=== PATIENT | female | born 1960 ===

== ENCOUNTER 2017-05-24 18:53 | Inpatient (IN) | payer MEDICARE ==
[2017-05-24] MEDS ORDERED: LIDOCAINE TOP PRN (21:00)
[2017-05-24] MEDS: Nystatin Powder 15 GM BOT TOP SCH (22:18)
[2017-05-24] MEDS: Amoxicillin/Potassium Clav 500 MG TAB PO SCH (22:19)
[2017-05-24] MEDS: Furosemide 40 MG TAB PO SCH (22:20)
[2017-05-24] MEDS: Pramipexole Di-HCl 0.25 MG TAB PO SCH (22:20)
[2017-05-24] MEDS: Montelukast Sodium 10 mg Tablet PO SCH (22:20)
[2017-05-24] MEDS: ALPRAZolam 0.5 MG TAB PO PRN (22:20)
[2017-05-24] MEDS: Furosemide 20 MG TAB PO SCH (22:20)
[2017-05-24] MEDS: HYDROcodone/Acetaminophen 7.5/325 mg Tablet PO PRN (22:20)
[2017-05-24] MEDS: Gabapentin 300 MG CAP PO SCH (22:20)
[2017-05-24 22:53] LABS: Bilirubin Negative (Negative); Blood, Urine Trace (Negative); Clarity Clear (Clear); Glucose, Urine (Dipstick) Negative (Negative); Leukocyte Negative (Negative); Nitrite Negative (Negative); Protein, Urine (Dipstick) Negative (Neg-Trace); Urobilinogen 0.2 mg/dL (0.2-1.0)
[2017-05-24 23:01] LABS: Bacteria/HPF None Seen HPF (None Seen); RBC/HPF 0-3 HPF (0-3); Squamous Epithelial 0-3 HPF (0-3); WBC/HPF None Seen HPF (0-3)
[2017-05-25 05:17] LABS: #Basophils 0.2 thou/uL (0.0-0.2); #Eosinphils 0.4 thou/uL (0.0-0.7); #Lymphocytes 1.2 thou/uL (1.20-3.40); #Monocytes 0.8 thou/uL (0.11-0.59); #Neutrophils 5.7 thou/uL (1.40-6.50); %Basophils 2.4 % (0.0-1.0); %Lymphocytes 14.7 % (21.0-51.0); %Monocytes 9.1 % (0.0-10.0); %Neutrophils 68.8 % (42.0-75.0); Hemoglobin 8.8 g/dL (12.0-16.0); Mean Corpuscular HGB CONC 30.4 g/dL (32.0-36.0); Mean Corpuscular Hemoglobin 26.2 pg (27.0-31.0); Mean Corpuscular Volume 86.2 fl (81.0-99.0); Platelet Count 224 thou/uL (130-400); RBC Distribution Width 17.7 % (11.5-14.5); Red Blood Cell (RBC) Count 3.34 mill/uL (4.20-5.40); White Blood Cell (WBC) Count 8.3 thou/uL (4.8-10.8)
[2017-05-25 05:33] LABS: Anion Gap 17 mmol/L (10-20); BUN (Urea Nitrogen) 35 mg/dL (9.8-20.1); Calc. Creatinine Clearance 137 mL/min (70-130); Calcium 9.4 mg/dL (7.8-10.44); Carbon Dioxide 33 mmol/L (22-29); Chloride 92 mmol/L (98-107); Estimated GFR-MDRD 42; Glucose 133 mg/dL (70-105); Potassium 3.7 mmol/L (3.5-5.1); Sodium 138 mmol/L (136-145)
[2017-05-25] MEDS: Acetaminophen 500 MG TAB PO PRN (06:10)
[2017-05-25] MEDS ORDERED: Non-Formulary Item 1 EACH (Spironolact/Hydrochlorothiazid [Aldactazide] 1 TAB) PO SCH (09:00)
[2017-05-25] MEDS ORDERED: Hydrochlorothiazide 25 MG TAB PO SCH (09:00)
[2017-05-25] MEDS: Amoxicillin/Potassium Clav 500 MG TAB PO SCH ×2 (09:12→21:10)
[2017-05-25] MEDS: Gabapentin 300 MG CAP PO SCH ×3 (09:13→21:11)
[2017-05-25] MEDS: Furosemide 40 MG TAB PO SCH ×2 (09:13→21:10)
[2017-05-25] MEDS: Aspirin 81 mg Enteric Coated Tablet PO SCH (09:13)
[2017-05-25] MEDS: Potassium Chloride 10 MEQ TAB PO SCH ×2 (09:13→17:53)
[2017-05-25] MEDS: Famotidine 20 MG TAB PO SCH ×2 (09:13→21:10)
[2017-05-25] MEDS: Ferrous Sulfate 325 MG TAB PO SCH ×3 (09:14→17:53)
[2017-05-25] MEDS: Spironolactone 25 MG TAB PO SCH (09:14)
[2017-05-25] MEDS: Nystatin Powder 15 GM BOT TOP SCH ×3 (09:14→21:11)
[2017-05-25] MEDS: Furosemide 20 MG TAB PO SCH ×2 (09:14→21:10)
[2017-05-25] MEDS: Pramipexole Di-HCl 0.25 MG TAB PO SCH ×2 (09:14→21:11)
[2017-05-25] MEDS: HYDROcodone/Acetaminophen 7.5/325 mg Tablet PO PRN ×2 (09:19→18:15)
[2017-05-25] MEDS: Enoxaparin Sodium 40 MG/0.4 ML SYRINGE SC SCH (17:52)
[2017-05-25] MEDS: Montelukast Sodium 10 mg Tablet PO SCH (21:10)
[2017-05-25] MEDS: ALPRAZolam 0.5 MG TAB PO PRN (21:14)
[2017-05-26] MEDS ORDERED: Amoxicillin/Potassium Clav 500 MG TAB ONE (08:29)
[2017-05-26] MEDS: Ferrous Sulfate 325 MG TAB PO SCH ×3 (08:33→17:24)
[2017-05-26] MEDS: Potassium Chloride 10 MEQ TAB PO SCH ×2 (08:33→17:24)
[2017-05-26] MEDS: Amoxicillin/Potassium Clav 500 MG TAB PO SCH ×2 (08:34→21:26)
[2017-05-26] MEDS: Furosemide 20 MG TAB PO SCH ×2 (08:34→21:26)
[2017-05-26] MEDS: Famotidine 20 MG TAB PO SCH ×2 (08:34→21:26)
[2017-05-26] MEDS: Aspirin 81 mg Enteric Coated Tablet PO SCH (08:34)
[2017-05-26] MEDS: Spironolactone 25 MG TAB PO SCH (08:34)
[2017-05-26] MEDS: Furosemide 40 MG TAB PO SCH ×2 (08:34→21:26)
[2017-05-26] MEDS: Gabapentin 300 MG CAP PO SCH ×3 (08:35→21:27)
[2017-05-26] MEDS: Nystatin Powder 15 GM BOT TOP SCH ×3 (08:36→21:27)
[2017-05-26] MEDS: Pramipexole Di-HCl 0.25 MG TAB PO SCH ×2 (08:36→21:27)
[2017-05-26] MEDS: HYDROcodone/Acetaminophen 7.5/325 mg Tablet PO PRN (11:45)
[2017-05-26] MEDS: Enoxaparin Sodium 40 MG/0.4 ML SYRINGE SC SCH (17:24)
[2017-05-26] MEDS: ALPRAZolam 0.5 MG TAB PO PRN (21:27)
[2017-05-26] MEDS: Montelukast Sodium 10 mg Tablet PO SCH (21:27)
[2017-05-26] MEDS: Albuterol Sulfate 2.5 mg/3 ml Neb NEB PRN (22:07)
[2017-05-27] MEDS: HYDROcodone/Acetaminophen 7.5/325 mg Tablet PO PRN (04:37)
[2017-05-27] MEDS: Aspirin 81 mg Enteric Coated Tablet PO SCH (08:29)
[2017-05-27] MEDS: Ferrous Sulfate 325 MG TAB PO SCH ×3 (08:29→16:41)
[2017-05-27] MEDS: Spironolactone 25 MG TAB PO SCH (08:29)
[2017-05-27] MEDS: Potassium Chloride 10 MEQ TAB PO SCH ×2 (08:29→16:41)
[2017-05-27] MEDS: Famotidine 20 MG TAB PO SCH ×2 (08:29→22:01)
[2017-05-27] MEDS: Furosemide 20 MG TAB PO SCH ×2 (08:30→22:00)
[2017-05-27] MEDS: Pramipexole Di-HCl 0.25 MG TAB PO SCH ×2 (08:30→22:00)
[2017-05-27] MEDS: Gabapentin 300 MG CAP PO SCH ×3 (08:30→21:59)
[2017-05-27] MEDS: Furosemide 40 MG TAB PO SCH ×2 (08:30→21:59)
[2017-05-27] MEDS: Acetaminophen 500 MG TAB PO PRN ×2 (08:31→16:41)
[2017-05-27] MEDS: Nystatin Powder 15 GM BOT TOP SCH ×3 (08:34→22:00)
[2017-05-27] MEDS ORDERED: Amoxicillin/Potassium Clav 500 MG TAB ONE (08:41)
[2017-05-27] MEDS: Amoxicillin/Potassium Clav 500 MG TAB PO SCH ×2 (08:44→21:58)
[2017-05-27] MEDS: Albuterol Sulfate 2.5 mg/3 ml Neb NEB PRN (14:20)
[2017-05-27] MEDS: Enoxaparin Sodium 40 MG/0.4 ML SYRINGE SC SCH (17:07)
[2017-05-27] MEDS: Montelukast Sodium 10 mg Tablet PO SCH (21:58)
[2017-05-27] MEDS: ALPRAZolam 0.5 MG TAB PO PRN (21:59)
[2017-05-28 05:21] LABS: Anisocytosis MODERATE=16-30 cells (100X) (0-5/hpf); Band 6 % (5-11); Elliptocytes SLIGHT = 2-5 cells (100X) (0-1/hpf); Eosinophils 6 % (0-10); Hemoglobin 8.7 g/dL (12.0-16.0); Hypochromia SLIGHT = 6-15 cells (100X) (0-5/hpf); Lymphocytes 20 % (21-51); MDiff Complete? YES; Mean Corpuscular HGB CONC 30.5 g/dL (32.0-36.0); Mean Corpuscular Hemoglobin 26.2 pg (27.0-31.0); Mean Corpuscular Volume 86.1 fl (81.0-99.0); Mean Platelet Volume 5.9 fL (7.4-10.4); Monocytes 7 % (0-10); Neutrophil 61 % (42-75); Ovalocytes SLIGHT = 2-5 cells (100X) (0-1/hpf); Platelet Count 203 thou/uL (130-400); RBC Distribution Width 18.6 % (11.5-14.5); Red Blood Cell (RBC) Count 3.32 mill/uL (4.20-5.40)
[2017-05-28 05:32] LABS: Anion Gap 16 mmol/L (10-20); BUN (Urea Nitrogen) 40 mg/dL (9.8-20.1); Calc. Creatinine Clearance 136 mL/min (70-130); Calcium 9.3 mg/dL (7.8-10.44); Carbon Dioxide 30 mmol/L (22-29); Chloride 94 mmol/L (98-107); Estimated GFR-MDRD 42; Glucose 116 mg/dL (70-105); Potassium 4.6 mmol/L (3.5-5.1); Sodium 135 mmol/L (136-145)
[2017-05-28] MEDS: Potassium Chloride 10 MEQ TAB PO SCH ×2 (08:58→17:06)
[2017-05-28] MEDS: Ferrous Sulfate 325 MG TAB PO SCH ×3 (08:59→17:05)
[2017-05-28] MEDS: Spironolactone 25 MG TAB PO SCH (08:59)
[2017-05-28] MEDS: Pramipexole Di-HCl 0.25 MG TAB PO SCH ×2 (09:55→21:39)
[2017-05-28] MEDS: Nystatin Powder 15 GM BOT TOP SCH ×3 (09:55→21:40)
[2017-05-28] MEDS: Gabapentin 300 MG CAP PO SCH ×3 (09:55→21:38)
[2017-05-28] MEDS: Famotidine 20 MG TAB PO SCH ×2 (09:55→21:38)
[2017-05-28] MEDS: Amoxicillin/Potassium Clav 500 MG TAB PO SCH ×2 (09:55→21:38)
[2017-05-28] MEDS: Aspirin 81 mg Enteric Coated Tablet PO SCH (09:58)
[2017-05-28] MEDS: Furosemide 20 MG TAB PO SCH ×2 (09:59→21:38)
[2017-05-28] MEDS: Furosemide 40 MG TAB PO SCH ×2 (09:59→21:38)
[2017-05-28] MEDS: HYDROcodone/Acetaminophen 7.5/325 mg Tablet PO PRN (12:38)
[2017-05-28] MEDS: Albuterol Sulfate 2.5 mg/3 ml Neb NEB PRN (14:50)
[2017-05-28] MEDS: ALPRAZolam 0.5 MG TAB PO PRN (17:05)
[2017-05-28] MEDS: Enoxaparin Sodium 40 MG/0.4 ML SYRINGE SC SCH (17:06)
[2017-05-28] MEDS: Montelukast Sodium 10 mg Tablet PO SCH (21:39)
[2017-05-29] MEDS: Spironolactone 25 MG TAB PO SCH (09:14)
[2017-05-29] MEDS: Amoxicillin/Potassium Clav 500 MG TAB PO SCH ×2 (09:15→21:04)
[2017-05-29] MEDS: Furosemide 40 MG TAB PO SCH ×2 (09:15→21:04)
[2017-05-29] MEDS: Gabapentin 300 MG CAP PO SCH ×3 (09:15→21:04)
[2017-05-29] MEDS: Aspirin 81 mg Enteric Coated Tablet PO SCH (09:15)
[2017-05-29] MEDS: Furosemide 20 MG TAB PO SCH ×2 (09:15→21:04)
[2017-05-29] MEDS: Pramipexole Di-HCl 0.25 MG TAB PO SCH ×2 (09:15→21:04)
[2017-05-29] MEDS: Ferrous Sulfate 325 MG TAB PO SCH ×3 (09:16→17:35)
[2017-05-29] MEDS: Famotidine 20 MG TAB PO SCH ×2 (09:16→21:05)
[2017-05-29] MEDS: Potassium Chloride 10 MEQ TAB PO SCH ×2 (09:16→17:35)
[2017-05-29] MEDS: Nystatin Powder 15 GM BOT TOP SCH ×3 (09:16→21:08)
[2017-05-29] MEDS ORDERED: Lidocaine 5% Patch TD PRN ×2 (11:54→12:02)
[2017-05-29] MEDS: Albuterol Sulfate 2.5 mg/3 ml Neb NEB PRN (16:02)
[2017-05-29] MEDS: Enoxaparin Sodium 40 MG/0.4 ML SYRINGE SC SCH (17:35)
[2017-05-29] MEDS: Montelukast Sodium 10 mg Tablet PO SCH (21:05)
[2017-05-29] MEDS: ALPRAZolam 0.25 MG TAB PO PRN (21:05)
[2017-05-30] MEDS: Amoxicillin/Potassium Clav 500 MG TAB PO SCH ×2 (08:44→20:33)
[2017-05-30] MEDS: Spironolactone 25 MG TAB PO SCH (08:44)
[2017-05-30] MEDS: Famotidine 20 MG TAB PO SCH ×2 (08:45→20:33)
[2017-05-30] MEDS: Aspirin 81 mg Enteric Coated Tablet PO SCH (08:45)
[2017-05-30] MEDS: Pramipexole Di-HCl 0.25 MG TAB PO SCH ×2 (08:46→20:33)
[2017-05-30] MEDS: Furosemide 40 MG TAB PO SCH ×2 (08:46→20:33)
[2017-05-30] MEDS: Potassium Chloride 10 MEQ TAB PO SCH ×2 (08:46→17:36)
[2017-05-30] MEDS: Furosemide 20 MG TAB PO SCH ×2 (08:46→20:33)
[2017-05-30] MEDS: Ferrous Sulfate 325 MG TAB PO SCH ×3 (08:48→17:36)
[2017-05-30] MEDS: Gabapentin 300 MG CAP PO SCH ×3 (08:48→20:33)
[2017-05-30] MEDS: Nystatin Powder 15 GM BOT TOP SCH ×3 (08:49→20:33)
[2017-05-30] MEDS: Milk Of Magnesia 30 ML UDCUP PO PRN (11:42)
[2017-05-30] MEDS: Enoxaparin Sodium 40 MG/0.4 ML SYRINGE SC SCH (17:36)
[2017-05-30] MEDS: Montelukast Sodium 10 mg Tablet PO SCH (20:31)
[2017-05-31] MEDS: HYDROcodone/Acetaminophen 7.5/325 mg Tablet PO PRN ×2 (04:38→21:18)
[2017-05-31 05:55] LABS: Hemoglobin 8.7 g/dL (12.0-16.0); Platelet Count 229 thou/uL (130-400)
[2017-05-31] MEDS: Spironolactone 25 MG TAB PO SCH (08:20)
[2017-05-31] MEDS: Ferrous Sulfate 325 MG TAB PO SCH ×3 (08:20→17:17)
[2017-05-31] MEDS: Nystatin Powder 15 GM BOT TOP SCH ×3 (09:15→20:59)
[2017-05-31] MEDS: Gabapentin 300 MG CAP PO SCH ×3 (09:26→20:58)
[2017-05-31] MEDS: Aspirin 81 mg Enteric Coated Tablet PO SCH (09:26)
[2017-05-31] MEDS: Amoxicillin/Potassium Clav 500 MG TAB PO SCH ×2 (09:26→20:58)
[2017-05-31] MEDS: Potassium Chloride 10 MEQ TAB PO SCH ×2 (09:26→17:17)
[2017-05-31] MEDS: Famotidine 20 MG TAB PO SCH ×2 (09:26→20:59)
[2017-05-31] MEDS: Furosemide 40 MG TAB PO SCH ×2 (09:27→20:58)
[2017-05-31] MEDS: Pramipexole Di-HCl 0.25 MG TAB PO SCH ×2 (09:27→20:58)
[2017-05-31] MEDS: Furosemide 20 MG TAB PO SCH ×2 (09:27→20:58)
[2017-05-31] MEDS: Polyethylene Glycol 3350 17 GM Packet PO SCH (09:27)
[2017-05-31] MEDS: Enoxaparin Sodium 40 MG/0.4 ML SYRINGE SC SCH (17:18)
[2017-05-31] MEDS: Montelukast Sodium 10 mg Tablet PO SCH (20:58)
[2017-06-01] MEDS: Ferrous Sulfate 325 MG TAB PO SCH ×3 (08:50→20:42)
[2017-06-01] MEDS: Pramipexole Di-HCl 0.25 MG TAB PO SCH ×2 (08:50→21:24)
[2017-06-01] MEDS: Potassium Chloride 10 MEQ TAB PO SCH ×2 (08:50→20:42)
[2017-06-01] MEDS: Gabapentin 300 MG CAP PO SCH ×3 (08:51→21:23)
[2017-06-01] MEDS: Furosemide 20 MG TAB PO SCH ×2 (08:51→21:24)
[2017-06-01] MEDS: Amoxicillin/Potassium Clav 500 MG TAB PO SCH ×2 (08:51→21:21)
[2017-06-01] MEDS: Famotidine 20 MG TAB PO SCH ×2 (08:52→21:24)
[2017-06-01] MEDS: Polyethylene Glycol 3350 17 GM Packet PO SCH (08:52)
[2017-06-01] MEDS: Aspirin 81 mg Enteric Coated Tablet PO SCH (08:52)
[2017-06-01] MEDS: Nystatin Powder 15 GM BOT TOP SCH ×3 (08:52→21:25)
[2017-06-01] MEDS: Furosemide 40 MG TAB PO SCH ×2 (08:52→21:23)
[2017-06-01] MEDS: Spironolactone 25 MG TAB PO SCH (08:54)
[2017-06-01] MEDS: Enoxaparin Sodium 40 MG/0.4 ML SYRINGE SC SCH (20:43)
[2017-06-01] MEDS: Montelukast Sodium 10 mg Tablet PO SCH (21:23)
[2017-06-01] MEDS: HYDROcodone/Acetaminophen 7.5/325 mg Tablet PO PRN (21:23)
[2017-06-02 05:51] LABS: #Basophils 0.2 thou/uL (0.0-0.2); #Eosinphils 0.4 thou/uL (0.0-0.7); #Lymphocytes 1.3 thou/uL (1.20-3.40); #Monocytes 0.7 thou/uL (0.11-0.59); #Neutrophils 4.1 thou/uL (1.40-6.50); %Basophils 2.6 % (0.0-1.0); %Eosinophils 5.5 % (0.0-10.0); %Monocytes 10.4 % (0.0-10.0); %Neutrophils 61.5 % (42.0-75.0); Anion Gap 17 mmol/L (10-20); BUN (Urea Nitrogen) 48 mg/dL (9.8-20.1); Calc. Creatinine Clearance 114 mL/min (70-130); Calcium 9.3 mg/dL (7.8-10.44); Carbon Dioxide 27 mmol/L (22-29); Chloride 97 mmol/L (98-107); Estimated GFR-MDRD 33; Glucose 115 mg/dL (70-105); Hemoglobin 8.3 g/dL (12.0-16.0); Mean Corpuscular HGB CONC 31.5 g/dL (32.0-36.0); Mean Corpuscular Volume 85.7 fl (81.0-99.0); Mean Platelet Volume 6.1 fL (7.4-10.4); Platelet Count 228 thou/uL (130-400); RBC Distribution Width 18.3 % (11.5-14.5); Red Blood Cell (RBC) Count 3.09 mill/uL (4.20-5.40); Sodium 136 mmol/L (136-145); White Blood Cell (WBC) Count 6.6 thou/uL (4.8-10.8)
[2017-06-02] MEDS: Ferrous Sulfate 325 MG TAB PO SCH ×3 (08:04→17:36)
[2017-06-02] MEDS: Potassium Chloride 10 MEQ TAB PO SCH ×2 (08:05→17:36)
[2017-06-02] MEDS: Spironolactone 25 MG TAB PO SCH (08:06)
[2017-06-02] MEDS: Polyethylene Glycol 3350 17 GM Packet PO SCH (09:08)
[2017-06-02] MEDS: Gabapentin 300 MG CAP PO SCH ×3 (09:09→21:35)
[2017-06-02] MEDS: Amoxicillin/Potassium Clav 500 MG TAB PO SCH ×2 (09:09→22:04)
[2017-06-02] MEDS: Pramipexole Di-HCl 0.25 MG TAB PO SCH ×3 (09:09→21:40)
[2017-06-02] MEDS: Nystatin Powder 15 GM BOT TOP SCH ×3 (09:09→21:35)
[2017-06-02] MEDS: Famotidine 20 MG TAB PO SCH ×2 (09:09→21:35)
[2017-06-02] MEDS: Furosemide 20 MG TAB PO SCH ×2 (09:10→21:35)
[2017-06-02] MEDS: Aspirin 81 mg Enteric Coated Tablet PO SCH (09:10)
[2017-06-02] MEDS: Furosemide 40 MG TAB PO SCH ×2 (09:10→21:35)
[2017-06-02] MEDS: Milk Of Magnesia 30 ML UDCUP PO PRN (09:39)
[2017-06-02] MEDS: Furosemide 40 MG/4 ML VIAL SLOW IVP SCH (13:45)
[2017-06-02] MEDS: Enoxaparin Sodium 40 MG/0.4 ML SYRINGE SC SCH (17:36)
[2017-06-02] MEDS: Montelukast Sodium 10 mg Tablet PO SCH (21:36)
[2017-06-03] MEDS: Furosemide 40 MG/4 ML VIAL SLOW IVP SCH ×2 (05:35→14:15)
[2017-06-03 07:10] LABS: Anion Gap 17 mmol/L (10-20); BUN (Urea Nitrogen) 46 mg/dL (9.8-20.1); Calc. Creatinine Clearance 123 mL/min (70-130); Calcium 9.3 mg/dL (7.8-10.44); Carbon Dioxide 28 mmol/L (22-29); Chloride 96 mmol/L (98-107); Estimated GFR-MDRD 36; Glucose 112 mg/dL (70-105); Potassium 4.7 mmol/L (3.5-5.1); Sodium 136 mmol/L (136-145)
[2017-06-03] MEDS: Nystatin Powder 15 GM BOT TOP SCH ×3 (08:40→21:14)
[2017-06-03] MEDS: Amoxicillin/Potassium Clav 500 MG TAB PO SCH ×2 (08:41→21:13)
[2017-06-03] MEDS: Polyethylene Glycol 3350 17 GM Packet PO SCH (08:41)
[2017-06-03] MEDS: Famotidine 20 MG TAB PO SCH ×2 (08:42→21:13)
[2017-06-03] MEDS: Gabapentin 300 MG CAP PO SCH ×3 (08:42→21:13)
[2017-06-03] MEDS: Spironolactone 25 MG TAB PO SCH (08:42)
[2017-06-03] MEDS: Furosemide 20 MG TAB PO SCH ×2 (08:42→21:13)
[2017-06-03] MEDS: Potassium Chloride 10 MEQ TAB PO SCH ×2 (08:43→17:35)
[2017-06-03] MEDS: Pramipexole Di-HCl 0.25 MG TAB PO SCH ×2 (08:43→21:13)
[2017-06-03] MEDS: Aspirin 81 mg Enteric Coated Tablet PO SCH (08:43)
[2017-06-03] MEDS: Furosemide 40 MG TAB PO SCH ×2 (08:43→21:13)
[2017-06-03] MEDS: Ferrous Sulfate 325 MG TAB PO SCH ×3 (08:43→17:35)
[2017-06-03] MEDS: Enoxaparin Sodium 40 MG/0.4 ML SYRINGE SC SCH (17:35)
[2017-06-03] MEDS: Montelukast Sodium 10 mg Tablet PO SCH (21:13)
[2017-06-04] MEDS: ALPRAZolam 0.25 MG TAB PO PRN (00:43)
[2017-06-04 05:55] LABS: Anion Gap 15 mmol/L (10-20); BUN (Urea Nitrogen) 44 mg/dL (9.8-20.1); Calc. Creatinine Clearance 124 mL/min (70-130); Calcium 9.2 mg/dL (7.8-10.44); Carbon Dioxide 30 mmol/L (22-29); Chloride 96 mmol/L (98-107); Estimated GFR-MDRD 37; Glucose 115 mg/dL (70-105); Potassium 4.5 mmol/L (3.5-5.1); Sodium 136 mmol/L (136-145)
[2017-06-04] MEDS: Spironolactone 25 MG TAB PO SCH (08:05)
[2017-06-04] MEDS: Potassium Chloride 10 MEQ TAB PO SCH ×2 (08:05→17:18)
[2017-06-04] MEDS: Ferrous Sulfate 325 MG TAB PO SCH ×3 (08:05→17:18)
[2017-06-04] MEDS: Polyethylene Glycol 3350 17 GM Packet PO SCH (09:00)
[2017-06-04] MEDS: Aspirin 81 mg Enteric Coated Tablet PO SCH (09:03)
[2017-06-04] MEDS: Amoxicillin/Potassium Clav 500 MG TAB PO SCH ×2 (09:03→21:30)
[2017-06-04] MEDS: Famotidine 20 MG TAB PO SCH ×2 (09:04→21:32)
[2017-06-04] MEDS: Furosemide 40 MG/4 ML VIAL SLOW IVP SCH (09:05)
[2017-06-04] MEDS: Furosemide 40 MG TAB PO SCH ×2 (09:05→21:32)
[2017-06-04] MEDS: Furosemide 20 MG TAB PO SCH ×2 (09:05→21:32)
[2017-06-04] MEDS: Pramipexole Di-HCl 0.25 MG TAB PO SCH ×2 (09:06→21:31)
[2017-06-04] MEDS: Gabapentin 300 MG CAP PO SCH ×3 (09:07→21:31)
[2017-06-04] MEDS: Nystatin Powder 15 GM BOT TOP SCH ×3 (09:07→21:32)
[2017-06-04] MEDS: Acetaminophen 500 MG TAB PO PRN (11:14)
[2017-06-04] MEDS: Enoxaparin Sodium 40 MG/0.4 ML SYRINGE SC SCH (17:20)
[2017-06-04] MEDS: Montelukast Sodium 10 mg Tablet PO SCH (21:32)
[2017-06-05] MEDS: Potassium Chloride 10 MEQ TAB PO SCH ×2 (08:05→17:23)
[2017-06-05] MEDS: Spironolactone 25 MG TAB PO SCH (08:05)
[2017-06-05] MEDS: Ferrous Sulfate 325 MG TAB PO SCH ×3 (08:10→17:23)
[2017-06-05] MEDS: Polyethylene Glycol 3350 17 GM Packet PO SCH (09:07)
[2017-06-05] MEDS: Nystatin Powder 15 GM BOT TOP SCH ×3 (09:09→20:37)
[2017-06-05] MEDS: Furosemide 40 MG/4 ML VIAL SLOW IVP SCH (09:09)
[2017-06-05] MEDS: Famotidine 20 MG TAB PO SCH ×2 (09:10→20:35)
[2017-06-05] MEDS: Amoxicillin/Potassium Clav 500 MG TAB PO SCH ×2 (09:10→20:35)
[2017-06-05] MEDS: Pramipexole Di-HCl 0.25 MG TAB PO SCH ×2 (09:10→20:36)
[2017-06-05] MEDS: Aspirin 81 mg Enteric Coated Tablet PO SCH (09:11)
[2017-06-05] MEDS: Gabapentin 300 MG CAP PO SCH ×4 (09:11→20:35)
[2017-06-05] MEDS: Enoxaparin Sodium 40 MG/0.4 ML SYRINGE SC SCH (17:23)
[2017-06-05] MEDS: Acetaminophen 500 MG TAB PO PRN (19:49)
[2017-06-05] MEDS: Furosemide 40 MG TAB PO SCH (20:36)
[2017-06-05] MEDS: Montelukast Sodium 10 mg Tablet PO SCH (20:36)
[2017-06-05] MEDS: Furosemide 20 MG TAB PO SCH (20:36)
[2017-06-06] MEDS: Acetaminophen 500 MG TAB PO PRN ×2 (04:02→16:33)
[2017-06-06 07:11] LABS: Hemoglobin 7.3 g/dL (12.0-16.0); Platelet Count 178 thou/uL (130-400)
[2017-06-06] MEDS: Aspirin 81 mg Enteric Coated Tablet PO SCH (08:49)
[2017-06-06] MEDS: Amoxicillin/Potassium Clav 500 MG TAB PO SCH ×2 (08:49→21:18)
[2017-06-06] MEDS: Famotidine 20 MG TAB PO SCH ×2 (08:49→21:18)
[2017-06-06] MEDS: Gabapentin 300 MG CAP PO SCH ×3 (08:49→21:19)
[2017-06-06] MEDS: Polyethylene Glycol 3350 17 GM Packet PO SCH (08:50)
[2017-06-06] MEDS: Furosemide 40 MG/4 ML VIAL SLOW IVP SCH (08:50)
[2017-06-06] MEDS: Spironolactone 25 MG TAB PO SCH (08:50)
[2017-06-06] MEDS: Pramipexole Di-HCl 0.25 MG TAB PO SCH ×2 (08:50→21:20)
[2017-06-06] MEDS: Ferrous Sulfate 325 MG TAB PO SCH ×3 (08:50→16:33)
[2017-06-06] MEDS: Potassium Chloride 10 MEQ TAB PO SCH ×2 (08:50→16:33)
[2017-06-06] MEDS: Nystatin Powder 15 GM BOT TOP SCH ×3 (08:54→21:19)
[2017-06-06] MEDS: Enoxaparin Sodium 40 MG/0.4 ML SYRINGE SC SCH (17:51)
[2017-06-06] MEDS: Furosemide 20 MG TAB PO SCH (21:19)
[2017-06-06] MEDS: Montelukast Sodium 10 mg Tablet PO SCH (21:19)
[2017-06-06] MEDS: Furosemide 40 MG TAB PO SCH (21:19)
[2017-06-07] MEDS: Acetaminophen 500 MG TAB PO PRN ×2 (03:35→21:08)
[2017-06-07] MEDS: Nystatin Powder 15 GM BOT TOP SCH ×3 (08:23→21:07)
[2017-06-07] MEDS: Ferrous Sulfate 325 MG TAB PO SCH ×3 (08:24→16:59)
[2017-06-07] MEDS: Amoxicillin/Potassium Clav 500 MG TAB PO SCH ×2 (08:24→21:05)
[2017-06-07] MEDS: Spironolactone 25 MG TAB PO SCH (08:24)
[2017-06-07] MEDS: Famotidine 20 MG TAB PO SCH ×2 (08:25→21:06)
[2017-06-07] MEDS: Potassium Chloride 10 MEQ TAB PO SCH ×2 (08:25→16:59)
[2017-06-07] MEDS: Aspirin 81 mg Enteric Coated Tablet PO SCH (08:25)
[2017-06-07] MEDS: Furosemide 80 MG TAB PO SCH ×2 (08:25→21:06)
[2017-06-07] MEDS: Gabapentin 300 MG CAP PO SCH ×3 (08:25→21:06)
[2017-06-07] MEDS: Pramipexole Di-HCl 0.25 MG TAB PO SCH ×2 (08:25→21:07)
[2017-06-07] MEDS: Polyethylene Glycol 3350 17 GM Packet PO SCH (08:26)
[2017-06-07] MEDS: Enoxaparin Sodium 40 MG/0.4 ML SYRINGE SC SCH (16:59)
[2017-06-07] MEDS: Montelukast Sodium 10 mg Tablet PO SCH (21:06)
[2017-06-08] MEDS: HYDROcodone/Acetaminophen 7.5/325 mg Tablet PO PRN (01:59)
[2017-06-08 05:28] LABS: Anisocytosis MODERATE=16-30 cells (100X) (0-5/hpf); Eosinophils 5 % (0-10); Hemoglobin 7.7 g/dL (12.0-16.0); Lymphocytes 20 % (21-51); MDiff Complete? YES; Mean Corpuscular HGB CONC 31.7 g/dL (32.0-36.0); Mean Corpuscular Hemoglobin 27.5 pg (27.0-31.0); Mean Corpuscular Volume 86.7 fl (81.0-99.0); Mean Platelet Volume 5.5 fL (7.4-10.4); Microcytosis SLIGHT = 6-15 cells (100X) (0-5/hpf); Monocytes 11 % (0-10); Neutrophil 61 % (42-75); PLT Morphology Comment Appears Adequate; Platelet Count 182 thou/uL (130-400); RBC Distribution Width 18.8 % (11.5-14.5); Reactive Lymphocytes 2 % (0-10); Red Blood Cell (RBC) Count 2.79 mill/uL (4.20-5.40); White Blood Cell (WBC) Count 4.4 thou/uL (4.8-10.8)
[2017-06-08 05:33] LABS: Anion Gap 15 mmol/L (10-20); BUN (Urea Nitrogen) 22 mg/dL (9.8-20.1); Calc. Creatinine Clearance 161 mL/min (70-130); Calcium 8.9 mg/dL (7.8-10.44); Carbon Dioxide 33 mmol/L (22-29); Chloride 96 mmol/L (98-107); Estimated GFR-MDRD 51; Glucose 100 mg/dL (70-105); Sodium 140 mmol/L (136-145)
[2017-06-08] MEDS: Polyethylene Glycol 3350 17 GM Packet PO SCH (08:27)
[2017-06-08] MEDS: Gabapentin 300 MG CAP PO SCH ×3 (08:28→21:52)
[2017-06-08] MEDS: Potassium Chloride 10 MEQ TAB PO SCH ×2 (08:28→17:06)
[2017-06-08] MEDS: Amoxicillin/Potassium Clav 500 MG TAB PO SCH ×2 (08:28→21:52)
[2017-06-08] MEDS: Famotidine 20 MG TAB PO SCH ×2 (08:28→21:52)
[2017-06-08] MEDS: Ferrous Sulfate 325 MG TAB PO SCH ×3 (08:28→17:06)
[2017-06-08] MEDS: Furosemide 80 MG TAB PO SCH ×2 (08:28→21:52)
[2017-06-08] MEDS: Spironolactone 25 MG TAB PO SCH (08:29)
[2017-06-08] MEDS: Aspirin 81 mg Enteric Coated Tablet PO SCH (08:29)
[2017-06-08] MEDS: Nystatin Powder 15 GM BOT TOP SCH ×2 (08:29→15:04)
[2017-06-08] MEDS: Pramipexole Di-HCl 0.25 MG TAB PO SCH ×2 (08:29→21:52)
[2017-06-08] MEDS: Acetaminophen 500 MG TAB PO PRN (17:06)
[2017-06-08] MEDS: Enoxaparin Sodium 40 MG/0.4 ML SYRINGE SC SCH (18:27)
[2017-06-08] MEDS: Montelukast Sodium 10 mg Tablet PO SCH (21:52)
[2017-06-08] MEDS: ALPRAZolam 0.25 MG TAB PO PRN (21:52)
[2017-06-09] MEDS: Nystatin Powder 15 GM BOT TOP SCH ×4 (04:26→16:23)
[2017-06-09] MEDS: Potassium Chloride 10 MEQ TAB PO SCH ×2 (08:00→17:28)
[2017-06-09] MEDS: Ferrous Sulfate 325 MG TAB PO SCH ×3 (08:00→17:28)
[2017-06-09] MEDS: Spironolactone 25 MG TAB PO SCH (08:00)
[2017-06-09] MEDS: Polyethylene Glycol 3350 17 GM Packet PO SCH (09:16)
[2017-06-09] MEDS: Amoxicillin/Potassium Clav 500 MG TAB PO SCH ×2 (09:17→21:09)
[2017-06-09] MEDS: Pramipexole Di-HCl 0.25 MG TAB PO SCH ×2 (09:18→21:11)
[2017-06-09] MEDS: Aspirin 81 mg Enteric Coated Tablet PO SCH (09:18)
[2017-06-09] MEDS: Famotidine 20 MG TAB PO SCH ×2 (09:18→21:11)
[2017-06-09] MEDS: Gabapentin 300 MG CAP PO SCH ×3 (09:18→21:10)
[2017-06-09] MEDS: Furosemide 80 MG TAB PO SCH ×2 (09:18→21:11)
[2017-06-09] MEDS: Acetaminophen 500 MG TAB PO PRN (11:25)
[2017-06-09] MEDS: Enoxaparin Sodium 40 MG/0.4 ML SYRINGE SC SCH (17:29)
[2017-06-09] MEDS: Montelukast Sodium 10 mg Tablet PO SCH (21:11)
[2017-06-09] MEDS: ALPRAZolam 0.25 MG TAB PO PRN (21:11)
[2017-06-10] MEDS: Acetaminophen 500 MG TAB PO PRN (02:29)
[2017-06-10 05:10] LABS: Hemoglobin 7.9 g/dL (12.0-16.0); Platelet Count 201 thou/uL (130-400)
[2017-06-10] MEDS: Potassium Chloride 10 MEQ TAB PO SCH ×2 (08:05→17:11)
[2017-06-10] MEDS: Spironolactone 25 MG TAB PO SCH (08:05)
[2017-06-10] MEDS: Ferrous Sulfate 325 MG TAB PO SCH ×3 (08:05→17:11)
[2017-06-10] MEDS: Gabapentin 300 MG CAP PO SCH ×3 (08:56→21:28)
[2017-06-10] MEDS: Aspirin 81 mg Enteric Coated Tablet PO SCH (08:56)
[2017-06-10] MEDS: Amoxicillin/Potassium Clav 500 MG TAB PO SCH ×2 (08:56→21:28)
[2017-06-10] MEDS: Pramipexole Di-HCl 0.25 MG TAB PO SCH ×2 (08:57→21:28)
[2017-06-10] MEDS: Famotidine 20 MG TAB PO SCH ×2 (08:57→21:28)
[2017-06-10] MEDS: Furosemide 80 MG TAB PO SCH ×2 (08:57→21:28)
[2017-06-10] MEDS: Nystatin Powder 15 GM BOT TOP SCH ×3 (08:58→21:26)
[2017-06-10] MEDS: Polyethylene Glycol 3350 17 GM Packet PO SCH (08:59)
[2017-06-10] MEDS: Enoxaparin Sodium 40 MG/0.4 ML SYRINGE SC SCH (18:05)
[2017-06-10] MEDS: Montelukast Sodium 10 mg Tablet PO SCH (21:28)
[2017-06-10] MEDS: ALPRAZolam 0.25 MG TAB PO PRN (21:28)
[2017-06-11] MEDS: Acetaminophen 500 MG TAB PO PRN (00:34)
[2017-06-11] MEDS: Amoxicillin/Potassium Clav 500 MG TAB PO SCH ×2 (09:10→22:00)
[2017-06-11] MEDS: Aspirin 81 mg Enteric Coated Tablet PO SCH (09:10)
[2017-06-11] MEDS: Potassium Chloride 10 MEQ TAB PO SCH ×2 (09:11→17:18)
[2017-06-11] MEDS: Spironolactone 25 MG TAB PO SCH (09:11)
[2017-06-11] MEDS: Ferrous Sulfate 325 MG TAB PO SCH ×3 (09:12→17:19)
[2017-06-11] MEDS: Furosemide 80 MG TAB PO SCH ×2 (09:12→22:02)
[2017-06-11] MEDS: Gabapentin 300 MG CAP PO SCH ×3 (09:12→22:00)
[2017-06-11] MEDS: Pramipexole Di-HCl 0.25 MG TAB PO SCH ×2 (09:12→22:02)
[2017-06-11] MEDS: Famotidine 20 MG TAB PO SCH ×2 (09:12→22:01)
[2017-06-11] MEDS: Polyethylene Glycol 3350 17 GM Packet PO SCH (09:13)
[2017-06-11] MEDS: Nystatin Powder 15 GM BOT TOP SCH ×3 (09:13→22:03)
[2017-06-11] MEDS: Enoxaparin Sodium 40 MG/0.4 ML SYRINGE SC SCH (17:19)
[2017-06-11] MEDS ORDERED: ALPRAZolam 0.25 MG TAB PO SCH (22:00)
[2017-06-11] MEDS: Montelukast Sodium 10 mg Tablet PO SCH (22:01)
[2017-06-12] MEDS: Acetaminophen 500 MG TAB PO PRN (04:34)
[2017-06-12 05:20] LABS: #Basophils 0.1 thou/uL (0.0-0.2); #Eosinphils 0.4 thou/uL (0.0-0.7); #Lymphocytes 1.1 thou/uL (1.20-3.40); #Monocytes 0.6 thou/uL (0.11-0.59); %Basophils 1.7 % (0.0-1.0); %Eosinophils 5.4 % (0.0-10.0); %Lymphocytes 15.2 % (21.0-51.0); %Monocytes 7.7 % (0.0-10.0); %Neutrophils 70.1 % (42.0-75.0); Anisocytosis MODERATE=16-30 cells (100X) (0-5/hpf); Elliptocytes SLIGHT = 2-5 cells (100X) (0-1/hpf); Hemoglobin 8.8 g/dL (12.0-16.0); MDiff Complete? YES; Mean Corpuscular HGB CONC 29.9 g/dL (32.0-36.0); Mean Corpuscular Hemoglobin 26.9 pg (27.0-31.0); Mean Platelet Volume 5.6 fL (7.4-10.4); Microcytosis MODERATE=15-30 cells (100X) (0-5/hpf); Ovalocytes SLIGHT = 2-5 cells (100X) (0-1/hpf); Platelet Count 250 thou/uL (130-400); RBC Distribution Width 19.1 % (11.5-14.5); Red Blood Cell (RBC) Count 3.26 mill/uL (4.20-5.40); Target Cells SLIGHT = 2-5 cells (100X) (0-1/hpf); White Blood Cell (WBC) Count 7.1 thou/uL (4.8-10.8)
[2017-06-12 05:30] LABS: Anion Gap 16 mmol/L (10-20); BUN (Urea Nitrogen) 22 mg/dL (9.8-20.1); Calc. Creatinine Clearance 142 mL/min (70-130); Calcium 9.4 mg/dL (7.8-10.44); Carbon Dioxide 33 mmol/L (22-29); Chloride 93 mmol/L (98-107); Estimated GFR-MDRD 45; Glucose 102 mg/dL (70-105); Potassium 4.4 mmol/L (3.5-5.1); Sodium 138 mmol/L (136-145)
[2017-06-12] MEDS: Polyethylene Glycol 3350 17 GM Packet PO SCH (08:29)
[2017-06-12] MEDS: Ferrous Sulfate 325 MG TAB PO SCH ×3 (08:29→17:40)
[2017-06-12] MEDS: Famotidine 20 MG TAB PO SCH ×2 (08:29→21:29)
[2017-06-12] MEDS: Aspirin 81 mg Enteric Coated Tablet PO SCH (08:30)
[2017-06-12] MEDS: Potassium Chloride 10 MEQ TAB PO SCH ×2 (08:30→17:40)
[2017-06-12] MEDS: Spironolactone 25 MG TAB PO SCH (08:30)
[2017-06-12] MEDS: Amoxicillin/Potassium Clav 500 MG TAB PO SCH ×2 (08:30→21:27)
[2017-06-12] MEDS: Gabapentin 300 MG CAP PO SCH ×3 (08:30→21:29)
[2017-06-12] MEDS: Pramipexole Di-HCl 0.25 MG TAB PO SCH ×2 (08:31→21:29)
[2017-06-12] MEDS: Furosemide 80 MG TAB PO SCH ×2 (08:31→21:29)
[2017-06-12] MEDS: Nystatin Powder 15 GM BOT TOP SCH ×3 (08:32→21:30)
[2017-06-12] MEDS: HYDROcodone/Acetaminophen 7.5/325 mg Tablet PO PRN (11:19)
[2017-06-12] MEDS: Enoxaparin Sodium 40 MG/0.4 ML SYRINGE SC SCH (17:40)
[2017-06-12] MEDS: ALPRAZolam 0.25 MG TAB PO PRN (21:28)
[2017-06-12] MEDS: Montelukast Sodium 10 mg Tablet PO SCH (21:30)
[2017-06-13] MEDS: Ferrous Sulfate 325 MG TAB PO SCH ×3 (08:00→17:10)
[2017-06-13] MEDS: Potassium Chloride 10 MEQ TAB PO SCH ×2 (08:00→17:05)
[2017-06-13] MEDS: Spironolactone 25 MG TAB PO SCH (08:00)
[2017-06-13] MEDS: Nystatin Powder 15 GM BOT TOP SCH ×3 (09:00→21:28)
[2017-06-13] MEDS: Famotidine 20 MG TAB PO SCH ×2 (09:00→21:26)
[2017-06-13] MEDS: Furosemide 80 MG TAB PO SCH ×2 (09:00→21:26)
[2017-06-13] MEDS: Aspirin 81 mg Enteric Coated Tablet PO SCH (09:05)
[2017-06-13] MEDS: Polyethylene Glycol 3350 17 GM Packet PO SCH (09:05)
[2017-06-13] MEDS: Gabapentin 300 MG CAP PO SCH ×3 (09:05→21:26)
[2017-06-13] MEDS: Pramipexole Di-HCl 0.25 MG TAB PO SCH ×2 (09:05→21:26)
[2017-06-13] MEDS: Amoxicillin/Potassium Clav 500 MG TAB PO SCH ×2 (09:25→21:26)
[2017-06-13] MEDS: Acetaminophen 500 MG TAB PO PRN (12:44)
[2017-06-13] MEDS: Enoxaparin Sodium 40 MG/0.4 ML SYRINGE SC SCH (18:21)
[2017-06-13] MEDS: Montelukast Sodium 10 mg Tablet PO SCH (21:26)
[2017-06-14 06:03] LABS: Anion Gap 15 mmol/L (10-20); BUN (Urea Nitrogen) 22 mg/dL (9.8-20.1); Calc. Creatinine Clearance 137 mL/min (70-130); Calcium 9.3 mg/dL (7.8-10.44); Carbon Dioxide 34 mmol/L (22-29); Chloride 96 mmol/L (98-107); Estimated GFR-MDRD 44; Glucose 105 mg/dL (70-105); Potassium 4.5 mmol/L (3.5-5.1); Sodium 140 mmol/L (136-145)
[2017-06-14 06:08] LABS: #Basophils 0.1 thou/uL (0.0-0.2); #Eosinphils 0.3 thou/uL (0.0-0.7); #Lymphocytes 1.1 thou/uL (1.20-3.40); #Monocytes 0.4 thou/uL (0.11-0.59); #Neutrophils 3.6 thou/uL (1.40-6.50); %Eosinophils 4.9 % (0.0-10.0); %Lymphocytes 20.3 % (21.0-51.0); %Monocytes 7.8 % (0.0-10.0); Anisocytosis SLIGHT = 6-15 cells (100X) (0-5/hpf); Hemoglobin 8.3 g/dL (12.0-16.0); Hypochromia MODERATE=16-30 cells (100X) (0-5/hpf); MDiff Complete? YES; Mean Corpuscular HGB CONC 30.1 g/dL (32.0-36.0); Mean Corpuscular Hemoglobin 27.2 pg (27.0-31.0); Mean Corpuscular Volume 90.4 fl (81.0-99.0); Mean Platelet Volume 6.1 fL (7.4-10.4); PLT Morphology Comment Appears Adequate; Platelet Count 218 thou/uL (130-400); RBC Distribution Width 19.1 % (11.5-14.5); Red Blood Cell (RBC) Count 3.07 mill/uL (4.20-5.40); White Blood Cell (WBC) Count 5.4 thou/uL (4.8-10.8)
[2017-06-14] MEDS: Ferrous Sulfate 325 MG TAB PO SCH ×3 (08:05→16:42)
[2017-06-14] MEDS: Potassium Chloride 10 MEQ TAB PO SCH ×2 (08:05→16:42)
[2017-06-14] MEDS: Spironolactone 25 MG TAB PO SCH (08:10)
[2017-06-14] MEDS: Polyethylene Glycol 3350 17 GM Packet PO SCH (08:32)
[2017-06-14] MEDS: Aspirin 81 mg Enteric Coated Tablet PO SCH (08:33)
[2017-06-14] MEDS: Gabapentin 300 MG CAP PO SCH ×3 (08:33→21:26)
[2017-06-14] MEDS: Amoxicillin/Potassium Clav 500 MG TAB PO SCH ×2 (08:33→21:26)
[2017-06-14] MEDS: Furosemide 80 MG TAB PO SCH ×2 (08:34→21:26)
[2017-06-14] MEDS: Famotidine 20 MG TAB PO SCH ×2 (08:34→21:26)
[2017-06-14] MEDS: Pramipexole Di-HCl 0.25 MG TAB PO SCH ×2 (08:35→21:26)
[2017-06-14] MEDS: Nystatin Powder 15 GM BOT TOP SCH ×3 (08:36→21:27)
[2017-06-14] MEDS: Acetaminophen 500 MG TAB PO PRN (16:42)
[2017-06-14] MEDS: Enoxaparin Sodium 40 MG/0.4 ML SYRINGE SC SCH (18:15)
[2017-06-14] MEDS: Montelukast Sodium 10 mg Tablet PO SCH (21:26)
[2017-06-15] MEDS: Amoxicillin/Potassium Clav 500 MG TAB PO SCH ×2 (08:59→21:25)
[2017-06-15] MEDS: Aspirin 81 mg Enteric Coated Tablet PO SCH (09:00)
[2017-06-15] MEDS: Potassium Chloride 10 MEQ TAB PO SCH ×2 (09:00→17:07)
[2017-06-15] MEDS: Nystatin Powder 15 GM BOT TOP SCH ×3 (09:00→21:29)
[2017-06-15] MEDS: Furosemide 80 MG TAB PO SCH ×2 (09:00→21:25)
[2017-06-15] MEDS: Famotidine 20 MG TAB PO SCH ×2 (09:00→21:26)
[2017-06-15] MEDS: Gabapentin 300 MG CAP PO SCH ×3 (09:01→21:25)
[2017-06-15] MEDS: Spironolactone 25 MG TAB PO SCH (09:01)
[2017-06-15] MEDS: Ferrous Sulfate 325 MG TAB PO SCH ×3 (09:01→17:03)
[2017-06-15] MEDS: Pramipexole Di-HCl 0.25 MG TAB PO SCH ×2 (09:01→21:29)
[2017-06-15] MEDS: Polyethylene Glycol 3350 17 GM Packet PO SCH (09:33)
[2017-06-15] MEDS: HYDROcodone/Acetaminophen 7.5/325 mg Tablet PO PRN (11:52)
[2017-06-15] MEDS: Enoxaparin Sodium 40 MG/0.4 ML SYRINGE SC SCH (17:04)
[2017-06-15] MEDS: Montelukast Sodium 10 mg Tablet PO SCH (21:26)
[2017-06-16] MEDS: HYDROcodone/Acetaminophen 7.5/325 mg Tablet PO PRN (00:23)
[2017-06-16 05:56] LABS: Hemoglobin 8.2 g/dL (12.0-16.0); Platelet Count 203 thou/uL (130-400)
[2017-06-16] MEDS: Famotidine 20 MG TAB PO SCH ×2 (09:05→21:16)
[2017-06-16] MEDS: Amoxicillin/Potassium Clav 500 MG TAB PO SCH ×2 (09:05→21:16)
[2017-06-16] MEDS: Furosemide 80 MG TAB PO SCH ×2 (09:06→21:16)
[2017-06-16] MEDS: Aspirin 81 mg Enteric Coated Tablet PO SCH (09:06)
[2017-06-16] MEDS: Spironolactone 25 MG TAB PO SCH (09:06)
[2017-06-16] MEDS: Pramipexole Di-HCl 0.25 MG TAB PO SCH ×2 (09:06→21:17)
[2017-06-16] MEDS: Gabapentin 300 MG CAP PO SCH ×3 (09:06→21:16)
[2017-06-16] MEDS: Ferrous Sulfate 325 MG TAB PO SCH ×3 (09:06→17:20)
[2017-06-16] MEDS: Nystatin Powder 15 GM BOT TOP SCH ×3 (09:09→21:16)
[2017-06-16] MEDS: Polyethylene Glycol 3350 17 GM Packet PO SCH (09:19)
[2017-06-16] MEDS: Potassium Chloride 10 MEQ TAB PO SCH ×2 (09:19→17:20)
[2017-06-16] MEDS: Albuterol Sulfate 2.5 mg/3 ml Neb NEB PRN (12:18)
[2017-06-16] MEDS: Enoxaparin Sodium 40 MG/0.4 ML SYRINGE SC SCH (17:20)
[2017-06-16] MEDS: Montelukast Sodium 10 mg Tablet PO SCH (21:17)
[2017-06-17] MEDS: HYDROcodone/Acetaminophen 7.5/325 mg Tablet PO PRN ×2 (00:21→17:10)
[2017-06-17] MEDS: Spironolactone 25 MG TAB PO SCH (09:13)
[2017-06-17] MEDS: Pramipexole Di-HCl 0.25 MG TAB PO SCH ×2 (09:13→21:34)
[2017-06-17] MEDS: Aspirin 81 mg Enteric Coated Tablet PO SCH (09:13)
[2017-06-17] MEDS: Amoxicillin/Potassium Clav 500 MG TAB PO SCH ×2 (09:13→21:32)
[2017-06-17] MEDS: Famotidine 20 MG TAB PO SCH ×2 (09:14→21:32)
[2017-06-17] MEDS: Gabapentin 300 MG CAP PO SCH ×3 (09:14→21:34)
[2017-06-17] MEDS: Ferrous Sulfate 325 MG TAB PO SCH ×3 (09:14→17:10)
[2017-06-17] MEDS: Furosemide 80 MG TAB PO SCH ×2 (09:15→21:32)
[2017-06-17] MEDS: Potassium Chloride 10 MEQ TAB PO SCH ×2 (09:15→17:09)
[2017-06-17] MEDS: Polyethylene Glycol 3350 17 GM Packet PO SCH (09:15)
[2017-06-17] MEDS: Nystatin Powder 15 GM BOT TOP SCH ×3 (09:16→21:31)
[2017-06-17] MEDS: Acetaminophen 500 MG TAB PO PRN (12:17)
[2017-06-17] MEDS: Enoxaparin Sodium 40 MG/0.4 ML SYRINGE SC SCH (17:11)
[2017-06-17] MEDS: Montelukast Sodium 10 mg Tablet PO SCH (21:33)
[2017-06-18] MEDS: Acetaminophen 500 MG TAB PO PRN (01:21)
[2017-06-18 07:19] LABS: Hemoglobin 8.8 g/dL (12.0-16.0); Platelet Count 199 thou/uL (130-400)
[2017-06-18] MEDS: Ferrous Sulfate 325 MG TAB PO SCH ×3 (08:52→17:20)
[2017-06-18] MEDS: Polyethylene Glycol 3350 17 GM Packet PO SCH (08:52)
[2017-06-18] MEDS: Potassium Chloride 10 MEQ TAB PO SCH ×2 (08:53→17:27)
[2017-06-18] MEDS: Amoxicillin/Potassium Clav 500 MG TAB PO SCH ×2 (08:53→21:36)
[2017-06-18] MEDS: Spironolactone 25 MG TAB PO SCH (08:53)
[2017-06-18] MEDS: Famotidine 20 MG TAB PO SCH ×2 (08:54→21:36)
[2017-06-18] MEDS: Gabapentin 300 MG CAP PO SCH ×3 (08:54→21:36)
[2017-06-18] MEDS: Aspirin 81 mg Enteric Coated Tablet PO SCH (08:54)
[2017-06-18] MEDS: Furosemide 80 MG TAB PO SCH (08:54)
[2017-06-18] MEDS: Pramipexole Di-HCl 0.25 MG TAB PO SCH ×2 (08:55→21:36)
[2017-06-18] MEDS: Nystatin Powder 15 GM BOT TOP SCH ×3 (08:55→21:36)
[2017-06-18] MEDS: Furosemide 40 MG TAB PO SCH (14:24)
[2017-06-18] MEDS: Enoxaparin Sodium 40 MG/0.4 ML SYRINGE SC SCH (17:35)
[2017-06-18] MEDS: Montelukast Sodium 10 mg Tablet PO SCH (21:36)
[2017-06-19] MEDS: Polyethylene Glycol 3350 17 GM Packet PO SCH (08:24)
[2017-06-19] MEDS: Gabapentin 300 MG CAP PO SCH ×3 (08:25→20:45)
[2017-06-19] MEDS: Pramipexole Di-HCl 0.25 MG TAB PO SCH ×2 (08:25→20:46)
[2017-06-19] MEDS: Furosemide 80 MG TAB PO SCH (08:25)
[2017-06-19] MEDS: Amoxicillin/Potassium Clav 500 MG TAB PO SCH ×2 (08:25→20:45)
[2017-06-19] MEDS: Spironolactone 25 MG TAB PO SCH (08:25)
[2017-06-19] MEDS: Potassium Chloride 10 MEQ TAB PO SCH ×2 (08:25→17:11)
[2017-06-19] MEDS: Ferrous Sulfate 325 MG TAB PO SCH ×3 (08:26→17:12)
[2017-06-19] MEDS: Aspirin 81 mg Enteric Coated Tablet PO SCH (08:26)
[2017-06-19] MEDS: Nystatin Powder 15 GM BOT TOP SCH ×3 (08:26→20:51)
[2017-06-19] MEDS: Famotidine 20 MG TAB PO SCH ×2 (08:26→20:45)
[2017-06-19] MEDS: Acetaminophen 500 MG TAB PO PRN (12:42)
[2017-06-19] MEDS: Furosemide 40 MG TAB PO SCH ×2 (14:28→14:31)
[2017-06-19] MEDS: Enoxaparin Sodium 40 MG/0.4 ML SYRINGE SC SCH (17:12)
[2017-06-19] MEDS: Montelukast Sodium 10 mg Tablet PO SCH (20:46)
[2017-06-19] MEDS: HYDROcodone/Acetaminophen 7.5/325 mg Tablet PO PRN (20:46)
[2017-06-20] MEDS: Acetaminophen 500 MG TAB PO PRN (03:06)
[2017-06-20 06:31] LABS: Hemoglobin 9.2 g/dL (12.0-16.0); Platelet Count 204 thou/uL (130-400)
[2017-06-20] MEDS: Nystatin Powder 15 GM BOT TOP SCH ×3 (09:18→20:39)
[2017-06-20] MEDS: Aspirin 81 mg Enteric Coated Tablet PO SCH (09:19)
[2017-06-20] MEDS: Amoxicillin/Potassium Clav 500 MG TAB PO SCH ×2 (09:19→20:38)
[2017-06-20] MEDS: Ferrous Sulfate 325 MG TAB PO SCH ×3 (09:19→17:37)
[2017-06-20] MEDS: Potassium Chloride 10 MEQ TAB PO SCH ×2 (09:19→17:37)
[2017-06-20] MEDS: Famotidine 20 MG TAB PO SCH ×2 (09:19→20:38)
[2017-06-20] MEDS: Gabapentin 300 MG CAP PO SCH ×3 (09:20→20:38)
[2017-06-20] MEDS: Pramipexole Di-HCl 0.25 MG TAB PO SCH ×2 (09:20→21:51)
[2017-06-20] MEDS: Furosemide 80 MG TAB PO SCH (09:20)
[2017-06-20] MEDS: Spironolactone 25 MG TAB PO SCH (09:21)
[2017-06-20] MEDS: Polyethylene Glycol 3350 17 GM Packet PO SCH (09:22)
[2017-06-20] MEDS: HYDROcodone/Acetaminophen 7.5/325 mg Tablet PO PRN (11:55)
[2017-06-20] MEDS: Albuterol Sulfate 2.5 mg/3 ml Neb NEB PRN (13:02)
[2017-06-20] MEDS: Enoxaparin Sodium 40 MG/0.4 ML SYRINGE SC SCH (17:36)
[2017-06-20] MEDS: Montelukast Sodium 10 mg Tablet PO SCH (20:38)
[2017-06-21] MEDS: Furosemide 80 MG TAB PO SCH (07:24)
[2017-06-21] MEDS: Aspirin 81 mg Enteric Coated Tablet PO SCH (09:00)
[2017-06-21] MEDS: Potassium Chloride 10 MEQ TAB PO SCH ×2 (09:00→17:15)
[2017-06-21] MEDS: Pramipexole Di-HCl 0.25 MG TAB PO SCH ×2 (09:00→21:20)
[2017-06-21] MEDS: Amoxicillin/Potassium Clav 500 MG TAB PO SCH ×2 (09:00→21:20)
[2017-06-21] MEDS: Spironolactone 25 MG TAB PO SCH (09:00)
[2017-06-21] MEDS: Gabapentin 300 MG CAP PO SCH ×3 (09:00→21:19)
[2017-06-21] MEDS: Famotidine 20 MG TAB PO SCH ×2 (09:01→21:19)
[2017-06-21] MEDS: Ferrous Sulfate 325 MG TAB PO SCH ×3 (09:01→17:15)
[2017-06-21] MEDS: Nystatin Powder 15 GM BOT TOP SCH ×3 (09:03→21:23)
[2017-06-21] MEDS: Polyethylene Glycol 3350 17 GM Packet PO SCH (09:04)
[2017-06-21] MEDS: HYDROcodone/Acetaminophen 7.5/325 mg Tablet PO PRN (11:39)
[2017-06-21] MEDS: Furosemide 40 MG TAB PO SCH (15:06)
[2017-06-21] MEDS: Enoxaparin Sodium 40 MG/0.4 ML SYRINGE SC SCH (17:16)
[2017-06-21] MEDS: Montelukast Sodium 10 mg Tablet PO SCH (21:19)
[2017-06-21] MEDS ORDERED: traMADol HCl 50 MG TAB PO PRN (21:51)
[2017-06-22] MEDS: HYDROcodone/Acetaminophen 7.5/325 mg Tablet PO PRN (02:55)
[2017-06-22 05:28] LABS: Hemoglobin 9.5 g/dL (12.0-16.0); Platelet Count 220 thou/uL (130-400)
[2017-06-22] MEDS: Spironolactone 25 MG TAB PO SCH (07:59)
[2017-06-22] MEDS: Furosemide 80 MG TAB PO SCH (07:59)
[2017-06-22] MEDS: Potassium Chloride 10 MEQ TAB PO SCH ×2 (07:59→17:04)
[2017-06-22] MEDS: Ascorbic Acid 500 mg Chewable Tablet PO SCH (07:59)
[2017-06-22] MEDS: Ferrous Sulfate 325 MG TAB PO SCH ×3 (07:59→17:04)
[2017-06-22] MEDS: Polyethylene Glycol 3350 17 GM Packet PO SCH (08:34)
[2017-06-22] MEDS: Aspirin 81 mg Enteric Coated Tablet PO SCH (08:35)
[2017-06-22] MEDS: Famotidine 20 MG TAB PO SCH ×2 (08:35→21:14)
[2017-06-22] MEDS: Gabapentin 300 MG CAP PO SCH ×3 (08:36→21:15)
[2017-06-22] MEDS: Pramipexole Di-HCl 0.25 MG TAB PO SCH ×2 (08:36→21:15)
[2017-06-22] MEDS: Amoxicillin/Potassium Clav 500 MG TAB PO SCH ×2 (08:36→21:15)
[2017-06-22] MEDS: Nystatin Powder 15 GM BOT TOP SCH ×3 (08:37→21:16)
[2017-06-22] MEDS: Furosemide 40 MG TAB PO SCH (14:14)
[2017-06-22] MEDS: Enoxaparin Sodium 40 MG/0.4 ML SYRINGE SC SCH (17:04)
[2017-06-22] MEDS: traMADol HCl 50 MG TAB PO PRN (17:08)
[2017-06-22] MEDS: Montelukast Sodium 10 mg Tablet PO SCH (21:14)
[2017-06-23] MEDS: Ferrous Sulfate 325 MG TAB PO SCH ×3 (08:25→17:22)
[2017-06-23] MEDS: Furosemide 80 MG TAB PO SCH (08:26)
[2017-06-23] MEDS: Pramipexole Di-HCl 0.25 MG TAB PO SCH ×2 (08:26→21:39)
[2017-06-23] MEDS: Potassium Chloride 10 MEQ TAB PO SCH ×2 (08:26→17:21)
[2017-06-23] MEDS: Gabapentin 300 MG CAP PO SCH ×3 (08:26→21:39)
[2017-06-23] MEDS: Spironolactone 25 MG TAB PO SCH (08:26)
[2017-06-23] MEDS: Amoxicillin/Potassium Clav 500 MG TAB PO SCH ×2 (08:26→21:39)
[2017-06-23] MEDS: Aspirin 81 mg Enteric Coated Tablet PO SCH (08:26)
[2017-06-23] MEDS: Ascorbic Acid 500 mg Chewable Tablet PO SCH (08:26)
[2017-06-23] MEDS: Famotidine 20 MG TAB PO SCH ×2 (08:27→21:39)
[2017-06-23] MEDS: Polyethylene Glycol 3350 17 GM Packet PO SCH (08:28)
[2017-06-23] MEDS: Nystatin Powder 15 GM BOT TOP SCH ×3 (08:29→21:38)
--- NOTE | 2017-06-23 12:29 | PRG ---
DATE OF ADMISSION: 05/24/2017 DATE OF PROGRESS NOTE: 06/22/2017 HISTORY OF PRESENT ILLNESS: Ms. Acevedo is a very pleasant 57-year-old morbidly obese white female ad mitted to [facility] with severe lymphedema and cellulitis. They diuresed her o ff approximately 70 pounds. She was started on IV antibiotics and then oral antibiotics and she was transferred here for continued physical therapy, occupational therapy, and diuresis. SUBJECTIVE: The patient has no complaints today. She is actually doing very well. She continues t o walk and get a little bit further every day. Her strength is continued to get better and she is d isappointed that she did not lose a couple of pounds today. She has no complaints. PHYSICAL EXAMINATION: VITAL SIGNS: Reveal blood pressure this morning 109/53, pulse 67 to 71, respirations 20 to 16, O2 s at 96% on room air. Weight this morning was 374 pounds. GENERAL: This is a well-developed, well-nourished, morbidly obese white female in no apparent distr ess at this time. HEENT: Reveals normocephalic, nontraumatic cranium. Pupils are equally round and reactive. Extrao cular movements intact. Nose and throat are slightly dry. NECK: Supple without masses, nodes or bruits. LUNGS: Chest is clear to auscultation. No rales, rhonchi or wheezes are heard. CARDIOVASCULAR: Reveals a regular rate and rhythm without murmurs, gallops or rubs. ABDOMEN: Morbidly obese, soft, nontender. No rebound or guarding is noted. Normal bowel sounds ar e heard in all 4 quadrants. Organomegaly is not able to be appreciated. GENITOURINARY: Reveals Inman catheter still in place. EXTREMITIES: Reveal significant lymphedema, but continues to gradually improve. LABORATORY DATA: Reveal hemoglobin 9.5, hematocrit 31.8, and platelet count 220,000. Creatinine is 1.27, GFR is 43. ASSESSMENT: 1. Lymphedema, presently on Lasix 80 mg in the morning, 40 mg in the evening. 2. Chronic renal insufficiency, stable. 3. Cellulitis, resolved. 4. Hypertension, stable. 5. Restless legs. 6. Sleep apnea. 7. Diastolic dysfunction. 8. Chronic pain syndrome. 9. Depression. 10. Morbid obesity. 11. Generalized weakness. PLAN: 1. Continue Lasix 80 in the morning, 40 in the afternoon. 2. Continue stress ulcer prophylaxis. 3. Continue decubitus precautions. 4. Restrict fluid and oral intake. 5. Continue dialysis, continue daily weights. 6. Continue physical therapy and occupational therapy. 7. Monitor electrolytes.
[2017-06-23] MEDS: Furosemide 40 MG TAB PO SCH (13:47)
[2017-06-23] MEDS: Enoxaparin Sodium 40 MG/0.4 ML SYRINGE SC SCH (17:21)
--- NOTE | 2017-06-23 21:25 | PRG ---
DATE OF SERVICE: 06/23/2017 HISTORY OF PRESENT ILLNESS: Ms. Acevedo is a 57-year-old morbidly obese white female that was seen in itially at [facility] for severe lymphedema with cellulitis. She was started on antibiotics and diuresed. She actually did very well and was transferred down here to continue wit h diuresis, to follow her renal indices, and to continue oral antibiotics until finished. SUBJECTIVE: The patient states she is doing well. She is concerned that her insurance is going to pay for another week of her therapy here. She is doing much better. She is walking significantly b tam. She continued to lose 3 more pounds and she continues to lose quite a bit of weight. PHYSICAL EXAMINATION: VITAL SIGNS: Today, reveal blood pressure 118/58, pulse 67-69, respirations 20, O2 sat 95% to 97% o n room air, temperature max is 97.3. Weight today was 371 pounds. That is 3 more pounds off from . GENERAL: Reveals a well-developed, well-nourished, very pleasant, morbidly obese white female, in n o apparent distress at this time. HEENT: Reveals normocephalic, nontraumatic cranium. Pupils are equally round and reactive. Extrao cular movements intact. Nose and throat are moist today. NECK: Supple, without masses, nodes or bruits. CHEST: Clear to auscultation. No rales, rhonchi, wheezes or cough is heard. CARDIOVASCULAR: Reveals a regular rate and rhythm without murmurs, gallops or rubs. ABDOMEN: Morbidly obese. It is soft, nontender, without organomegaly. No rebound or guarding is n oted. Normal bowel sounds are heard in all 4 quadrants. GENITOURINARY: Reveals Inman catheter continues. EXTREMITIES: Reveal no clubbing or cyanosis. She continues to have significant lymphedema, but it is much improved and the skin is beginning to soften up. LABORATORY DATA: No labs were done today. IMPRESSION: 1. Lymphedema, presently on Lasix 80 in the morning and 40 in the evening. 2. Chronic renal insufficiency, stable. 3. Hypertension. 4. Cellulitis. 5. Restless legs. 6. Sleep apnea. 7. Diastolic dysfunction. 8. Chronic pain syndrome. 9. Depression. 10. Morbid obesity. 11. Generalized weakness. PLAN: 1. Continue Lasix 80 in the morning and 40 in the afternoon. 2. Continue stress ulcer prophylaxis. 3. Continue decubitus precautions. 4. Continue lymphedema wraps. 5. Continue fluid restriction and oral intake. 6. Continue daily weights. 7. Continue physical therapy and occupational therapy. 8. Continue to monitor the electrolytes.
[2017-06-23] MEDS: Montelukast Sodium 10 mg Tablet PO SCH (21:39)
[2017-06-23] MEDS: Albuterol Sulfate 2.5 mg/3 ml Neb NEB PRN (23:30)
[2017-06-24 05:25] LABS: Hemoglobin 8.8 g/dL (12.0-16.0); Platelet Count 191 thou/uL (130-400)
[2017-06-24] MEDS: Furosemide 80 MG TAB PO SCH (07:30)
[2017-06-24] MEDS: Potassium Chloride 10 MEQ TAB PO SCH ×2 (08:00→17:04)
[2017-06-24] MEDS: Ferrous Sulfate 325 MG TAB PO SCH ×3 (08:00→17:04)
[2017-06-24] MEDS: Spironolactone 25 MG TAB PO SCH (08:15)
[2017-06-24] MEDS: Famotidine 20 MG TAB PO SCH ×2 (08:52→21:21)
[2017-06-24] MEDS: Gabapentin 300 MG CAP PO SCH ×3 (08:52→21:21)
[2017-06-24] MEDS: Ascorbic Acid 500 mg Chewable Tablet PO SCH (08:52)
[2017-06-24] MEDS: Pramipexole Di-HCl 0.25 MG TAB PO SCH ×2 (08:54→21:21)
[2017-06-24] MEDS: Polyethylene Glycol 3350 17 GM Packet PO SCH (08:54)
[2017-06-24] MEDS: Aspirin 81 mg Enteric Coated Tablet PO SCH (08:54)
[2017-06-24] MEDS: Nystatin Powder 15 GM BOT TOP SCH ×3 (08:55→21:24)
[2017-06-24] MEDS: Acetaminophen 500 MG TAB PO PRN (12:09)
[2017-06-24] MEDS: Furosemide 40 MG TAB PO SCH (14:58)
[2017-06-24] MEDS: Enoxaparin Sodium 40 MG/0.4 ML SYRINGE SC SCH (17:05)
[2017-06-24] MEDS: Montelukast Sodium 10 mg Tablet PO SCH (21:21)
--- NOTE | 2017-06-25 02:16 | PRG ---
DATE OF SERVICE: 06/24/2017 SUBJECTIVE: Ms. Acevedo is a very pleasant 57-year-old morbidly obese white female seen at [facility]. She was found to have cellulitis and severe lymphedema. She was diuresed sarmad roximately 70 pounds, started on IV antibiotics and switched over to oral antibiotics. She was init ially transferred to [facility] for physical therapy, occupational therapy to continue he r oral antibiotics until they are finished and for diuresis. The patient had a good day today. She has no complaints. She gained a couple of pounds, but states she did not eat anything, it is just fluid shifting weight. She has no complaints today. PHYSICAL EXAMINATION: VITAL SIGNS: Reveal blood pressure this morning was 134/64, pulse 66 to 72, respirations 16 to 20, O2 sat 98% on room air, temperature 97.3. Weight today was 374 pounds. GENERAL: Reveals a well-developed, well-nourished, very pleasant white female, in no apparent distr ess at this time. HEENT: Reveals normocephalic, nontraumatic cranium. Pupils are equally round and reactive. Extrao cular movements intact. Nose and throat are slightly dry. NECK: Supple without masses, nodes, or bruits. CHEST: Clear to auscultation. No rales, rhonchi, wheezes, or cough is heard. HEART: Reveals a regular rate and rhythm without murmurs, gallops, or rubs. ABDOMEN: Morbidly obese, soft, nontender without organomegaly. Normal bowel sounds are noted. No rebound or guarding is noted. GENITOURINARY: Deferred. Inman catheter in place. EXTREMITIES: Reveal no clubbing, cyanosis, or edema. The patient continues to have regular lymphed epi. IMPRESSION: 1. Lymphedema. Presently, the patient is on 80 mg of Lasix the morning, 40 in the evening. 2. Chronic renal insufficiency, slightly improved. 3. Hypertension. 4. Cellulitis. 5. Restless legs. 6. Sleep apnea. 7. Diastolic dysfunction. 8. Chronic pain syndrome. 9. Depression. 10. Morbid obesity. 11. Generalized weakness. PLAN: 1. Continue Lasix 80 in the morning, 40 in the afternoon. 2. Continue stress ulcer prophylaxis. 3. Continue decubitus precautions. 5. Continue Lasix for edema. 6. Continue fluid restrictions, daily weight.
[2017-06-25] MEDS: Furosemide 80 MG TAB PO SCH (07:41)
[2017-06-25] MEDS: traMADol HCl 50 MG TAB PO PRN (09:41)
[2017-06-25] MEDS: Nystatin Powder 15 GM BOT TOP SCH ×3 (09:42→21:24)
[2017-06-25] MEDS: Gabapentin 300 MG CAP PO SCH ×3 (09:43→21:24)
[2017-06-25] MEDS: Spironolactone 25 MG TAB PO SCH (09:43)
[2017-06-25] MEDS: Pramipexole Di-HCl 0.25 MG TAB PO SCH ×2 (09:43→21:24)
[2017-06-25] MEDS: Famotidine 20 MG TAB PO SCH ×2 (09:43→21:24)
[2017-06-25] MEDS: Ferrous Sulfate 325 MG TAB PO SCH ×3 (09:43→17:30)
[2017-06-25] MEDS: Aspirin 81 mg Enteric Coated Tablet PO SCH (09:43)
[2017-06-25] MEDS: Potassium Chloride 10 MEQ TAB PO SCH ×2 (09:44→17:30)
[2017-06-25] MEDS: Ascorbic Acid 500 mg Chewable Tablet PO SCH (09:49)
[2017-06-25] MEDS: Polyethylene Glycol 3350 17 GM Packet PO SCH (10:13)
[2017-06-25] MEDS: Furosemide 40 MG TAB PO SCH (14:48)
[2017-06-25] MEDS: Acetaminophen 500 MG TAB PO PRN (16:47)
[2017-06-25] MEDS: Enoxaparin Sodium 40 MG/0.4 ML SYRINGE SC SCH (17:31)
[2017-06-25] MEDS: Montelukast Sodium 10 mg Tablet PO SCH (21:24)
--- NOTE | 2017-06-26 00:06 | PRG ---
DATE OF SERVICE: 06/25/2017 HISTORY OF PRESENT ILLNESS: Ms. Acevedo is a very pleasant 57-year-old white female. She is morbidly obese and is transferred from the [facility] with cellulitis and significant ly mphedema. She was diuresed approximately 70 pounds and then transferred here. She has no complaint s today. She states that she lost 2 more pounds, she is very proud of that. We did discuss taking a Inman catheter out, we will start bladder training today. We will most likely to get off Inman ca theter tomorrow. PHYSICAL EXAMINATION: VITAL SIGNS: Blood pressure 126/74, pulse 70-72, respirations 18-20, O2 saturation 94%-98% on room air, and temperature 96.7. Weight today is 372 pounds which is down 2 pounds from yesterday. GENERAL: Reveals a well-developed, well-nourished, very pleasant, morbidly obese white female in no apparent distress at this time. HEENT: Reveals normocephalic, nontraumatic cranium. Pupils are equally round and reactive. Extrao cular movements intact. Nose and throat are slightly dry. NECK: Supple, without masses, nodes or bruits. LUNGS: Chest is clear to auscultation. No rales, rhonchi or wheezes are heard. CARDIOVASCULAR: Reveals a regular rate and rhythm without murmurs, gallops or rubs. ABDOMEN: Morbidly obese. No rebound or guarding is noted. Normal bowel sounds are noted in all 4 quadrants. : Reveals Inman catheter in place for which we had clamping for bladder training today. EXTREMITIES: Significant lymphedema, but much improved over the past couple of weeks. IMPRESSION: 1. Chronic leg edema. 2. Chronic renal insufficiency. 3. Hypertension. 4. Cellulitis. 5. Restless legs. 6. Sleep apnea. 7. Diastolic dysfunction. 8. Chronic pain. 9. Depression. 10. Morbid obesity. 11. Generalized weakness. PLAN: 1. Continue Lasix 80 mg in the morning and 40 mg in the afternoon. 2. Continue lymphedema wraps. 3. Continue stress ulcer prophylaxis. 4. Continue physical therapy and occupational therapy. 5. Continue decubitus precautions. 6. Continue Lasix. 7. Continue fluid restrictions. 8. Continue to encourage daily weight loss.
[2017-06-26 05:24] LABS: Hemoglobin 9.6 g/dL (12.0-16.0); Platelet Count 218 thou/uL (130-400)
[2017-06-26] MEDS: Furosemide 80 MG TAB PO SCH (07:51)
[2017-06-26] MEDS: Famotidine 20 MG TAB PO SCH ×2 (09:07→21:15)
[2017-06-26] MEDS: Spironolactone 25 MG TAB PO SCH (09:07)
[2017-06-26] MEDS: Ascorbic Acid 500 mg Chewable Tablet PO SCH (09:07)
[2017-06-26] MEDS: Gabapentin 300 MG CAP PO SCH ×3 (09:08→21:15)
[2017-06-26] MEDS: Ferrous Sulfate 325 MG TAB PO SCH ×3 (09:08→18:08)
[2017-06-26] MEDS: Potassium Chloride 10 MEQ TAB PO SCH ×2 (09:08→18:08)
[2017-06-26] MEDS: Aspirin 81 mg Enteric Coated Tablet PO SCH (09:08)
[2017-06-26] MEDS: Polyethylene Glycol 3350 17 GM Packet PO SCH (09:10)
[2017-06-26] MEDS: Pramipexole Di-HCl 0.25 MG TAB PO SCH ×2 (09:10→21:16)
[2017-06-26] MEDS: Nystatin Powder 15 GM BOT TOP SCH ×3 (09:20→21:16)
[2017-06-26] MEDS: Furosemide 40 MG TAB PO SCH (15:01)
[2017-06-26] MEDS: Enoxaparin Sodium 40 MG/0.4 ML SYRINGE SC SCH (18:09)
[2017-06-26] MEDS: Montelukast Sodium 10 mg Tablet PO SCH (21:15)
--- NOTE | 2017-06-27 00:58 | PRG ---
DATE OF ADMISSION: 05/24/2017 DATE OF SERVICE: 06/26/2017 HISTORY OF PRESENT ILLNESS: Ms. Acevedo is a very pleasant 57-year-old white female, who initially wa s admitted to [facility]. She was admitted with cellulitis and lymphedema. She was diuresed approximately 70 pounds, treated with IV antibiotics and switched to oral antibiotics. She was transferred to [facility] for continued physical therapy, occupational the rapy, and diuresis and to finish out her oral antibiotics. SUBJECTIVE: The patient states she is doing well. She gained a couple of pounds, but she is not co ncerned about that. She said she lose it. She basically has had lymphedema wraps on, she has not w alked yet today. She has no complaints today. She was still wondering about how long she can stay with her physical therapy. PHYSICAL EXAMINATION: VITAL SIGNS: Reveal blood pressure this morning 118/63, pulse 66, respirations 18, O2 sat 95% to 99 % on room air, T-max is 98.1, weight today 376 pounds 14 ounces. GENERAL: This is a well-developed, well-nourished, morbidly obese white female in no apparent distr ess at this time. HEENT: Reveals normocephalic, nontraumatic cranium. Pupils are equally round and reactive. Extrao cular movements intact. Nose and throat are slightly dry. NECK: Supple, without masses, nodes or bruits. CHEST: Clear to auscultation. No rales, rhonchi or wheezes are heard. HEART: Reveals a regular rate and rhythm without murmurs, gallops or rubs. ABDOMEN: Soft, nontender, without organomegaly, normal bowel sounds are noted. No rebound or guard ing is noted. : Deferred. EXTREMITIES: Reveal no clubbing, cyanosis, just morbid obesity. Inman catheter is still being clam ped for bladder training, will most likely take it out tomorrow. The patient did have little bit of blood in her Inman catheter today. IMPRESSION: 1. Chronic lymphedema. 2. Chronic renal insufficiency. 3. Hypertension. 4. Cellulitis, resolved. 5. Restless legs. 6. Sleep apnea. 7. Diastolic dysfunction. 8. Chronic pain. 9. Depression. 10. Morbid obesity. 11. Generalized weakness. PLAN: 1. Continue Lasix 80 mg in the morning and 40 in the evening. 2. Continue lymphedema wraps. 3. Stress ulcer prophylaxis. 4. Decubitus precautions. 5. Fluid restrictions. 6. Encouraged daily weight. 7. Physical therapy and occupational therapy.
[2017-06-27] MEDS: Furosemide 80 MG TAB PO SCH (07:28)
[2017-06-27] MEDS: Potassium Chloride 10 MEQ TAB PO SCH ×2 (08:11→17:03)
[2017-06-27] MEDS: Ascorbic Acid 500 mg Chewable Tablet PO SCH (08:11)
[2017-06-27] MEDS: Ferrous Sulfate 325 MG TAB PO SCH ×3 (08:11→17:03)
[2017-06-27] MEDS: Nystatin Powder 15 GM BOT TOP SCH ×3 (08:11→21:07)
[2017-06-27] MEDS: Aspirin 81 mg Enteric Coated Tablet PO SCH (08:12)
[2017-06-27] MEDS: Pramipexole Di-HCl 0.25 MG TAB PO SCH ×2 (08:12→21:07)
[2017-06-27] MEDS: Famotidine 20 MG TAB PO SCH ×2 (08:12→21:06)
[2017-06-27] MEDS: Spironolactone 25 MG TAB PO SCH (08:12)
[2017-06-27] MEDS: Gabapentin 300 MG CAP PO SCH ×3 (08:12→21:07)
[2017-06-27] MEDS: Polyethylene Glycol 3350 17 GM Packet PO SCH (08:12)
--- NOTE | 2017-06-27 13:21 | PRG ---
DATE OF SERVICE: 06/27/2017 HISTORY OF PRESENT ILLNESS: Mrs. Acevedo is a 57-year-old very pleasant obese white female that was t ransferred from [facility]. She had diffuse lymphedema, was diuresed 70 pounds. She also had a cellulitis which was treated. She was eventually transferred to [facility] for physical therapy, occupational therapy, and to continue diuresis. SUBJECTIVE: The patient had a Inman catheter out this morning. She is now on the toilet waiting to empty her bladder. It has only been about to 2 to 2.5 hours. She has no complaints at this time. LABORATORY DATA: Reveals hemoglobin 9.6, hematocrit 31.5, creatinine 1.22, which is still excellent . PHYSICAL EXAMINATION: VITAL SIGNS: Reveals blood pressure 127/61, pulse 65 to 74, respirations 20, O2 sat 95 to 99% on ro om air, temperature max 98.1. GENERAL: Reveals a well-developed, well-nourished, very pleasant white female in no apparent distre ss at this time. HEENT: Reveals normocephalic, nontraumatic cranium. Pupils equal, round, and reactive. Extraocula r movements intact. Nose and throat are slightly dry. NECK: Supple, without masses, nodes or bruits. CHEST: Clear to auscultation. No rales, rhonchi or wheezes are heard. CARDIOVASCULAR: Reveals a regular rate and rhythm without murmurs, gallops or rubs. ABDOMEN: Obese, soft, nontender, no rebound or guarding is noted. Normal bowel sounds noted in all 4 quadrants. : Deferred. Inman catheter is out. EXTREMITIES: Reveals no clubbing, cyanosis, just lymphedema which is still much better than on admi ssion. IMPRESSION: 1. Chronic lymphedema. 2. Chronic renal insufficiency. 3. Hypertension. 4. Diastolic dysfunction. 5. Chronic pain. 6. Cellulitis, resolved. 7. Restless leg syndrome. 8. Sleep apnea. 9. Depression. 10. Morbid obesity. 11. Generalized weakness. PLAN: 1. Continue Lasix 80 mg in the morning and 40 in the evening. 2. Continue lymphedema wraps. 3. Stress ulcer prophylaxis. 4. Decubitus precautions. 5. Fluid restrictions. 6. Daily weight. 7. PT and OT.
[2017-06-27] MEDS: Furosemide 40 MG TAB PO SCH (14:47)
[2017-06-27] MEDS: Enoxaparin Sodium 40 MG/0.4 ML SYRINGE SC SCH (17:03)
[2017-06-27] MEDS: Montelukast Sodium 10 mg Tablet PO SCH (21:07)
[2017-06-28] MEDS: traMADol HCl 50 MG TAB PO PRN (02:04)
[2017-06-28] MEDS: Acetaminophen 500 MG TAB PO PRN (02:04)
[2017-06-28] MEDS ORDERED: Bisacodyl 5 MG TAB PO PRN (06:33)
[2017-06-28] MEDS ORDERED: Ondansetron ODT 4 MG TAB PO PRN (06:33)
[2017-06-28] MEDS: Furosemide 80 MG TAB PO SCH (07:30)
[2017-06-28] MEDS: Potassium Chloride 10 MEQ TAB PO SCH ×2 (08:00→17:26)
[2017-06-28] MEDS: Ferrous Sulfate 325 MG TAB PO SCH ×3 (08:00→17:26)
[2017-06-28] MEDS: Spironolactone 25 MG TAB PO SCH (08:00)
[2017-06-28] MEDS: Polyethylene Glycol 3350 17 GM Packet PO SCH (08:39)
[2017-06-28] MEDS: Ascorbic Acid 500 mg Chewable Tablet PO SCH (08:39)
[2017-06-28] MEDS: Pramipexole Di-HCl 0.25 MG TAB PO SCH ×2 (08:39→21:10)
[2017-06-28] MEDS: Famotidine 20 MG TAB PO SCH ×2 (08:40→21:10)
[2017-06-28] MEDS: Nystatin Powder 15 GM BOT TOP SCH ×3 (08:40→21:11)
[2017-06-28] MEDS: Aspirin 81 mg Enteric Coated Tablet PO SCH (08:40)
[2017-06-28] MEDS: Gabapentin 300 MG CAP PO SCH ×3 (08:41→21:10)
[2017-06-28] MEDS: Furosemide 40 MG TAB PO SCH (14:27)
[2017-06-28] MEDS: Enoxaparin Sodium 40 MG/0.4 ML SYRINGE SC SCH (17:26)
[2017-06-28] MEDS: Montelukast Sodium 10 mg Tablet PO SCH (21:10)
--- NOTE | 2017-06-29 00:18 | PRG ---
DATE OF ADMISSION: 05/24/2017 DATE OF SERVICE: 06/28/2017 HISTORY OF PRESENT ILLNESS: Ms. Acevedo is a very pleasant 57-year-old white female transferred from [facility] on 05/24/2017. The patient had been admitted there with sig nificant cellulitis of her lower extremities, which were lymphedematous. She was diuresed approxima tely 70 pounds was transferred to [facility] for physical therapy, occupational therapist per diem apy, and to continue her diuresis and oral antibiotics. SUBJECTIVE: The patient had a Inman catheter out and is actually doing very well. She has no compl aints about that, she is emptying her bladder well. The patient is confused about whether she is going home tomorrow or next week. She states that her insurance company is still pending, insure to rather go home sometimes next week. I have been infor med by the nurses that they think that her insurance runs out tomorrow and she is not going to be re newed. LABORATORY DATA: Reveals creatinine this morning was 1.41. GFR was 38. PHYSICAL EXAMINATION: VITAL SIGNS: Blood pressure this morning 123/65, pulse 71, respirations 20, O2 saturation 97% to 99 % on room air. Weight today is 381 pounds, which is up 9 pounds from 06/25/2017. GENERAL: This is a well-developed, well-nourished, morbidly obese white female, in no apparent dist ress at this time. HEENT: Reveals normocephalic, nontraumatic cranium. Pupils are equally round and reactive. Extrao cular movements intact. Nose and throat are slightly dry, but clear. NECK: Supple, without mass, nodes, or bruits. CHEST: Clear to auscultation. No rales, rhonchi, or wheezes are heard. CARDIOVASCULAR: Reveals a regular rate and rhythm without murmurs, gallops, or rubs. ABDOMEN: Morbidly obese. Nontender. No rebound or guarding is noted. Normal bowel sounds in all 4 quadrants. GENITOURINARY EXAM: Deferred. Inman catheter is out. She is urinating well. EXTREMITIES: Reveal no clubbing or cyanosis. Patient has significant lymphedema. She does have he r lymphedema wraps on. IMPRESSION: 1. Chronic lymphedema. 2. Chronic renal insufficiency. 3. Hypertension. 4. Diastolic dysfunction. 5. Chronic pain. 6. Cellulitis, resolved. 7. Restless legs syndrome. 8. Sleep apnea. 9. Depression. 10. Morbid obesity. 11. Generalized weakness. PLAN: 1. Continue Lasix 80 mg in the morning and 40 mg in the evening. 2. Continue lymphedema wraps. 3. Stress ulcer prophylaxis. 4. Decubitus precautions. 5. Physical therapy and occupational therapy. 6. Deep venous thrombosis prophylaxis. 7. Daily weights. 8. Possible discharge, tomorrow or Sunday, pending her insurance.
[2017-06-29 05:29] LABS: Hemoglobin 8.8 g/dL (12.0-16.0); Platelet Count 216 thou/uL (130-400)
[2017-06-29] MEDS: Furosemide 80 MG TAB PO SCH (07:30)
[2017-06-29] MEDS: Ascorbic Acid 500 mg Chewable Tablet PO SCH (08:00)
[2017-06-29] MEDS: Spironolactone 25 MG TAB PO SCH (08:00)
[2017-06-29] MEDS: Potassium Chloride 10 MEQ TAB PO SCH ×2 (08:00→17:30)
[2017-06-29] MEDS: Aspirin 81 mg Enteric Coated Tablet PO SCH (09:00)
[2017-06-29] MEDS: Ferrous Sulfate 325 MG TAB PO SCH ×3 (09:00→17:29)
[2017-06-29] MEDS: Famotidine 20 MG TAB PO SCH ×2 (09:01→21:15)
[2017-06-29] MEDS: Gabapentin 300 MG CAP PO SCH ×3 (09:02→21:15)
[2017-06-29] MEDS: Polyethylene Glycol 3350 17 GM Packet PO SCH (09:03)
[2017-06-29] MEDS: Pramipexole Di-HCl 0.25 MG TAB PO SCH ×2 (09:03→21:17)
[2017-06-29] MEDS: Nystatin Powder 15 GM BOT TOP SCH ×3 (09:04→21:18)
[2017-06-29] MEDS: Furosemide 40 MG TAB PO SCH (14:13)
[2017-06-29] MEDS: Enoxaparin Sodium 40 MG/0.4 ML SYRINGE SC SCH (17:29)
[2017-06-29] MEDS: Montelukast Sodium 10 mg Tablet PO SCH (21:17)
[2017-06-30] MEDS: traMADol HCl 50 MG TAB PO PRN ×2 (00:56→13:05)
[2017-06-30] MEDS: Spironolactone 25 MG TAB PO SCH (07:45)
[2017-06-30] MEDS: Potassium Chloride 10 MEQ TAB PO SCH ×2 (07:45→17:58)
[2017-06-30] MEDS: Furosemide 80 MG TAB PO SCH (07:45)
[2017-06-30] MEDS: Ferrous Sulfate 325 MG TAB PO SCH ×3 (07:45→17:58)
[2017-06-30] MEDS: Ascorbic Acid 500 mg Chewable Tablet PO SCH (07:45)
[2017-06-30] MEDS: Polyethylene Glycol 3350 17 GM Packet PO SCH (09:37)
[2017-06-30] MEDS: Nystatin Powder 15 GM BOT TOP SCH ×3 (09:42→21:58)
[2017-06-30] MEDS: Pramipexole Di-HCl 0.25 MG TAB PO SCH ×2 (09:43→21:56)
[2017-06-30] MEDS: Gabapentin 300 MG CAP PO SCH ×3 (09:43→21:55)
[2017-06-30] MEDS: Famotidine 20 MG TAB PO SCH ×2 (09:43→21:55)
[2017-06-30] MEDS: Aspirin 81 mg Enteric Coated Tablet PO SCH (09:44)
--- NOTE | 2017-06-30 10:01 | PRG ---
DATE OF SERVICE: 06/30/2017 SUBJECTIVE: Ms. Acevedo is doing well. Denies any complaints, resting comfortably. She apparently i s being discharged home on Sunday. OBJECTIVE: VITAL SIGNS: She is afebrile, heart rate is 70, respirations are 19, oxygen saturation is 100%, blo od pressure is 114/58. CARDIOVASCULAR: S1, S2 plus. RESPIRATORY: Normal vesicular breath sounds. ABDOMEN: Soft, obese, nontender, bowel sounds heard in all quadrants. EXTREMITIES: Chronic lymphedema with no evidence for any infection. IMPRESSION: 1. Chronic lymphedema. 2. Hypertension, well controlled. 3. Chronic diastolic congestive heart failure. 4. Obstructive sleep apnea. 5. Morbid obesity. 6. Resolved cellulitis. PLAN: 1. Continue current medications. 2. Nutritional support. 3. DVT and stress ulcer prophylaxis. 4. Decubitus precautions. 5. Routine laboratory values. 6. Continue therapy. 7. I discussed with the patient in detail and all questions answered. 8. Monitor renal function.
[2017-06-30] MEDS: Furosemide 40 MG TAB PO SCH (15:04)
[2017-06-30] MEDS: Acetaminophen 500 MG TAB PO PRN (16:40)
[2017-06-30] MEDS: Enoxaparin Sodium 40 MG/0.4 ML SYRINGE SC SCH (17:59)
[2017-06-30] MEDS: Montelukast Sodium 10 mg Tablet PO SCH (21:56)
[2017-07-01] MEDS: traMADol HCl 50 MG TAB PO PRN ×2 (03:16→12:55)
[2017-07-01] MEDS: Acetaminophen 500 MG TAB PO PRN ×2 (03:17→12:56)
[2017-07-01 06:23] LABS: Hemoglobin 8.7 g/dL (12.0-16.0); Platelet Count 218 thou/uL (130-400)
[2017-07-01] MEDS: Ferrous Sulfate 325 MG TAB PO SCH ×3 (07:42→18:56)
[2017-07-01] MEDS: Ascorbic Acid 500 mg Chewable Tablet PO SCH (07:42)
[2017-07-01] MEDS: Furosemide 80 MG TAB PO SCH (07:42)
[2017-07-01] MEDS: Potassium Chloride 10 MEQ TAB PO SCH ×2 (07:42→18:56)
[2017-07-01] MEDS: Spironolactone 25 MG TAB PO SCH (07:42)
[2017-07-01] MEDS: Famotidine 20 MG TAB PO SCH ×2 (08:21→21:49)
[2017-07-01] MEDS: Aspirin 81 mg Enteric Coated Tablet PO SCH (08:21)
[2017-07-01] MEDS: Gabapentin 300 MG CAP PO SCH ×3 (08:21→21:49)
[2017-07-01] MEDS: Nystatin Powder 15 GM BOT TOP SCH ×3 (08:22→21:49)
[2017-07-01] MEDS: Pramipexole Di-HCl 0.25 MG TAB PO SCH ×2 (08:22→21:49)
[2017-07-01] MEDS: Polyethylene Glycol 3350 17 GM Packet PO SCH (08:22)
[2017-07-01] MEDS: Furosemide 40 MG TAB PO SCH (15:36)
[2017-07-01] MEDS: Enoxaparin Sodium 40 MG/0.4 ML SYRINGE SC SCH (18:55)
[2017-07-01] MEDS: Montelukast Sodium 10 mg Tablet PO SCH (21:49)
--- NOTE | 2017-07-01 22:30 | PRG ---
DATE OF SERVICE: 07/01/2017 SUBJECTIVE: Ms. Acevedo is doing well. Denies any complaints, resting comfortably. OBJECTIVE: VITAL SIGNS: She is afebrile, heart rate 66, respirations 20, oxygen saturation is 97%, blood press ure 113/59. CARDIOVASCULAR SYSTEM: S1 and S2 plus. RESPIRATORY SYSTEM: Normal vesicular breath sounds. ABDOMEN: Soft, obese, nontender, bowel sounds heard in all quadrants. EXTREMITIES: Chronic lymphedema. IMPRESSION: 1. Chronic lymphedema. 2. Resolved cellulitis. 3. Hypertension, well controlled. 4. Chronic diastolic congestive heart failure. 5. Obstructive sleep apnea. 6. Morbid obesity. 7. History of noncompliance with diet per nursing staff. PLAN: 1. Continue current medications. 2. Reinforced the need for dietary restrictions. 3. Routine laboratory values. 4. Physical therapy. 5. DVT and stress ulcer prophylaxis. 6. Decubitus precautions. 7. Dr. Jeane Alegre back tonight.
[2017-07-02] MEDS: traMADol HCl 50 MG TAB PO PRN ×2 (01:33→20:29)
[2017-07-02] MEDS: Acetaminophen 500 MG TAB PO PRN ×2 (01:33→11:20)
[2017-07-02] MEDS: Furosemide 80 MG TAB PO SCH (07:30)
[2017-07-02] MEDS: Spironolactone 25 MG TAB PO SCH (08:05)
[2017-07-02] MEDS: Ferrous Sulfate 325 MG TAB PO SCH ×3 (08:05→17:21)
[2017-07-02] MEDS: Potassium Chloride 10 MEQ TAB PO SCH ×2 (08:05→17:21)
[2017-07-02] MEDS: Polyethylene Glycol 3350 17 GM Packet PO SCH (08:50)
[2017-07-02] MEDS: Pramipexole Di-HCl 0.25 MG TAB PO SCH ×2 (08:51→20:30)
[2017-07-02] MEDS: Gabapentin 300 MG CAP PO SCH ×3 (08:51→20:30)
[2017-07-02] MEDS: Famotidine 20 MG TAB PO SCH ×2 (08:51→20:28)
[2017-07-02] MEDS: Aspirin 81 mg Enteric Coated Tablet PO SCH (08:52)
[2017-07-02] MEDS: Ascorbic Acid 500 mg Chewable Tablet PO SCH (08:52)
[2017-07-02] MEDS: Nystatin Powder 15 GM BOT TOP SCH ×3 (08:54→20:31)
[2017-07-02] MEDS: Furosemide 40 MG TAB PO SCH (14:05)
[2017-07-02] MEDS: Enoxaparin Sodium 40 MG/0.4 ML SYRINGE SC SCH (17:22)
[2017-07-02] MEDS: Montelukast Sodium 10 mg Tablet PO SCH (20:28)
--- NOTE | 2017-07-02 22:50 | PRG ---
DATE OF SERVICE: 07/02/2017 HISTORY OF PRESENT ILLNESS: Curtis is a very pleasant 57-year-old white female, who was transferred to [facility] on 05/24/2017. She had been admitted with cellulitis of lower extremities and significant lymphedema. She was diuresed approximately 70 pounds and transferred to [facility] for continued diuresis finishing her oral antibiotics, PT, and OT. SUBJECTIVE: The patient states she is doing well. Her Inman catheter is out and he is not having a ny problems. She is supposed be going home on Sunday if she is ready for that. PHYSICAL EXAMINATION: VITAL SIGNS: Reveal blood pressure this morning was 129/57, pulse 65, respirations 18-20, O2 sat 94 -97%. T-max is 96.8. Weight today is 384 pounds, which is stable from yesterday. GENERAL: This is a well-developed, well-nourished, very pleasant, morbidly obese white female in no apparent distress at this time. HEENT: Reveals normocephalic, nontraumatic cranium. Pupils are equally round and reactive. Extrao cular movements intact. Nose and throat are moist. NECK: Supple, without masses, nodes, or bruits. CHEST: Clear to auscultation, no rales, rhonchi, wheezes, or cough is heard. HEART: Reveals a regular rate and rhythm without murmurs, gallops, or rubs. ABDOMEN: Morbidly obese, soft, nontender. No rebound or guarding is noted. Normal bowel sounds ar e noted. : Deferred. Inman catheter is out. EXTREMITIES: Reveal no clubbing, cyanosis with continued lymphedema. IMPRESSION: 1. Chronic lymphedema, improved. 2. Chronic renal insufficiency, stable. 3. Hypertension. 4. Diastolic dysfunction. 5. Chronic pain. 6. Cellulitis, resolved. 7. Restless leg syndrome. 8. Sleep apnea. 9. Depression. 10. Morbid obesity. 11. Generalized weakness. PLAN: 1. Continue Lasix 80 in the morning, 40 in the evening. 2. Continue lymphedema wraps. 3. Stress ulcer prophylaxis. 4. Decubitus precautions. 5. Physical therapy and occupational therapy. 6. Deep venous thrombosis prophylaxis. 7. Daily weight. 8. Discharge on Sunday.
[2017-07-03 05:52] LABS: Hemoglobin 8.5 g/dL (12.0-16.0); Platelet Count 223 thou/uL (130-400)
[2017-07-03] MEDS: Furosemide 80 MG TAB PO SCH (07:30)
[2017-07-03] MEDS: Potassium Chloride 10 MEQ TAB PO SCH ×2 (08:00→17:10)
[2017-07-03] MEDS: Ferrous Sulfate 325 MG TAB PO SCH ×3 (08:00→17:10)
[2017-07-03] MEDS: Spironolactone 25 MG TAB PO SCH (08:00)
[2017-07-03] MEDS: Aspirin 81 mg Enteric Coated Tablet PO SCH (08:58)
[2017-07-03] MEDS: Famotidine 20 MG TAB PO SCH ×2 (08:58→21:16)
[2017-07-03] MEDS: Pramipexole Di-HCl 0.25 MG TAB PO SCH ×2 (08:58→21:16)
[2017-07-03] MEDS: Gabapentin 300 MG CAP PO SCH ×3 (08:58→21:16)
[2017-07-03] MEDS: Ascorbic Acid 500 mg Chewable Tablet PO SCH (08:58)
[2017-07-03] MEDS: Nystatin Powder 15 GM BOT TOP SCH ×3 (09:00→21:17)
[2017-07-03] MEDS: Polyethylene Glycol 3350 17 GM Packet PO SCH (09:01)
[2017-07-03] MEDS: Furosemide 40 MG TAB PO SCH (14:15)
[2017-07-03] MEDS: Enoxaparin Sodium 40 MG/0.4 ML SYRINGE SC SCH (18:17)
[2017-07-03] MEDS: Montelukast Sodium 10 mg Tablet PO SCH (21:16)
[2017-07-04] MEDS: traMADol HCl 50 MG TAB PO PRN (01:09)
[2017-07-04] MEDS: Acetaminophen 500 MG TAB PO PRN (01:10)
--- NOTE | 2017-07-04 04:45 | PRG ---
DATE OF SERVICE: 07/03/2017 HISTORY: Ms. Acevedo is a very pleasant 57-year-old morbidly obese white female transferred from [facility] to [facility] on 05/24/2017. She was admitted initially [place] [facility] with cellulitis bilateral extremities and significant lymph edema. She was diuresed approximately 70 pounds worth and transferred to swing bed down at [place]. We will continue diuresing her and finish her oral antibiotics along with increasing her strength with physical therapy and occupational therapy. SUBJECTIVE: The patient states she is doing well. She still has been doing well without having pro blems with her Inman catheter. She is scheduled to be discharged on Sunday. Her mom will come a nd pick her up. She has been approximately getting in and out of the car and states she has actuall y found a good way to do it according to the physical therapist and occupational therapist. She has no complaints today. OBJECTIVE: VITAL SIGNS: Today reveal blood pressure 123/65, pulse 67-72, respirations 18-20, O2 sat 96-97% on room air, temperature max 97.8. Weight today is 386 pounds and 3 ounces, which is 2 pounds up from yesterday. GENERAL: This is a well-developed, well-nourished, very pleasant, morbidly obese white female in no apparent distress at this time. HEENT: Reveals normocephalic, nontraumatic cranium. Pupils are equally round and reactive. Extrao cular movements intact. Nose and throat are slightly dry. NECK: Supple without masses, nodes, or bruits. LUNGS: Chest is clear to auscultation. No rales, rhonchi, or wheezes are heard. CARDIOVASCULAR: Reveals a regular rate and rhythm without murmurs, gallops, or rubs. ABDOMEN: Morbidly obese, soft, nontender without organomegaly. Normal bowel sounds are noted. No rebound or guarding is noted. GENITOURINARY: Deferred. Catheter is out. EXTREMITIES: Reveal no clubbing, cyanosis. The patient continues to have lymphedema. It is hard t o determine if she has increase fluid or not. IMPRESSION: 1. Chronic lymphedema. 2. Chronic renal insufficiency, stable. 3. Hypertension. 4. Diastolic dysfunction. 5. Chronic pain. 6. Cellulitis, resolved. 7. Restless leg syndrome. 8. Sleep apnea. 9. Depression. 10. Morbid obesity. 11. Generalized weakness. PLAN: 1. Continue Lasix 80 mg in the morning and 40 mg in the evening. 2. Continue lymphedema wraps. 3. Stress ulcer prophylaxis. 4. Continue decubitus precautions. 5. Physical therapy and occupational therapy. 6. Continue DVT thrombosis prophylaxis. 7. Daily weight. 8. Discharge tomorrow.
[2017-07-04 06:59] VITALS: BMI 64.9
--- NOTE | 2017-07-04 07:51 | DIS ---
Ms. Acevedo is a very pleasant 57-year-old morbidly obese white female that was initially seen at [facility] with cellulitis of bilateral lower extremities. She also has significant lymphedema. They diuresed approximately 70 pounds and then eventually transferred her to swing bed down in [facility] in [place], [place]. We continued on her oral antibiotics to com pletion and continued to diurese her. The patient has actually done very well and she is down to 38 0 pounds this morning. SUBJECTIVE: The patient states she is doing well. She has no complaints. She is ready to go home. She expressed that she will be going home with [facility] and she will get 2-3 weeks o f physical therapy, occupational therapy there and then hopefully be able to move to outpatient phys ica therapy. I did write a prescription for a bariatric rolling walker. Her only new medication i s Gabapentin 300 mg 3 times daily. She has been instructed to see Dr. Win sometime this week or early next week for continued followup and update Dr. Win about her medications. VITAL SIGNS: Vital signs reveal blood pressure this morning 121/59, pulse 67-77, respirations 18-20 , O2 sat 95-97% on room air, T-max 97.6. PHYSICAL EXAMINATION: GENERAL: This is a well-developed, well-nourished, morbidly obese white female in no apparent distr ess at this time. She is alert and oriented x3. HEENT: Reveals normocephalic, nontraumatic cranium. Pupils are equally round and reactive. Extrao cular movements intact. Nose and throat are moist. NECK: Supple, without mass, nodes or bruits. CHEST: Clear to auscultation. Breath sounds are distant. No rales, rhonchi or wheezes are heard. HEART: Regular rate and rhythm without murmurs, gallops or rubs. ABDOMEN: Morbidly obese, soft, nontender, no rebound or guarding is noted. GENITOURINARY: Deferred. Inman catheter is out for several days. EXTREMITIES: No clubbing, cyanosis or edema. The patient does have chronic lymphedema that is much improved, for which we have continued to diurese her down to 380 pounds. IMPRESSION: 1. Chronic lymphedema, much improved. 2. Chronic renal insufficiency, much improved with her creatinine this morning 1.2, which is the be st she has been. 3. Hypertension, stable. 4. Diastolic dysfunction. 5. Chronic pain. 6. Cellulitis, resolved. 7. Restless leg syndrome. 8. Sleep apnea. 9. Depression. 10. Morbid obesity. 11. Generalized weakness. DISCHARGE MEDICATIONS: 1. Continue Lasix 80 mg in the morning and 40 mg in the evening. 2. Continue spironolactone 25 mg daily. 3. Continue new medication for her, Gabapentin 300 mg t.i.d. 4. Continue lymphedema wraps. 5. Continue stress ulcer prophylaxis. 6. Continue decubitus precautions. 7. Continue home health physical therapy and occupational therapy. 8. Daily weights to help her distinguish if she is gaining or losing weight. 9. The patient will be discharged today. 10. Follow up with Dr. Win within the next week. 11. Continue [facility] and occupational therapy until the patient is ready to go to outpatient therapy. 12. Prescription's for gabapentin have been written and prescription for a rolling bariatric walker have been written. I spent greater than 30 minutes on this discharge summary.
[2017-07-04] MEDS: Gabapentin 300 MG CAP PO SCH (07:54)
[2017-07-04] MEDS: Aspirin 81 mg Enteric Coated Tablet PO SCH (07:55)
[2017-07-04] MEDS: Furosemide 80 MG TAB PO SCH (07:55)
[2017-07-04] MEDS: Famotidine 20 MG TAB PO SCH (07:55)
[2017-07-04] MEDS: Ferrous Sulfate 325 MG TAB PO SCH ×2 (07:55→11:57)
[2017-07-04] MEDS: Potassium Chloride 10 MEQ TAB PO SCH (07:55)
[2017-07-04] MEDS: Ascorbic Acid 500 mg Chewable Tablet PO SCH (07:56)
[2017-07-04] MEDS: Pramipexole Di-HCl 0.25 MG TAB PO SCH (07:56)
[2017-07-04] MEDS: Spironolactone 25 MG TAB PO SCH (07:56)
[2017-07-04] MEDS: Nystatin Powder 15 GM BOT TOP SCH (07:57)
[2017-07-04] MEDS: Polyethylene Glycol 3350 17 GM Packet PO SCH (07:57)
[2017-07-04 08:07] VITALS: BP 131/62; TEMP 95.8
== END 2017-07-04 15:00 | disposition home health service (06) | DRG 603 ==
LOC: NAV ACUTE 18:53
PROVIDERS: ADMIT Family Medicine; ATTEND Family Medicine
DX: L03.116 Cellulitis of left lower limb (principal); I13.0 Hypertensive heart and chronic kidney disease with heart failure and stage 1 through stage 4 chronic kidney disease, or unspecified chronic kidney disease; I50.32 Chronic diastolic (congestive) heart failure; Z68.44 Body mass index [BMI] 60.0-69.9, adult; L03.115 Cellulitis of right lower limb; I89.0 Lymphedema, not elsewhere classified; E66.01 Morbid (severe) obesity due to excess calories; N18.9 Chronic kidney disease, unspecified; G25.81 Restless legs syndrome; F32.9 Major depressive disorder, single episode, unspecified; G47.33 Obstructive sleep apnea (adult) (pediatric); Z91.11 Patient's noncompliance with dietary regimen; D64.9 Anemia, unspecified; G89.4 Chronic pain syndrome
CPT/HCPCS: 36415; 80048; 81001; 82565; 85014; 85018; 85025; 85049; 87086; 94640; A4216; J1650; J1940; J7611

== ENCOUNTER 2017-12-25 16:18 | Inpatient (IN) | payer MEDICARE ==
[2017-12-25] MEDS ORDERED: Polyethylene Glycol 3350 17 GM Packet PO PRN (17:32)
[2017-12-25] MEDS ORDERED: Nystatin Powder 15 GM BOT TOP PRN (17:32)
[2017-12-25] MEDS ORDERED: Ondansetron ODT 4 MG TAB PO PRN (17:34)
[2017-12-25] MEDS ORDERED: Guaifenesin DM 100-10/5 ML UDCUP PO PRN (17:34)
[2017-12-25] MEDS ORDERED: Loperamide HCl 2 MG CAP PO PRN (17:34)
[2017-12-25] MEDS: Furosemide 40 MG TAB PO SCH (20:33)
[2017-12-25] MEDS: Amoxicillin/Potassium Clav 875 MG TAB PO SCH (20:33)
[2017-12-25] MEDS: Gabapentin 300 MG CAP PO SCH (20:34)
[2017-12-25] MEDS: Montelukast Sodium 10 mg Tablet PO SCH (20:34)
[2017-12-25] MEDS: Morphine ER 15 MG TAB PO SCH (20:34)
[2017-12-25] MEDS: Potassium Chloride 10 MEQ TAB PO SCH (20:35)
[2017-12-25] MEDS: Pramipexole Di-HCl 0.25 MG TAB PO SCH (20:36)
[2017-12-25 21:25] LABS: Bilirubin Negative (Negative); Blood, Urine Trace (Negative); Clarity Clear (Clear); Glucose, Urine (Dipstick) Negative (Negative); Leukocyte Trace (Negative); Nitrite Negative (Negative); Protein, Urine (Dipstick) Negative (Neg-Trace); Urobilinogen 0.2 mg/dL (0.2-1.0); pH, Urine 6.5 (5.0-9.0)
[2017-12-25 21:34] LABS: RBC/HPF 0-3 HPF (0-3); Squamous Epithelial 0-3 HPF (0-3); WBC/HPF 0-3 HPF (0-3)
--- NOTE | 2017-12-26 00:22 | HP ---
DATE OF ADMISSION: 12/25/2017 DATE OF HISTORY AND PHYSICAL: 12/25/2017 HISTORY OF PRESENT ILLNESS: Ms. Acevedo is a very pleasant 57-year-old white female that was admitted to [facility] with bilateral severe lymphedema and cellulitis of her bilateral lo wer extremities. She was started on IV Lasix and clindamycin and Rocephin. She lost probably 20 felicita nds of fluid weight and her cellulitis pretty much clear. She was unable to walk since she is now we nt from 425 pounds down to 414 pounds within a couple of days. She, therefore, was transferred to [facility] for continued diuresis, lymphedema wraps, and medical treatment. Patient is also here for physical therapy and occupational therapy. PAST MEDICAL HISTORY: 1. Significant for bilateral leg cellulitis with group B Strep bacteremia in 2013. 2. Chronic lymphedema. 3. History of DVT. 4. Sleep apnea. 5. Chronic anemia. 6. Essential hypertension. 7. History of asthma. 8. History of cardiomyopathy followed by Dr. Olivo with left ventricular ejection fraction of 65%. 9. Hypertension. 10. Pain management. PAST SURGICAL HISTORY: 1. Reveals patient has had laparoscopic cholecystectomy in 2003. 2. Total abdominal hysterectomy and bilateral salpingo-oophorectomy in 2000. 3. Tonsillectomy. 4. Appendectomy. 5. Parathyroidectomy. 6. Colonoscopy and EGD by Dr. Win. 7. Benign left breast biopsy. 8. Pain surgery in the right lower extremity, 2009. 9. Parathyroidectomy. 10. Two cardiac catheterizations by Dr. Olivo. ALLERGIES: Patient has no known drug allergies. CURRENT MEDICATIONS: Reveal the patient is presently on the followin. Tylenol 650 q.4 p.r.n. 2. [place] 7.5 one tab q.12 hours p.r.n. pain. 3. Xanax 0.25 b.i.d. p.r.n. anxiety and restless legs. 4. Amitriptyline 50 mg at bedtime. 5. Aspirin 81 mg daily. 6. Vitamin B12 of 1000 mcg subcutaneous every Sunday. 7. Lasix 60 mg b.i.d. 8. Gabapentin 300 mg t.i.d. 9. Robitussin-DM 15 mL p.r.n. 10. Metoprolol succinate 50 mg daily. 11. Singulair 10 mg at bedtime. 12. Morphine 30 mg p.o. q.8 hours. 13. Nystatin powder t.i.d. p.r.n. 14. Zofran 4 mg q.6 p.r.n. 15. MiraLax 17 grams daily. 16. Potassium chloride 10 mEq b.i.d. 17. Mirapex 0.25 b.i.d. 18. Zoloft 200 mg b.i.d. 19. Spironolactone 25 mg q.a.m. FAMILY HISTORY: Reveals patient's mother is alive and well. Patient's father had some type of histo ry of cancer. SOCIAL HISTORY: Reveals patient is homebound pretty much. She does have a hospital bed and home hea lth and Physical Therapy come by to see her. She does not smoke, does not drink, and does not use an y illegal drugs. REVIEW OF SYSTEMS: Reveal the patient denies any fever, chills, or upper nasal congestion. The leonie ent denies any chest pain, palpitations, or dyspnea on exertion. The patient denies respiratory cough, cold, congestion, or wheezing. Patient denies any nausea, vomiting, diarrhea, or constipation. She denies any bloody or black tarry stools. Patient denies any urgency, frequency, dysuria, or pyuria. Patient admits to significant swelling in her left lower extremity with bilateral foot cellulitis, wh ich is much improved. PHYSICAL EXAMINATION: GENERAL: This is a well-developed, well-nourished, very pleasant, morbidly obese, 414-pound white fe male in no apparent distress at this time. HEENT: Reveals normocephalic, nontraumatic cranium. Pupils are equally round and reactive. Extraoc ular movements intact. Nose and throat are slightly dry, but clear. NECK: Supple without mass, nodes, or bruits. CHEST: Clear to auscultation. No rales, rhonchi, or wheezes are heard. HEART: Reveals a regular rate and rhythm without murmurs, gallops, or rubs. Heart sounds are very d istant. ABDOMEN: Soft, nontender without organomegaly, normal bowel sounds are noted. No rebound or guardin g is noted. : Deferred. Inman catheter is in place. EXTREMITIES: Reveals severe morbidly obese, huge lymphedema in bilateral lower extremities. Remarka mandi no cyanosis or clubbing is noted. NEUROLOGIC: Cranial nerves II-XII were intact. Patient has significant weakness in her lower extrem ities and is not able to stand at this time due to her 414 pounds. The patient is oriented and alert x3. ASSESSMENT: 1. Severe bilateral lower extremity lymphedema with cellulitis, much improved. 2. Fluid overload. 3. Essential hypertension. 4. Cardiomyopathy with left ventricular ejection fraction of 65%, followed by Dr. Olivo. 5. History of asthma. 6. Normocytic anemia. 7. Chronic sleep apnea. 8. History of DVT, presently not on anticoagulation. 9. Chronic hypokalemia. 10. History of group B Strep bacteremia secondary to bilateral leg cellulitis in 12/2013. 11. Generalized weakness. PLAN: 1. Patient was transferred from [facility] for continued physical therapy and oc cupational therapy. 2. We will continue Lasix 60 mg p.o. b.i.d. 3. We will get daily weights. 4. Follow the patient's labs tomorrow morning and follow her BUN, creatinine, sodium, potassium. 5. Follow the patient for her anemia. 6. Patient is off her Rocephin and has been started on Augmentin 850 b.i.d. for 5 more days. 7. Consult physical therapy and occupational therapy. 8. Consult case management.
[2017-12-26] MEDS: HYDROcodone/Acetaminophen 7.5/325 mg Tablet PO PRN ×2 (01:12→14:18)
[2017-12-26 05:31] LABS: #Basophils 0.1 thou/uL (0.0-0.2); #Eosinphils 0.2 thou/uL (0.0-0.7); #Lymphocytes 1.1 thou/uL (1.20-3.40); #Monocytes 0.4 thou/uL (0.11-0.59); #Neutrophils 3.8 thou/uL (1.40-6.50); %Basophils 0.9 % (0.0-1.0); %Eosinophils 4.2 % (0.0-10.0); %Lymphocytes 19.3 % (21.0-51.0); %Monocytes 7.4 % (0.0-10.0); %Neutrophils 68.2 % (42.0-75.0); Anisocytosis SLIGHT = 6-15 cells (100X) (0-5/hpf); Helmet Cells SLIGHT = 2-5 cells (100X) (0-1/hpf); Hemoglobin 7.8 g/dL (12.0-16.0); Hypochromia SLIGHT = 6-15 cells (100X) (0-5/hpf); MDiff Complete? YES; Mean Corpuscular HGB CONC 30.4 g/dL (32.0-36.0); Mean Corpuscular Hemoglobin 24.6 pg (27.0-31.0); Mean Platelet Volume 7.2 fL (7.4-10.4); Microcytosis SLIGHT = 6-15 cells (100X) (0-5/hpf); PLT Morphology Comment Appears Adequate; Platelet Count 170 thou/uL (130-400); Poikilocytosis SLIGHT = 6-15 cells (100X) (0-5/hpf); RBC Distribution Width 14.8 % (11.5-14.5); Red Blood Cell (RBC) Count 3.17 mill/uL (4.20-5.40); Target Cells MODERATE= 6-15 cells (100X) (0-1/hpf); White Blood Cell (WBC) Count 5.6 thou/uL (4.8-10.8)
[2017-12-26 05:36] LABS: ALT (SGPT) 11 U/L (8-55); AST (SGOT) 18 U/L (5-34); Albumin 3.5 g/dL (3.5-5.0); Alkaline Phosphatase 109 U/L (40-150); Anion Gap 13 mmol/L (10-20); BUN (Urea Nitrogen) 28 mg/dL (9.8-20.1); Bilirubin, Total 0.2 mg/dL (0.2-1.2); Calc. Creatinine Clearance 169 mL/min (70-130); Calcium 8.6 mg/dL (7.8-10.44); Carbon Dioxide 33 mmol/L (22-29); Chloride 97 mmol/L (98-107); Estimated GFR-MDRD 47; Glucose 104 mg/dL (70-105); Potassium 4.1 mmol/L (3.5-5.1); Protein, Total 6.5 g/dL (6.0-8.3); Sodium 139 mmol/L (136-145)
[2017-12-26] MEDS: Amoxicillin/Potassium Clav 875 MG TAB PO SCH ×2 (08:36→20:27)
[2017-12-26] MEDS: Gabapentin 300 MG CAP PO SCH ×3 (08:37→20:28)
[2017-12-26] MEDS: Morphine ER 15 MG TAB PO SCH ×3 (08:37→20:29)
[2017-12-26] MEDS: Spironolactone 25 MG TAB PO SCH (08:37)
[2017-12-26] MEDS: Ferrous Sulfate 325 MG TAB PO SCH (08:39)
[2017-12-26] MEDS: Pramipexole Di-HCl 0.25 MG TAB PO SCH ×2 (08:39→20:29)
[2017-12-26] MEDS: Potassium Chloride 10 MEQ TAB PO SCH ×2 (08:39→20:29)
[2017-12-26] MEDS: Furosemide 40 MG TAB PO SCH ×2 (08:39→20:27)
[2017-12-26] MEDS: Lisinopril 5 MG TAB PO SCH (08:40)
[2017-12-26] MEDS: Hydrochlorothiazide 25 MG TAB PO SCH (08:40)
[2017-12-26] MEDS: Aspirin 81 mg Enteric Coated Tablet PO SCH (08:41)
[2017-12-26] MEDS ORDERED: FLU VACC QS2017-18 36 mo. & older 0.5 ML SYRINGE IM ONE (09:00)
[2017-12-26] MEDS: Montelukast Sodium 10 mg Tablet PO SCH (20:28)
--- NOTE | 2017-12-26 20:58 | PRG ---
DATE OF SERVICE: 12/26/2017 HISTORY OF PRESENT ILLNESS: Ms. Acevedo is a 57-year-old morbidly obese white female admitted to [facility] ED with severe lymphedema in bilateral foot cellulitis. She was started on cl indamycin, Rocephin and IV Lasix. Lost multiple pounds and her cellulitis is much improved. She was transferred to [facility] for physical therapy, occupational therapy to increase her strength and her stamina. She presently is unable to walk. She was also transferred here for lymph edema wraps and lymphedema pumps. SUBJECTIVE: GENERAL: The patient states she is doing well. She had some occupational therapy today and they are measuring her legs to see our next steps for her lymphedema. VITAL SIGNS: Blood pressure this morning 127/59, pulse 69-79, respirations 20, O2 sat 94-97% on room air. LABORATORY DATA: This morning revealed white count 5600 with hemoglobin 7.8, hematocrit 25.7 and a p latelet count of 170. Sodium 139, potassium 4.1, chloride 97, carbon dioxide 33 with a BUN 28, creatinine 1.19. AST is 18, ALT is 11. Urinalysis is unremarkable. PHYSICAL EXAMINATION: GENERAL: This is a well-developed, well-nourished, morbidly obese 414-pound white female in no appar ent distress at this time. HEENT: Reveals normocephalic, nontraumatic cranium. Pupils are equally round and reactive. Extraoc ular movements are intact. Nose and throat are slightly dry, but clear. NECK: Supple, without masses, nodes or bruits. CHEST: Clear to auscultation. No rales, rhonchi or wheezes are heard. CARDIOVASCULAR: Reveals a regular rate and rhythm without murmurs, gallops or rubs. ABDOMEN: Soft, nontender, without organomegaly, normal bowel sounds are noted. No rebound or guardi ng is noted. : Deferred. EXTREMITIES: Reveal no clubbing, cyanosis or edema. NEUROLOGIC: Cranial nerves II-XII are intact. IMPRESSION: 1. Severe bilateral lower extremity lymphedema with cellulitis, much improved. 2. Volume overload. 3. Essential hypertension. 4. Cardiomyopathy with left ventricular ejection fraction of 65%, followed by Dr. Olivo. 5. History of asthma. 6. Normocytic anemia. 7. Chronic sleep apnea. 8. History of deep vein thrombosis, presently not on anticoagulation. 9. Chronic hypokalemia. 10. History of group B strep bacteremia secondary to bilateral leg cellulitis in 2013. 11. Generalized weakness. PLAN: 1. Continue Lasix 60 mg b.i.d. 2. Continued daily weights. 3. Continue physical therapy and occupational therapy. 4. BUN, creatinine, electrolytes in 2 or 3 more days. 5. Monitor the patient's anemia. 6. Augmentin 850 mg twice a day for 4 more days. 7. Consult physical therapy and occupational therapy. 8. Case management.
[2017-12-26] MEDS: Acetaminophen 325 MG TAB PO PRN (23:49)
[2017-12-27] MEDS: HYDROcodone/Acetaminophen 7.5/325 mg Tablet PO PRN ×2 (02:53→22:38)
[2017-12-27] MEDS: Potassium Chloride 10 MEQ TAB PO SCH ×2 (09:04→20:08)
[2017-12-27] MEDS: Aspirin 81 mg Enteric Coated Tablet PO SCH (09:04)
[2017-12-27] MEDS: Amoxicillin/Potassium Clav 875 MG TAB PO SCH ×2 (09:04→20:08)
[2017-12-27] MEDS: Morphine ER 15 MG TAB PO SCH ×3 (09:05→20:09)
[2017-12-27] MEDS: Lisinopril 5 MG TAB PO SCH (09:05)
[2017-12-27] MEDS: Ferrous Sulfate 325 MG TAB PO SCH (09:05)
[2017-12-27] MEDS: Furosemide 40 MG TAB PO SCH ×2 (09:06→20:07)
[2017-12-27] MEDS: Pramipexole Di-HCl 0.25 MG TAB PO SCH ×2 (09:06→20:09)
[2017-12-27] MEDS: Hydrochlorothiazide 25 MG TAB PO SCH (09:06)
[2017-12-27] MEDS: Spironolactone 25 MG TAB PO SCH (09:07)
[2017-12-27] MEDS: Gabapentin 300 MG CAP PO SCH ×3 (09:07→20:09)
[2017-12-27] MEDS ORDERED: Saccharomyces boulardii 250 MG CAP PO SCH (10:30)
[2017-12-27] MEDS: Acetaminophen 325 MG TAB PO PRN (13:38)
--- NOTE | 2017-12-27 17:32 | PRG ---
DATE OF SERVICE: 12/27/2017 DATE OF ADMISSION: 12/25/2017 HISTORY OF PRESENT ILLNESS: Ms. Acevedo is a very pleasant 57-year-old white female that was seen at [facility] with severe lymphedema and bilateral foot cellulitis. She was started on clindamycin, Rocephin and IV Lasix. She lost multiple pounds. Her cellulitis improved. She was transferred to [facility] for continued physical therapy and occupational therapy to increase her strength and stamina and oral antibiotics for cellulitis. She is unable to walk at this time and has not walked for about a month. Prior to that, she was walking, transferring and doing w ell. SUBJECTIVE: The patient states she is doing well. She already stood this morning about 40 seconds w hich is the first time she stood in about a month. She transferred and sat down in the wheelchair. She has no complaints today. PHYSICAL EXAMINATION: VITAL SIGNS: Reveal blood pressure this morning 111/54, pulse 64, respirations 16, O2 sat 97% on evon m air, T-max 96.1. GENERAL: This is a well-developed, well-nourished, morbidly obese 414 pound white female that was ventura pposed to have away this morning, I cannot find at this time. HEENT: Reveals normocephalic, nontraumatic cranium. Pupils equal, round, and reactive. Extraocular movements are intact. Nose and throat are slightly dry. NECK: Supple, without masses, nodes or bruits. CHEST: Clear to auscultation. No rales, rhonchi or wheezes are heard. HEART: Reveals regular rate and rhythm without murmurs, gallops or rubs. ABDOMEN: Obese, soft, nontender. No rebound or guarding is noted. GENITOURINARY: Deferred. EXTREMITIES: Reveal no clubbing or cyanosis, just significant lymphedema. NEUROLOGIC: Patient has no significant deficits. IMPRESSION: 1. Severe bilateral lower extremity lymphedema with cellulitis, much improved. 2. Volume overload. 3. Essential hypertension. 4. Cardiomyopathy with left ventricular ejection fraction of 65%, followed by Dr. Olivo. 5. History of asthma. 6. Normocytic anemia. 7. Chronic sleep apnea. 8. History of deep venous thrombosis, presently not on anticoagulation. 9. Chronic hypokalemia. 10. History of group B strep bacteremia secondary to bilateral leg cellulitis. 11. Generalized weakness. PLAN: 1. Continue Lasix 60 mg b.i.d. 2. Continue daily weights. 3. Continue physical therapy and occupational therapy. 4. BUN, creatinine and electrolytes in a couple more days. 5. Monitor the patient's anemia. 6. Augmentin 850 b.i.d. for 4 more days. 7. Consult physical therapy and occupational therapy. 8. Case management.
[2017-12-27] MEDS: Montelukast Sodium 10 mg Tablet PO SCH (20:08)
[2017-12-28] MEDS: Acetaminophen 325 MG TAB PO PRN (04:24)
[2017-12-28] MEDS: Cyanocobalamin 1000 MCG/ML VIAL SC SCH (09:27)
[2017-12-28] MEDS: Aspirin 81 mg Enteric Coated Tablet PO SCH (09:29)
[2017-12-28] MEDS: Gabapentin 300 MG CAP PO SCH ×3 (09:30→20:21)
[2017-12-28] MEDS: Hydrochlorothiazide 25 MG TAB PO SCH (09:30)
[2017-12-28] MEDS: Lisinopril 5 MG TAB PO SCH (09:30)
[2017-12-28] MEDS: Ferrous Sulfate 325 MG TAB PO SCH (09:30)
[2017-12-28] MEDS: Furosemide 40 MG TAB PO SCH ×2 (09:30→20:21)
[2017-12-28] MEDS: Potassium Chloride 10 MEQ TAB PO SCH ×2 (09:31→20:21)
[2017-12-28] MEDS: Morphine ER 15 MG TAB PO SCH ×3 (09:31→20:19)
[2017-12-28] MEDS: Spironolactone 25 MG TAB PO SCH (09:31)
[2017-12-28] MEDS: Saccharomyces boulardii 250 MG CAP PO SCH (09:32)
[2017-12-28] MEDS: Pramipexole Di-HCl 0.25 MG TAB PO SCH ×2 (09:32→20:21)
[2017-12-28] MEDS: Amoxicillin/Potassium Clav 875 MG TAB PO SCH ×2 (09:32→20:20)
[2017-12-28] MEDS: HYDROcodone/Acetaminophen 7.5/325 mg Tablet PO PRN (13:51)
[2017-12-28] MEDS: Montelukast Sodium 10 mg Tablet PO SCH (20:21)
--- NOTE | 2017-12-28 20:42 | PRG ---
DATE OF SERVICE: 12/28/2017 DATE OF ADMISSION: 12/25/2017 HISTORY OF PRESENT ILLNESS: Ms. Acevedo is a 57-year-old morbidly obese white female that presented to [facility] with severe lymphedema and bilateral foot cellulitis. She was starte d on IV Rocephin, clindamycin, and IV Lasix. She lost quite a few pounds and was transferred to [facility] for continued physical therapy, occupational therapy, diuresis and oral antibi otics. The patient is excited because she was able to stand up and walk a few steps to the bathroom. PHYSICAL EXAMINATION: VITAL SIGNS: This morning reveal blood pressure 103/51, pulse 63-67, respirations 18-20, O2 saturati on 95-99% on room air, T-max 98 degrees. GENERAL: This is a well-developed, well-nourished, morbidly obese white female in no apparent distre ss at this time. HEENT: Reveals normocephalic, nontraumatic cranium. Pupils are equally round, reactive. Extraocula r movements intact. Nose and throat are slightly dry. NECK: Supple, without masses, nodes or bruits. CHEST: Clear to auscultation. No rales, rhonchi or wheezes are heard. HEART: Reveals a regular rate and rhythm without murmurs, gallops or rubs. ABDOMEN: Obese, soft, nontender, without organomegaly, normal bowel sounds are noted. No rebound or guarding is noted. GENITOURINARY: Deferred. EXTREMITIES: Reveal no clubbing, cyanosis. Patient has severe significant lymphedema. Her cellulit is on both of her legs are pretty much resolved. NEUROLOGIC: She has no significant deficits. IMPRESSION: 1. Severe bilateral lower extremity lymphedema with cellulitis, much improved. 2. Volume overload. 3. Essential hypertension. 4. Cardiomyopathy, left ventricular ejection fraction 65%, followed by Dr. Olivo. 5. History of asthma. 6. Normocytic anemia. 7. Chronic obstructive sleep apnea. 8. History of deep venous thrombosis, presently not on anticoagulation. 9. Chronic hypokalemia. 10. History of group B strep bacteremia secondary to bilateral leg cellulitis 2 years ago. 11. Generalized weakness. PLAN: 1. Fluid restriction of 1500 mL. We need to make sure that she follows that. 2. Lasix 60 mg b.i.d. 3. Continue daily weights. 4. Continue PT and OT. 5. BUN, creatinine, electrolytes to be drawn tomorrow. 6. Monitor patient's anemia. 7. Augmentin 850. 8. Physical therapy and occupational therapy. 9. Case management.
[2017-12-29 05:39] LABS: Anion Gap 15 mmol/L (10-20); BUN (Urea Nitrogen) 29 mg/dL (9.8-20.1); Calc. Creatinine Clearance 150 mL/min (70-130); Calcium 9.3 mg/dL (7.8-10.44); Carbon Dioxide 35 mmol/L (22-29); Chloride 95 mmol/L (98-107); Estimated GFR-MDRD 44; Glucose 108 mg/dL (70-105); Potassium 4.3 mmol/L (3.5-5.1); Sodium 141 mmol/L (136-145)
[2017-12-29 06:03] LABS: #Basophils 0.1 thou/uL (0.0-0.2); #Eosinphils 0.3 thou/uL (0.0-0.7); #Monocytes 0.4 thou/uL (0.11-0.59); %Basophils 0.9 % (0.0-1.0); %Eosinophils 4.7 % (0.0-10.0); %Lymphocytes 17.6 % (21.0-51.0); %Monocytes 7.5 % (0.0-10.0); %Neutrophils 69.3 % (42.0-75.0); Anisocytosis SLIGHT = 6-15 cells (100X) (0-5/hpf); Hemoglobin 8.4 g/dL (12.0-16.0); Hypochromia SLIGHT = 6-15 cells (100X) (0-5/hpf); MDiff Complete? YES; Mean Corpuscular HGB CONC 29.8 g/dL (32.0-36.0); Mean Corpuscular Hemoglobin 24.4 pg (27.0-31.0); Mean Corpuscular Volume 81.9 fl (81.0-99.0); Mean Platelet Volume 7.6 fL (7.4-10.4); PLT Morphology Comment Appears Adequate; Platelet Count 187 thou/uL (130-400); RBC Distribution Width 15.1 % (11.5-14.5); Red Blood Cell (RBC) Count 3.46 mill/uL (4.20-5.40); White Blood Cell (WBC) Count 5.8 thou/uL (4.8-10.8)
[2017-12-29] MEDS: Amoxicillin/Potassium Clav 875 MG TAB PO SCH ×2 (08:11→21:28)
[2017-12-29] MEDS: Ferrous Sulfate 325 MG TAB PO SCH (08:11)
[2017-12-29] MEDS: Saccharomyces boulardii 250 MG CAP PO SCH (08:12)
[2017-12-29] MEDS: Gabapentin 300 MG CAP PO SCH ×3 (08:12→21:32)
[2017-12-29] MEDS: Pramipexole Di-HCl 0.25 MG TAB PO SCH ×2 (08:12→21:33)
[2017-12-29] MEDS: Aspirin 81 mg Enteric Coated Tablet PO SCH (08:12)
[2017-12-29] MEDS: Lisinopril 5 MG TAB PO SCH (08:13)
[2017-12-29] MEDS: Furosemide 40 MG TAB PO SCH ×2 (08:14→21:29)
[2017-12-29] MEDS: Morphine ER 15 MG TAB PO SCH ×3 (08:15→21:29)
[2017-12-29] MEDS: Hydrochlorothiazide 25 MG TAB PO SCH (08:15)
[2017-12-29] MEDS: Spironolactone 25 MG TAB PO SCH (08:15)
[2017-12-29] MEDS: Potassium Chloride 10 MEQ TAB PO SCH ×2 (08:15→21:32)
[2017-12-29] MEDS: HYDROcodone/Acetaminophen 7.5/325 mg Tablet PO PRN ×2 (09:27→21:32)
--- NOTE | 2017-12-29 15:32 | PRG ---
DATE OF SERVICE: 12/29/2017 SUBJECTIVE: Ms. Acevedo is doing well except for some bladder spasms. She denies any other concerns. OBJECTIVE: VITAL SIGNS: She is afebrile, heart rate is 64, respirations 17, oxygen saturation 93% on room air, and blood pressure 95/51. CARDIOVASCULAR SYSTEM: S1, S2 plus. RESPIRATORY SYSTEM: Normal vesicular breath sounds. ABDOMEN: Soft, obese, nontender, bowel sounds heard in all quadrants. EXTREMITIES: Chronic lymphedema. CENTRAL NERVOUS SYSTEM: Improving weakness. IMPRESSION: 1. Resolving cellulitis in bilateral lower extremities. 2. Chronic lymphedema. 3. Hypertension, well controlled. 4. Asthma. 5. Obstructive sleep apnea. 6. Bladder spasms. PLAN: 1. Recheck urine for any infection, the one done on admission was normal. 2. Encourage p.o. fluid intake. 3. Continue current medications. 4. DVT and stress ulcer prophylaxis. 5. Decubitus precautions. 6. Routine laboratory values.
[2017-12-29] MEDS: ALPRAZolam 0.25 MG TAB PO PRN (21:28)
[2017-12-29] MEDS: Montelukast Sodium 10 mg Tablet PO SCH (21:32)
[2017-12-30] MEDS: Gabapentin 300 MG CAP PO SCH ×3 (08:16→20:41)
[2017-12-30] MEDS: Amoxicillin/Potassium Clav 875 MG TAB PO SCH ×2 (08:16→20:40)
[2017-12-30] MEDS: Potassium Chloride 10 MEQ TAB PO SCH ×2 (08:17→20:41)
[2017-12-30] MEDS: Saccharomyces boulardii 250 MG CAP PO SCH (08:17)
[2017-12-30] MEDS: Pramipexole Di-HCl 0.25 MG TAB PO SCH ×2 (08:17→20:41)
[2017-12-30] MEDS: Aspirin 81 mg Enteric Coated Tablet PO SCH (08:18)
[2017-12-30] MEDS: Lisinopril 5 MG TAB PO SCH (08:18)
[2017-12-30] MEDS: Ferrous Sulfate 325 MG TAB PO SCH (08:18)
[2017-12-30] MEDS: Hydrochlorothiazide 25 MG TAB PO SCH (08:19)
[2017-12-30] MEDS: Spironolactone 25 MG TAB PO SCH (08:19)
[2017-12-30] MEDS: Furosemide 40 MG TAB PO SCH (08:19)
[2017-12-30] MEDS: Morphine ER 15 MG TAB PO SCH ×3 (08:21→20:41)
[2017-12-30] MEDS: HYDROcodone/Acetaminophen 7.5/325 mg Tablet PO PRN ×2 (10:54→23:28)
--- NOTE | 2017-12-30 12:48 | PRG ---
DATE OF SERVICE: 12/30/2017 SUBJECTIVE: Ms. Acevedo is doing well. Denies any complaints. Still having occasional bladder spasms . No fever or chills. Repeat urine culture is pending. OBJECTIVE: VITAL SIGNS: She is afebrile, heart rate 67, respirations 18, oxygen saturation 94% on room air, blo od pressure 101/56. CARDIOVASCULAR: S1, S2 plus. RESPIRATORY: Normal vesicular breath sounds. ABDOMEN: Soft, obese, nontender, bowel sounds heard in all quadrants. EXTREMITIES: Chronic lymphedema. Resolving cellulitis. CENTRAL NERVOUS SYSTEM: Generalized weakness. IMPRESSION: 1. Hypertension, well controlled. 2. Asthma, stable. 3. Obstructive sleep apnea. 4. Bladder spasms. 5. Chronic lymphedema. 6. Resolving cellulitis. 7. Improving deconditioning. PLAN: 1. Await urine culture. 2. Continue current medications. 3. DVT and stress ulcer prophylaxis. 4. Decubitus precautions. 5. Nocturnal CPAP. 6. Routine laboratory values. 7. Dr. Charlene Alegre back tonight.
[2017-12-30] MEDS: Acetaminophen 325 MG TAB PO PRN (18:11)
[2017-12-30] MEDS: Montelukast Sodium 10 mg Tablet PO SCH (20:41)
[2017-12-30] MEDS: Furosemide 20 MG TAB PO SCH (20:43)
[2017-12-30] MEDS: ALPRAZolam 0.25 MG TAB PO PRN (23:28)
[2017-12-31] MEDS: Potassium Chloride 10 MEQ TAB PO SCH ×2 (09:27→20:55)
[2017-12-31] MEDS: Saccharomyces boulardii 250 MG CAP PO SCH (09:27)
[2017-12-31] MEDS: Gabapentin 300 MG CAP PO SCH ×3 (09:27→20:55)
[2017-12-31] MEDS: Spironolactone 25 MG TAB PO SCH (09:28)
[2017-12-31] MEDS: Hydrochlorothiazide 25 MG TAB PO SCH (09:28)
[2017-12-31] MEDS: Aspirin 81 mg Enteric Coated Tablet PO SCH (09:28)
[2017-12-31] MEDS: Furosemide 20 MG TAB PO SCH ×2 (09:28→20:56)
[2017-12-31] MEDS: Pramipexole Di-HCl 0.25 MG TAB PO SCH ×2 (09:28→20:55)
[2017-12-31] MEDS: Morphine ER 15 MG TAB PO SCH ×3 (09:29→20:56)
[2017-12-31] MEDS: Lisinopril 5 MG TAB PO SCH (09:30)
[2017-12-31] MEDS: Ferrous Sulfate 325 MG TAB PO SCH (09:30)
--- NOTE | 2017-12-31 20:41 | PRG ---
DATE OF SERVICE: 12/31/2017 DATE OF ADMISSION: 12/25/2017 HISTORY OF PRESENT ILLNESS: Ms. Acevedo is a 57-year-old morbidly obese white female that presented to [facility] with severe lymphedema in bilateral foot cellulitis. She was started on IV Rocephin and clindamycin, IV Lasix. Eventually, she lost several pounds was transferred to [facility] basically on oral antibiotics. She has been doing very well. We need weigh t her every day that is accurate. SUBJECTIVE: The patient has no complaints today. PHYSICAL EXAMINATION: VITAL SIGNS: Revealed blood pressure this morning was 121/71, pulse 60, respirations 20, O2 sat 95% on room air, T-max 97.2. GENERAL: This is a well-developed, well-nourished, morbidly obese white female in no apparent distre ss at this time. HEENT: Reveals normocephalic, nontraumatic cranium. Pupils are equally round and reactive. Extraoc ular movements are intact. Nose and throat are slightly dry. NECK: Supple, without masses, nodes or bruits. LUNGS: Chest is clear to auscultation. No rales, rhonchi, or wheezes are heard. CARDIOVASCULAR: Reveals a regular rate and rhythm without murmurs, gallops, or rubs. ABDOMEN: Morbidly obese, soft, nontender, without organomegaly. GENITOURINARY: Deferred. EXTREMITIES: Reveal no clubbing, cyanosis, or edema. NEUROLOGIC: Patient does have huge chronic lymphedema. Also, has cellulitis, which is resolving. ASSESSMENT: 1. Hypertension. 2. Asthma, stable. 3. Obstructive sleep apnea. 4. Chronic lymphedema, slowly improving. 5. Bladder spasm. 6. Resolving cellulitis. 7. Improving generalized weakness. PLAN: 1. Awaiting culture. 2. Continue present meds. 3. Continue to follow the patient's BUN and creatinine closely. 4. Deep venous thrombosis and stress ulcer prophylaxis. 5. Decubitus precautions. 6. Continue nocturnal CPAP. 7. Routine labs. 8. Physical therapy and occupational therapy.
[2017-12-31] MEDS: Montelukast Sodium 10 mg Tablet PO SCH (20:55)
[2017-12-31] MEDS: HYDROcodone/Acetaminophen 7.5/325 mg Tablet PO PRN (23:58)
[2018-01-01] MEDS: Acetaminophen 325 MG TAB PO PRN (04:16)
[2018-01-01] MEDS: Morphine ER 15 MG TAB PO SCH ×3 (07:57→21:27)
[2018-01-01] MEDS: Saccharomyces boulardii 250 MG CAP PO SCH (07:57)
[2018-01-01] MEDS: Furosemide 20 MG TAB PO SCH ×2 (07:59→21:29)
[2018-01-01] MEDS: Pramipexole Di-HCl 0.25 MG TAB PO SCH ×2 (07:59→21:27)
[2018-01-01] MEDS: Gabapentin 300 MG CAP PO SCH ×3 (07:59→21:27)
[2018-01-01] MEDS: Ferrous Sulfate 325 MG TAB PO SCH (07:59)
[2018-01-01] MEDS: Spironolactone 25 MG TAB PO SCH (07:59)
[2018-01-01] MEDS: Potassium Chloride 10 MEQ TAB PO SCH ×2 (08:00→21:30)
[2018-01-01] MEDS: Aspirin 81 mg Enteric Coated Tablet PO SCH (08:00)
[2018-01-01] MEDS: Hydrochlorothiazide 25 MG TAB PO SCH (08:02)
[2018-01-01] MEDS: Lisinopril 5 MG TAB PO SCH (08:02)
[2018-01-01] MEDS ORDERED: Cyanocobalamin 1000 MCG/ML VIAL SC SCH (09:00)
[2018-01-01] MEDS: HYDROcodone/Acetaminophen 7.5/325 mg Tablet PO PRN (13:19)
[2018-01-01] MEDS: ALPRAZolam 0.25 MG TAB PO PRN (21:30)
[2018-01-01] MEDS: Montelukast Sodium 10 mg Tablet PO SCH (21:30)
[2018-01-02] MEDS: Potassium Chloride 10 MEQ TAB PO SCH ×2 (08:29→20:31)
[2018-01-02] MEDS: Aspirin 81 mg Enteric Coated Tablet PO SCH (08:29)
[2018-01-02] MEDS: Ferrous Sulfate 325 MG TAB PO SCH (08:29)
[2018-01-02] MEDS: Gabapentin 300 MG CAP PO SCH ×3 (08:30→20:29)
[2018-01-02] MEDS: Furosemide 20 MG TAB PO SCH ×2 (08:30→20:31)
[2018-01-02] MEDS: Pramipexole Di-HCl 0.25 MG TAB PO SCH ×2 (08:30→20:32)
[2018-01-02] MEDS: Saccharomyces boulardii 250 MG CAP PO SCH (08:30)
[2018-01-02] MEDS: Spironolactone 25 MG TAB PO SCH (08:30)
[2018-01-02] MEDS: Hydrochlorothiazide 25 MG TAB PO SCH (08:30)
[2018-01-02] MEDS: Morphine ER 15 MG TAB PO SCH ×3 (08:31→20:29)
[2018-01-02] MEDS: Lisinopril 5 MG TAB PO SCH (08:32)
[2018-01-02] MEDS: HYDROcodone/Acetaminophen 7.5/325 mg Tablet PO PRN (13:06)
--- NOTE | 2018-01-02 20:04 | PRG ---
DATE OF SERVICE: 01/02/2018 HISTORY OF PRESENT ILLNESS: Ms. Acevedo is a very pleasant 57-year-old morbidly obese white female, wh o presented to [facility] with cellulitis of both feet and morbid severe lymphede ma. She was started on IV Rocephin and IV clindamycin. Eventually, she was weaned off her IV Lasix to oral Lasix and she was transferred to [facility] on oral antibiotics and oral Lasi x. OBJECTIVE: GENERAL: The patient states she continues to do well and walk a little bit further every day. She d id get on the scale, but she is not sure what she weigh today. VITAL SIGNS: Reveal blood pressure this morning is 103/54, pulse 67, respirations 18, O2 sat 96% on room air, T-max 98.2. PHYSICAL EXAMINATION: GENERAL: This is a well-developed, well-nourished, very pleasant white female, in no apparent distre ss at this time. HEENT: Reveals normocephalic, nontraumatic cranium. Pupils are equally round and reactive. Extraoc ular movements are intact. Nose and throat are slightly dry. NECK: Supple, without masses, nodes, or bruits. CHEST: Clear to auscultation. No rales, rhonchi, wheezes, or cough is heard. HEART: Reveals a regular rate and rhythm without murmurs, gallops, or rubs. ABDOMEN: Morbidly obese, soft. No rebound or guarding is noted. : Deferred with a Inman catheter in place. EXTREMITIES: Reveal a severe chronic lymphedema, which is gradually improving with oral Lasix. Cell ulitis is resolving. ASSESSMENT: 1. Chronic severe lymphedema. 2. Cellulitis of bilateral feet, resolving. 3. Hypertension. 4. Asthma, stable. 5. Obstructive sleep apnea. 6. Bladder spasm. 7. Generalized weakness. PLAN: 1. Continue present meds. 2. Laboratories tomorrow. 3. Followup patient's BUN and creatinine closely. 4. DVT and stress ulcer prophylaxis. 5. Decubitus precautions. 6. Continue CPAP at night. 7. Continue physical therapy and occupational therapy.
[2018-01-02] MEDS: Montelukast Sodium 10 mg Tablet PO SCH (20:32)
--- NOTE | 2018-01-02 21:31 | PRG ---
DATE OF SERVICE: 01/01/2018 HISTORY OF PRESENT ILLNESS: Ms. Acevedo is a very pleasant 57-year-old morbidly obese white female. S he had severe lymphedema with bilateral cellulitis and presented to the emergency room at [facility] where she was admitted. She was started on IV antibiotics and IV Lasix, but even tually she was stabilized and transferred to [facility] on oral antibiotics and oral Lasix. She has done very well here and continues to gradually lose some weight. She was still havin g difficulty weighing her on an appropriate scale. SUBJECTIVE: The patient states she is doing well. She is glad because she has walked a little bit f urther. OBJECTIVE: VITAL SIGNS: Reveal blood pressure today was 100/54, pulse 64, respirations 18-20, O2 sat 91-94% on room air. T-max was 97.9. GENERAL: This is a well-developed and well-nourished morbidly obese white female, in no apparent dis tress at this time. HEENT: Reveals normocephalic and nontraumatic cranium. Pupils are equally round and reactive. Extr aocular movements are intact. Nose and throat are slightly dry. NECK: Supple without masses, nodes, or bruits. CHEST: Clear to auscultation. No rales, rhonchi, wheezes, or cough are heard. CARDIOVASCULAR: Reveals a regular rate and rhythm without murmurs, gallops, or rubs. ABDOMEN: Morbidly obese, soft. No rebound or guarding is noted. : Deferred. Inman catheter is in place. EXTREMITIES: Reveal significant lymphedema, but no clubbing or cyanosis is noted. NEUROLOGIC: The patient is getting somewhat stronger and has no significant neuropathy. IMPRESSION: 1. Severe morbid lymphedema. 2. Hypertension. 3. Asthma, stable. 4. Obstructive sleep apnea. 5. Chronic lymphedema. 6. Bladder spasm. 7. Resolving cellulitis. 8. Improving generalized weakness. PLAN: 1. Continue present meds. 2. Continue Lasix 60 mg daily. 3. Continue daily weights. 4. Continue to follow patient's BUN and creatinine closely. 5. DVT and stress ulcer prophylaxis. 6. Decubitus precautions. 7. Continue nocturnal CPAP. 8. Physical therapy and occupational therapy.
[2018-01-02] MEDS: Nystatin Powder 15 GM BOT TOP SCH (23:24)
[2018-01-03] MEDS: HYDROcodone/Acetaminophen 7.5/325 mg Tablet PO PRN ×2 (02:46→18:27)
[2018-01-03] MEDS: Furosemide 20 MG TAB PO SCH ×2 (08:59→20:48)
[2018-01-03] MEDS: Saccharomyces boulardii 250 MG CAP PO SCH (08:59)
[2018-01-03] MEDS: Spironolactone 25 MG TAB PO SCH (08:59)
[2018-01-03] MEDS: Gabapentin 300 MG CAP PO SCH ×3 (08:59→20:49)
[2018-01-03] MEDS: Pramipexole Di-HCl 0.25 MG TAB PO SCH ×2 (09:00→20:50)
[2018-01-03] MEDS: Hydrochlorothiazide 25 MG TAB PO SCH (09:00)
[2018-01-03] MEDS: Ferrous Sulfate 325 MG TAB PO SCH (09:00)
[2018-01-03] MEDS: Potassium Chloride 10 MEQ TAB PO SCH ×2 (09:00→20:50)
[2018-01-03] MEDS: Morphine ER 15 MG TAB PO SCH ×3 (09:01→20:49)
[2018-01-03] MEDS: Lisinopril 5 MG TAB PO SCH (09:01)
[2018-01-03] MEDS: Aspirin 81 mg Enteric Coated Tablet PO SCH (09:01)
[2018-01-03] MEDS: Nystatin Powder 15 GM BOT TOP SCH ×2 (09:11→20:50)
[2018-01-03] MEDS: Acetaminophen 325 MG TAB PO PRN (11:58)
--- NOTE | 2018-01-03 18:51 | PRG ---
DATE OF SERVICE: 01/03/2018 SUBJECTIVE: Ms. Acevedo is a very pleasant 57-year-old morbidly obese white female. She initially pre sented with cellulitis to [facility] ER and was admitted. She was started on IV Rocephin, IV clindamycin and eventually IV Lasix. She was switched over to oral Lasix and oral antib iotics, now transferred to [facility] for physical therapy and occupational therapy a nd continued diuresis. OBJECTIVE: VITAL SIGNS: Revealed blood pressure this morning was 107/52, pulse 69, respirations 16, O2 sat 95% on room air and T-max 97.9. GENERAL: This is a well-developed, well-nourished, very pleasant, morbidly obese white female in no apparent distress at this time. HEENT: Reveals normocephalic and nontraumatic cranium. Pupils are equally round and reactive. Extr aocular movements intact. Nose and throat are slightly dry. NECK: Supple, without mass, nodes or bruits. CHEST: Clear to auscultation. No rales, rhonchi or wheezes are heard. HEART: Reveals a regular rate and rhythm without murmurs, gallops or rubs. ABDOMEN: Morbidly obese, soft and nontender, without organomegaly. GENITOURINARY: Deferred. EXTREMITIES: Revealed no clubbing or cyanosis. She has severe chronic lymphedema and has her lymphe paty pumps with her, but we have not used them yet. LABORATORY DATA: Labs are still pending. ASSESSMENT: 1. Severe chronic lymphedema. 2. Cellulitis of bilateral feet, resolving. 3. Hypertension. 4. Asthma. 5. Obstructive sleep apnea. 6. Bladder spasm. 7. Generalized weakness. PLAN: 1. Continue slow diuresis, she lost from [id number] in the last couple of days. 2. Continue laboratory, which was run today. 3. Deep venous thrombosis and stress ulcer prophylaxis. 4. Decubitus precautions. 5. Continue CPAP at night. 6. Continue physical therapy and occupational therapy.
[2018-01-03] MEDS: Montelukast Sodium 10 mg Tablet PO SCH (20:49)
[2018-01-04] MEDS: HYDROcodone/Acetaminophen 7.5/325 mg Tablet PO PRN (06:38)
[2018-01-04] MEDS: Cyanocobalamin 1000 MCG/ML VIAL SC SCH (08:34)
[2018-01-04] MEDS: Potassium Chloride 10 MEQ TAB PO SCH ×2 (08:34→21:00)
[2018-01-04] MEDS: Morphine ER 15 MG TAB PO SCH ×3 (08:34→21:02)
[2018-01-04] MEDS: Spironolactone 25 MG TAB PO SCH (08:35)
[2018-01-04] MEDS: Furosemide 20 MG TAB PO SCH ×2 (08:35→21:00)
[2018-01-04] MEDS: Gabapentin 300 MG CAP PO SCH ×3 (08:35→21:00)
[2018-01-04] MEDS: Hydrochlorothiazide 25 MG TAB PO SCH (08:35)
[2018-01-04] MEDS: Saccharomyces boulardii 250 MG CAP PO SCH (08:35)
[2018-01-04] MEDS: Ferrous Sulfate 325 MG TAB PO SCH (08:36)
[2018-01-04] MEDS: Nystatin Powder 15 GM BOT TOP SCH ×2 (08:36→21:01)
[2018-01-04] MEDS: Pramipexole Di-HCl 0.25 MG TAB PO SCH ×2 (08:36→21:00)
[2018-01-04] MEDS: Lisinopril 5 MG TAB PO SCH (08:36)
[2018-01-04] MEDS: Aspirin 81 mg Enteric Coated Tablet PO SCH (08:42)
[2018-01-04] MEDS: Acetaminophen 325 MG TAB PO PRN (11:57)
--- NOTE | 2018-01-04 18:54 | PRG ---
DATE OF ADMISSION: 12/25/2017 DATE OF SERVICE: 01/04/2018 HISTORY OF PRESENT ILLNESS: Ms. Acevedo is a pleasant 57-year-old morbidly obese white female that yessenia wiggins presented with cellulitis of her feet at the emergency room in [facility]. She was admitted and started on IV Rocephin and IV clindamycin. She was also given IV Lasix to pul l off some extra fluid. She was diuresed fairly well and switched over to oral Lasix and oral antibi otics. She was then transferred to [facility] for physical therapy, occupational the rapy, and to continue her diuresis. SUBJECTIVE: The patient is actually doing very well. When she arrived, she was not able to stand, n ow she is walking 142 steps this morning with multiple stops of course, but she is much improved. Th e patient is also down to a weight of 402.8 and she was around 120 when she arrived. She has no complaints today. OBJECTIVE: VITAL SIGNS: Blood pressure this morning was low at 95/50, pulse 67-70, respirations 18-20, O2 sat 9 3% to 97%, T-max is 96.4. GENERAL: This is a well-developed, well-nourished, very pleasant, morbidly obese white female, in no apparent distress at this time. HEENT: Reveals normocephalic, nontraumatic cranium. Pupils are equally round and reactive. Extraoc ular movements are intact. Nose and throat are slightly dry. NECK: Supple, without mass, nodes or bruits. LUNGS: Clear to auscultation. No rales, rhonchi or wheezes are heard. CARDIOVASCULAR: Heart reveals a regular rate and rhythm without murmurs, gallops or rubs. ABDOMEN: Morbidly obese, soft, nontender. No rebound or guarding is noted. : Reveals Inman in place. EXTREMITIES: Reveal no clubbing, cyanosis or edema. The patient has severe chronic lymphedema and h as her lymphedema pumps, but does not use them yet. Her mother is coming tomorrow, bring the last pi eces to that pump set. ASSESSMENT: 1. Severe chronic lymphedema. 2. Cellulitis of bilateral feet, resolved. 3. Hypertension. 4. Asthma. 5. Obstructive sleep apnea. 6. Bladder spasm. 7. Generalized weakness. PLAN: 1. We will continue slow diuresis, she is down to 402.8 pounds. 2. Continue labs p.r.n. 3. DVT prophylaxis. 4. Stress ulcer prophylaxis. 5. Decubitus precautions. 6. Continue CPAP at night. 7. Physical therapy and occupational therapy.
[2018-01-04] MEDS: Montelukast Sodium 10 mg Tablet PO SCH (21:00)
[2018-01-05] MEDS: Potassium Chloride 10 MEQ TAB PO SCH ×2 (09:59→20:36)
[2018-01-05] MEDS: Aspirin 81 mg Enteric Coated Tablet PO SCH (09:59)
[2018-01-05] MEDS: Pramipexole Di-HCl 0.25 MG TAB PO SCH ×2 (09:59→20:37)
[2018-01-05] MEDS: Saccharomyces boulardii 250 MG CAP PO SCH (10:00)
[2018-01-05] MEDS: Furosemide 20 MG TAB PO SCH ×2 (10:00→20:36)
[2018-01-05] MEDS: Hydrochlorothiazide 25 MG TAB PO SCH (10:00)
[2018-01-05] MEDS: Ferrous Sulfate 325 MG TAB PO SCH (10:00)
[2018-01-05] MEDS: Gabapentin 300 MG CAP PO SCH ×3 (10:00→20:36)
[2018-01-05] MEDS: Spironolactone 25 MG TAB PO SCH (10:01)
[2018-01-05] MEDS: Morphine ER 15 MG TAB PO SCH ×3 (10:01→20:37)
[2018-01-05] MEDS: Lisinopril 5 MG TAB PO SCH (10:02)
[2018-01-05] MEDS: Nystatin Powder 15 GM BOT TOP SCH ×2 (10:02→20:43)
[2018-01-05] MEDS: HYDROcodone/Acetaminophen 7.5/325 mg Tablet PO PRN (11:39)
[2018-01-05] MEDS: ALPRAZolam 0.25 MG TAB PO PRN (20:36)
[2018-01-05] MEDS: Montelukast Sodium 10 mg Tablet PO SCH (20:44)
--- NOTE | 2018-01-05 20:45 | PRG ---
DATE OF SERVICE: 01/05/2017 SUBJECTIVE: The patient feels well, lying in the bed, no complaints, tolerating oral antibiotics and Lasix with resolving cellulitis of her legs and persistent lymphedema and increasing strength. OBJECTIVE: VITAL SIGNS: Shows blood pressure is 107/51, O2 sats 96% on 2 liters, pulse 69, afebrile. LUNGS: S how decreased breath sounds in bases. SKIN AND EXTREMITIES: Show lymphedema, morbid obesity, but no erythema or warmth. ABDOMEN: Soft an d nontender. ASSESSMENT: 1. Chronic lymphedema with significant deconditioning, improving with therapy. Resolved cellulitis. 2. Stable hypertension. 3. Stable obstructive sleep apnea. PLAN: Continue slow diuresis. Continue PT, OT. Continue CPAP at night. Continue stress ulcer and DVT prophylaxis.
--- NOTE | 2018-01-06 08:29 | PRG ---
DATE OF SERVICE: 01/06/2018 SUBJECTIVE: The patient continues to complain of pain in her left leg, worsening over the night. Sh e had no fever or chills. The patient states she has had multiple episodes of recurrent cellulitis o f her lymphedema. OBJECTIVE: Legs show massive lymphedema with tenderness to palpation of both medial upper thighs, bu t with no erythema or warmth. Vital signs show her to have a temperature 98, pulse 69, respirations 20, O2 sats 94% on 2 liters, and blood pressure 107/51. ASSESSMENT: 1. Possible recurrent cellulitis in a patient with chronic lymphedema. 2. Morbid obesity, stable. 3. Hypertension, stable. PLAN: 1. Start penicillin 500 mg every 6 hours indefinitely for prophylaxis of recurrent cellulitis in a p atient with recurrent cellulitis and lymphedema. 2. Continue DVT and stress ulcer prophylaxis. 3. Continue CPAP at night for obstructive sleep apnea. 4. Restart PT and OT tomorrow.
[2018-01-06] MEDS: Furosemide 20 MG TAB PO SCH ×2 (09:11→20:43)
[2018-01-06] MEDS: Gabapentin 300 MG CAP PO SCH ×3 (09:11→20:43)
[2018-01-06] MEDS: Ferrous Sulfate 325 MG TAB PO SCH (09:11)
[2018-01-06] MEDS: Saccharomyces boulardii 250 MG CAP PO SCH (09:11)
[2018-01-06] MEDS: Lisinopril 5 MG TAB PO SCH (09:12)
[2018-01-06] MEDS: Aspirin 81 mg Enteric Coated Tablet PO SCH (09:12)
[2018-01-06] MEDS: Penicillin V Potassium 250 MG TAB PO SCH ×4 (09:12→20:43)
[2018-01-06] MEDS: Hydrochlorothiazide 25 MG TAB PO SCH (09:12)
[2018-01-06] MEDS: Spironolactone 25 MG TAB PO SCH (09:12)
[2018-01-06] MEDS: Morphine ER 15 MG TAB PO SCH ×3 (09:13→20:43)
[2018-01-06] MEDS: Pramipexole Di-HCl 0.25 MG TAB PO SCH ×2 (09:14→20:43)
[2018-01-06] MEDS: Potassium Chloride 10 MEQ TAB PO SCH ×2 (09:14→20:44)
[2018-01-06] MEDS: Nystatin Powder 15 GM BOT TOP SCH ×2 (09:15→20:45)
[2018-01-06] MEDS: HYDROcodone/Acetaminophen 7.5/325 mg Tablet PO PRN (11:08)
[2018-01-06] MEDS: Montelukast Sodium 10 mg Tablet PO SCH (20:43)
[2018-01-06] MEDS: Acetaminophen 325 MG TAB PO PRN (22:57)
[2018-01-07] MEDS: Gabapentin 300 MG CAP PO SCH ×3 (08:58→20:08)
[2018-01-07] MEDS: Spironolactone 25 MG TAB PO SCH (08:58)
[2018-01-07] MEDS: Saccharomyces boulardii 250 MG CAP PO SCH (08:58)
[2018-01-07] MEDS: Potassium Chloride 10 MEQ TAB PO SCH ×2 (08:58→20:10)
[2018-01-07] MEDS: Penicillin V Potassium 250 MG TAB PO SCH ×4 (08:58→20:09)
[2018-01-07] MEDS: Hydrochlorothiazide 25 MG TAB PO SCH (08:59)
[2018-01-07] MEDS: Furosemide 20 MG TAB PO SCH ×2 (08:59→20:08)
[2018-01-07] MEDS: Ferrous Sulfate 325 MG TAB PO SCH (08:59)
[2018-01-07] MEDS: Pramipexole Di-HCl 0.25 MG TAB PO SCH ×2 (08:59→20:10)
[2018-01-07] MEDS: Lisinopril 5 MG TAB PO SCH (09:00)
[2018-01-07] MEDS: Aspirin 81 mg Enteric Coated Tablet PO SCH (09:00)
[2018-01-07] MEDS: Morphine ER 15 MG TAB PO SCH ×3 (09:01→20:08)
--- NOTE | 2018-01-07 10:08 | PRG ---
DATE OF SERVICE: 01/07/2018 HISTORY OF PRESENT ILLNESS: Ms. Acevedo is a very pleasant 57-year-old white female with massive lymph edema. She had a cellulitis and was admitted to [facility] and was given IV Lasi x and antibiotics. She was transferred to [facility] for PT, OT and to continue diur esis. The patient was seen by Dr. Ruano yesterday she complained of inner thigh achiness and Dr. Ruano thought she may have a cellulitis, so he started her on Pen-Vee K6 500 mg q.i.d. The patient states she is doing well. Her weight this morning was 408 pounds. OBJECTIVE: VITAL SIGNS: Blood pressure this morning was 106/52, pulse 61 to 68, respirations 18, O2 sat 99% on room air. T-max 97.4. PHYSICAL EXAMINATION: GENERAL: This is a well-developed, well-nourished, very pleasant white female in no apparent distres s. HEENT: Reveals normocephalic, nontraumatic cranium. Pupils are equally round and reactive. Extraoc ular movements intact. Nose and throat are slightly dry. NECK: Supple, without masses, nodes or bruits. CHEST: Clear to auscultation. No rales, rhonchi or wheezes are heard. CARDIOVASCULAR: Reveals a regular rate and rhythm without murmurs, gallops or rubs. ABDOMEN: Morbidly obese, soft, nontender, no rebound or guarding is noted. : Reveals Inman catheter in place. EXTREMITIES: Reveal no clubbing, cyanosis or edema. The patient's severe chronic lymphedema, has gi concha her some extra swelling in the inner thighs which are not warm, but 1 or 2 areas are scratched wh ich are slightly red. She has been started on Pen-Vee K for that. IMPRESSION: 1. Severe chronic lymphedema. 2. Cellulitis bilateral feet, resolved. 3. Possible early cellulitis of the medial thighs. 4. Hypertension. 5. Asthma. 6. Obstructive sleep apnea. 7. Bladder spasm. 8. Generalized weakness. 9. Muscle spasms. PLAN: 1. We will start the patient on some baclofen 10 mg up to t.i.d. p.r.n. 2. Continues CPAP at night for obstructive sleep apnea. 3. Restart physical therapy and occupational therapy. 4. Continue Pen-Vee K 500 mg q.6 hours. 5. Continue DVT and stress ulcer prophylaxis. 6. Decubitus precautions.
[2018-01-07] MEDS: Baclofen 10 MG TAB PO PRN ×2 (11:37→20:10)
[2018-01-07] MEDS: Nystatin Powder 15 GM BOT TOP SCH ×2 (11:37→20:09)
[2018-01-07] MEDS: HYDROcodone/Acetaminophen 7.5/325 mg Tablet PO PRN (13:20)
[2018-01-07] MEDS: Montelukast Sodium 10 mg Tablet PO SCH (20:08)
[2018-01-08] MEDS: HYDROcodone/Acetaminophen 7.5/325 mg Tablet PO PRN ×2 (06:36→18:40)
[2018-01-08] MEDS: Ferrous Sulfate 325 MG TAB PO SCH (08:37)
[2018-01-08] MEDS: Furosemide 20 MG TAB PO SCH ×2 (08:37→21:06)
[2018-01-08] MEDS: Saccharomyces boulardii 250 MG CAP PO SCH (08:37)
[2018-01-08] MEDS: Spironolactone 25 MG TAB PO SCH (08:37)
[2018-01-08] MEDS: Penicillin V Potassium 250 MG TAB PO SCH ×4 (08:38→21:07)
[2018-01-08] MEDS: Aspirin 81 mg Enteric Coated Tablet PO SCH (08:38)
[2018-01-08] MEDS: Morphine ER 15 MG TAB PO SCH ×3 (08:38→21:06)
[2018-01-08] MEDS: Gabapentin 300 MG CAP PO SCH ×4 (08:38→21:06)
[2018-01-08] MEDS: Pramipexole Di-HCl 0.25 MG TAB PO SCH ×2 (08:38→21:08)
[2018-01-08] MEDS: Potassium Chloride 10 MEQ TAB PO SCH ×2 (08:38→21:08)
[2018-01-08] MEDS: Hydrochlorothiazide 25 MG TAB PO SCH (08:38)
[2018-01-08] MEDS: Lisinopril 5 MG TAB PO SCH (08:39)
[2018-01-08] MEDS: Acetaminophen 325 MG TAB PO PRN (11:52)
[2018-01-08] MEDS: Nystatin Powder 15 GM BOT TOP SCH ×2 (15:18→21:07)
--- NOTE | 2018-01-08 20:45 | PRG ---
DATE OF SERVICE: 01/08/2018 DATE OF ADMISSION: 12/25/2017 Ms. Acevedo is a very pleasant 57-year-old white female with significant mass of lymphedema and celluli tis. She was admitted to [facility], stabilized and diuresed with IV Lasix. She finished her antibiotics, was transferred to [facility] for PT, OT and continue diur esis. Patient states she is having quite a bit of problem with muscle spasms. We will start her on baclofen, but that did not help at all. The patient states her gabapentin may not be helping, so we have stopped her baclofen and started her on gabapentin 300 mg 4 times a day instead of 3 times daily . We will see how that works. The patient was also started on Pen-Vee K [address] Bryce ventura for recurrent cellulitis. Otherwise, the patient states she is doing well. PHYSICAL EXAMINATION: VITAL SIGNS: Blood pressure is 102/50 this morning, pulse 63-73, respirations 17-18, O2 sat 99% on r oom air. GENERAL: This is a well-developed, well-nourished, very pleasant white female. HEENT: Reveals normocephalic, nontraumatic cranium. Pupils are equally round and reactive. Extraoc ular movements intact. Nose and throat are somewhat dry today. NECK: Supple, without masses, nodes or bruits. CHEST: Clear to auscultation. No rales, rhonchi or wheezes are heard. HEART: Reveals a regular rate and rhythm without murmurs, gallops or rubs. ABDOMEN: Morbidly obese, still nontender without organomegaly. GENITOURINARY: Reveals Inman catheter still in place. EXTREMITIES: Reveal no clubbing, cyanosis. The patient does have significant lymphedema. She has l ittle less swelling in her inner thighs and not warm today. IMPRESSION: 1. Severe chronic lymphedema. 2. Bilateral inner thigh possible early cellulitis. 3. Bilateral foot cellulitis, resolved. 4. Hypertension. 5. Asthma. 6. Obstructive sleep apnea. 7. Bladder spasm. 8. Generalized weakness. 9. Muscle spasms. PLAN: 1. Start patient on gabapentin 300 mg 4 times daily. 2. Baclofen 10 mg t.i.d. since they did not work at all. 3. Continue CPAP at night for obstructive sleep apnea. 4. Continue physical therapy and occupational therapy. 5. We will continue Pen-Vee K 500. 6. Deep venous thrombosis prophylaxis. 7. Stress ulcer prophylaxis. 8. Decubitus precautions. 9. Physical therapy and occupational therapy.
[2018-01-08] MEDS: Montelukast Sodium 10 mg Tablet PO SCH (21:06)
[2018-01-09] MEDS: Acetaminophen 325 MG TAB PO PRN ×2 (00:44→14:08)
[2018-01-09 05:50] LABS: #Basophils 0.1 thou/uL (0.0-0.2); #Eosinphils 0.4 thou/uL (0.0-0.7); #Lymphocytes 1.1 thou/uL (1.20-3.40); #Monocytes 0.5 thou/uL (0.11-0.59); #Neutrophils 4.2 thou/uL (1.40-6.50); %Basophils 1.1 % (0.0-1.0); %Eosinophils 6.8 % (0.0-10.0); %Lymphocytes 18.1 % (21.0-51.0); %Neutrophils 66.1 % (42.0-75.0); Anisocytosis MODERATE=16-30 cells (100X) (0-5/hpf); Hemoglobin 8.8 g/dL (12.0-16.0); Hypochromia SLIGHT = 6-15 cells (100X) (0-5/hpf); MDiff Complete? YES; Mean Corpuscular HGB CONC 30.3 g/dL (32.0-36.0); Mean Corpuscular Hemoglobin 24.6 pg (27.0-31.0); Mean Corpuscular Volume 81.2 fl (81.0-99.0); Mean Platelet Volume 7.8 fL (7.4-10.4); Microcytosis SLIGHT = 6-15 cells (100X) (0-5/hpf); Ovalocytes SLIGHT = 2-5 cells (100X) (0-1/hpf); Platelet Count 212 thou/uL (130-400); Poikilocytosis SLIGHT = 6-15 cells (100X) (0-5/hpf); RBC Distribution Width 14.8 % (11.5-14.5); Red Blood Cell (RBC) Count 3.58 mill/uL (4.20-5.40); Stomatocytes SLIGHT = 2-5 cells (100X) (0-1/hpf); White Blood Cell (WBC) Count 6.3 thou/uL (4.8-10.8)
[2018-01-09 05:56] LABS: Anion Gap 17 mmol/L (10-20); BUN (Urea Nitrogen) 36 mg/dL (9.8-20.1); Calc. Creatinine Clearance 120 mL/min (70-130); Calcium 9.3 mg/dL (7.8-10.44); Carbon Dioxide 31 mmol/L (22-29); Chloride 95 mmol/L (98-107); Estimated GFR-MDRD 34; Glucose 96 mg/dL (70-105); Potassium 3.9 mmol/L (3.5-5.1); Sodium 139 mmol/L (136-145)
[2018-01-09] MEDS: Saccharomyces boulardii 250 MG CAP PO SCH (08:33)
[2018-01-09] MEDS: Ferrous Sulfate 325 MG TAB PO SCH (08:33)
[2018-01-09] MEDS: Potassium Chloride 10 MEQ TAB PO SCH ×2 (08:33→19:46)
[2018-01-09] MEDS: Aspirin 81 mg Enteric Coated Tablet PO SCH (08:33)
[2018-01-09] MEDS: HYDROcodone/Acetaminophen 7.5/325 mg Tablet PO PRN ×2 (08:34→21:43)
[2018-01-09] MEDS: Gabapentin 300 MG CAP PO SCH ×4 (08:34→19:45)
[2018-01-09] MEDS: Morphine ER 15 MG TAB PO SCH ×3 (08:34→19:45)
[2018-01-09] MEDS: Furosemide 20 MG TAB PO SCH ×2 (08:34→18:12)
[2018-01-09] MEDS: Penicillin V Potassium 250 MG TAB PO SCH ×4 (08:35→19:45)
[2018-01-09] MEDS: Pramipexole Di-HCl 0.25 MG TAB PO SCH ×2 (08:37→19:46)
[2018-01-09] MEDS: Lisinopril 5 MG TAB PO SCH ×2 (08:37→09:44)
[2018-01-09] MEDS: Hydrochlorothiazide 25 MG TAB PO SCH (09:44)
[2018-01-09] MEDS: Spironolactone 25 MG TAB PO SCH (09:44)
[2018-01-09] MEDS: Nystatin Powder 15 GM BOT TOP SCH ×2 (12:51→19:46)
--- NOTE | 2018-01-09 19:16 | PRG ---
DATE OF SERVICE: 01/09/2018 SUBJECTIVE: Ms. Acevedo is a very pleasant 57-year-old white female that presented to the [facility] Emergency Room with swollen painful feet. It was noted that she had significant b leed, severe chronic lymphedema and she had cellulitis of bilateral feet. She was started on IV anti biotics and IV Lasix. She was eventually stabilized and transferred to [facility] fo r continued diuresis. The patient has actually been doing very well, but had early cellulitis of her inner thighs and was s tarted on Pen-Vee K by Dr. Ruano. She is doing well and working hard on losing weight. OBJECTIVE: VITAL SIGNS: Blood pressure this morning was 108/49, pulse 66-75, respirations 16-18, O2 sat 91% on room air, T-max 98.6. GENERAL: This is a well-developed, well-nourished, morbidly obese white female, in no apparent distr ess at this time. HEENT: Reveals normocephalic, nontraumatic cranium. Pupils are equally round and reactive. Extraoc ular movements intact. Nose and throat are slightly dry. NECK: Supple without masses, nodes or bruits. CHEST: Clear to auscultation. No rales, rhonchi or wheezes are heard. CARDIOVASCULAR: Reveals a regular rate and rhythm without murmurs, gallops or rubs. ABDOMEN: Morbidly obese, soft, no rebound or guarding is noted. GENITOURINARY: Reveals Inman catheter is still in place. EXTREMITIES: Reveal morbidly obese significant severe lymphedema. Inner thighs are less warm, less irritable, and less swelling. IMPRESSION: 1. Severe chronic lymphedema. 2. Inner thighs early cellulitis. 3. Bilateral foot cellulitis, resolved. 4. Hypertension. 5. Asthma. 6. Obstructive sleep 7. Bladder spasms. 8. Generalized weakness. 9. Muscle spasms. PLAN: 1. The patient states she was having some inner body muscle cramps. We increased her gabapentin to 300 mg 4 times a day, which seemed to be slightly better. 2. Baclofen did not work, so we discontinued that. 3. Continue Pen-Vee K q.i.d. 4. Continue wearing CPAP at night for obstructive sleep apnea. 5. Deep venous thrombosis prophylaxis. 6. Stress ulcer prophylaxis. 7. Decubitus precautions. 8. Physical therapy and occupational therapy. 9. Continue to monitor the patient's blood pressure. 10. Monitor the patient's respiratory status.
[2018-01-09] MEDS: Montelukast Sodium 10 mg Tablet PO SCH (19:46)
[2018-01-10] MEDS: Acetaminophen 325 MG TAB PO PRN (04:00)
[2018-01-10] MEDS: Nystatin Powder 15 GM BOT TOP SCH ×2 (06:50→21:29)
[2018-01-10] MEDS: Lisinopril 5 MG TAB PO SCH (08:15)
[2018-01-10] MEDS: Ferrous Sulfate 325 MG TAB PO SCH (08:16)
[2018-01-10] MEDS: Hydrochlorothiazide 25 MG TAB PO SCH (08:16)
[2018-01-10] MEDS: Furosemide 20 MG TAB PO SCH ×2 (08:16→21:24)
[2018-01-10] MEDS: Aspirin 81 mg Enteric Coated Tablet PO SCH (08:16)
[2018-01-10] MEDS: Spironolactone 25 MG TAB PO SCH (08:16)
[2018-01-10] MEDS: Gabapentin 300 MG CAP PO SCH ×4 (08:16→21:25)
[2018-01-10] MEDS: Penicillin V Potassium 250 MG TAB PO SCH ×4 (08:16→21:24)
[2018-01-10] MEDS: Potassium Chloride 10 MEQ TAB PO SCH ×2 (08:16→21:24)
[2018-01-10] MEDS: Morphine ER 15 MG TAB PO SCH ×3 (08:17→21:25)
[2018-01-10] MEDS: Pramipexole Di-HCl 0.25 MG TAB PO SCH ×2 (08:18→21:25)
[2018-01-10] MEDS: Saccharomyces boulardii 250 MG CAP PO SCH (08:18)
[2018-01-10] MEDS: HYDROcodone/Acetaminophen 7.5/325 mg Tablet PO PRN (13:35)
--- NOTE | 2018-01-10 14:04 | PRG ---
DATE OF SERVICE: 01/10/2018 DATE OF ADMISSION: 12/25/2017 HISTORY OF PRESENT ILLNESS: The patient is a 57-year-old white female who presented to the [facility] emergency room with swollen painful infected feet. She has noted that she had severe chronic lymphedema. She actually gained quite a bit of weight. She was admitted to the hospital and started on IV antibiotics and IV Lasix. She was diuresed and eventually stabilized and transferred to [facility] for continued diuresis with oral antibiotics and continue IV antibiotics. SUBJECTIVE: The patient states she is doing much better. She has lost a pound from yesterday. She is walking a little bit better and she has no complaints today. PHYSICAL EXAMINATION: VITAL SIGNS: Today reveal blood pressure is 109/59, pulse 67-71, respirations 18, O2 sat 92%-93% on room air. GENERAL: This is a well-developed, well-nourished, morbidly obese white female in no apparent distre ss at this time. HEENT: Reveals normocephalic and nontraumatic cranium. Pupils are equally round and reactive. Extr aocular movements are intact. Nose and throat are moist today. NECK: Supple, without masses, nodes or bruits. CHEST: Clear to auscultation. No rales, no rhonchi, no wheezes. No cough is heard. HEART: Reveals a regular rate and rhythm without murmurs, gallops or rubs. ABDOMEN: Morbidly obese, soft, nontender, no rebound or guarding is noted. GENITOURINARY: Reveals Inman catheter still in place. EXTREMITIES: Reveal severe lymphedema in the thighs, seemingly less warm, less swelling, and less ir ritated. IMPRESSION: 1. Severe chronic lymphedema. 2. Early inner thigh cellulitis, resolving. 3. Bilateral foot cellulitis, resolved. 4. Hypertension. 5. Asthma. 6. Obstructive sleep apnea. 7. Bladder spasms and muscle spasm. 8. Generalized weakness. 9. Muscle spasms. PLAN: 1. Continue gabapentin 4 times a day which has significantly decreased her muscle spasms. 2. Continue Pen-VK 500 mg q.i.d. 3. Continue CPAP at night. 4. DVT prophylaxis. 5. Stress ulcer prophylaxis. 6. Decubitus precautions. 7. Continue physical therapy and occupational therapy. 8. Continue to monitor the patient's blood pressure. 9. Monitor patient's respiratory status.
[2018-01-10] MEDS: Montelukast Sodium 10 mg Tablet PO SCH (21:25)
[2018-01-10] MEDS: ALPRAZolam 0.25 MG TAB PO PRN (21:26)
[2018-01-11] MEDS: HYDROcodone/Acetaminophen 7.5/325 mg Tablet PO PRN ×2 (05:34→23:38)
[2018-01-11] MEDS: Cyanocobalamin 1000 MCG/ML VIAL SC SCH (09:04)
[2018-01-11] MEDS: Morphine ER 15 MG TAB PO SCH ×3 (09:06→20:43)
[2018-01-11] MEDS: Aspirin 81 mg Enteric Coated Tablet PO SCH (09:07)
[2018-01-11] MEDS: Ferrous Sulfate 325 MG TAB PO SCH (09:07)
[2018-01-11] MEDS: Hydrochlorothiazide 25 MG TAB PO SCH (09:07)
[2018-01-11] MEDS: Gabapentin 300 MG CAP PO SCH ×4 (09:08→20:43)
[2018-01-11] MEDS: Pramipexole Di-HCl 0.25 MG TAB PO SCH ×2 (09:08→20:45)
[2018-01-11] MEDS: Lisinopril 5 MG TAB PO SCH (09:08)
[2018-01-11] MEDS: Furosemide 20 MG TAB PO SCH (09:09)
[2018-01-11] MEDS: Spironolactone 25 MG TAB PO SCH (09:09)
[2018-01-11] MEDS: Penicillin V Potassium 250 MG TAB PO SCH ×4 (09:09→20:43)
[2018-01-11] MEDS: Saccharomyces boulardii 250 MG CAP PO SCH (09:10)
[2018-01-11] MEDS: Potassium Chloride 10 MEQ TAB PO SCH ×2 (09:10→20:44)
[2018-01-11] MEDS: Nystatin Powder 15 GM BOT TOP SCH ×2 (09:11→20:45)
--- NOTE | 2018-01-11 09:55 | PRG ---
DATE OF SERVICE: 01/11/2018 SUBJECTIVE: Ms. Acevedo is doing the same. She does complain of some leg cramps, apparently it is bet ter since her gabapentin was increased. She also states that her Lasix was decreased to 40 b.i.d. ye sterday, most likely due to her creatinine going up. She is working with therapy. No family at beds [facility]. No concerns or questions. OBJECTIVE: VITAL SIGNS: She is afebrile, heart rate is 69, respirations 20, oxygen saturation 93%, blood pressu re 112/58. CARDIOVASCULAR: S1, S2 plus. RESPIRATORY: Normal vesicular breath sounds. ABDOMEN: Soft, nontender, bowel sounds heard in all quadrants, obese. EXTREMITIES: Chronic lymphedema, cellulitis has resolved. IMPRESSION: 1. Resolved cellulitis, lower extremity. 2. Chronic lymphedema. 3. Worsening renal insufficiency. 4. Hypertension. 5. Obstructive sleep apnea. 6. Improving deconditioning. PLAN: 1. Continue current medications. 2. Physical therapy. 3. Nutritional support. 4. Monitor renal function. 5. DVT and stress ulcer prophylaxis. 6. Decubitus precautions. 7. Routine laboratory values. 8. Discussed with patient in detail and all questions answered.
[2018-01-11] MEDS: Acetaminophen 325 MG TAB PO PRN (12:11)
[2018-01-11] MEDS: Montelukast Sodium 10 mg Tablet PO SCH (20:43)
[2018-01-11] MEDS: ALPRAZolam 0.25 MG TAB PO PRN (20:43)
[2018-01-11] MEDS: Furosemide 40 MG TAB PO SCH (20:44)
[2018-01-12 06:13] LABS: Anion Gap 15 mmol/L (10-20); BUN (Urea Nitrogen) 32 mg/dL (9.8-20.1); Calc. Creatinine Clearance 137 mL/min (70-130); Calcium 9.4 mg/dL (7.8-10.44); Carbon Dioxide 31 mmol/L (22-29); Chloride 99 mmol/L (98-107); Estimated GFR-MDRD 40; Glucose 96 mg/dL (70-105); Potassium 4.1 mmol/L (3.5-5.1); Sodium 141 mmol/L (136-145)
[2018-01-12] MEDS: Lisinopril 5 MG TAB PO SCH (08:19)
[2018-01-12] MEDS: Morphine ER 15 MG TAB PO SCH ×3 (08:20→20:36)
[2018-01-12] MEDS: Ferrous Sulfate 325 MG TAB PO SCH (08:20)
[2018-01-12] MEDS: Penicillin V Potassium 250 MG TAB PO SCH ×4 (08:20→20:37)
[2018-01-12] MEDS: Spironolactone 25 MG TAB PO SCH (08:21)
[2018-01-12] MEDS: Potassium Chloride 10 MEQ TAB PO SCH ×2 (08:21→20:36)
[2018-01-12] MEDS: Hydrochlorothiazide 25 MG TAB PO SCH (08:21)
[2018-01-12] MEDS: Furosemide 40 MG TAB PO SCH ×2 (08:22→20:36)
[2018-01-12] MEDS: Saccharomyces boulardii 250 MG CAP PO SCH (08:22)
[2018-01-12] MEDS: Aspirin 81 mg Enteric Coated Tablet PO SCH (08:22)
[2018-01-12] MEDS: Pramipexole Di-HCl 0.25 MG TAB PO SCH ×2 (08:22→20:36)
[2018-01-12] MEDS: Gabapentin 300 MG CAP PO SCH ×4 (08:23→20:36)
[2018-01-12] MEDS: Nystatin Powder 15 GM BOT TOP SCH ×2 (08:23→20:37)
[2018-01-12] MEDS: Acetaminophen 325 MG TAB PO PRN ×2 (10:48→21:56)
[2018-01-12] MEDS: HYDROcodone/Acetaminophen 7.5/325 mg Tablet PO PRN (12:01)
--- NOTE | 2018-01-12 17:26 | PRG ---
DATE OF SERVICE: 01/12/2018 SUBJECTIVE: Ms. Acevedo is doing well. Denies any complaints except she thinks, her legs are swelling . Since her Lasix was decreased to 40 b.i.d., advised her that her kidneys are improving, so it is a fine line, advised her to give it another day or so and see how she does. We may have to alternate the 60 with the 40 and she understands. She is also on HCTZ. OBJECTIVE: VITAL SIGNS: She is afebrile, heart rate is 63, respirations 16, oxygen saturation is 98% on room ai r, blood pressure 94/60. CARDIOVASCULAR: S1, S2 plus. RESPIRATORY: Normal vesicular breath sounds. ABDOMEN: Soft, nontender, bowel sounds heard in all quadrants. EXTREMITIES: Without cyanosis or clubbing. Chronic lymphedema. CENTRAL NERVOUS SYSTEM: Generalized weakness. LABORATORY VALUES: Sodium 141, potassium 4.1, BUN and creatinine is 32 and 1.35, it was 36 and 1.55 on 01/09/2018. IMPRESSION: 1. Improving renal insufficiency. 2. Chronic lymphedema. 3. Improving deconditioning. 4. Peripheral neuropathy. 5. Hypertension. 6. Obstructive sleep apnea. PLAN: 1. Continue current medications. 2. Nutritional support. 3. DVT and stress ulcer prophylaxis. 4. Decubitus precautions. 5. Physical therapy. 6. Routine laboratory values. 7. Discussed with the patient in detail and all questions answered.
[2018-01-12] MEDS: Montelukast Sodium 10 mg Tablet PO SCH (20:35)
[2018-01-12] MEDS: ALPRAZolam 0.25 MG TAB PO PRN (20:37)
[2018-01-13] MEDS: HYDROcodone/Acetaminophen 7.5/325 mg Tablet PO PRN (05:51)
[2018-01-13] MEDS: Ferrous Sulfate 325 MG TAB PO SCH (10:14)
[2018-01-13] MEDS: Saccharomyces boulardii 250 MG CAP PO SCH (10:14)
[2018-01-13] MEDS: Penicillin V Potassium 250 MG TAB PO SCH ×4 (10:14→20:12)
[2018-01-13] MEDS: Morphine ER 15 MG TAB PO SCH ×3 (10:15→20:11)
[2018-01-13] MEDS: Aspirin 81 mg Enteric Coated Tablet PO SCH (10:16)
[2018-01-13] MEDS: Spironolactone 25 MG TAB PO SCH (10:17)
[2018-01-13] MEDS: Hydrochlorothiazide 25 MG TAB PO SCH (10:17)
[2018-01-13] MEDS: Potassium Chloride 10 MEQ TAB PO SCH ×2 (10:18→20:10)
[2018-01-13] MEDS: Lisinopril 5 MG TAB PO SCH (10:18)
[2018-01-13] MEDS: Gabapentin 300 MG CAP PO SCH ×3 (10:19→20:09)
[2018-01-13] MEDS: Furosemide 40 MG TAB PO SCH ×2 (10:20→20:12)
[2018-01-13] MEDS: Pramipexole Di-HCl 0.25 MG TAB PO SCH ×2 (10:20→20:12)
[2018-01-13] MEDS: Nystatin Powder 15 GM BOT TOP SCH ×2 (10:20→20:09)
--- NOTE | 2018-01-13 11:13 | PRG ---
DATE OF SERVICE: 01/13/2018 SUBJECTIVE: Ms. Acevedo is doing well except for persistent episodes of cramping/shooting pain in her legs. I advised her that she is on 300 mg of gabapentin 4 times a day and we can try increasing that to see if it helps. She denies any other concerns or questions. OBJECTIVE: VITAL SIGNS: She is afebrile, heart rate 62, respirations 18, oxygen saturation 97%, and blood press ure 103/51. CARDIOVASCULAR SYSTEM: S1, S2 plus. RESPIRATORY SYSTEM: Normal vesicular breath sounds. ABDOMEN: Soft, obese, nontender, bowel sounds heard in all quadrants. EXTREMITIES: Chronic lymphedema, stable. IMPRESSION: 1. Improving renal insufficiency. 2. Chronic lymphedema. 3. Peripheral neuropathy. 4. Hypertension. 5. Obstructive sleep apnea. 6. Possible restless leg syndrome. 7. Obesity. 8. Resolved cellulitis. PLAN: 1. Increase gabapentin to 600 mg t.i.d. 2. Continue other medications. 3. DVT and stress ulcer prophylaxis. 4. Decubitus precautions. 5. Physical therapy. 6. Routine laboratory values. 7. Dr. Charlene Alegre back tonight.
[2018-01-13] MEDS: Montelukast Sodium 10 mg Tablet PO SCH (20:09)
[2018-01-13] MEDS: ALPRAZolam 0.25 MG TAB PO PRN (20:12)
[2018-01-14] MEDS: HYDROcodone/Acetaminophen 7.5/325 mg Tablet PO PRN (05:55)
[2018-01-14] MEDS: Lisinopril 5 MG TAB PO SCH (09:04)
[2018-01-14] MEDS: Saccharomyces boulardii 250 MG CAP PO SCH (09:05)
[2018-01-14] MEDS: Furosemide 40 MG TAB PO SCH ×2 (09:05→20:30)
[2018-01-14] MEDS: Ferrous Sulfate 325 MG TAB PO SCH (09:05)
[2018-01-14] MEDS: Penicillin V Potassium 250 MG TAB PO SCH ×4 (09:05→20:29)
[2018-01-14] MEDS: Gabapentin 300 MG CAP PO SCH ×3 (09:05→20:29)
[2018-01-14] MEDS: Aspirin 81 mg Enteric Coated Tablet PO SCH (09:05)
[2018-01-14] MEDS: Pramipexole Di-HCl 0.25 MG TAB PO SCH ×2 (09:06→20:29)
[2018-01-14] MEDS: Potassium Chloride 10 MEQ TAB PO SCH ×2 (09:06→20:30)
[2018-01-14] MEDS: Hydrochlorothiazide 25 MG TAB PO SCH (09:06)
[2018-01-14] MEDS: Spironolactone 25 MG TAB PO SCH (09:06)
[2018-01-14] MEDS: Morphine ER 15 MG TAB PO SCH ×3 (09:06→20:29)
[2018-01-14] MEDS: Nystatin Powder 15 GM BOT TOP SCH ×2 (09:09→20:31)
[2018-01-14] MEDS: Acetaminophen 325 MG TAB PO PRN ×2 (12:33→22:22)
--- NOTE | 2018-01-14 19:50 | PRG ---
DATE OF SERVICE: 01/14/2018 DATE OF ADMISSION: 12/25/2017 HISTORY OF PRESENT ILLNESS: Patient is a 57-year-old white female admitted to [facility] with lymphedema and painful infected feet. She was diuresed and placed on IV antibiotics. She eventually stabilized and transferred to [facility] for continued to diuresis, or al antibiotic. SUBJECTIVE: The patient states she is doing much better. She walked fairly well this morning. I di d have a long discussion with physical therapy about she is pretty much reached her maximum medical b enefit at this time and therapy benefits. It was felt that she would do well, will be discharged end of the week. She states that she has used [facility] in the past and she would like to use those again. She did walk this morning and continues to do very well. Her primary care physician is Dr. Tianna Win. OBJECTIVE: VITAL SIGNS: Reveal blood pressure this morning 92/51, pulse 64 to 72, respirations 18 to 20, O2 sat 94% on 2 liters nasal cannula and then sometimes off on room air. T-max is 98.0. GENERAL: This is a well-developed, well-nourished, very pleasant white female in no apparent distres s at this time. HEENT: Reveals normocephalic, nontraumatic cranium. Pupils are equally round and reactive. Extraoc ular movements intact. Nose and throat are slightly dry. NECK: Supple, without masses, nodes, or bruits. CHEST: Clear to auscultation. No rales, rhonchi, or wheezes are heard. CARDIOVASCULAR: Reveals a regular rate and rhythm without murmurs, gallops, or rubs. ABDOMEN: Soft, morbidly obese. No rebound or guarding is noted. : Inman catheter in place. EXTREMITIES: Severe lymphedema, thighs, and calves. No significant cellulitis is noted. LABORATORY DATA: Labs on the 24 reveal sodium 141, potassium 4.1, chloride 99, carbon dioxide 31 w ith a BUN of 32, creatinine 1.35. GFR estimated at 40. IMPRESSION: 1. Severe chronic lymphedema. 2. Early inner thigh cellulitis, resolving. 3. Bilateral foot cellulitis, resolved. 4. Hypertension. 5. Asthma. 6. Obstructive sleep apnea. 7. Bladder spasms and muscle spasm. 8. Generalized weakness. 9. Muscle spasms. PLAN: 1. Gabapentin is now 600 mg t.i.d. 2. Continue Pen-Vee K 500 mg q.i.d. 3. Continue CPAP at night. 4. Deep venous thrombosis prophylaxis. 5. Stress ulcer prophylaxis. 6. Decubitus precautions. 7. Continue physical therapy and occupational therapy. 8. Continue to monitor the patient's blood pressure. 9. Monitor the patient's respiratory status. 10. Patient is going to be discharged most likely Sunday. 11. We will contact [facility] to be her home health. 12. We will try to make an appointment with Dr. Tianna Win for Sunday.
[2018-01-14] MEDS: Montelukast Sodium 10 mg Tablet PO SCH (20:29)
[2018-01-14] MEDS: ALPRAZolam 0.25 MG TAB PO PRN (20:30)
[2018-01-15] MEDS: HYDROcodone/Acetaminophen 7.5/325 mg Tablet PO PRN (04:02)
[2018-01-15] MEDS: Potassium Chloride 10 MEQ TAB PO SCH ×2 (09:14→21:19)
[2018-01-15] MEDS: Spironolactone 25 MG TAB PO SCH (09:14)
[2018-01-15] MEDS: Nystatin Powder 15 GM BOT TOP SCH ×2 (09:14→21:20)
[2018-01-15] MEDS: Lisinopril 5 MG TAB PO SCH (09:14)
[2018-01-15] MEDS: Saccharomyces boulardii 250 MG CAP PO SCH (09:14)
[2018-01-15] MEDS: Gabapentin 300 MG CAP PO SCH ×3 (09:15→21:19)
[2018-01-15] MEDS: Furosemide 40 MG TAB PO SCH ×2 (09:15→21:18)
[2018-01-15] MEDS: Morphine ER 15 MG TAB PO SCH ×3 (09:15→21:18)
[2018-01-15] MEDS: Penicillin V Potassium 250 MG TAB PO SCH ×4 (09:15→21:17)
[2018-01-15] MEDS: Aspirin 81 mg Enteric Coated Tablet PO SCH (09:15)
[2018-01-15] MEDS: Pramipexole Di-HCl 0.25 MG TAB PO SCH ×2 (09:15→21:19)
[2018-01-15] MEDS: Ferrous Sulfate 325 MG TAB PO SCH (09:15)
[2018-01-15] MEDS: Hydrochlorothiazide 25 MG TAB PO SCH (09:16)
--- NOTE | 2018-01-15 19:01 | PRG ---
DATE OF SERVICE: 01/15/2018 HISTORY OF PRESENT ILLNESS: Ms. Acevedo is a 57-year-old morbidly obese white female admitted initiall y to [facility] with lymphedema and cellulitis of both feet. She was diuresed, p laced on IV antibiotics, eventually stabilized and transferred to [facility] for cont inued diuresis and antibiotic care. SUBJECTIVE: The patient is doing well, but she really does not want to go home on Sunday. She state s she wants to stay another week or two or three. She is actually hit the majority of her goals and is not trying as hard. She is not watching her oral restrictions. She wants to up her Lasix at this time, but I feel that her kidney function is where we wanted right now. She has no other complaints . PRIMARY CARE DOCTOR: Dr. Tianna Win. PHYSICAL EXAMINATION: VITAL SIGNS: Today reveal blood pressure this morning was 93/46, pulse 67-70, respirations 18-20, O2 sat 92%-96% on 2 liters nasal cannula. T-max was 97.7. GENERAL: This is a well-developed, well-nourished, morbidly obese white female, in no apparent distr ess at this time. HEENT: Reveals normocephalic, nontraumatic cranium. Pupils equally round and reactive. Extraocular movements intact. Nose and throat are slightly dry. NECK: Supple, without mass, nodes or bruits. CHEST: Clear to auscultation. No rales, rhonchi or wheezes are heard. CARDIOVASCULAR: Reveals a regular rate and rhythm without murmurs, gallops or rubs. ABDOMEN: Morbidly obese, soft, without organomegaly noted. No rebound or guarding is noted. GENITOURINARY: Reveals Inman catheter in place. EXTREMITIES: Reveal no clubbing, cyanosis, just significant morbid lymphedema. Cellulitis seems to be cleared. IMPRESSION: 1. Severe chronic lymphedema. 2. Inner thigh cellulitis, resolved. 3. Bilateral foot cellulitis, resolved. 4. Hypertension. 5. Asthma. 6. Obstructive sleep apnea. 7. Bladder spasm. 8. Generalized weakness, much improved. 9. Muscle spasms. PLAN: 1. Continue gabapentin. 2. Continue Pen-Vee K 500 q.i.d. 3. Continue CPAP at night. 4. Deep venous thrombosis prophylaxis. 5. Decubitus precautions. 6. Stress ulcer prophylaxis. 7. Continue physical therapy and occupational therapy. 8. Continue monitor the patient's blood pressure. 9. We will monitor the patient's respiratory status. 10. Discharge most likely on Sunday. 11. Home with home health for physical therapy by [facility]. 12. Make appointment with Dr. Win for next week if she can be seen on Sunday.
[2018-01-15] MEDS: Montelukast Sodium 10 mg Tablet PO SCH (21:17)
[2018-01-15] MEDS: ALPRAZolam 0.25 MG TAB PO PRN (21:20)
[2018-01-16] MEDS: HYDROcodone/Acetaminophen 7.5/325 mg Tablet PO PRN ×2 (05:37→19:18)
[2018-01-16 06:08] LABS: Anion Gap 15 mmol/L (10-20); BUN (Urea Nitrogen) 31 mg/dL (9.8-20.1); Calc. Creatinine Clearance 128 mL/min (70-130); Calcium 9.6 mg/dL (7.8-10.44); Carbon Dioxide 30 mmol/L (22-29); Chloride 99 mmol/L (98-107); Estimated GFR-MDRD 38; Glucose 113 mg/dL (70-105); Potassium 4.4 mmol/L (3.5-5.1); Sodium 140 mmol/L (136-145)
[2018-01-16 06:19] LABS: #Basophils 0.1 thou/uL (0.0-0.2); #Eosinphils 0.3 thou/uL (0.0-0.7); #Lymphocytes 0.8 thou/uL (1.20-3.40); #Monocytes 0.6 thou/uL (0.11-0.59); #Neutrophils 4.7 thou/uL (1.40-6.50); %Basophils 1.8 % (0.0-1.0); %Eosinophils 5.3 % (0.0-10.0); %Lymphocytes 11.7 % (21.0-51.0); %Monocytes 9.6 % (0.0-10.0); %Neutrophils 71.7 % (42.0-75.0); Anisocytosis SLIGHT = 6-15 cells (100X) (0-5/hpf); Hemoglobin 8.8 g/dL (12.0-16.0); Hypochromia SLIGHT = 6-15 cells (100X) (0-5/hpf); MDiff Complete? YES; Mean Corpuscular HGB CONC 30.6 g/dL (32.0-36.0); Mean Corpuscular Hemoglobin 24.4 pg (27.0-31.0); Mean Corpuscular Volume 79.8 fl (81.0-99.0); Mean Platelet Volume 7.6 fL (7.4-10.4); Microcytosis MODERATE=15-30 cells (100X) (0-5/hpf); Ovalocytes SLIGHT = 2-5 cells (100X) (0-1/hpf); PLT Morphology Comment Appears Adequate; Platelet Count 178 thou/uL (130-400); RBC Distribution Width 14.2 % (11.5-14.5); Red Blood Cell (RBC) Count 3.62 mill/uL (4.20-5.40); Stomatocytes SLIGHT = 2-5 cells (100X) (0-1/hpf); White Blood Cell (WBC) Count 6.5 thou/uL (4.8-10.8)
[2018-01-16] MEDS: Hydrochlorothiazide 25 MG TAB PO SCH (09:14)
[2018-01-16] MEDS: Spironolactone 25 MG TAB PO SCH (09:14)
[2018-01-16] MEDS: Aspirin 81 mg Enteric Coated Tablet PO SCH (09:14)
[2018-01-16] MEDS: Potassium Chloride 10 MEQ TAB PO SCH ×2 (09:14→20:41)
[2018-01-16] MEDS: Gabapentin 300 MG CAP PO SCH ×3 (09:15→20:42)
[2018-01-16] MEDS: Furosemide 40 MG TAB PO SCH ×2 (09:15→20:41)
[2018-01-16] MEDS: Penicillin V Potassium 250 MG TAB PO SCH ×4 (09:15→20:41)
[2018-01-16] MEDS: Saccharomyces boulardii 250 MG CAP PO SCH (09:15)
[2018-01-16] MEDS: Ferrous Sulfate 325 MG TAB PO SCH (09:16)
[2018-01-16] MEDS: Lisinopril 5 MG TAB PO SCH (09:16)
[2018-01-16] MEDS: Morphine ER 15 MG TAB PO SCH ×3 (09:16→20:41)
[2018-01-16] MEDS: Pramipexole Di-HCl 0.25 MG TAB PO SCH ×2 (09:16→20:41)
[2018-01-16] MEDS: Nystatin Powder 15 GM BOT TOP SCH ×3 (09:23→20:43)
--- NOTE | 2018-01-16 13:46 | PRG ---
DATE OF SERVICE: 01/16/2018 DATE OF ADMISSION: 12/25/2017 HISTORY OF PRESENT ILLNESS: Ms. Acevedo is a 57-year-old white female that presented herself to the em ergency room at [facility] with cellulitis of both of her feet secondary to sever e lymphedema. She was eventually stabilized with IV antibiotics and IV diuretics. She was transferr ed to [facility] for continued diuresis and antibiotic care. The patient has not been very reliable as far as getting her fluid status down. She continues to dri nk lots of liquids every day. The patient was to be discharged on Sunday, but she would not be able to see Dr. Win until . Unfortunately, home health cannot pick her till Sunday until she sees Dr. Tianna Win , so she will be discharged on Sunday morning. PHYSICAL EXAMINATION: VITAL SIGNS: Today reveal blood pressure 101/62, pulse 67-72, respirations 18-20, O2 sat 95%-98% on 2 liters nasal cannula, T-max is 97.5. GENERAL: This is a well-developed, well-nourished, very pleasant, morbidly obese white female in no apparent distress at this time. HEENT: Reveals normocephalic, nontraumatic cranium. Pupils are equal, round, and reactive. Extraoc ular movements are intact. Nose and throat are slightly dry. NECK: Supple, without mass, nodes or bruits. CHEST: Clear to auscultation. No rales, rhonchi or wheezes are heard. HEART: Reveals a regular rate and rhythm without murmurs, gallops or rubs. ABDOMEN: Obese with no rebound or guarding. GENITOURINARY: Deferred. Inman catheter still in place. EXTREMITIES: Reveal no clubbing, cyanosis or edema, just significantly morbid lymphedema. Celluliti s is clear. IMPRESSION: 1. Severe chronic lymphedema with resultant inner thigh cellulitis and foot cellulitis, both resolve d. 2. Hypertension. 3. Asthma. 4. Muscle spasms. 5. Obstructive sleep apnea. 6. Bladder spasms. 7. Generalized weakness. PLAN: 1. Continue Pen-VK 500 q.i.d. 2. CPAP at night. 3. Gabapentin. 4. Deep venous thrombosis prophylaxis. 5. Decubitus precautions. 6. Stress ulcer prophylaxis. 7. Continue to monitor the patient's blood pressure. 8. Continue to monitor the patient's respiratory status. 9. Discharge on next Sunday. 10. Continue physical therapy and occupational therapy. 11. See Dr. Win next Sunday morning. 12. Discharge with physical therapy with [facility].
[2018-01-16] MEDS: ALPRAZolam 0.25 MG TAB PO PRN (20:41)
[2018-01-16] MEDS: Montelukast Sodium 10 mg Tablet PO SCH (20:42)
[2018-01-17] MEDS: Acetaminophen 325 MG TAB PO PRN (05:18)
[2018-01-17] MEDS: Hydrochlorothiazide 25 MG TAB PO SCH (09:26)
[2018-01-17] MEDS: Penicillin V Potassium 250 MG TAB PO SCH ×4 (09:26→20:31)
[2018-01-17] MEDS: Spironolactone 25 MG TAB PO SCH (09:26)
[2018-01-17] MEDS: Morphine ER 15 MG TAB PO SCH ×3 (09:27→20:30)
[2018-01-17] MEDS: Potassium Chloride 10 MEQ TAB PO SCH ×2 (09:27→20:31)
[2018-01-17] MEDS: Gabapentin 300 MG CAP PO SCH ×3 (09:27→20:30)
[2018-01-17] MEDS: Pramipexole Di-HCl 0.25 MG TAB PO SCH ×2 (09:27→20:31)
[2018-01-17] MEDS: Aspirin 81 mg Enteric Coated Tablet PO SCH (09:27)
[2018-01-17] MEDS: Saccharomyces boulardii 250 MG CAP PO SCH (09:28)
[2018-01-17] MEDS: Furosemide 40 MG TAB PO SCH ×2 (09:28→20:29)
[2018-01-17] MEDS: Lisinopril 5 MG TAB PO SCH (09:28)
[2018-01-17] MEDS: Ferrous Sulfate 325 MG TAB PO SCH (09:28)
[2018-01-17] MEDS: Nystatin Powder 15 GM BOT TOP SCH ×2 (09:29→20:31)
--- NOTE | 2018-01-17 13:39 | PRG ---
DATE OF SERVICE: 01/17/2018 SUBJECTIVE: Ms. Acevedo is a very pleasant 57-year-old white female who presented herself to [facility] with cellulitis of both of her feet secondary to severe lymphedema. She eventu ally was stabilized with IV antibiotics and IV diuresis. She was transferred to [facility]. We will continue diuresis, fluid restrictions and antibiotic care. The patient has done ariel y well while she has been here, but she has not been especially effective with decreasing her oral in take or her fluid restriction. She goes up to 26-2800 mL a day and her limit is supposed to be 1500. The patient also been complaining of some low blood pressure, indeed it will go from 80/45-111/72. W carrol will cut her metoprolol from 25 mg b.i.d. to 12.5 mg b.i.d. The patient still has a Inman catheter in place, which needs to come out before she goes home. We wi ll discontinue that today. OBJECTIVE: VITAL SIGNS: Revealed blood pressure this morning was 87/45, repeat was 118/52. Pulse 64-78, respir ations 16, O2 sat 95% to 96% on 2 liters. T-max is 96.7. GENERAL: This is a well-developed, well-nourished, morbidly obese white female who weighs 214 today. HEENT: Reveals normocephalic and nontraumatic cranium. Pupils are equally round and reactive. Extr aocular movements are intact. Nose and throat are slightly dry. NECK: Supple, without mass, nodes or bruits. CHEST: Clear to auscultation. No rales, rhonchi or wheezes are heard. HEART: Reveals a regular rate and rhythm without murmurs, gallops or rubs. ABDOMEN: Morbidly obese, soft and nontender. No rebound or guarding is noted. GENITOURINARY: Deferred with Inman catheter still in place. EXTREMITIES: Reveal no clubbing, cyanosis or edema, just morbid lymphedema. Cellulitis is not clear . LABORATORY DATA: No labs were done today. IMPRESSION: 1. Severe chronic lymphedema with resultant inner thigh cellulitis and foot cellulitis. Both have r esolved. 2. Hypertension. 3. Asthma. 4. Muscle spasms. 5. Obstructive sleep apnea. 6. Bladder spasms. 7. Generalized weakness. PLAN: 1. Continue pen VK 500 q.i.d. 2. CPAP at night. 3. Gabapentin. 4. Deep venous thrombosis prophylaxis. 5. Decubitus precautions. 6. Stress ulcer prophylaxis. 7. Continue to monitor the patient's blood pressure closely. 8. Continue to monitor the patient's respiratory status. 9. Discharge next Sunday. 10. Discontinue the Inman catheter today. 11. Continue physical therapy and occupational therapy. 12. See Dr. Win next Sunday after she is discharged. 13. Discharge with physical therapy through [facility].
[2018-01-17] MEDS: Montelukast Sodium 10 mg Tablet PO SCH (20:30)
[2018-01-17] MEDS: HYDROcodone/Acetaminophen 7.5/325 mg Tablet PO PRN (22:21)
[2018-01-18] MEDS: Cyanocobalamin 1000 MCG/ML VIAL SC SCH (08:40)
[2018-01-18] MEDS: Gabapentin 300 MG CAP PO SCH ×3 (08:42→21:37)
[2018-01-18] MEDS: Potassium Chloride 10 MEQ TAB PO SCH ×2 (08:42→21:39)
[2018-01-18] MEDS: Penicillin V Potassium 250 MG TAB PO SCH ×4 (08:42→21:38)
[2018-01-18] MEDS: Lisinopril 5 MG TAB PO SCH (08:42)
[2018-01-18] MEDS: Furosemide 40 MG TAB PO SCH ×2 (08:43→15:37)
[2018-01-18] MEDS: Aspirin 81 mg Enteric Coated Tablet PO SCH (08:43)
[2018-01-18] MEDS: Ferrous Sulfate 325 MG TAB PO SCH (08:43)
[2018-01-18] MEDS: Spironolactone 25 MG TAB PO SCH (08:44)
[2018-01-18] MEDS: Saccharomyces boulardii 250 MG CAP PO SCH (08:44)
[2018-01-18] MEDS: Hydrochlorothiazide 25 MG TAB PO SCH (08:44)
[2018-01-18] MEDS: Morphine ER 15 MG TAB PO SCH ×3 (08:44→21:36)
[2018-01-18] MEDS: Pramipexole Di-HCl 0.25 MG TAB PO SCH ×2 (08:44→21:39)
[2018-01-18] MEDS: Nystatin Powder 15 GM BOT TOP SCH ×2 (08:45→21:41)
--- NOTE | 2018-01-18 14:56 | PRG ---
DATE OF SERVICE: 01/18/2018 HISTORY OF PRESENT ILLNESS: Ms. Acevedo is a very pleasant 57-year-old white female who presented hers elf to [facility] with cellulitis of both of her feet. She was diuresed because of her tremendous massive lymphedema. She was started on IV antibiotics. Eventually, she was stabil ized and transferred to [facility]. The patient has actually done much better over the last 3 days after I talked about fluid in and flui d out. She has been negative for the last 3 days and has lost several pounds. She is down to 403 po unds. VITAL SIGNS: The patient's blood pressure this morning was 116/55, pulse 96-97, respirations 18 with O2 sat of 97% on room air. T-max is 96.3. PHYSICAL EXAMINATION: GENERAL: Reveals a well-developed, well-nourished, very pleasant white female in no apparent distres s at this time. HEENT: Reveals normocephalic, nontraumatic cranium. Pupils equal, round, and reactive. Extraocular movements intact. Nose and throat are slightly dry. NECK: Supple, without mass, nodes, bruits. CHEST: Clear to auscultation. No rales, rhonchi or wheezes are heard. CARDIOVASCULAR: Reveals a regular rate and rhythm without murmurs, gallops or rubs. ABDOMEN: Morbidly obese, soft and nontender. No rebound or guarding is noted. : Reveals Inman catheter in place, which we will take out today. EXTREMITIES: Reveal no clubbing, cyanosis, just significant massive morbid lymphedema. Cellulitis i s gone. IMPRESSION: 1. Severe chronic lymphedema with a resultant inner thigh cellulitis and foot cellulitis, both reso lved. 2. Hypertension. 3. Asthma. 4. Muscle spasm. 5. Obstructive sleep apnea. 6. Bladder spasms. 7. Generalized weakness. PLAN: 1. The patient will be discharged on Pen-Vee K 500 mg 4 times daily. 2. Continue CPAP at bedtime. 3. Gabapentin to be continued. 4. Deep venous thrombosis prophylaxis. 5. Decubitus precautions. 6. Stress ulcer precautions. 7. Continue to monitor the patient's blood pressure closely. 8. Monitor the patient's respiratory status. 9. Inman catheter to be discontinued. 10. Discharge next Sunday. 11. Continue physical therapy and occupational therapy. 12. See her PCP Dr. Tianna Win next Sunday after she is discharged. 13. Discharged with physical therapy through [facility].
[2018-01-18] MEDS: Montelukast Sodium 10 mg Tablet PO SCH (21:39)
[2018-01-19] MEDS: Acetaminophen 325 MG TAB PO PRN ×2 (00:49→13:06)
[2018-01-19] MEDS: HYDROcodone/Acetaminophen 7.5/325 mg Tablet PO PRN (05:33)
--- NOTE | 2018-01-19 07:36 | PRG ---
DATE OF SERVICE: 01/19/2018 DATE OF ADMISSION: 12/25/2017 HISTORY OF PRESENT ILLNESS: Ms. Acevedo is a very pleasant 57-year-old white female, who presented to [facility] with cellulitis of both her legs and tremendous massive lymphedema. S he was started on IV Lasix and IV antibiotics initially. She was stabilized and transferred to [facility] for continued diuresis, fluid restriction, finished her antibiotics, and physic al therapy and occupational therapy. The patient has no complaints this morning. She states she is doing well. She will try to stick wit h her fluid restriction a little bit better. She was over 200 mL yesterday. She is down to 404 poun ds, which is of 1-pound gain. OBJECTIVE: Vital signs this morning reveal blood pressure is 104/54, pulse 70-73, respirations 18, O 2 sat 93% on room air, weight yesterday was 404 pounds, initial weight started about 420. PHYSICAL EXAMINATION: GENERAL: This is a well-developed, well-nourished, morbidly obese white female with massive lymphede ma in her lower extremities. HEENT: Reveals normocephalic, nontraumatic cranium. Pupils equal, round, and reactive to light. Ex traocular movements intact. Nose and throat are slightly dry. NECK: Supple, without masses, nodes, or bruits. LUNGS: Chest is clear to auscultation. No rales, rhonchi, wheezes, or cough is noted. HEART: Reveals a regular rate and rhythm without murmurs, gallops, or rubs. ABDOMEN: Morbidly obese, soft, nontender, no rebound, or guarding. : Reveals Inman should have been removed yesterday. EXTREMITIES: Reveal no clubbing, cyanosis, or edema; only massive morbid lymphedema. Cellulitis is resolved. IMPRESSION: 1. Severe chronic lymphedema that resulted in inner thigh cellulitis and foot cellulitis, both of wh ich have been resolved. 2. Hypertension. 3. Asthma. 4. Muscle spasm. 5. Obstructive sleep apnea. 6. Bladder spasm. 7. Generalized weakness. PLAN: 1. Discharged from [facility]. 2. Continue CPAP at home. 3. Gabapentin can be continued. 4. DVT prophylaxis. 5. Decubitus precautions. 6. Stress ulcer precautions. 7. Continue to monitor the patient's blood pressure closely. 8. Monitor patient's respiratory status. 9. Inman catheter discontinued. 10. Discharge next Sunday. 11. Continue physical therapy and occupational therapy. 12. See Dr. Tianna Win next Sunday, which is her PCP. 13. [facility] for physical therapy.
[2018-01-19] MEDS: Nystatin Powder 15 GM BOT TOP SCH ×2 (09:00→22:08)
[2018-01-19] MEDS: Saccharomyces boulardii 250 MG CAP PO SCH (09:44)
[2018-01-19] MEDS: Spironolactone 25 MG TAB PO SCH (09:45)
[2018-01-19] MEDS: Potassium Chloride 10 MEQ TAB PO SCH ×2 (09:45→22:06)
[2018-01-19] MEDS: Furosemide 40 MG TAB PO SCH ×2 (09:45→13:06)
[2018-01-19] MEDS: Ferrous Sulfate 325 MG TAB PO SCH (09:45)
[2018-01-19] MEDS: Pramipexole Di-HCl 0.25 MG TAB PO SCH ×2 (09:45→22:07)
[2018-01-19] MEDS: Hydrochlorothiazide 25 MG TAB PO SCH (09:45)
[2018-01-19] MEDS: Aspirin 81 mg Enteric Coated Tablet PO SCH (09:45)
[2018-01-19] MEDS: Morphine ER 15 MG TAB PO SCH ×3 (09:46→22:07)
[2018-01-19] MEDS: Gabapentin 300 MG CAP PO SCH ×3 (09:46→22:05)
[2018-01-19] MEDS: Lisinopril 5 MG TAB PO SCH (09:47)
[2018-01-19] MEDS: Penicillin V Potassium 250 MG TAB PO SCH ×4 (09:47→22:06)
[2018-01-19] MEDS: Montelukast Sodium 10 mg Tablet PO SCH (22:06)
[2018-01-20] MEDS: HYDROcodone/Acetaminophen 7.5/325 mg Tablet PO PRN (01:39)
--- NOTE | 2018-01-20 07:41 | PRG ---
DATE OF SERVICE: 01/20/2018 HISTORY OF PRESENT ILLNESS: Ms. Acevedo is a very pleasant 57-year-old white female that presented her self to [facility] with tremendous massive lymphedema and cellulitis of both feet . She was started on IV Lasix and IV antibiotics. She was stabilized and transferred to [facility] where we have continued her diuresis. Unfortunately, she is not doing very well with her fluid restriction. She did better yesterday, and she did lose another 2 pounds. She has finish ed antibiotics and she is here for physical therapy and occupational therapy. The patient states her left foot is a little red this morning, and certainly it is, but not tender. Does not look infected. Her weight today is down to 402, which is a 2-pound weight loss. PHYSICAL EXAMINATION: VITAL SIGNS: This morning reveal blood pressure 103/56, pulse 70-74, respirations 16-20, O2 sat 97% on room air, T-max 97.9. GENERAL: This is a well-developed, well-nourished, very pleasant, morbidly obese white female in no apparent distress at this time. HEENT: Reveals normocephalic, nontraumatic cranium. Pupils equal, round, reactive. Extraocular mov ements intact. Nose and throat are dry. NECK: Supple, without mass, nodes, bruits. LUNGS: Chest clear to auscultation. No rales, rhonchi, wheezes, or cough is heard. HEART: Reveals a regular rate and rhythm without murmurs, gallops, or rubs. ABDOMEN: Morbidly obese. It is soft and nontender. No rebound or guarding is noted. EXTREMITIES: Reveal no clubbing, cyanosis, or edema. Her left foot is slightly red-tinged, especial ly the great toe. No pain, no warmth is noted. IMPRESSION: 1. Severe chronic lymphedema resulted with inner thigh cellulitis and foot cellulitis, both of which have been resolved. 2. Hypertension. 3. Asthma. 4. Muscle spasm. 5. Obstructive sleep apnea. 6. Bladder spasm. 7. Generalized weakness. PLAN: 1. Discharged with Pen-Vee K 500 q.i.d. 2. Continue CPAP at home. 3. Gabapentin to be continued. 4. Deep venous thrombosis prophylaxis. 5. Decubitus precautions. 6. Stress ulcer precautions. 7. Continue to monitor the patient's blood pressure closely. 8. Monitor patient's respiratory status. 9. Inman catheter discontinued. 10. Discharge on Sunday. 11. Continue PT and OT. 12. See Dr. Tianna Win next Sunday, which is her PCP. 13. [facility] for physical therapy.
[2018-01-20] MEDS: Penicillin V Potassium 250 MG TAB PO SCH ×4 (09:12→21:38)
[2018-01-20] MEDS: Lisinopril 5 MG TAB PO SCH (09:12)
[2018-01-20] MEDS: Gabapentin 300 MG CAP PO SCH ×3 (09:13→21:38)
[2018-01-20] MEDS: Ferrous Sulfate 325 MG TAB PO SCH (09:14)
[2018-01-20] MEDS: Pramipexole Di-HCl 0.25 MG TAB PO SCH ×2 (09:14→21:39)
[2018-01-20] MEDS: Saccharomyces boulardii 250 MG CAP PO SCH (09:14)
[2018-01-20] MEDS: Aspirin 81 mg Enteric Coated Tablet PO SCH (09:15)
[2018-01-20] MEDS: Potassium Chloride 10 MEQ TAB PO SCH ×2 (09:15→21:39)
[2018-01-20] MEDS: Spironolactone 25 MG TAB PO SCH (09:15)
[2018-01-20] MEDS: Furosemide 40 MG TAB PO SCH ×2 (09:15→13:05)
[2018-01-20] MEDS: Hydrochlorothiazide 25 MG TAB PO SCH (09:15)
[2018-01-20] MEDS: Morphine ER 15 MG TAB PO SCH ×3 (09:16→21:39)
[2018-01-20] MEDS: Nystatin Powder 15 GM BOT TOP SCH ×2 (09:17→21:45)
[2018-01-20] MEDS: Acetaminophen 325 MG TAB PO PRN (13:04)
[2018-01-20] MEDS: Montelukast Sodium 10 mg Tablet PO SCH (21:39)
[2018-01-21] MEDS: HYDROcodone/Acetaminophen 7.5/325 mg Tablet PO PRN ×2 (03:41→16:21)
[2018-01-21] MEDS: Ferrous Sulfate 325 MG TAB PO SCH (08:12)
[2018-01-21] MEDS: Gabapentin 300 MG CAP PO SCH ×3 (08:12→20:31)
[2018-01-21] MEDS: Saccharomyces boulardii 250 MG CAP PO SCH (08:12)
[2018-01-21] MEDS: Aspirin 81 mg Enteric Coated Tablet PO SCH (08:12)
[2018-01-21] MEDS: Potassium Chloride 10 MEQ TAB PO SCH ×2 (08:13→20:33)
[2018-01-21] MEDS: Pramipexole Di-HCl 0.25 MG TAB PO SCH ×2 (08:13→20:33)
[2018-01-21] MEDS: Furosemide 40 MG TAB PO SCH ×2 (08:13→14:10)
[2018-01-21] MEDS: Spironolactone 25 MG TAB PO SCH (08:13)
[2018-01-21] MEDS: Hydrochlorothiazide 25 MG TAB PO SCH (08:13)
[2018-01-21] MEDS: Lisinopril 5 MG TAB PO SCH (08:14)
[2018-01-21] MEDS: Morphine ER 15 MG TAB PO SCH ×3 (08:15→20:31)
[2018-01-21] MEDS: Nystatin Powder 15 GM BOT TOP SCH ×2 (08:20→20:33)
[2018-01-21] MEDS: Penicillin V Potassium 250 MG TAB PO SCH ×4 (10:01→20:33)
--- NOTE | 2018-01-21 13:26 | PRG ---
DATE OF SERVICE: 01/21/2018 HISTORY OF PRESENT ILLNESS: Ms. Acevedo is a very pleasant 57-year-old white female that presented to the emergency room at [facility] with massive lymphedema and cellulitis of both f eet. She was started on IV Lasix and IV antibiotics and transferred to [facility] fo zofia continued diuresis and to finish her antibiotics. The patient states she has been doing fairly well, is down to 401 pounds from 419 on arrival, but kenrick branham has not been doing very well with her fluid restrictions. She is scheduled to go home on Sunday . She did lose another 4 pounds yesterday and we encouraged her to lose another 2-3 pounds, so she w ill be less than 400 on her discharge date. She has finished antibiotics and she is doing well. VITAL SIGNS: Blood pressure this morning 106/55, pulse 74-78, respirations 18, O2 sat 99% on room ai r, T-max 97.8. PHYSICAL EXAMINATION: GENERAL: This is a well-developed, well-nourished, morbidly obese white female in no apparent distre ss at this time. HEENT: Reveals normocephalic, nontraumatic cranium. Pupils are equally round and reactive. Extraoc ular movements intact. Nose and throat are slightly dry. NECK: Supple, without mass, nodes or bruits. CHEST: Clear to auscultation. No rales or rhonchi, no wheezes. CARDIOVASCULAR: Reveals a regular rate and rhythm without murmurs, gallops or rubs. ABDOMEN: Soft, nontender. It is morbidly obese. No rebound or guarding is noted. : Deferred. EXTREMITIES: Reveal no clubbing, cyanosis or edema. Left foot is slightly red tinged at the great t oe, but is still better than it was yesterday. IMPRESSION: 1. Severe chronic lymphedema of with resultant inner thigh cellulitis and foot cellulitis, both of w hich have been resolved. 2. Hypertension. 3. Asthma. 4. Muscle spasm. 5. Obstructive sleep apnea. 6. Bladder spasm. 7. Generalized weakness. PLAN: 1. Discharge is scheduled for Sunday. 2. Discharge with Pen-Vee K q.i.d. 3. Continue CPAP at home. 4. Gabapentin to be continued. 5. Deep venous thrombosis prophylaxis. 6. Decubitus precautions. 7. Stress ulcer precautions. 8. Continue to monitor the patient's blood pressure. 9. Monitor the patient's respiratory status. 10. Inman catheter has been discontinued. 11. Discharge on Sunday. 12. Continue outpatient physical therapy and occupational therapy. 13. See Dr. Tianna Win on Sunday in the morning. 14. Continue home health with [facility] for physical therapy.
[2018-01-21] MEDS: Montelukast Sodium 10 mg Tablet PO SCH (20:31)
[2018-01-21] MEDS: ALPRAZolam 0.25 MG TAB PO PRN (22:19)
[2018-01-21] MEDS: Acetaminophen 325 MG TAB PO PRN (22:19)
[2018-01-22] MEDS: Gabapentin 300 MG CAP PO SCH ×3 (05:36→20:29)
[2018-01-22 05:39] VITALS: BMI 68.6
[2018-01-22] MEDS: Saccharomyces boulardii 250 MG CAP PO SCH (08:13)
[2018-01-22] MEDS: Aspirin 81 mg Enteric Coated Tablet PO SCH (08:13)
[2018-01-22] MEDS: Pramipexole Di-HCl 0.25 MG TAB PO SCH ×2 (08:13→20:30)
[2018-01-22] MEDS: Spironolactone 25 MG TAB PO SCH (08:13)
[2018-01-22] MEDS: Hydrochlorothiazide 25 MG TAB PO SCH (08:13)
[2018-01-22] MEDS: Ferrous Sulfate 325 MG TAB PO SCH (08:13)
[2018-01-22] MEDS: Potassium Chloride 10 MEQ TAB PO SCH ×2 (08:14→20:30)
[2018-01-22] MEDS: Furosemide 40 MG TAB PO SCH ×2 (08:14→14:36)
[2018-01-22] MEDS: Penicillin V Potassium 250 MG TAB PO SCH ×4 (08:14→20:30)
[2018-01-22] MEDS: Morphine ER 15 MG TAB PO SCH ×3 (08:15→20:29)
[2018-01-22] MEDS: Lisinopril 5 MG TAB PO SCH (08:15)
[2018-01-22] MEDS: Nystatin Powder 15 GM BOT TOP SCH (08:15)
[2018-01-22] MEDS: HYDROcodone/Acetaminophen 7.5/325 mg Tablet PO PRN (12:16)
--- NOTE | 2018-01-22 19:59 | PRG ---
DATE OF SERVICE: 01/22/2018 HISTORY OF PRESENT ILLNESS: Ms. Acevedo is a very pleasant 57-year-old white female that initially was seen in the emergency room at [facility] with massive lymphedema and cellulitis of both feet. She was started on IV antibiotics and IV Lasix. She eventually was stabilized and tra nsferred to [facility] for continued diuresis and to finish her antibiotics. The patient has been doing very well. She gained 1 pound from yesterday to 402 pounds. Her goal is less than 400 pounds by the time she leaves, but unfortunately, she had a lot of stress yesterday wit h her father visiting her. Nonetheless, she is motivated to try to lose 2 pounds by tomorrow. OBJECTIVE: VITAL SIGNS: Reveal blood pressure is 102/55, pulse 70-73, respirations 16-20, O2 sat 96% on room ai r. T-max is 98.4. GENERAL: This is a well-developed, well-nourished, morbidly obese white female in no apparent distre ss at this time. HEENT: Reveals normocephalic, nontraumatic cranium. Pupils equal, round, and reactive. Extraocular movements intact. Nose and throat this morning are moist. NECK: Supple, without mass, nodes, bruits. CHEST: Clear to auscultation. No rales, rhonchi or wheezes are heard. No cough is noted. HEART: Reveals a regular rate and rhythm without murmurs, gallops or rubs. ABDOMEN: Soft, nontender, without organomegaly, normal bowel sounds are noted. No rebound or guardi ng is noted. GENITOURINARY: Deferred. EXTREMITIES: Reveal no clubbing, cyanosis or edema. Left foot is much improved. LABORATORY DATA: No labs were done. IMPRESSION: 1. Severe chronic lymphedema with resultant inner thigh cellulitis and bilateral foot cellulitis, maia th of which have been resolved. 2. Hypertension. 3. Asthma. 4. Multiple muscle spasms. It tends to come and go, but is much improved with her gabapentin. 5. Obstructive sleep apnea. 6. Bladder spasm. 7. Generalized weakness. PLAN: 1. The patient will be ready for discharge tomorrow. 2. The patient will be discharged on Pen-Vee K. 3. The patient will continue CPAP at home. 4. The patient will continue her lymphedema wraps and pumps. 5. Gabapentin will be continued at 600 mg t.i.d. 6. Decubitus precautions. 7. Stress ulcer precautions. 8. Continue to monitor the patient's blood pressure. 9. Monitor the patient's respiratory status. 10. Inman catheter has been discontinued. 11. Discharge tomorrow. 12. Continue outpatient physical therapy and occupational therapy with [facility]. 13. Dr. Tianna Win will see the patient tomorrow at 01:30. 14. The patient will leave here before lunch. 15. The patient will have home health with [facility] for physical therapy.
[2018-01-22] MEDS: Montelukast Sodium 10 mg Tablet PO SCH (20:29)
[2018-01-23] MEDS: Nystatin Powder 15 GM BOT TOP SCH ×2 (00:57→08:25)
[2018-01-23] MEDS: HYDROcodone/Acetaminophen 7.5/325 mg Tablet PO PRN (03:48)
[2018-01-23] MEDS: Gabapentin 300 MG CAP PO SCH (05:31)
[2018-01-23 07:41] VITALS: BP 103/51; TEMP 97
[2018-01-23] MEDS: Ferrous Sulfate 325 MG TAB PO SCH (08:21)
[2018-01-23] MEDS: Aspirin 81 mg Enteric Coated Tablet PO SCH (08:21)
[2018-01-23] MEDS: Furosemide 40 MG TAB PO SCH (08:21)
[2018-01-23] MEDS: Hydrochlorothiazide 25 MG TAB PO SCH (08:22)
[2018-01-23] MEDS: Lisinopril 5 MG TAB PO SCH (08:22)
[2018-01-23] MEDS: Morphine ER 15 MG TAB PO SCH (08:23)
[2018-01-23] MEDS: Penicillin V Potassium 250 MG TAB PO SCH (08:25)
[2018-01-23] MEDS: Pramipexole Di-HCl 0.25 MG TAB PO SCH (08:25)
[2018-01-23] MEDS: Potassium Chloride 10 MEQ TAB PO SCH (08:25)
[2018-01-23] MEDS: Saccharomyces boulardii 250 MG CAP PO SCH (08:26)
[2018-01-23] MEDS: Spironolactone 25 MG TAB PO SCH (08:26)
[2018-01-23] MEDS: ALPRAZolam 0.25 MG TAB PO PRN (11:00)
--- NOTE | 2018-01-24 04:50 | DIS ---
DATE OF ADMISSION: 12/25/2017 DATE OF DISCHARGE: 01/23/2018 HOSPITAL COURSE: Patient is a 57-year-old white female that was initially seen at [facility] with massive lymphedema and cellulitis of both feet. She is still on diureses and start ed on IV antibiotics and stabilized. Eventually, she was transferred to [facility] f or continued diuresis and to finish her antibiotics. She was also transferred here to get physical t herapy and occupational therapy to start walking again since she had not walked in about a month and to increase her strength and her stamina. The patient has actually been doing very well. She is walking 50-80 feet at a time before she wears out, but she is certainly much improved. She has reached maximum medical benefit and is ready for di scharge. Her goal was to be less than 400 pounds when she left, but she was 402 pounds today. Last on her admission, her weight was 419 pounds. PHYSICAL EXAMINATION: VITAL SIGNS: This morning reveal blood pressure 103/51, pulse 70, respirations 16, O2 sat 97% on evon m air, T-max 97.0. GENERAL: This is a well-developed, well-nourished, morbidly obese white female who was 402 pounds. HEENT: Reveals normocephalic, nontraumatic cranium. Pupils equal, round, and reactive. Extraocular movements are intact. Nose and throat are slightly dry. NECK: Supple, without mass, nodes or bruits. CHEST: Clear to auscultation. No rales, no rhonchi, no wheezes are heard. HEART: Reveal a regular rate and rhythm without murmurs, no gallops or rubs. ABDOMEN: Morbidly obese, soft, nontender. No rebound or guarding is noted. Organomegaly is not ab le to be appreciated because of her massive size. GENITOURINARY: Deferred. Her Inman catheter has been out for several days. She is not having any p roblems voiding. EXTREMITIES: Reveal no clubbing or cyanosis. Her cellulitis has gone from her inner thighs and from her feet. She continues to have massive lymphedema and we will continue to be on a restricted fluid diet of 15-1800 mL and Lasix 40 mg[address] She will see Dr[address] Win today. IMPRESSION: 1. Severe chronic lymphedema with resultant inner thigh cellulitis and bilateral foot cellulitis, wh ich is resolved. 2. Hypertension. 3. Asthma. 4. Multiple muscle spasms. 5. Obstructive sleep apnea on CPAP. 6. Bladder spasm. 7. Generalized weakness. PLAN: 1. The patient is discharged to the care of her mother. 2. The patient is to see Dr. Win today at 01:30. 3. The patient was given a prescription for Pen-Vee K 500 mg q.i.d. from now on per Dr. Ruano and Dr. Alberts's recommendation. 4. The patient will continue on Lisinopril 2.5 mg daily. 5. The patient will continue on gabapentin 600 mg t.i.d. 6. The patient will continue with stress ulcer precautions. 7. Decubitus precautions. 8. Continue to monitor blood pressure at home. 9. We will monitor respiratory status at home. 10. Continue outpatient physical therapy and occupational therapy with [facility]. 11. The patient will see Dr. Win today at 01:30. 12. Patient will be followed up with home health, most likely [facility], [facility] DISCHARGE MEDICATIONS: Includes the following, 1. Tylenol 500 p.r.n. 2. Alprazolam, Xanax for which she takes 1-2 a month, 2.5 mg. 3. Amitriptyline 50 mg at bedtime. 4. Aspirin 81 mg daily. 5. Vitamin B12 1000 mcg every morning. 6. Ferrous sulfate 325 mg once a day with meals. 7. Furosemide 40 mg twice daily. 8. Gabapentin 600 mg 3 times daily. 9. HCTZ 25 mg daily. 10. Lisinopril 2.5 mg daily. 11. Metoprolol succinate 12.5 mg daily. 12. Montelukast 10 mg at bedtime. 13. Pen-Vee K 500 mg 4 times daily. 14. MiraLax 17 grams daily. 15. Potassium chloride 10 mEq b.i.d. 16. Pramipexole or Mirapex 0.25 mg twice daily. 17. Sertraline 200 mg daily. 18. Spironolactone 25 mg each morning.
== END 2018-01-23 12:45 | disposition home health service (06) | DRG 607 ==
LOC: NAV ACUTE 16:18
PROVIDERS: ADMIT Family Medicine; ATTEND Family Medicine
DX: I89.0 Lymphedema, not elsewhere classified (principal); I42.9 Cardiomyopathy, unspecified; E66.01 Morbid (severe) obesity due to excess calories; L03.115 Cellulitis of right lower limb; E87.70 Fluid overload, unspecified; L03.116 Cellulitis of left lower limb; Z68.44 Body mass index [BMI] 60.0-69.9, adult; I10 Essential (primary) hypertension; J45.909 Unspecified asthma, uncomplicated; R53.1 Weakness; G47.33 Obstructive sleep apnea (adult) (pediatric); D64.9 Anemia, unspecified; M62.838 Other muscle spasm; N32.89 Other specified disorders of bladder; N28.9 Disorder of kidney and ureter, unspecified; Z86.718 Personal history of other venous thrombosis and embolism; Z79.82 Long term (current) use of aspirin; Z79.899 Other long term (current) drug therapy
CPT/HCPCS: 36415; 80048; 80053; 81001; 85025; 87086; 90471; 90682; G0008; G8996-GN-CH; G8997-GN-CH; J3420; Q2036

== ENCOUNTER 2018-03-30 15:24 | Inpatient (IN) | payer MEDICARE ==
[2018-03-30] MEDS ORDERED: Acetaminophen 500 MG TAB PO PRN (21:30)
[2018-03-30] MEDS ORDERED: ALPRAZolam 0.25 MG TAB PO PRN (21:30)
[2018-03-30] MEDS ORDERED: Albuterol Sulfate 2.5 mg/3 ml Neb NEB PRN (21:30)
[2018-03-30] MEDS ORDERED: Penicillin V Potassium 250 MG TAB PO SCH (22:00)
[2018-03-30] MEDS ORDERED: Pramipexole Di-HCl 0.25 MG TAB PO SCH (22:00)
[2018-03-30] MEDS ORDERED: Gabapentin 300 MG CAP PO SCH (22:00)
[2018-03-30] MEDS: Furosemide 40 MG/4 ML VIAL IVP SCH (22:13)
[2018-03-30] MEDS: Morphine ER 15 MG TAB PO PRN (22:15)
--- NOTE | 2018-03-30 23:53 | HP ---
DATE OF ADMISSION: 03/30/2018 HISTORY OF PRESENT ILLNESS: Ms. Acevedo is a very pleasant 58-year-old white female that presented to [facility] last Gifty with severe lymphedema and generalized weakness. She was started on IV Lasix 40 mg and promptly put out 3 liters in the emergency room. The patient was star daniella on IV Lasix 40 mg t.i.d. and has probably lost approximately about 20 pounds of fluid. She is do ing very well but she was transferred down to [facility]. Continue diuresis, lymphed epi wraps and medical treatment. PAST MEDICAL HISTORY: Significant for, 1. Bilateral leg cellulitis with group B strep back in 2013. 2. Chronic lymphedema. 3. History of DVT. 4. Chronic anemia. 5. Essential hypertension. 6. History of asthma. 7. History of cardiomyopathy followed by Dr. Olivo with a left ventricular ejection fraction 85%. 8. Sleep apnea. 9. Pain management. PAST SURGICAL HISTORY: 1. Laparoscopic cholecystectomy in 2003. 2. Total abdominal hysterectomy and bilateral salpingo-oophorectomy in 2000. 3. Tonsillectomy. 4. Appendectomy. 5. Parathyroidectomy. 6. Colonoscopy and EGD by Dr. Win. 7. Benign left breast biopsy. 8. Right lower extremity surgery in 2009. 9. Two cardiac catheterizations by Dr. Olivo. ALLERGIES: The patient has no known drug allergies. MEDICATIONS: Reveal the patient is presently on the following medications: 1. Tylenol 500 mg q.6 hours p.r.n. 2. Albuterol nebulizer treatments q.4 hours p.r.n. 3. Xanax 0.25 b.i.d. 4. Amitriptyline 50 mg at bedtime. 5. Aspirin 81 mg a day. 6. Vitamin B12 of 1000 mg subQ q.7 days. 7. Ferrous sulfate 325 mg 3 times a day. 8. Folic acid 1 mg daily. 9. Furosemide 40 mg IV q.8 hours. 10. Gabapentin 600 mg 3 times daily. 11. Lisinopril 2.5 mg daily. 12. Metoprolol succinate 25 mg b.i.d. 13. Morphine 30 mg 3 times daily. 14. Pen-Vee K 250 mg 4 times a day. 15. Potassium chloride 40 mEq twice a day. 16. Sertraline 200 mg daily. 17. Pramipexole 0.25 mg twice a day. 18. Spironolactone hydrochlorothiazide which is Aldactazide 25/25 one a day. 19. Spironolactone 25 mg 1 a day. ALLERGIES: Patient has no known drug allergies. FAMILY HISTORY: Reveals the patient's mother is alive and well and helps the patient quite a bit. Nancy murillo's father has some type of history of cancer. SOCIAL HISTORY: Reveals the patient is homebound. She does have home health physical therapy and a hospital bed. Does not smoke, does not drink, does not use any illicit drugs. REVIEW OF SYSTEMS: Essentially unremarkable with a 10-system review except for that as noted in hist ory of present illness. PHYSICAL EXAMINATION: GENERAL: Reveals well-developed, well-nourished, morbidly obese 389-pound white female in no apparen t distress at this time. HEENT: Reveals normocephalic, nontraumatic cranium. Pupils are equal, round, reactive. Extraocular movements are intact. Nose and throat are dry, but clear. NECK: Supple, without mass, nodes or bruits. CHEST: Clear to auscultation. No rales, no rhonchi, no wheezes or cough are heard. HEART: Reveals a regular rate and rhythm without murmurs, gallops or rubs. Heart sounds are distant . ABDOMEN: Obese, soft, nontender. Normal bowel sounds noted in all 4 quadrants. No rebound or guard ing is noted. : Deferred. EXTREMITIES: Reveal severely morbidly obese with huge lymphedema in bilateral lower extremities. No cyanosis or clubbing is noted. NEUROLOGIC: Cranial nerves II through XII grossly intact. The patient is oriented x3. ASSESSMENT: 1. Severe bilateral lower extremity lymphedema, without cellulitis at this time. 2. Volume overload. 3. Essential hypertension. 4. Cardiomyopathy with left ventricular ejection fraction 65%, followed by Dr. Olivo. 5. History of asthma. 6. Normocytic anemia. 7. Chronic sleep apnea. 8. History of deep venous thrombosis, presently not on anticoagulation. 9. Chronic hypokalemia. 10. History of group B strep bacteremia secondary to bilateral leg cellulitis in 2013. 11. Generalized weakness. PLAN: 1. The patient will be transferred from [facility] for continued diuresis, physi lu therapy and occupational therapy. 2. The patient has a medline in her right arm for which she gets Lasix 40 mg IV t.i.d. 3. Daily weights. 4. Follow the patient's labs tomorrow. 5. Follow patient for anemia. 6. Consult physical therapy and occupational therapy. 7. Consult case management.
[2018-03-31] MEDS: Furosemide 40 MG/4 ML VIAL IVP SCH ×3 (05:50→21:33)
[2018-03-31] MEDS: Potassium Chloride 20 MEQ TAB PO SCH ×2 (08:54→17:22)
[2018-03-31] MEDS: Ferrous Sulfate 325 MG TAB PO SCH ×3 (08:54→17:22)
[2018-03-31] MEDS: Folic Acid 1 MG TAB PO SCH (08:55)
[2018-03-31] MEDS: Aspirin 81 mg Enteric Coated Tablet PO SCH (08:55)
[2018-03-31] MEDS: Spironolactone 25 MG TAB PO SCH (08:55)
[2018-03-31] MEDS: Hydrochlorothiazide 25 MG TAB PO SCH (08:56)
[2018-03-31] MEDS: Lisinopril 5 MG TAB PO SCH (08:56)
[2018-03-31] MEDS: Gabapentin 300 MG CAP PO SCH ×3 (08:56→21:33)
[2018-03-31] MEDS: Penicillin V Potassium 250 MG TAB PO SCH ×4 (08:57→21:34)
[2018-03-31] MEDS: Pramipexole Di-HCl 0.25 MG TAB PO SCH ×2 (08:57→21:34)
[2018-03-31] MEDS: Morphine ER 15 MG TAB PO PRN ×2 (08:58→21:35)
[2018-03-31] MEDS ORDERED: Non-Formulary Item 1 EACH (Spironolact/Hydrochlorothiazid [Aldactazide] 1 TAB) PO SCH (09:00)
[2018-03-31] MEDS: HYDROcodone/Acetaminophen 7.5/325 mg Tablet PO PRN (12:17)
--- NOTE | 2018-03-31 20:46 | PRG ---
DATE OF SERVICE: 03/31/2018 HISTORY OF PRESENT ILLNESS: Ms. Acevedo is a very pleasant 58-year-old white female that was admitted to [facility] last Gifty with severe lymphedema and generalized weakness. She was started on IV Lasix 40 mg t.i.d. and put out 3 liters. In the emergency room continue to put out quite a bit of liquid. She lost approximately 20 pounds of fluid. She has done very well and was t ransferred to [facility] for continued diuresis, but also for her lymphedema wraps, m edical treatment and for physical therapy and occupational therapy. SUBJECTIVE: The patient states she had a good day today. Her mom is supposed to bring her lymphedem a wraps tomorrow morning, so we can get them started. Blood work on portion was not done this morning, so we will continue that. We will also do daily kiet ght with independent scale. PHYSICAL EXAMINATION: VITAL SIGNS: This morning reveal blood pressure 117/52, pulse 64, respirations 16, O2 sat 94% on evon m air, and T-max 98.1. GENERAL: This is a well-developed, well-nourished, morbidly obese, 389 pound, white female in no sarmad arent distress at this time. HEENT: Reveals normocephalic, nontraumatic cranium. Pupils equal, round, and reactive. Extraocular movements intact. Nose and throat are moist and clear. NECK: Supple, without mass, nodes or bruits. LUNGS: Chest is clear to auscultation. No rales or rhonchi, no wheezes are noted. No cough is hear d. CARDIOVASCULAR: Reveals a regular rate and rhythm without murmurs, gallops or rubs. Heart sounds ar e very distant. ABDOMEN: Morbidly obese, soft, nontender. Normal bowel sounds are noted in all 4 quadrants. No quin ound or guarding is noted. : Deferred. EXTREMITIES: Reveal no clubbing, cyanosis, but significant lymphedema is noted. NEUROLOGIC: Patient has no focal deficits. IMPRESSION: 1. Severe bilateral lower extremity lymphedema, without cellulitis at this time. 2. Volume overload. 3. Essential hypertension. 4. Cardiomyopathy with left ventricular ejection fraction of 65%, followed by Dr. Olivo. 5. History of asthma. 6. Normocytic anemia. 7. Chronic sleep apnea. 8. History of deep vein thrombosis, presently not on anticoagulation because of multiple falls. 9. Chronic hypokalemia. 10. History of group B strep bacteremia secondary to bilateral leg cellulitis back in 2013. 12. Generalized weakness. 13. Prophylactic antibiotics. PLAN: 1. The patient has been transferred from [facility] to [facility] for continued diuresis, physical therapy and occupational therapy and lymphedema wraps. 2. The patient has a central line in her right arm which is a PICC line for Lasix 40 mg IV t.i.d. 3. We will do daily weights. 4. Labs were not done this morning. We will do that tomorrow. 5. Follow patient for anemia. 6. Continue physical therapy and occupational therapy.
[2018-03-31] MEDS: Sodium Chloride 0.9% 20 ML ONE (21:31)
[2018-04-01] MEDS: HYDROcodone/Acetaminophen 7.5/325 mg Tablet PO PRN ×3 (01:16→16:57)
[2018-04-01 05:33] LABS: #Basophils 0.1 thou/uL (0.0-0.2); #Eosinphils 0.3 thou/uL (0.0-0.7); #Lymphocytes 1.4 thou/uL (1.20-3.40); #Monocytes 0.5 thou/uL (0.11-0.59); #Neutrophils 4.2 thou/uL (1.40-6.50); %Basophils 0.9 % (0.0-1.0); %Eosinophils 5.2 % (0.0-10.0); %Lymphocytes 21.6 % (21.0-51.0); %Monocytes 8.2 % (0.0-10.0); %Neutrophils 64.1 % (42.0-75.0); Anisocytosis MODERATE=16-30 cells (100X) (0-5/hpf); Hemoglobin 8.8 g/dL (12.0-16.0); MDiff Complete? YES; Mean Corpuscular HGB CONC 29.4 g/dL (32.0-36.0); Mean Corpuscular Hemoglobin 24.2 pg (27.0-31.0); Mean Corpuscular Volume 82.3 fl (81.0-99.0); Mean Platelet Volume 6.3 fL (7.4-10.4); Microcytosis MODERATE=15-30 cells (100X) (0-5/hpf); PLT Morphology Comment Appears Adequate; Platelet Count 196 thou/uL (130-400); RBC Distribution Width 15.4 % (11.5-14.5); Red Blood Cell (RBC) Count 3.64 mill/uL (4.20-5.40); White Blood Cell (WBC) Count 6.5 thou/uL (4.8-10.8)
[2018-04-01 05:38] LABS: ALT (SGPT) 12 U/L (8-55); AST (SGOT) 15 U/L (5-34); Albumin 3.8 g/dL (3.5-5.0); Alkaline Phosphatase 111 U/L (40-150); Anion Gap 15 mmol/L (10-20); BUN (Urea Nitrogen) 34 mg/dL (9.8-20.1); Bilirubin, Total 0.2 mg/dL (0.2-1.2); Calc. Creatinine Clearance 118 mL/min (70-130); Calcium 9.2 mg/dL (7.8-10.44); Carbon Dioxide 34 mmol/L (22-29); Chloride 96 mmol/L (98-107); Estimated GFR-MDRD 37; Globulin 3.1 g/dL (2.4-3.5); Glucose 111 mg/dL (70-105); Potassium 4.7 mmol/L (3.5-5.1); Protein, Total 6.9 g/dL (6.0-8.3); Sodium 140 mmol/L (136-145)
[2018-04-01] MEDS: Furosemide 40 MG/4 ML VIAL IVP SCH ×3 (06:06→20:50)
[2018-04-01] MEDS: Potassium Chloride 20 MEQ TAB PO SCH ×2 (08:19→16:25)
[2018-04-01] MEDS: Gabapentin 300 MG CAP PO SCH ×3 (08:19→20:49)
[2018-04-01] MEDS: Penicillin V Potassium 250 MG TAB PO SCH ×4 (08:19→20:49)
[2018-04-01] MEDS: Aspirin 81 mg Enteric Coated Tablet PO SCH (08:20)
[2018-04-01] MEDS: Spironolactone 25 MG TAB PO SCH (08:20)
[2018-04-01] MEDS: Ferrous Sulfate 325 MG TAB PO SCH ×3 (08:20→16:25)
[2018-04-01] MEDS: Folic Acid 1 MG TAB PO SCH (08:21)
[2018-04-01] MEDS: Lisinopril 5 MG TAB PO SCH (08:21)
[2018-04-01] MEDS: Hydrochlorothiazide 25 MG TAB PO SCH (08:22)
[2018-04-01] MEDS: Pramipexole Di-HCl 0.25 MG TAB PO SCH ×2 (08:22→20:50)
[2018-04-01] MEDS: Morphine ER 15 MG TAB PO PRN ×2 (08:30→20:54)
--- NOTE | 2018-04-01 10:05 | PRG ---
DATE OF SERVICE: 04/01/2018 DATE OF ADMISSION: 03/30/2018 HISTORY OF PRESENT ILLNESS: The patient is a 58-year-old white morbidly obese female admitted to [facility] with severe lymphedema and generalized weakness. She was started on IV L asix 3 times a day and a PICC line. She was transferred here to continue with her IV Lasix. We will need to follow her BUN and creatinine closely. She is also here for physical therapy and occupation al therapy and for her lymphedema wraps. PHYSICAL EXAMINATION: VITAL SIGNS: This morning reveal blood pressure 103/47, pulse 66-77, respirations 16-20, O2 sat 93%- 94% on room air, temperature max 97.4. GENERAL: This is a well-developed, morbidly obese white female who is down 10 pounds from yesterday per bed scale. Yesterday, she was 389; today she is 279. HEENT: Reveals normocephalic, nontraumatic cranium. Pupils equal, round, reactive. Extraocular mov ements intact. Nose and throat are clear, slightly dry. NECK: Supple, without mass, nodes or bruits. CHEST: Clear to auscultation, distant breath sounds are noted. No rales, no rhonchi, no wheezes are heard. No cough is noted. HEART: Reveals a distant, but regular rate and rhythm. No murmurs, gallops or rubs are appreciated. ABDOMEN: Morbidly obese. Normal bowel sounds in all 4 quadrants. No rebound or guarding is noted. : Deferred. Inman catheter in place. EXTREMITIES: Reveal no clubbing, cyanosis, but continued lymphedema, possibly slightly less. NEUROLOGIC: Patient has no focal deficits. IMPRESSION: 1. Severe bilateral lower extremity lymphedema, without cellulitis at this time. 2. Volume overload. 3. Essential hypertension. 4. Cardiomyopathy, left ventricular ejection fraction 65%, followed by Dr. Olivo. 5. History of asthma. 6. Normocytic anemia. 7. Chronic sleep apnea. 8. History of DVT, presently not on anticoagulation because of multiple falls. 9. Hyperkalemia. 10. History of group B strep bacteremia secondary to bilateral cellulitis back in 2013. Dr. Aristeo choi ants her on Pen-Vee K probably for the rest of life. 11. Generalized weakness. 12. Prophylactic antibiotics. PLAN: 1. The patient will be transferred from [facility] to [facility] for contin ued diuresis, physical therapy, occupational therapy, and lymphedema wraps. 2. Continue use the PICC line in her right arm with Lasix 40 mg IV 3 times daily. 3. Continue daily weights. 4. Continue physical therapy and occupational therapy. 5. Continue stress ulcer prophylaxis. 6. Continue to follow the patient's anemia.
[2018-04-01] MEDS: Sodium Chloride 0.9% 20 ML ONE (20:50)
[2018-04-02] MEDS ORDERED: Sodium Chloride 0.9% 10 ML ONE ×2 (05:57→19:49)
[2018-04-02] MEDS: Morphine ER 15 MG TAB PO PRN ×3 (06:01→21:04)
[2018-04-02] MEDS: Furosemide 40 MG/4 ML VIAL IVP SCH ×3 (06:03→21:04)
[2018-04-02] MEDS: Gabapentin 300 MG CAP PO SCH (08:27)
[2018-04-02] MEDS: Ferrous Sulfate 325 MG TAB PO SCH ×3 (08:27→17:32)
[2018-04-02] MEDS: Potassium Chloride 20 MEQ TAB PO SCH ×2 (08:27→17:31)
[2018-04-02] MEDS: Spironolactone 25 MG TAB PO SCH (08:27)
[2018-04-02] MEDS: Folic Acid 1 MG TAB PO SCH (08:28)
[2018-04-02] MEDS: Lisinopril 5 MG TAB PO SCH (08:28)
[2018-04-02] MEDS: Hydrochlorothiazide 25 MG TAB PO SCH (08:29)
[2018-04-02] MEDS: Penicillin V Potassium 250 MG TAB PO SCH ×4 (08:30→21:04)
[2018-04-02] MEDS: Aspirin 81 mg Enteric Coated Tablet PO SCH (08:30)
[2018-04-02] MEDS: Pramipexole Di-HCl 0.25 MG TAB PO SCH ×2 (08:30→21:04)
[2018-04-02] MEDS ORDERED: Gabapentin 300 MG CAP PO SCH (09:59)
[2018-04-02] MEDS: HYDROcodone/Acetaminophen 7.5/325 mg Tablet PO PRN (10:34)
--- NOTE | 2018-04-02 13:15 | PRG ---
DATE OF SERVICE: 04/02/2018 DATE OF ADMISSION: 03/30/2018 SUBJECTIVE: Ms. Acevedo is a pleasant 58-year-old morbidly obese white female admitted to [facility] with severe lymphedema and generalized weakness. She was started on IV Lasix 3 ti mes a day with a PICC line. Transferred here to continue with IV Lasix. We will continue to follow her BUN and creatinine and she is here for physical therapy, occupational therapy, and lymphedema wra ps. OBJECTIVE: VITAL SIGNS: This morning reveal blood pressure 95/55, pulse 62-65, respirations 16-20, O2 sat 96%-9 8%, T-max 97.1. Weight this morning is 372.2 pounds which is down 15 pounds from her admission weigh t of 388.2. GENERAL: Reveals a well-developed, well-nourished, very pleasant white female in no apparent distres s at this time. HEENT: Reveals normocephalic, nontraumatic cranium. Pupils equal, round, and reactive. Extraocular movements intact. Nose and throat are slightly dry, but clear. NECK: Supple without mass, nodes or bruits. CHEST: Clear to auscultation. No rales, rhonchi or wheezes are heard. HEART: Reveals a regular rate and rhythm without murmurs, gallops or rubs. ABDOMEN: Soft, nontender, morbidly obese. No rebound or guarding is noted. : Reveals Inman catheter in place. EXTREMITIES: Reveal no clubbing, cyanosis. Severe lymphedema still noted. The patient still has no t had her lymphedema wraps on. We put an order for nursing care for him on every morning. NEUROLOGIC: Patient has no focal deficits. IMPRESSION: 1. Severe bilateral lower extremity lymphedema without cellulitis. 2. Volume overload. 3. Hypertension. 4. Cardiomyopathy, left ventricular ejection fraction 65%, followed by Dr. Olivo. 5. History of asthma. 6. Normocytic anemia. 7. Chronic sleep apnea. 8. History of deep venous thrombosis, presently not on anticoagulation because of multiple falls. 9. Hyperkalemia. 10. History of group B strep bacteremia secondary to bilateral cellulitis back in 2013. Dr. Aristeo choi ants her on Pen-Vee K q.i.d. rest of her life. 11. Generalized weakness. 12. Prophylactic antibiotics. PLAN: 1. The nursing staff will put on her lymphedema wraps every morning. 2. Continue PICC line in right arm and Lasix 40 mg IV t.i.d. 3. Continue to watch the patient's BUN and creatinine and renal indices. 4. Daily weights. 5. Stress ulcer prophylaxis. 6. Follow the patient's anemia. 7. Continue physical therapy and occupational therapy.
[2018-04-02] MEDS: Gabapentin 400 MG CAP PO SCH ×2 (14:12→21:04)
[2018-04-03] MEDS ORDERED: Sodium Chloride 0.9% 10 ML ONE ×3 (04:15→20:20)
[2018-04-03] MEDS: Morphine ER 15 MG TAB PO PRN ×2 (04:18→13:03)
[2018-04-03] MEDS: Furosemide 40 MG/4 ML VIAL IVP SCH ×3 (04:43→20:58)
[2018-04-03] MEDS: Ferrous Sulfate 325 MG TAB PO SCH ×3 (08:29→17:13)
[2018-04-03] MEDS: Spironolactone 25 MG TAB PO SCH (08:30)
[2018-04-03] MEDS: Aspirin 81 mg Enteric Coated Tablet PO SCH (08:30)
[2018-04-03] MEDS: Potassium Chloride 20 MEQ TAB PO SCH ×2 (08:30→17:13)
[2018-04-03] MEDS: Lisinopril 5 MG TAB PO SCH (08:31)
[2018-04-03] MEDS: Gabapentin 400 MG CAP PO SCH ×3 (08:31→20:57)
[2018-04-03] MEDS: Folic Acid 1 MG TAB PO SCH (08:31)
[2018-04-03] MEDS: Hydrochlorothiazide 25 MG TAB PO SCH (08:31)
[2018-04-03] MEDS: Pramipexole Di-HCl 0.25 MG TAB PO SCH ×2 (08:36→20:58)
[2018-04-03] MEDS: Penicillin V Potassium 250 MG TAB PO SCH ×4 (08:36→20:58)
[2018-04-03] MEDS ORDERED: Baclofen 10 MG TAB PO SCH (21:00)
[2018-04-04] MEDS: Morphine ER 15 MG TAB PO PRN (02:52)
[2018-04-04] MEDS ORDERED: Sodium Chloride 0.9% 10 ML ONE ×2 (05:45→12:58)
[2018-04-04] MEDS: Furosemide 40 MG/4 ML VIAL IVP SCH ×3 (05:51→21:16)
[2018-04-04] MEDS ORDERED: Pramipexole Di-HCl 0.25 MG TAB PO SCH (07:43)
[2018-04-04] MEDS: Potassium Chloride 20 MEQ TAB PO SCH ×2 (08:16→17:54)
[2018-04-04] MEDS: Ferrous Sulfate 325 MG TAB PO SCH ×3 (08:16→17:54)
[2018-04-04] MEDS: Spironolactone 25 MG TAB PO SCH (08:17)
[2018-04-04] MEDS: Gabapentin 400 MG CAP PO SCH ×3 (08:18→21:32)
[2018-04-04] MEDS: Folic Acid 1 MG TAB PO SCH (08:18)
[2018-04-04] MEDS: Lisinopril 5 MG TAB PO SCH (08:18)
[2018-04-04] MEDS: Aspirin 81 mg Enteric Coated Tablet PO SCH (08:18)
[2018-04-04] MEDS: Hydrochlorothiazide 25 MG TAB PO SCH (08:18)
[2018-04-04] MEDS: Penicillin V Potassium 250 MG TAB PO SCH ×4 (08:19→21:31)
[2018-04-04] MEDS: Sulfameth/Trimethoprim DS 800-160mg TAB PO SCH ×2 (08:20→21:27)
[2018-04-04] MEDS ORDERED: Sodium Chloride 0.9% 20 ML ONE (20:18)
[2018-04-04] MEDS: Pramipexole Di-HCl 0.25 MG TAB PO SCH (21:32)
[2018-04-04] MEDS: Baclofen 10 MG TAB PO SCH (21:32)
[2018-04-05] MEDS: Furosemide 40 MG/4 ML VIAL IVP SCH ×3 (04:50→21:17)
[2018-04-05] MEDS: Morphine ER 15 MG TAB PO PRN (06:05)
[2018-04-05] MEDS: Potassium Chloride 20 MEQ TAB PO SCH ×2 (08:04→17:43)
[2018-04-05] MEDS: Gabapentin 400 MG CAP PO SCH ×4 (08:05→21:20)
[2018-04-05] MEDS: Lisinopril 5 MG TAB PO SCH ×2 (08:06→08:09)
[2018-04-05] MEDS: Aspirin 81 mg Enteric Coated Tablet PO SCH (08:07)
[2018-04-05] MEDS: Folic Acid 1 MG TAB PO SCH (08:07)
[2018-04-05] MEDS: Pramipexole Di-HCl 0.25 MG TAB PO SCH ×2 (08:07→21:17)
[2018-04-05] MEDS: Sulfameth/Trimethoprim DS 800-160mg TAB PO SCH ×2 (08:07→21:17)
[2018-04-05] MEDS: Hydrochlorothiazide 25 MG TAB PO SCH (08:08)
[2018-04-05] MEDS: Ferrous Sulfate 325 MG TAB PO SCH ×3 (08:08→17:43)
[2018-04-05] MEDS: Spironolactone 25 MG TAB PO SCH (08:08)
[2018-04-05] MEDS: Penicillin V Potassium 250 MG TAB PO SCH ×4 (08:09→21:17)
[2018-04-05] MEDS: HYDROcodone/Acetaminophen 7.5/325 mg Tablet PO PRN (10:54)
[2018-04-05] MEDS ORDERED: Sodium Chloride 0.9% 20 ML ONE (15:27)
[2018-04-05] MEDS: Baclofen 10 MG TAB PO SCH (21:16)
[2018-04-06] MEDS: HYDROcodone/Acetaminophen 7.5/325 mg Tablet PO PRN ×3 (00:11→20:26)
[2018-04-06] MEDS: Furosemide 40 MG/4 ML VIAL IVP SCH (06:03)
[2018-04-06] MEDS ORDERED: Cipro 250 MG TAB PO SCH (08:00)
[2018-04-06] MEDS: Sulfameth/Trimethoprim DS 800-160mg TAB PO SCH (08:09)
[2018-04-06] MEDS: Lisinopril 5 MG TAB PO SCH (08:09)
[2018-04-06] MEDS: Penicillin V Potassium 250 MG TAB PO SCH ×4 (08:09→20:25)
[2018-04-06] MEDS: Folic Acid 1 MG TAB PO SCH (08:09)
[2018-04-06] MEDS: Ferrous Sulfate 325 MG TAB PO SCH ×3 (08:09→17:00)
[2018-04-06] MEDS: Aspirin 81 mg Enteric Coated Tablet PO SCH (08:09)
[2018-04-06] MEDS: Hydrochlorothiazide 25 MG TAB PO SCH (08:10)
[2018-04-06] MEDS: Spironolactone 25 MG TAB PO SCH (08:10)
[2018-04-06] MEDS: Potassium Chloride 20 MEQ TAB PO SCH ×2 (08:10→17:01)
[2018-04-06] MEDS: Pramipexole Di-HCl 0.25 MG TAB PO SCH ×2 (08:10→20:25)
[2018-04-06] MEDS: Gabapentin 400 MG CAP PO SCH ×3 (08:10→20:25)
[2018-04-06] MEDS ORDERED: Cyanocobalamin 1000 MCG/ML VIAL SC SCH (09:00)
[2018-04-06 09:42] LABS: #Basophils 0.1 thou/uL (0.0-0.2); #Eosinphils 0.4 thou/uL (0.0-0.7); #Lymphocytes 0.6 thou/uL (1.20-3.40); #Monocytes 0.7 thou/uL (0.11-0.59); %Basophils 2.3 % (0.0-1.0); %Eosinophils 6.1 % (0.0-10.0); %Lymphocytes 10.9 % (21.0-51.0); %Monocytes 11.5 % (0.0-10.0); %Neutrophils 69.2 % (42.0-75.0); Mean Corpuscular HGB CONC 29.1 g/dL (32.0-36.0); Mean Corpuscular Hemoglobin 23.8 pg (27.0-31.0); Mean Platelet Volume 6.9 fL (7.4-10.4); Platelet Count 200 thou/uL (130-400); RBC Distribution Width 15.1 % (11.5-14.5); Red Blood Cell (RBC) Count 4.21 mill/uL (4.20-5.40); White Blood Cell (WBC) Count 5.7 thou/uL (4.8-10.8)
[2018-04-06 09:48] LABS: ALT (SGPT) 18 U/L (8-55); AST (SGOT) 21 U/L (5-34); Albumin 4.5 g/dL (3.5-5.0); Alkaline Phosphatase 124 U/L (40-150); Anion Gap 18 mmol/L (10-20); BUN (Urea Nitrogen) 50 mg/dL (9.8-20.1); Bilirubin, Total 0.3 mg/dL (0.2-1.2); Calc. Creatinine Clearance 62 mL/min (70-130); Calcium 10.1 mg/dL (7.8-10.44); Carbon Dioxide 29 mmol/L (22-29); Chloride 95 mmol/L (98-107); Estimated GFR-MDRD 19; Globulin 4.1 g/dL (2.4-3.5); Glucose 111 mg/dL (70-105); Potassium 5.4 mmol/L (3.5-5.1); Protein, Total 8.6 g/dL (6.0-8.3); Sodium 137 mmol/L (136-145)
--- NOTE | 2018-04-06 10:20 | PRG ---
DATE OF SERVICE: 04/03/[address] Jeane Alegre. SUBJECTIVE: The patient is a morbidly obese white female with a long history of severe lymphedema an d weakness, who was admitted to [facility] for current treatment of her lymphedema on oral ant ibiotics as well as treatment with IV Lasix and monitoring of renal function. She has done well with decreasing edema and no fever or chills, but has had intermittent complaints of dysuria and leg cram ps. OBJECTIVE: VITAL SIGNS: Showed her to have blood pressure of 95/48, temperature 98, pulse 67, respirations 17, O2 sats 95%. LUNGS: Clear. CARDIAC: Shows regular rhythm. SKIN AND EXTREMITIES: Show chronic lymphedema, no erythema. ASSESSMENT AND PLAN: 1. Lymphedema, on chronic penicillin therapy, doing well. 2. Diastolic heart failure, stable on IV Lasix 3. Severe morbid obesity with inability to transfer. 4. Recurrent muscle cramps, on gabapentin and we will request baclofen at patient's request for her muscle spasm.
--- NOTE | 2018-04-06 10:45 | PRG ---
DATE OF SERVICE: 04/04/2018 SUBJECTIVE: The patient is lethargic today and states that the baclofen did zonk her, but did sedate her, but did not change her recurrent muscle cramps and pain. She is having no shortness of breath, chest pain or fever and chills. Continue to complaint only of the intermittent severe cramps and sh gina stabbing pains. She states she has been seen by Dr. Jules and her PCP and has had no diagnosis made, found a reason for her pain and wishes another consultation. OBJECTIVE: VITAL SIGNS: Shows her temperature is 98.5, blood pressure 95/48, respirations 23, O2 sats 93% on ro om air. LUNGS: Clear. CARDIAC: Examination shows regular rhythm. ABDOMEN: Obese. SKIN AND EXTREMITIES: Show lymphedema with no erythema or warmth. LABORATORY DATA: Urine culture is returning E. coli which is resistant to the penicillin she is on a nd has been started on Bactrim DS until full sensitivities return. ASSESSMENT: 1. Sedation secondary to baclofen and will discontinue possibly due to gabapentin and we will decrea se to 600 mg 3 times daily. 2. Escherichia coli urinary tract infection, on Bactrim with resistance to Bactrim 3. Lymphedema with no evidence of recurrent infection. 4. Diastolic heart failure, improving on IV Lasix. PLAN: 1. Attempt to obtain neurologic consult. 2. Discontinue baclofen. 3. Restart gabapentin 800 three times a day per patient's request. 4. Start on Cipro 250 twice daily for urinary tract infection.
--- NOTE | 2018-04-06 11:09 | PRG ---
DATE OF SERVICE: 04/05/2018 SUBJECTIVE: The patient complaining of persistent recurrent cramps, no relief, pain in her legs. No shortness of breath, chest pain, weakness or dizziness, but has had no response to gabapentin and in fact has had pramipexole increased to 0.375 twice daily with no response. OBJECTIVE: VITAL SIGNS: Shows her blood pressure is 109/51, temperature 98, pulse 72, respirations 18, O2 sats 95% on room air. LUNGS: Clear. CARDIAC: Shows regular rhythm. ABDOMEN: Soft and nontender, but obese. SKIN AND EXTREMITIES: Showed lymphedema with no erythema or warmth. ASSESSMENT: 1. Lymphedema. No evidence for recurrent infection, diastolic heart failure, on diuretic with base met profile in the morning. 2. Recurrent pains in the legs, sharp, cramping pain of unknown etiology with no response to baclofe n and only being given at night secondary to sedation with possible increased agitation with increase d pramipexole to back 0.25 twice daily, but on gabapentin 800 three times daily at patient's insisten ce. 3. Urinary tract infection, on Cipro. PLAN: 1. CBC, comp metabolic today. 2. Continue Cipro 250 twice daily. Arrange for consult with another urologist next week if possible .
[2018-04-06] MEDS: Morphine ER 15 MG TAB PO PRN (12:41)
[2018-04-06 12:47] LABS: Anisocytosis SLIGHT = 6-15 cells (100X) (0-5/hpf); Hypochromia SLIGHT = 6-15 cells (100X) (0-5/hpf); MDiff Complete? YES; PLT Morphology Comment Appears Adequate
--- NOTE | 2018-04-06 20:15 | PRG ---
DATE OF SERVICE: 04/06/2018 SUBJECTIVE: The patient is a 58-year-old white female with a history of morbid obesity, lymphedema, diastolic heart failure, who has been having recurrent cramps, felt possibly due to multiple tremors but has been on IV Lasix for diastolic heart failure and her furosemide was discontinued this morning and she has had no further cramps. She is not having any shortness of breath or chest pain. OBJECTIVE: VITAL SIGNS: Show blood pressure of 126/57, temperature 98, pulse 68, respirations 18, O2 sats 97% o n room air. LUNGS: Clear, decreased breath sounds in bases. CARDIAC: Showed regular rhythm. No gallops or murmurs. ABDOMEN: Obese and nontender. SKIN AND EXTREMITIES: Show lymphedema with no erythema or warmth. LABORATORY: Shows white count 5700, hematocrit 34, hemoglobin 10. Creatinine of 2.63 from 1.45. BU N up to 50 from 34. Potassium up to 5.4 from 4.7. ASSESSMENT: 1. Acute on chronic renal failure secondary to IV Lasix. 2. Stable diastolic heart failure. 3. Chronic lymphedema, stable on penicillin. 4. Urinary tract infection secondary to Escherichia coli. She will be resistant to penicillin. We will start Cipro 250 twice daily. PLAN: Repeat base met profile in the a.m. Continue off Lasix. Start Cipro. Discontinue sulfa. Co ntinue penicillin for lymphedema.
[2018-04-06] MEDS: Cipro 250 MG TAB PO SCH (20:24)
[2018-04-06] MEDS: Baclofen 10 MG TAB PO SCH (20:25)
[2018-04-07 05:56] LABS: Anion Gap 15 mmol/L (10-20); BUN (Urea Nitrogen) 48 mg/dL (9.8-20.1); Calc. Creatinine Clearance 59 mL/min (70-130); Calcium 9.6 mg/dL (7.8-10.44); Carbon Dioxide 29 mmol/L (22-29); Chloride 99 mmol/L (98-107); Estimated GFR-MDRD 18; Glucose 120 mg/dL (70-105); Potassium 6.2 mmol/L (3.5-5.1); Sodium 137 mmol/L (136-145)
[2018-04-07] MEDS: Cipro 250 MG TAB PO SCH ×2 (06:04→20:27)
[2018-04-07] MEDS: Morphine ER 15 MG TAB PO PRN ×3 (06:04→20:27)
[2018-04-07] MEDS: Gabapentin 400 MG CAP PO SCH ×3 (10:01→20:26)
[2018-04-07] MEDS: Ferrous Sulfate 325 MG TAB PO SCH ×3 (10:01→17:30)
[2018-04-07] MEDS: HYDROcodone/Acetaminophen 7.5/325 mg Tablet PO PRN (10:01)
[2018-04-07] MEDS: Penicillin V Potassium 250 MG TAB PO SCH ×4 (10:02→20:27)
[2018-04-07] MEDS: Lisinopril 5 MG TAB PO SCH ×2 (10:02→10:07)
[2018-04-07] MEDS: Hydrochlorothiazide 25 MG TAB PO SCH ×2 (10:03→10:07)
[2018-04-07] MEDS: Aspirin 81 mg Enteric Coated Tablet PO SCH (10:03)
[2018-04-07] MEDS: Spironolactone 25 MG TAB PO SCH (10:03)
[2018-04-07] MEDS: Pramipexole Di-HCl 0.25 MG TAB PO SCH ×2 (10:03→20:27)
[2018-04-07] MEDS: Folic Acid 1 MG TAB PO SCH (10:03)
[2018-04-07] MEDS: Potassium Chloride 20 MEQ TAB PO SCH (10:04)
--- NOTE | 2018-04-07 11:04 | PRG ---
DATE OF SERVICE: 04/07/2018 SUBJECTIVE: The patient is an obese white female with a history of lymphedema and diastolic heart fa ilure, who was admitted to [facility] for physical therapy, occupational therapy, and desmond bain her renal function with IV furosemide. She has had recurrent complaints of muscle cramps and leg pain, which improved yesterday, but have recurred again today. She has been found to have acute on c hronic renal failure on her IV Lasix and this has been discontinued, but she has been continued on he r spironolactone and potassium. Today, she complains of recurrent knee pain and leg cramps. OBJECTIVE: VITAL SIGNS: Shows blood pressure stable at 101/49, O2 sats 99% on room air, respirations 20, pulse 64, temperature 98.2. SKIN AND EXTREMITIES: Show morbid obesity, but with no significant lymphedema. There is tenderness on palpation of the left knee, but no erythema, warmth, or crepitance. LUNGS: Clear. CARDIAC: Shows regular rhythm. LABORATORY DATA: Shows her potassium up to 6.2, sodium 137, chloride 99, bicarbonate 29, BUN 48, cre atinine 2.68. ASSESSMENT AND PLAN: 1. Stable diastolic heart failure, off furosemide. 2. Resolved lymphedema on oral penicillin. 3. Urinary tract infection, resolved on Cipro. 4. Recurrent muscle spasm, leg cramps and pains of unknown etiology. We will refer back to her neur ologist. 5. Acute on chronic renal failure, slightly improved today with no change today off of furosemide, b ut with increased potassium on supplementation and spironolactone. I am going to discontinue spirono lactone and potassium. Continue hydrochlorothiazide. Continue off furosemide, repeat base met [place] mendez in the morning. Refer to Neurology whenever available.
--- NOTE | 2018-04-07 11:20 | RAD ---
LEFT KNEE 4 VIEWS: Date: 04/07/18 HISTORY: Knee pain. DJD. FINDINGS: There are severe arthritic changes of the knee with severe tricompartment degenerative change with se kar medial compartment narrowing. No acute process. IMPRESSION: Severe arthritic changes of the knee. POS: ELVI
--- NOTE | 2018-04-07 11:32 | RAD ---
RIGHT KNEE 4 VIEWS: Date: 04/07/18 HISTORY: Knee pain. FINDINGS: There are severe arthritic changes of the knee with marked tricompartment degenerative change. No truong nt effusion or fracture. IMPRESSION: Severe osteoarthritic change of the knee. POS: ELVI
[2018-04-07] MEDS: Baclofen 10 MG TAB PO SCH (20:27)
[2018-04-08] MEDS: Morphine ER 15 MG TAB PO PRN (05:57)
[2018-04-08 06:02] VITALS: BMI 61.3
[2018-04-08 06:08] LABS: Anion Gap 15 mmol/L (10-20); BUN (Urea Nitrogen) 52 mg/dL (9.8-20.1); Calc. Creatinine Clearance 49 mL/min (70-130); Calcium 9.2 mg/dL (7.8-10.44); Carbon Dioxide 28 mmol/L (22-29); Chloride 100 mmol/L (98-107); Estimated GFR-MDRD 15; Glucose 117 mg/dL (70-105); Sodium 137 mmol/L (136-145)
[2018-04-08] MEDS: Cipro 250 MG TAB PO SCH (06:20)
[2018-04-08] MEDS: Folic Acid 1 MG TAB PO SCH (09:11)
[2018-04-08] MEDS: Gabapentin 400 MG CAP PO SCH (09:11)
[2018-04-08] MEDS: Ferrous Sulfate 325 MG TAB PO SCH ×3 (09:11→17:18)
[2018-04-08] MEDS: Aspirin 81 mg Enteric Coated Tablet PO SCH (09:11)
[2018-04-08] MEDS: Hydrochlorothiazide 25 MG TAB PO SCH (09:12)
[2018-04-08] MEDS: Lisinopril 5 MG TAB PO SCH (09:12)
[2018-04-08] MEDS: Pramipexole Di-HCl 0.25 MG TAB PO SCH ×2 (09:13→21:14)
[2018-04-08] MEDS: Penicillin V Potassium 250 MG TAB PO SCH ×4 (09:13→21:14)
[2018-04-08] MEDS ORDERED: Gabapentin 300 MG CAP PO SCH (15:00)
[2018-04-08] MEDS: Baclofen 10 MG TAB PO SCH (21:14)
[2018-04-08] MEDS: Ondansetron ODT 4 MG TAB PO PRN (22:52)
[2018-04-09 07:11] LABS: Anion Gap 18 mmol/L (10-20); BUN (Urea Nitrogen) 68 mg/dL (9.8-20.1); Calc. Creatinine Clearance 36 mL/min (70-130); Calcium 8.9 mg/dL (7.8-10.44); Carbon Dioxide 25 mmol/L (22-29); Chloride 98 mmol/L (98-107); Estimated GFR-MDRD 10; Glucose 109 mg/dL (70-105); Sodium 134 mmol/L (136-145)
[2018-04-09 07:12] LABS: Potassium 6.8 mmol/L (3.5-5.1)
[2018-04-09] MEDS ORDERED: Sodium Chloride 0.9% 10 ML ONE (07:44)
[2018-04-09] MEDS: Sodium Chloride 0.9% 1,000 ML IV SCH ×3 (08:32→17:19)
[2018-04-09] MEDS ORDERED: Cipro 250 MG TAB PO SCH (09:00)
[2018-04-09] MEDS ORDERED: Gabapentin 100 MG CAP PO SCH (09:00)
[2018-04-09] MEDS: Ferrous Sulfate 325 MG TAB PO SCH ×3 (09:27→17:19)
[2018-04-09] MEDS: Folic Acid 1 MG TAB PO SCH (09:27)
[2018-04-09] MEDS: Lisinopril 5 MG TAB PO SCH (09:27)
[2018-04-09] MEDS: Aspirin 81 mg Enteric Coated Tablet PO SCH (09:27)
[2018-04-09] MEDS: Pramipexole Di-HCl 0.25 MG TAB PO SCH (09:28)
[2018-04-09] MEDS: Penicillin V Potassium 250 MG TAB PO SCH ×3 (09:28→17:19)
--- NOTE | 2018-04-09 09:42 | PRG ---
DATE OF SERVICE: 04/08/2018 DATE OF ADMISSION: 03/30/2018 HISTORY OF PRESENT ILLNESS: Ms. Acevedo is a pleasant 58-year-old morbidly obese white female admitted to [facility] with severe lymphedema and generalized weakness. She was started on IV Lasix 3 times a week with a PICC line, transferred to [facility] with continued IV Lasix . Her creatinine usually is 1.3 to 1.4. Over the last 5 days, the patient's creatinine has been increasing. Dr. Ruano decreased her Lasix and stopped her Lasix and decreased her spironolactone and then stopped that. Her creatinine has co ntinued to increase. I am seeing the patient again since I have not seen in the last 5 days since I was out of town. OBJECTIVE: VITAL SIGNS: Reveal blood pressure 95/55, pulse 118, respirations 29, O2 saturation 92% on room air, T-max 97.8. GENERAL: This is a well-developed, well-nourished, morbidly obese white female in no apparent distre ss. She states she feels tired, but otherwise she has no complaints. I did explain to her that her creatinine has gone up and that we have stopped the majority of her medications and now instead of be ing fluid restricted, she has fluid unrestricted. I would like her to drink lots of liquids today. She states she understands. HEENT: Reveals normocephalic and nontraumatic cranium. Pupils equally round and reactive. Extraocu lar movement are intact. Nose and throat are slightly dry, but clear. NECK: Supple, without mass, nodes or bruits. CHEST: Clear to auscultation. No rales, no rhonchi, no wheezes are heard. HEART: Reveals a regular rate and rhythm. Pulse now is 82. The patient states when she came in thi s morning she was agitated when they did her vital signs. HEART: Reveals a regular rate and rhythm without murmurs, gallops or rubs. ABDOMEN: Morbidly obese, soft, nontender, no organomegaly. GENITOURINARY: Deferred. EXTREMITIES: Reveal no significant edema, but her lymphedema continues. She continues to have occas ional sharp electrical like pains and we did contact Dr. Jules's office and we will try and get an appointment for him to see her in the near future. LABORATORY DATA: Reveal sodium 137, potassium 6.0, which is a decrease from yesterday. Chloride 100 , BUN 52, creatinine 3.19. GFR is 15. Calcium is 117, which is improved. IMPRESSION AND PLAN: 1. Acute renal insufficiency. 2. Hyperkalemia. 3. Stable diastolic heart failure, off furosemide and spironolactone. 4. Recurrent muscle spasms or electrical spasms unknown etiology. Referred to Dr. Jules. 5. I have stopped her hydrochlorothiazide. 6. Decreased her gabapentin from 800 mg 3 times a day to 100 mg 3 times a day so she will not have a ny withdrawals. 7. Stop her lisinopril. 8. Make sure her Cipro has been stopped. 9. Make sure her Lasix and spironolactone was stopped. 10. We will recheck labs in the morning. 11. We will encourage the patient to drink lots of fluids. 12. I did go over this plan with the patient. She says she will certainly be happy to drink more fl uids.
[2018-04-09] MEDS: HYDROcodone/Acetaminophen 7.5/325 mg Tablet PO PRN (10:51)
--- NOTE | 2018-04-09 12:48 | DIS ---
DATE OF ADMISSION: 03/30/2018 Date of discharge and transfer to [facility]: 04/09/2018 Ms. Acevedo is a very pleasant 58-year-old white female admitted to [facility] with severe lymphedema and weakness. She was started with a PICC line and started on IV Lasix 40 mg 3 times a day. Since last , her creatinine has slowly been deteriorating. Multiple me dicines were stopped by Dr. Ruano last week and through the weekend. Yesterday morning, her creat inine was 3. This morning, her creatinine is increased to the 4s. I discussed the case with Dr. Virgilio sotomayor and Dr. Goodwin and the plan is to transfer the patient to [facility] for higher level of care. SUBJECTIVE: The patient states that she feels somewhat confused and little lethargic this morning. She states she was upset with the nurses several times because they will not tell her what was going on. She states she has called her mom and she is upset because her mom did answer the phone. Isreal caballero, I sat down with the patient, explained that her kidney function is worsening, rather than impr oving with adjustments that we have made. We will transfer her to the care of reduction plant supervisor and I hav e spoken with Dr. Hernandez about her transfer and Dr. Sharon Goodman about accepting her for the hospice a [facility]. She is in agreement with the plan and states she just felt poorly yesterday did not feel like drinkin g anything at all. She states also since we decrease her gabapentin that she is getting more electri lu shocks is not under control, she would like to see Dr. Jules, her neurologist while she is at [facility] there. LABORATORY: This morning reveals sodium 134, potassium up to 6.8, chloride 98, BUN 68, creatinine 4. 4 with glucose of 109, calcium 8.9. PHYSICAL EXAMINATION: VITAL SIGNS: This morning reveal blood pressure 109/52, pulse 56-64, respirations 19-22, O2 sat 96%, T-max 97.5. GENERAL: This is a well-developed, well-nourished, obese white female who states she does not feel w ell and she has had more tics and electrical shock since we decreased her gabapentin. HEENT: Reveals normocephalic, nontraumatic cranium. Pupils equal, round, and reactive. Extraocular movements intact. Nose and throat are clear, but dry. NECK: Supple, without mass, nodes or bruits. CHEST: Clear to auscultation. No rales or rhonchi, no wheezes. No cough is heard. HEART: Reveals a regular rate and rhythm without murmurs, gallops or rubs. Heart sounds are distant because of her obesity. ABDOMEN: Morbidly obese, soft, still nontender. Normal bowel sounds are noted in all 4 quadrants. No rebound or guarding is noted. GENITOURINARY: Deferred. Inman catheter still in place. EXTREMITIES: No clubbing or cyanosis. NEUROLOGIC: The patient has no focal deficits. She is just oriented to person, place, and time, but less alert than usual. IMPRESSION: 1. Acute on chronic renal insufficiency, not responding to stopping her Lasix, spironolactone, gabap entin, ciprofloxacin, hydrochlorothiazide, etc. 2. Diastolic heart failure off furosemide. 3. Hyperkalemia. The patient has received Kayexalate 60 grams already this morning, presently on no rmal saline to start rehydration since the patient is not drinking. 4. Urinary tract infection, resolved. The patient finished Cipro several days ago. 5. Continue muscle spasm electrical impulses, unknown etiology, but much improved with gabapentin, b ut now since the gabapentin is decreased, these have acutely exacerbated. 6. Chronic sleep apnea. 7. History of deep venous thrombosis, presently not on anticoagulation because of multiple falls. 8. History of group B strep bacteremia secondary to bilateral leg cellulitis followed by Dr. Olivo for which she has her on Pen-Vee K 250 mg q.i.d. lifetime. 9. Generalized weakness. PLAN: 1. I have discussed the case with Dr. Hernandez and he certainly agrees that the patient should be at [facility] for higher level of care and he will see her in consultation. 2. I have talked with Dr. Sharon Goodman the accepting physician at [facility] fo r hospice. 3. The patient has a PICC line in and she is getting normal saline at this time. 4. Patient has gotten Kayexalate 60 grams orally about an hour and a half ago. 5. Patient will be transferred by ambulance to [facility]. 6. The patient will be seen by Dr. Goodman on admission. 7. The patient will be seen by Dr. Syed Hernandez. 8. The patient hopefully will get a consultation with Dr. Jules, her neurologist for these unusual muscle spasm/electrical impulse the last approximately one second.
[2018-04-09] MEDS: Ondansetron ODT 4 MG TAB PO PRN (13:03)
[2018-04-09 14:26] VITALS: BP 112/68; TEMP 98.4
== END 2018-04-09 17:45 | disposition short-term general hospital (02) | DRG 607 ==
LOC: NAV ACUTE 15:24
PROVIDERS: ADMIT Family Medicine; ATTEND Family Medicine
DX: I89.0 Lymphedema, not elsewhere classified (principal); I42.9 Cardiomyopathy, unspecified; N17.9 Acute kidney failure, unspecified; N39.0 Urinary tract infection, site not specified; I50.32 Chronic diastolic (congestive) heart failure; I13.0 Hypertensive heart and chronic kidney disease with heart failure and stage 1 through stage 4 chronic kidney disease, or unspecified chronic kidney disease; Z68.44 Body mass index [BMI] 60.0-69.9, adult; Z86.718 Personal history of other venous thrombosis and embolism; D64.9 Anemia, unspecified; E87.6 Hypokalemia; G47.30 Sleep apnea, unspecified; Z90.49 Acquired absence of other specified parts of digestive tract; Z90.710 Acquired absence of both cervix and uterus; E66.01 Morbid (severe) obesity due to excess calories; E87.70 Fluid overload, unspecified; J45.909 Unspecified asthma, uncomplicated; E87.5 Hyperkalemia; M62.838 Other muscle spasm; B96.20 Unspecified Escherichia coli [E. coli] as the cause of diseases classified elsewhere; N18.9 Chronic kidney disease, unspecified
CPT/HCPCS: 36415; 80048; 80053; 85025; 87077; 87086; 87186; A4216; J1940; J3420; J7050; J7611; Q0162

== ENCOUNTER 2018-04-12 17:57 | Inpatient (IN) | payer MEDICARE ==
[2018-04-12] MEDS ORDERED: Albuterol Sulfate 2.5 mg/3 ml Neb NEB PRN (21:11)
[2018-04-12] MEDS: Gabapentin 300 MG CAP PO SCH (21:24)
[2018-04-12] MEDS: Montelukast Sodium 10 mg Tablet PO SCH (21:24)
[2018-04-12] MEDS: Pramipexole Di-HCl 0.25 MG TAB PO SCH (21:24)
[2018-04-12] MEDS: Penicillin V Potassium 250 MG TAB PO SCH (21:25)
--- NOTE | 2018-04-13 00:05 | HP ---
DATE OF ADMISSION: 04/12/2018 HISTORY OF PRESENT ILLNESS: Patient is a 58-year-old white female, well known to myself with a recen t admission to [facility] for treatment of lymphedema and diastolic heart failure, who had developed acute renal failure secondary to diuresis and intravascular depletion has resolved with gentle hydrat ion and now she is returned back to [facility] for continued physical therapy on oral Lasix and potas sium. She is having no shortness of breath or chest pain. She did have some problem with confusion at [facility], but not at present. She has also had problems with recurrent spas ms in her leg, which apparently improved with gabapentin, but then worsened with renal failure and no w are persistent but stable. PAST MEDICAL HISTORY: Positive for hypertension, diastolic cardiomyopathy, chronic pain syndrome, ch ronic abnormal lip movements, morbid obesity, history of DVT in 2005. PAST SURGICAL HISTORY: Positive for colonoscopy with EGD; laparoscopic cholecystectomy in 2003; hyst erectomy; bilateral salpingo-oophorectomy in 2000; left breast biopsy, benign; tonsillectomy; 2 cardi ac catheterizations only revealing diastolic cardiomyopathy. SOCIAL HISTORY: She is a nonsmoker, nondrinker. MEDICATIONS: Present at this time include MS Contin 30 mg 3 times daily for chronic pain, montelukas t 10 mg nightly, hydrocodone 1 tab twice daily as needed, Aldactazide 1 tab twice daily, sertraline 2 00 daily, pramipexole 0.25 twice daily, pen VK 250 twice daily, metoprolol 25 twice daily, lisinopril 2.5 daily, hydrochlorothiazide 25 daily, furosemide 40 daily, potassium chloride 10 mEq daily, alpra zolam 0.25 as needed p.r.n., amitriptyline 50 mg nightly, aspirin 81 daily. REVIEW OF SYSTEMS: HEENT: Denies any headaches, dizziness, change in vision or hearing, hoarseness or dysphagia. Pulmonary: Denies any cough, sputum production, pneumonia, asthma, or tuberculosis. Cardiovascular: Denies any chest pain, but has orthopnea, paroxysmal nocturnal dyspnea, palpitations . Genitourinary: Denies dysuria, hematuria, or nocturia. Gastrointestinal: Denies nausea, vomitin g, diarrhea, constipation, or abdominal pain. Musculoskeletal: Has chronic pain in the legs and lym phedema, which has improved last hospitalization, but was associated with acute renal failure and now is on lower dose of diuretic 40 mg daily. PHYSICAL EXAMINATION: GENERAL: Patient is a morbidly obese white female lying in bed, in no acute distress. VITAL SIGNS: Temperature 98.3, pulse 80, respirations 23, O2 sats 97% on room air, blood pressure 13 0/61. HEENT: Pupils are equal, round, and react to light and accommodation. Sclerae are anicteric. Conju nctivae pale. Oral mucous membranes are well hydrated. NECK: Supple. No nodes or masses. JVP is not elevated. LUNGS: Clear. CARDIAC: Regular rhythm. No gallops or murmurs. ABDOMEN: Obese and nontender with no masses or organomegaly. SKIN AND EXTREMITIES: Show marked lymphedema, but with no induration, erythema, or tenderness. NEUROLOGIC: Cranial nerves II through XII are intact. Deep tendon reflex 2+ and equal. There are a bsent Babinski. LABORATORY DATA: Recent laboratories at [facility] showed her to have a creatini ne of 1.4, potassium 4.5, glucose 117. ASSESSMENT AND PLAN: 1. Resolving acute on chronic renal failure with hyperkalemia secondary to IV diuretics. 2. Chronic bilateral lymphedema. Improved, but persistent. 3. History of bilateral leg cellulitis and group B strep bacteremia, on oral penicillin. 4. History of DVT in the distant past. 5. Chronic sleep apnea. 6. Chronic hypertension. 7. Diastolic cardiomyopathy with ejection fraction 55%. 8. Severe deconditioning. 9. Chronic kidney disease, stage 3. PLAN: 1. Continue diuresis with furosemide 40 daily, and potassium 10 daily with routine labs. 2. Continue PT, OT with prehospitalization, pain medication with hydrocodone, morphine, alprazolam. 3. Continue long-term oral penicillin for group B cellulitis of lymphedema. 4. Continue to monitor for recurrent muscle spasms and pain, on gabapentin.
[2018-04-13] MEDS: Hydrochlorothiazide 25 MG TAB PO SCH (08:49)
[2018-04-13] MEDS: Ferrous Sulfate 325 MG TAB PO SCH ×3 (08:49→17:49)
[2018-04-13] MEDS: Potassium Chloride 10 MEQ TAB PO SCH (08:49)
[2018-04-13] MEDS: Aspirin 81 mg Enteric Coated Tablet PO SCH (08:49)
[2018-04-13] MEDS: Gabapentin 300 MG CAP PO SCH ×3 (08:51→20:59)
[2018-04-13] MEDS: Pramipexole Di-HCl 0.25 MG TAB PO SCH ×2 (08:51→20:59)
[2018-04-13] MEDS: Furosemide 40 MG TAB PO SCH ×2 (08:51→15:07)
[2018-04-13] MEDS: Lisinopril 5 MG TAB PO SCH (08:52)
[2018-04-13] MEDS: Penicillin V Potassium 250 MG TAB PO SCH ×4 (08:53→21:00)
[2018-04-13] MEDS: Folic Acid 1 MG TAB PO SCH (08:53)
[2018-04-13] MEDS: Spironolactone 25 MG TAB PO SCH ×2 (08:53→17:49)
[2018-04-13] MEDS: Montelukast Sodium 10 mg Tablet PO SCH (21:00)
--- NOTE | 2018-04-13 22:06 | PRG ---
DATE OF SERVICE: 04/13/2018 SUBJECTIVE: The patient lying in bed, resting well with no further leg cramps, no leg pain, no nause a and vomiting, no shortness of breath. Has not been drinking as much water as like. IV has been re moved. OBJECTIVE: VITAL SIGNS: Blood pressure 134/68, temperature is 98, pulse 85, respirations 28, O2 sats 97% on evon m air. LUNGS: Show clear lung curry. Decreased breath sounds in the bases. CARDIAC: Showed regular rhythm. ABDOMEN: Soft and nontender. SKIN AND EXTREMITIES: Show morbid obesity with no induration or evidence of lymphedema. ASSESSMENT: 1. Resolving lymphedema and cellulitis, on oral penicillin. 2. Resolved acute chronic renal failure and we will check basic metabolic profile in the a.m. 3. Diastolic heart failure, appears to be stable on Lasix 40 daily. 4. Muscle cramps appear to have resolved on gabapentin 600 mg 3 times daily.
[2018-04-14 07:18] LABS: #Basophils 0.1 thou/uL (0.0-0.2); #Eosinphils 0.2 thou/uL (0.0-0.7); #Lymphocytes 0.8 thou/uL (1.20-3.40); #Monocytes 0.5 thou/uL (0.11-0.59); #Neutrophils 5.1 thou/uL (1.40-6.50); %Basophils 1.4 % (0.0-1.0); %Eosinophils 3.2 % (0.0-10.0); %Lymphocytes 11.4 % (21.0-51.0); %Monocytes 7.3 % (0.0-10.0); %Neutrophils 76.7 % (42.0-75.0); Anisocytosis SLIGHT = 6-15 cells (100X) (0-5/hpf); Hemoglobin 9.5 g/dL (12.0-16.0); MDiff Complete? YES; Mean Corpuscular HGB CONC 30.3 g/dL (32.0-36.0); Mean Corpuscular Hemoglobin 24.4 pg (27.0-31.0); Mean Corpuscular Volume 80.5 fl (81.0-99.0); Mean Platelet Volume 6.3 fL (7.4-10.4); PLT Morphology Comment Appears Adequate; Platelet Count 196 thou/uL (130-400); RBC Distribution Width 14.9 % (11.5-14.5); Red Blood Cell (RBC) Count 3.91 mill/uL (4.20-5.40); White Blood Cell (WBC) Count 6.7 thou/uL (4.8-10.8)
[2018-04-14 07:25] LABS: ALT (SGPT) 13 U/L (8-55); AST (SGOT) 16 U/L (5-34); Alkaline Phosphatase 89 U/L (40-150); Anion Gap 14 mmol/L (10-20); BUN (Urea Nitrogen) 23 mg/dL (9.8-20.1); Bilirubin, Total 0.3 mg/dL (0.2-1.2); Calc. Creatinine Clearance 122 mL/min (70-130); Calcium 9.4 mg/dL (7.8-10.44); Carbon Dioxide 29 mmol/L (22-29); Chloride 99 mmol/L (98-107); Estimated GFR-MDRD 43; Globulin 3.1 g/dL (2.4-3.5); Glucose 117 mg/dL (70-105); Potassium 3.6 mmol/L (3.5-5.1); Protein, Total 7.1 g/dL (6.0-8.3); Sodium 138 mmol/L (136-145)
[2018-04-14] MEDS: Spironolactone 25 MG TAB PO SCH ×2 (09:11→17:15)
[2018-04-14] MEDS: Ferrous Sulfate 325 MG TAB PO SCH ×3 (09:11→17:15)
[2018-04-14] MEDS: Potassium Chloride 10 MEQ TAB PO SCH (09:12)
[2018-04-14] MEDS: Gabapentin 300 MG CAP PO SCH ×3 (09:13→21:05)
[2018-04-14] MEDS: Folic Acid 1 MG TAB PO SCH (09:14)
[2018-04-14] MEDS: Pramipexole Di-HCl 0.25 MG TAB PO SCH ×2 (09:14→21:06)
[2018-04-14] MEDS: Hydrochlorothiazide 25 MG TAB PO SCH (09:14)
[2018-04-14] MEDS: Furosemide 40 MG TAB PO SCH ×2 (09:14→14:14)
[2018-04-14] MEDS: Lisinopril 5 MG TAB PO SCH (09:14)
[2018-04-14] MEDS: Penicillin V Potassium 250 MG TAB PO SCH ×4 (09:15→21:05)
[2018-04-14] MEDS: Aspirin 81 mg Enteric Coated Tablet PO SCH (09:25)
[2018-04-14] MEDS: Morphine ER 15 MG TAB PO PRN (12:17)
--- NOTE | 2018-04-14 19:08 | PRG ---
DATE OF SERVICE: 04/14/2018 SUBJECTIVE: The patient feels well, lying in bed with no leg cramps, is ready for therapy tomorrow a nd requesting to having her legs wrapped every morning before getting out of bed prior to therapy. A lso requesting increase in her fluid restriction from [id number]. Denying any shortness of breath or leg pain. OBJECTIVE: VITAL SIGNS: Temperature is 96, pulse is 67, blood pressure 134/68, respirations 16, O2 sats 99% on room air. LUNGS: Clear. CARDIAC: Shows regular rhythm. No gallops or murmurs. SKIN AND EXTREMITIES: Obesity, lymphedema, but no induration. LABORATORY DATA: Laboratories yesterday showed a white count of 6700, hematocrit 31, hemoglobin 9.5, BUN 23, creatinine 1.28, which is back to her baseline. Liver function studies within normal limits . ASSESSMENT: 1. Resolving lymphedema and cellulitis on oral penicillin and Lasix. 2. Resolved acute on chronic renal failure with baseline renal function at this time. 3. Diastolic heart failure, stable on Lasix 40 daily. 4. Muscle cramps, resolved with gabapentin 600 three times daily. PLAN: 1. Wraps to both legs every morning prior to therapy. 2. Continue PT and OT. 3. Continue furosemide 40 mg daily. 4. Increase fluid restriction to 1800 mL daily. 5. Continue Pen-Vee K indefinitely for prevention of recurrent cellulitis with lymphedema.
[2018-04-14] MEDS: Montelukast Sodium 10 mg Tablet PO SCH (21:05)
[2018-04-14] MEDS ORDERED: Zinc Oxide 16% Ointment 60 gm Tube TOP SCH (23:30)
[2018-04-15] MEDS: Morphine ER 15 MG TAB PO PRN ×2 (06:05→23:16)
[2018-04-15] MEDS: Aspirin 81 mg Enteric Coated Tablet PO SCH (08:54)
[2018-04-15] MEDS: Ferrous Sulfate 325 MG TAB PO SCH ×3 (08:54→18:23)
[2018-04-15] MEDS: Folic Acid 1 MG TAB PO SCH (08:54)
[2018-04-15] MEDS: Hydrochlorothiazide 25 MG TAB PO SCH (08:54)
[2018-04-15] MEDS: Lisinopril 5 MG TAB PO SCH (08:54)
[2018-04-15] MEDS: Potassium Chloride 10 MEQ TAB PO SCH (08:54)
[2018-04-15] MEDS: Spironolactone 25 MG TAB PO SCH ×2 (08:54→18:22)
[2018-04-15] MEDS: Penicillin V Potassium 250 MG TAB PO SCH ×4 (08:54→20:56)
[2018-04-15] MEDS: Furosemide 40 MG TAB PO SCH ×2 (08:55→14:32)
[2018-04-15] MEDS: Gabapentin 300 MG CAP PO SCH ×3 (08:55→20:56)
[2018-04-15] MEDS: Pramipexole Di-HCl 0.25 MG TAB PO SCH ×2 (08:55→20:56)
[2018-04-15] MEDS: Zinc Oxide 16% Ointment 60 gm Tube TOP SCH ×4 (09:00→20:57)
--- NOTE | 2018-04-15 18:26 | PRG ---
DATE OF SERVICE: 04/15/2018 SUBJECTIVE: The patient is lying in bed watching TV, somewhat tearful and upset about the movie. St ates she feels she is getting stronger and did work with therapy today. Was upset with the nurse who placed her wraps and only wants therapy to place her wraps from now on. OBJECTIVE: VITAL SIGNS: Shows her blood pressure is 134/68, temperature 97.9, pulse 72, respirations 16. LUNGS: Clear. CARDIAC: Shows regular rhythm. ABDOMEN: Obese, but nontender. SKIN AND EXTREMITIES: Show obesity with lymphedema with no evidence of infection. LABORATORY DATA: Laboratories yesterday showed creatinine 1.28. Sodium 138. White count 6700. PT states that she was standby assistance to transfer and walked 30 feet twice. ASSESSMENT: 1. Improving lymphedema with resolving cellulitis on oral penicillin and Lasix. 2. Stable diastolic heart failure, on Lasix 40 daily. 3. Resolved acute on chronic renal failure with stable renal function. Lasix 40 daily. 4. Resolved muscle cramps on gabapentin 600 three times daily. 5. Severe deconditioning, improving. PLAN: 1. Continue wraps to both legs every morning by physical therapy. 2. Continue PT, OT. 3. Continue furosemide 40 daily. 4. Continue fluid restriction 800 daily. 5. Continue Pen-Vee K indefinitely for recurrent cellulitis. 6. Begin to consider discontinuation of Inman.
[2018-04-15] MEDS: Montelukast Sodium 10 mg Tablet PO SCH (20:56)
[2018-04-16] MEDS: HYDROcodone/Acetaminophen 7.5/325 mg Tablet PO PRN ×2 (01:29→14:07)
[2018-04-16] MEDS: Penicillin V Potassium 250 MG TAB PO SCH ×4 (09:43→20:00)
[2018-04-16] MEDS: Potassium Chloride 10 MEQ TAB PO SCH (09:43)
[2018-04-16] MEDS: Ferrous Sulfate 325 MG TAB PO SCH ×3 (09:43→16:20)
[2018-04-16] MEDS: Gabapentin 300 MG CAP PO SCH ×3 (09:43→20:00)
[2018-04-16] MEDS: Aspirin 81 mg Enteric Coated Tablet PO SCH (09:43)
[2018-04-16] MEDS: Furosemide 40 MG TAB PO SCH ×2 (09:44→14:07)
[2018-04-16] MEDS: Morphine ER 15 MG TAB PO PRN ×2 (09:44→23:00)
[2018-04-16] MEDS: Folic Acid 1 MG TAB PO SCH (09:44)
[2018-04-16] MEDS: Lisinopril 5 MG TAB PO SCH (10:07)
[2018-04-16] MEDS: Hydrochlorothiazide 25 MG TAB PO SCH (10:07)
[2018-04-16] MEDS: Spironolactone 25 MG TAB PO SCH ×2 (10:07→16:20)
[2018-04-16] MEDS: Pramipexole Di-HCl 0.25 MG TAB PO SCH ×2 (10:08→20:00)
[2018-04-16] MEDS: Zinc Oxide 16% Ointment 60 gm Tube TOP SCH ×4 (10:14→20:02)
[2018-04-16] MEDS: Montelukast Sodium 10 mg Tablet PO SCH (20:00)
[2018-04-17] MEDS: HYDROcodone/Acetaminophen 7.5/325 mg Tablet PO PRN ×2 (04:09→16:41)
[2018-04-17] MEDS: Spironolactone 25 MG TAB PO SCH ×2 (08:55→17:21)
[2018-04-17] MEDS: Potassium Chloride 10 MEQ TAB PO SCH (08:55)
[2018-04-17] MEDS: Ferrous Sulfate 325 MG TAB PO SCH ×3 (08:55→17:10)
[2018-04-17] MEDS: Morphine ER 15 MG TAB PO PRN ×2 (09:11→21:32)
[2018-04-17] MEDS: Aspirin 81 mg Enteric Coated Tablet PO SCH (09:20)
[2018-04-17] MEDS: Folic Acid 1 MG TAB PO SCH (09:20)
[2018-04-17] MEDS: Furosemide 40 MG TAB PO SCH ×2 (09:21→13:00)
[2018-04-17] MEDS: Gabapentin 300 MG CAP PO SCH ×3 (09:21→20:34)
[2018-04-17] MEDS: Lisinopril 5 MG TAB PO SCH (09:22)
[2018-04-17] MEDS: Hydrochlorothiazide 25 MG TAB PO SCH (09:22)
[2018-04-17] MEDS: Penicillin V Potassium 250 MG TAB PO SCH ×4 (09:29→20:34)
[2018-04-17] MEDS: Pramipexole Di-HCl 0.25 MG TAB PO SCH ×2 (09:30→20:34)
--- NOTE | 2018-04-17 10:33 | PRG ---
DATE OF SERVICE: 04/16/2018 DATE OF ADMISSION: 04/12/2018 HISTORY OF PRESENT ILLNESS: Ms. Acevedo is a very pleasant 58-year-old morbidly obese white female eugenio elisha returns from [facility] after having some acute on chronic renal insuf ficiency. She states she is doing much better, feels better, but had some problems with leg wraps. She states therapy people do not always do them and on the weekend they are not available to do them and the nurses have not actually been trained. She has no other complaints today. OBJECTIVE: VITAL SIGNS: This morning reveal blood pressure 101/56, pulse 64-73, respirations 16-20, O2 sat 100% on room air, and T-max 97.7. GENERAL: This is a well-developed, well-nourished, very pleasant, morbidly obese white female in no apparent distress at this time. HEENT: Reveals normocephalic, nontraumatic cranium. Pupils are equally round and reactive. Extraoc ular movements intact. Nose and throat are slightly dry. NECK: Supple, without mass, nodes or bruits. LUNGS: Chest is clear. No rales, rhonchi, wheezes or cough is noted. HEART: Reveals a regular rate and rhythm. ABDOMEN: Morbidly obese, nontender, no rebound, no guarding. Normal bowel sounds noted in all quadr ants. GENITOURINARY: Deferred. EXTREMITIES: Reveal morbid obesity, lymphedema with no evidence of infection at this time. LABORATORY DATA: Last laboratories were done on 04/14/2018, so we will order labs again tomorrow. ASSESSMENT: 1. Lymphedema with resolving cellulitis, on oral penicillin and Lasix. 2. Stable diastolic congestive heart failure, on Lasix 40. 3. Acute on chronic renal insufficiency with stable renal function with last creatinine 1.4. Still presently on Lasix orally 40 mg daily. 4. Muscle cramps, much improved on gabapentin 600 mg 3 times daily. 5. Generalized weakness. 6. Recent hyperkalemia. PLAN: 1. Continue to monitor the patient's renal status. We will repeat labs tomorrow. 2. Continue to monitor the patient for signs and symptoms of congestive heart failure. 3. Continue diuresis with oral Lasix 40 mg daily. 4. Continue gabapentin 600 mg t.i.d. for muscle spasms. 5. Stress ulcer prophylaxis. 6. Decubitus precautions. 7. Deep venous thrombosis prophylaxis. 8. Physical therapy and occupational therapy.
--- NOTE | 2018-04-17 10:55 | PRG ---
DATE OF SERVICE: 04/17/2018 DATE OF ADMISSION: 04/12/2018 HISTORY OF PRESENT ILLNESS: This is a 58-year-old very pleasant white female admitted to [facility] with severe lymphedema and generalized weakness. She was started on IV Lasix 3 t imes a week with a PICC line and transferred to [facility]. Her creatinine significa ntly increased most likely because of her gabapentin that has been increased and her stoppage of drin bonifacio any liquids. She was transferred back to [facility] where she was rehydrate d and then fruit packer saw her. She was transferred back to [facility], now on Lasi x 40 mg once a day. SUBJECTIVE: The patient states she is doing well except she is more depressed and we did discuss at length adding Wellbutrin to her present sertraline 200 mg. She also wanted the knee results of her x -ray which revealed severe arthritis. She did walk 30 feet and 37 feet yesterday. She also lost 1 p ound from 156-155. She is asking for more aggressive therapy. We did do CBC and comp met ordered fo r tomorrow. PHYSICAL EXAMINATION: VITAL SIGNS: Reveal blood pressure 94/52, pulse 68-71, respirations 19-20, O2 sat 95% on room air, T -max 97.8. GENERAL: This is a well-developed, well-nourished, very pleasant white female in no apparent distres s at this time. HEENT: Reveals normocephalic and nontraumatic cranium. Pupils are equally round and reactive. Extr aocular movements intact. Nose and throat are slightly dry. NECK: Supple without mass, nodes or bruits. CHEST: Clear to auscultation. No rales, rhonchi or wheezes are heard. HEART: Reveals a regular rate and rhythm without murmurs, gallops or rubs. ABDOMEN: Soft and nontender without organomegaly. Normal bowel sounds are noted. No rebound or gua rding is noted. : Deferred. EXTREMITIES: Reveal no clubbing, cyanosis or edema. The patient does have significant lymphedema an d no cellulitis. IMPRESSION: 1. Cellulitis, resolved on oral penicillin and Lasix. 2. Diastolic congestive heart failure, on Lasix 40 mg a day. 3. Acute on chronic renal insufficiency, stable. Labs pending tomorrow. 4. Resolved muscle cramps on gabapentin 600 mg a day. 5. Generalized weakness. 6. Severe deconditioning. PLAN: 1. Continue lymphedema wraps every morning. 2. Continue PT and OT. 3. Continue to monitor Lasix 40 mg p.o. daily. 4. Continue fluid restrictions. 5. Continue Pen-Vee K indefinitely. 6. Consider discharging Inman soon.
[2018-04-17] MEDS ORDERED: Bupropion 150 MG XL TAB PO SCH (12:30)
[2018-04-17] MEDS: Zinc Oxide 16% Ointment 60 gm Tube TOP SCH ×4 (13:05→20:36)
[2018-04-17] MEDS: Montelukast Sodium 10 mg Tablet PO SCH (20:34)
[2018-04-18 05:45] LABS: ALT (SGPT) 14 U/L (8-55); AST (SGOT) 19 U/L (5-34); Albumin 3.7 g/dL (3.5-5.0); Alkaline Phosphatase 104 U/L (40-150); Anion Gap 14 mmol/L (10-20); BUN (Urea Nitrogen) 45 mg/dL (9.8-20.1); Bilirubin, Total 0.3 mg/dL (0.2-1.2); Calc. Creatinine Clearance 68 mL/min (70-130); Calcium 8.6 mg/dL (7.8-10.44); Carbon Dioxide 26 mmol/L (22-29); Chloride 101 mmol/L (98-107); Estimated GFR-MDRD 22; Globulin 3.1 g/dL (2.4-3.5); Glucose 106 mg/dL (70-105); Potassium 4.4 mmol/L (3.5-5.1); Protein, Total 6.8 g/dL (6.0-8.3); Sodium 137 mmol/L (136-145)
[2018-04-18 05:52] LABS: #Basophils 0.1 thou/uL (0.0-0.2); #Eosinphils 0.5 thou/uL (0.0-0.7); #Lymphocytes 1.4 thou/uL (1.20-3.40); #Monocytes 0.7 thou/uL (0.11-0.59); #Neutrophils 5.5 thou/uL (1.40-6.50); %Basophils 0.9 % (0.0-1.0); %Eosinophils 5.9 % (0.0-10.0); %Lymphocytes 17.2 % (21.0-51.0); %Monocytes 8.2 % (0.0-10.0); %Neutrophils 67.8 % (42.0-75.0); Anisocytosis SLIGHT = 6-15 cells (100X) (0-5/hpf); Hemoglobin 9.2 g/dL (12.0-16.0); Hypochromia MODERATE=16-30 cells (100X) (0-5/hpf); MDiff Complete? YES; Mean Corpuscular HGB CONC 29.9 g/dL (32.0-36.0); Mean Corpuscular Hemoglobin 24.6 pg (27.0-31.0); Mean Corpuscular Volume 82.4 fl (81.0-99.0); Mean Platelet Volume 6.8 fL (7.4-10.4); Microcytosis SLIGHT = 6-15 cells (100X) (0-5/hpf); Ovalocytes SLIGHT = 2-5 cells (100X) (0-1/hpf); PLT Morphology Comment Appears Adequate; Platelet Count 192 thou/uL (130-400); RBC Distribution Width 15.4 % (11.5-14.5); Red Blood Cell (RBC) Count 3.72 mill/uL (4.20-5.40); White Blood Cell (WBC) Count 8.1 thou/uL (4.8-10.8)
[2018-04-18] MEDS: Potassium Chloride 10 MEQ TAB PO SCH (08:10)
[2018-04-18] MEDS: Ferrous Sulfate 325 MG TAB PO SCH ×2 (08:10→12:52)
[2018-04-18] MEDS: Spironolactone 25 MG TAB PO SCH ×2 (08:10→16:38)
[2018-04-18] MEDS: Penicillin V Potassium 250 MG TAB PO SCH ×4 (09:21→20:26)
[2018-04-18] MEDS: Pramipexole Di-HCl 0.25 MG TAB PO SCH ×2 (09:23→20:26)
[2018-04-18] MEDS: Aspirin 81 mg Enteric Coated Tablet PO SCH (09:24)
[2018-04-18] MEDS: Folic Acid 1 MG TAB PO SCH (09:25)
[2018-04-18] MEDS: Gabapentin 300 MG CAP PO SCH ×3 (09:26→20:26)
[2018-04-18] MEDS: Bupropion 150 MG XL TAB PO SCH (09:27)
[2018-04-18] MEDS: Hydrochlorothiazide 25 MG TAB PO SCH (09:28)
[2018-04-18] MEDS: Zinc Oxide 16% Ointment 60 gm Tube TOP SCH ×2 (09:30→13:19)
[2018-04-18] MEDS ORDERED: Sodium Chloride 0.9% 1,000 ML IV SCH (10:00)
[2018-04-18] MEDS: HYDROcodone/Acetaminophen 7.5/325 mg Tablet PO PRN (11:33)
[2018-04-18] MEDS: Acetaminophen 500 MG TAB PO PRN ×2 (16:38→21:39)
--- NOTE | 2018-04-18 18:35 | PRG ---
DATE OF SERVICE: 04/18/2018 DATE OF ADMISSION: 04/12/2018 HISTORY OF PRESENT ILLNESS: Ms. Acevedo is a very pleasant 58-year-old white female that has presented to [facility] multiple times with severe lymphedema, generalized weakness along with cellulitis. She recently was transferred to [facility] for Lasix IV 3 times a w ramona with a PICC line transferred. She had increasing creatinine and acute on chronic renal insuffici ency and then she stopped drinking liquids. She became confused. She was transferred back to [facility] where she was able to be seen by the citrus picker. Transferred there [facility] and then transferred back to [facility]. She has been on Lasix 40 mg once a day and has ac tually been doing very well. SUBJECTIVE: The patient states she is doing well, but she ate some pizza last night and had not urin ated as well today. LABORATORY: This morning reveals white count 8000, hemoglobin 9.2, hematocrit 30.7, platelet count 1 92,000. Chemistry reveals sodium 137, potassium 4.4, chloride 101, carbon dioxide 26, BUN 45 with a creatinine 2.32. Glucose is 106. Her creatinine is up from 1.28 four days ago to 2.32. We will sto p her Lasix, it significantly decrease her gabapentin and given some IV fluids. We will repeat labs tomorrow morning. PHYSICAL EXAMINATION: VITAL SIGNS: Blood pressure this morning, 96/60 at noon, 98/50 this evening. Pulse 72-80, res pirations 18-20, O2 sat 94% on room air, T-max 98.6. GENERAL: This is a well-developed, well-nourished, very pleasant, morbidly obese white female, in no apparent distress at this time. HEENT: Reveals normocephalic, nontraumatic cranium. Pupils equal, round, and reactive. Extraocular movements intact. Nose and throat are slightly dry. NECK: Supple, without mass, nodes or bruits. CHEST: Clear to auscultation. No rales, rhonchi or wheezes are heard. CARDIOVASCULAR: Reveals a regular rate and rhythm without murmurs, gallops or rubs. ABDOMEN: Soft, nontender, without organomegaly, normal bowel sounds are noted. No rebound or guardi ng is noted. GENITOURINARY: Deferred. EXTREMITIES: Reveal no clubbing, cyanosis or edema. NEUROLOGIC: The patient does have some lymphedema, but no cellulitis. IMPRESSION: 1. Acute on chronic renal insufficiency, creatinine 2.3. 2. Diastolic congestive heart failure, on Lasix. 3. Cellulitis, resolved on oral penicillin and Lasix. 4. Acute on chronic renal insufficiency. 5. Muscle cramps that have been resolved. 6. Generalized weakness. 7. Severe deconditioning. PLAN: 1. Stop the patient's Lasix. 2. Hold the patient's lisinopril and metoprolol this morning. 3. Start IV saline lock and give the patient a liter of normal saline. 4. Remove the fluid restrictions. 5. Continue Pen-Vee K. 6. Continue Inman catheterization at this time. 7. Lymphedema wraps continue. 8. Repeat labs tomorrow morning.
[2018-04-18] MEDS: Montelukast Sodium 10 mg Tablet PO SCH (20:26)
[2018-04-19] MEDS: HYDROcodone/Acetaminophen 7.5/325 mg Tablet PO PRN ×2 (02:24→10:32)
[2018-04-19 05:50] LABS: Anion Gap 16 mmol/L (10-20); BUN (Urea Nitrogen) 43 mg/dL (9.8-20.1); Calc. Creatinine Clearance 85 mL/min (70-130); Calcium 8.5 mg/dL (7.8-10.44); Carbon Dioxide 21 mmol/L (22-29); Chloride 104 mmol/L (98-107); Estimated GFR-MDRD 27; Glucose 113 mg/dL (70-105); Potassium 3.9 mmol/L (3.5-5.1); Sodium 137 mmol/L (136-145)
[2018-04-19] MEDS: Morphine ER 15 MG TAB PO PRN ×3 (06:20→23:36)
[2018-04-19] MEDS: Zinc Oxide 16% Ointment 60 gm Tube TOP SCH ×6 (07:20→21:12)
[2018-04-19] MEDS: Ferrous Sulfate 325 MG TAB PO SCH ×4 (07:20→15:31)
[2018-04-19] MEDS: Penicillin V Potassium 250 MG TAB PO SCH ×4 (08:50→21:11)
[2018-04-19] MEDS: Aspirin 81 mg Enteric Coated Tablet PO SCH (08:50)
[2018-04-19] MEDS: Pramipexole Di-HCl 0.25 MG TAB PO SCH ×2 (08:50→21:12)
[2018-04-19] MEDS: Gabapentin 300 MG CAP PO SCH ×3 (08:50→21:11)
[2018-04-19] MEDS: Spironolactone 25 MG TAB PO SCH ×2 (08:51→17:14)
[2018-04-19] MEDS: Bupropion 150 MG XL TAB PO SCH (08:51)
[2018-04-19] MEDS: Folic Acid 1 MG TAB PO SCH (08:51)
[2018-04-19] MEDS: Potassium Chloride 10 MEQ TAB PO SCH (08:51)
[2018-04-19] MEDS: Hydrochlorothiazide 25 MG TAB PO SCH (08:51)
--- NOTE | 2018-04-19 17:07 | PRG ---
DATE OF SERVICE: 04/19/2018 DATE OF ADMISSION: 04/12/2018 HISTORY OF PRESENT ILLNESS: Ms. Acevedo is a pleasant 58-year-old white female that presented to the e mergency room at [facility] with generalized weakness and significant lymphedema. She was evaluated, diuresed and transferred to [facility]. Unfortunately, she nohemi me over diuresed and had to go back to [facility] for rehydration and renal consult . She was stabilized and transferred back to [facility] for physical therapy and occupational therapy. SUBJECTIVE: The patient states she is doing well and walked better. She walked 30 feet, followed by 43 feet, followed by 50 feet this morning. Creatinine this morning was 1.9. She has no complaints today. PHYSICAL EXAMINATION: VITAL SIGNS: This morning reveal blood pressure was 103/56, pulse 73-78, respirations 18, O2 sat 97% on room air, and T-max 97.8. GENERAL: This is a well-developed, well-nourished, very pleasant, morbidly obese white female with s ignificant lymphedema. HEENT: Reveals normocephalic, nontraumatic cranium. Pupils are equally round and reactive. Extraoc ular movements intact. Nose and throat are slightly dry. NECK: Supple, without mass, nodes or bruits. CHEST: Clear to auscultation. No rales, rhonchi or wheezes are heard. HEART: Reveals a regular rate and rhythm without murmurs, gallops or rubs. ABDOMEN: Soft and nontender without organomegaly, normal bowel sounds are noted. No rebound or guar ding is noted. GENITOURINARY: Deferred. EXTREMITIES: Reveal no clubbing, cyanosis or edema. Patient does have significant lymphedema, but n o cellulitis. IMPRESSION: 1. Acute on chronic renal insufficiency with creatinine 1.9. 2. Diastolic congestive heart failure, presently off Lasix. 3. Cellulitis, resolved on oral penicillin and Lasix. 4. Acute on chronic renal insufficiency. 5. Muscle cramps has been resolved. 6. Generalized weakness. 7. Severe deconditioning. PLAN: 1. Patient will be may off Lasix. 2. Repeat labs tomorrow morning. 3. Continue IV saline lock. 4. Fluid restrictions are off at this time. 5. Continue Pen-Vee K. 6. Continue Inman catheter. 7. Lymphedema wraps to be continued. 8. Repeat labs tomorrow.
[2018-04-19] MEDS ORDERED: Milk Of Magnesia 30 ML UDCUP PO SCH (19:00)
[2018-04-19] MEDS: Montelukast Sodium 10 mg Tablet PO SCH (21:12)
[2018-04-19] MEDS: Acetaminophen 500 MG TAB PO PRN (21:12)
[2018-04-20] MEDS: HYDROcodone/Acetaminophen 7.5/325 mg Tablet PO PRN ×2 (05:19→21:01)
[2018-04-20] MEDS ORDERED: Magnesium Citrate 300 ML BOT PO PRN (06:40)
[2018-04-20] MEDS ORDERED: Bisacodyl 5 MG TAB PO PRN (06:40)
[2018-04-20 07:11] LABS: Anion Gap 12 mmol/L (10-20); BUN (Urea Nitrogen) 30 mg/dL (9.8-20.1); Calc. Creatinine Clearance 118 mL/min (70-130); Calcium 8.6 mg/dL (7.8-10.44); Carbon Dioxide 25 mmol/L (22-29); Chloride 105 mmol/L (98-107); Estimated GFR-MDRD 39; Glucose 113 mg/dL (70-105); Potassium 4.2 mmol/L (3.5-5.1); Sodium 138 mmol/L (136-145)
[2018-04-20] MEDS: Potassium Chloride 10 MEQ TAB PO SCH (08:53)
[2018-04-20] MEDS: Penicillin V Potassium 250 MG TAB PO SCH ×4 (08:54→21:02)
[2018-04-20] MEDS: Pramipexole Di-HCl 0.25 MG TAB PO SCH ×2 (08:55→21:02)
[2018-04-20] MEDS: Spironolactone 25 MG TAB PO SCH ×2 (08:55→17:50)
[2018-04-20] MEDS: Gabapentin 300 MG CAP PO SCH ×3 (08:55→21:02)
[2018-04-20] MEDS: Aspirin 81 mg Enteric Coated Tablet PO SCH (08:55)
[2018-04-20] MEDS: Folic Acid 1 MG TAB PO SCH (08:55)
[2018-04-20] MEDS: Ferrous Sulfate 325 MG TAB PO SCH ×3 (08:56→17:51)
[2018-04-20] MEDS: Bupropion 150 MG XL TAB PO SCH (08:56)
[2018-04-20] MEDS: Milk Of Magnesia 30 ML UDCUP PO SCH (08:57)
[2018-04-20] MEDS: Hydrochlorothiazide 25 MG TAB PO SCH (08:57)
[2018-04-20] MEDS: Zinc Oxide 16% Ointment 60 gm Tube TOP SCH ×4 (08:57→21:04)
[2018-04-20] MEDS: Acetaminophen 500 MG TAB PO PRN (08:58)
[2018-04-20] MEDS: Morphine ER 15 MG TAB PO PRN ×2 (08:59→17:57)
--- NOTE | 2018-04-20 09:13 | PRG ---
DATE OF ADMISSION: 04/12/2018 DATE OF SERVICE: 04/20/2018 SUBJECTIVE: Ms. Acevedo is a very pleasant 58-year-old morbidly obese white female that is plaqued wit h significant chronic lymphedema. Unfortunately, she was in acute on chronic renal insufficiency and went to [facility]. She was hydrated and stabilized and transferred to [facility] for continued diuresis and physical therapy and occupational therapy. The patient states she is doing well except she states she is constipated. She states she has not cuenca d a bowel movement in the last 2 weeks. Yesterday, she walked 30 feet and then 43 feet and then 50 f eet. Her creatinine yesterday was 1.9. Her creatinine this morning is pending. She has no complain ts except for constipation. OBJECTIVE: VITAL SIGNS: Today reveal blood pressure 115/82, pulse 78-86, respirations 18-20, O2 sat 97% to 98% on room air. T-max 98.8. GENERAL: This is a well-developed, well-nourished, morbidly obese white female, in no apparent distr ess at this time. HEENT: Reveals normocephalic, nontraumatic cranium. Pupils are equally round and reactive. Extraoc ular movements are intact. Nose and throat are slightly dry. NECK: Supple, without mass, nodes or bruits. LUNGS: Chest is clear to auscultation. No rales, rhonchi or wheezes are heard. CARDIOVASCULAR: Heart reveals a regular rate and rhythm without murmurs, gallops or rubs. ABDOMEN: Soft, nontender, without organomegaly, normal bowel sounds are noted. No rebound or guardi ng is noted. : Deferred. EXTREMITIES: Reveal no clubbing, cyanosis or edema. The patient does have significant lymphedema, b ut again there is no cellulitis noted today. The patient was offered this morning to have her legs wrapped by [facility], but she states she wanted t o sleep more. We will try to get and wrapped a little later on today. LABORATORY DATA: Labs are pending. ASSESSMENT: 1. Acute on chronic renal insufficiency with a creatinine of 1.9 yesterday. Today's creatinine is p ending. 2. Diastolic congestive heart failure, presently off Lasix. 3. Three pounds weight gain since yesterday. 4. Cellulitis is resolved, but the patient is on chronic penicillin and off her Lasix at this time. 5. Acute on chronic renal insufficiency, improving. 6. Muscle cramps, which is resolved with gabapentin. 7. Generalized weakness. 8. Severe deconditioning. PLAN: 1. We will continue off Lasix at this time. 2. Awaiting lab reports this morning 3. The patient has a saline lock still. 4. Fluid restrictions are off. 5. Continue Pen-Vee K. 6. Continue Inman catheter. 7. Lymphedema wraps each daily. 8. Repeat labs tomorrow and daily.
[2018-04-20] MEDS: ALPRAZolam 0.25 MG TAB PO PRN ×2 (13:20→17:58)
[2018-04-20] MEDS: Montelukast Sodium 10 mg Tablet PO SCH (21:02)
[2018-04-21 05:31] LABS: Anion Gap 13 mmol/L (10-20); BUN (Urea Nitrogen) 23 mg/dL (9.8-20.1); Calc. Creatinine Clearance 138 mL/min (70-130); Calcium 8.8 mg/dL (7.8-10.44); Carbon Dioxide 27 mmol/L (22-29); Chloride 101 mmol/L (98-107); Estimated GFR-MDRD 47; Glucose 96 mg/dL (70-105); Potassium 4.1 mmol/L (3.5-5.1); Sodium 137 mmol/L (136-145)
[2018-04-21] MEDS: Morphine ER 15 MG TAB PO PRN ×2 (06:05→16:48)
--- NOTE | 2018-04-21 07:57 | PRG ---
DATE OF SERVICE: 04/21/2018 DATE OF ADMISSION: 04/12/2018 HISTORY OF PRESENT ILLNESS: Ms. Acevedo is a very pleasant 58-year-old white female with chronic lymph edema and cellulitis. She was admitted to the [facility], diuresed, and eventual ly transferred to [facility] for continued diuresis and physical therapy and occupati onal therapy. The patient states she had a great day yesterday. She drank lots of fluids to get her creatinine yanira k to its normal. She has no complaints, is looking forward to having a great day today. Vital signs today reveal blood pressure is not on the chart yet. PHYSICAL EXAMINATION: VITAL SIGNS: Blood pressure last night was 115/82, pulse 86, respirations 20, O2 sat 96%-98% on room air, T-max was 98.8. GENERAL: This is a well-developed, well-nourished, very pleasant, morbidly obese white female in no apparent distress at this time. HEENT: Reveals normocephalic, nontraumatic cranium. Pupils equally round and reactive. Extraocular movements intact. Nose and throat are slightly dry, but clear. NECK: Supple, without mass, nodes, or bruits. LUNGS: Chest is clear to auscultation. No rales, rhonchi, or wheezes are heard. CARDIOVASCULAR: Reveals a regular rate and rhythm without murmurs, gallops, or rubs. ABDOMEN: Morbidly obese, soft, nontender. Normal bowel sounds are noted. No rebound or guarding is noted. EXAM: Deferred. EXTREMITIES: Reveal significant lymphedema, but no cellulitis. Patient's weight is unknown today. LABORATORY DATA: Labs this morning reveal creatinine 1.18 with a BUN 23. ASSESSMENT: 1. Acute on chronic renal insufficiency with a creatinine of 1.9 yesterday. Creatinine today is 1.1 8. 2. Diastolic congestive heart failure. We will restart her Lasix 40 mg orally once a day. 3. Weight gain is unknown today. 4. Cellulitis is resolved, but the patient continues on chronic penicillin and Lasix. 5. Acute on chronic renal insufficiency, much improved. 6. Muscle cramps, resolved with gabapentin. 7. Generalized weakness. 8. Severe deconditioning. PLAN: 1. Restart the Lasix. 2. The patient has been refusing her iron, so we will do a ferritin level, TIBC, iron level, folic a chivo level, B12 level. 3. Continue saline lock at this time. 4. Continue Pen-Vee K. 5. Continue Inman catheter. 6. Lymphedema wraps daily. 7. Repeat labs tomorrow and daily.
[2018-04-21] MEDS: Milk Of Magnesia 30 ML UDCUP PO SCH (08:12)
[2018-04-21] MEDS: Potassium Chloride 10 MEQ TAB PO SCH (08:12)
[2018-04-21] MEDS: Penicillin V Potassium 250 MG TAB PO SCH ×4 (08:12→21:18)
[2018-04-21] MEDS: Hydrochlorothiazide 25 MG TAB PO SCH (08:13)
[2018-04-21] MEDS: Folic Acid 1 MG TAB PO SCH (08:13)
[2018-04-21] MEDS: Bupropion 150 MG XL TAB PO SCH (08:13)
[2018-04-21] MEDS: Pramipexole Di-HCl 0.25 MG TAB PO SCH ×2 (08:13→21:18)
[2018-04-21] MEDS: Gabapentin 300 MG CAP PO SCH ×3 (08:13→21:18)
[2018-04-21] MEDS: Aspirin 81 mg Enteric Coated Tablet PO SCH (08:13)
[2018-04-21] MEDS: Furosemide 40 MG TAB PO SCH (08:14)
[2018-04-21] MEDS: Spironolactone 25 MG TAB PO SCH ×2 (08:14→16:47)
[2018-04-21] MEDS: Ferrous Sulfate 325 MG TAB PO SCH ×3 (08:14→16:51)
[2018-04-21] MEDS: Zinc Oxide 16% Ointment 60 gm Tube TOP SCH ×4 (08:15→21:20)
[2018-04-21] MEDS: HYDROcodone/Acetaminophen 7.5/325 mg Tablet PO PRN ×2 (10:04→22:48)
[2018-04-21] MEDS: ALPRAZolam 0.25 MG TAB PO PRN ×2 (10:46→21:18)
[2018-04-21] MEDS: Montelukast Sodium 10 mg Tablet PO SCH (21:17)
[2018-04-22 05:29] LABS: Anion Gap 10 mmol/L (10-20); BUN (Urea Nitrogen) 19 mg/dL (9.8-20.1); Calc. Creatinine Clearance 149 mL/min (70-130); Calcium 8.6 mg/dL (7.8-10.44); Carbon Dioxide 30 mmol/L (22-29); Chloride 102 mmol/L (98-107); Estimated GFR-MDRD 52; Glucose 102 mg/dL (70-105); Potassium 4.4 mmol/L (3.5-5.1); Sodium 138 mmol/L (136-145)
[2018-04-22] MEDS: HYDROcodone/Acetaminophen 7.5/325 mg Tablet PO PRN ×2 (07:10→18:16)
[2018-04-22] MEDS: Furosemide 40 MG TAB PO SCH (07:10)
[2018-04-22] MEDS: Potassium Chloride 10 MEQ TAB PO SCH (08:38)
[2018-04-22] MEDS: Ferrous Sulfate 325 MG TAB PO SCH ×3 (08:38→16:38)
[2018-04-22] MEDS: Spironolactone 25 MG TAB PO SCH ×2 (08:38→16:38)
[2018-04-22] MEDS: Bupropion 150 MG XL TAB PO SCH (08:39)
[2018-04-22] MEDS: Hydrochlorothiazide 25 MG TAB PO SCH (08:39)
[2018-04-22] MEDS: Aspirin 81 mg Enteric Coated Tablet PO SCH (08:39)
[2018-04-22] MEDS: Gabapentin 300 MG CAP PO SCH ×3 (08:39→21:26)
[2018-04-22] MEDS: Milk Of Magnesia 30 ML UDCUP PO SCH (08:39)
[2018-04-22] MEDS: Folic Acid 1 MG TAB PO SCH (08:39)
[2018-04-22] MEDS: Penicillin V Potassium 250 MG TAB PO SCH ×4 (08:40→21:26)
[2018-04-22] MEDS: Zinc Oxide 16% Ointment 60 gm Tube TOP SCH ×4 (08:40→21:28)
[2018-04-22] MEDS: Pramipexole Di-HCl 0.25 MG TAB PO SCH ×2 (08:40→21:27)
[2018-04-22 11:58] LABS: Iron 29 ug/dL (50-170); Iron Binding Capacity, Total 271 mcg/dL (265-497)
[2018-04-22 13:28] LABS: Folate (Folic Acid) 13.6 ng/mL (7.0-31.4)
[2018-04-22] MEDS: Morphine ER 15 MG TAB PO PRN ×2 (13:38→21:27)
--- NOTE | 2018-04-22 18:07 | PRG ---
DATE OF SERVICE: 04/22/2018 HISTORY OF PRESENT ILLNESS: Ms. Acevedo is a very pleasant 58-year-old white female with chronic sever e lymphedema of the lower extremities. She has also had recurrent cellulitis. She was admitted to [facility], diuresed and eventually transferred to [facility] for continued diuresis and physical therapy and occupational therapy. The patient states she is doing well and she has no complaints today. She would like to stay here as long as she can for her physical therapy. OBJECTIVE: VITAL SIGNS: Today reveal blood pressure this morning was 119/58, pulse 76-91, respirations 18-20, O 2 sat 94% to 96%. T-max is 97.6. GENERAL: This is a well-developed, well-nourished, very pleasant, obese white female in no apparent distress at this time. HEENT: Reveals normocephalic, nontraumatic cranium. Pupils are equally round, reactive. Extraocula r movements intact. Nose and throat are slightly dry. NECK: Supple, without masses, nodes or bruits. LUNGS: Chest is clear to auscultation. No rales, no rhonchi, no wheezes are heard. CARDIOVASCULAR: Reveals a regular rate and rhythm without murmurs, gallops or rubs. ABDOMEN: Soft, nontender, without organomegaly. Normal bowel sounds are noted. No rebound or guard ing is noted. GENITOURINARY: Deferred. EXTREMITIES: Reveal no clubbing. She does have significant lymphedema, but regular edema is signifi cantly better. LABORATORY DATA: This morning revealed white count 8000, hemoglobin 9.2, hematocrit 30.7 and platele t count 192,000. Her chemistry today revealed a sodium 138, potassium 4.4, BUN 19, creatinine 1.09 w ith a GFR of 52. Her iron was slightly low at 29. Her TIBC is 271. Her ferritin is 28.7. Her melissa min B12 is 553 along with a folate of 13.6. Those are all normal. IMPRESSION: 1. Acute on chronic renal insufficiency with a creatinine of 1.09 this morning. 2. Diastolic congestive heart failure. She is back on Lasix 40 mg daily. 3. Weight gain, unknown today. 4. Cellulitis, resolved. The patient continues to remain on chronic penicillin and Lasix. 5. Acute on chronic renal insufficiency, much improved. 6. Muscle cramps, much improved with gabapentin. 7. Generalized weakness. 8. Severe deconditioning. PLAN: 1. The patient has been restarted on her Lasix. We will continue that. 2. The patient's iron levels have been actually adequate. 3. Continue saline lock at this time. 4. Continue Pen-Vee K. 5. Continue Inman catheter. 6. Lymphedema wraps daily. 7. Repeat labs tomorrow again. 8. Encouraged the patient to take her iron.
[2018-04-22] MEDS: Montelukast Sodium 10 mg Tablet PO SCH (21:27)
[2018-04-22] MEDS: ALPRAZolam 0.25 MG TAB PO PRN (21:27)
[2018-04-23] MEDS: HYDROcodone/Acetaminophen 7.5/325 mg Tablet PO PRN ×3 (02:16→20:06)
[2018-04-23 06:29] LABS: Anion Gap 14 mmol/L (10-20); BUN (Urea Nitrogen) 16 mg/dL (9.8-20.1); Calc. Creatinine Clearance 131 mL/min (70-130); Carbon Dioxide 27 mmol/L (22-29); Chloride 100 mmol/L (98-107); Estimated GFR-MDRD 45; Glucose 112 mg/dL (70-105); Potassium 3.9 mmol/L (3.5-5.1); Sodium 137 mmol/L (136-145)
[2018-04-23] MEDS: Furosemide 40 MG TAB PO SCH (08:07)
[2018-04-23] MEDS: Ferrous Sulfate 325 MG TAB PO SCH ×3 (08:08→17:12)
[2018-04-23] MEDS: Aspirin 81 mg Enteric Coated Tablet PO SCH (08:08)
[2018-04-23] MEDS: Bupropion 150 MG XL TAB PO SCH (08:08)
[2018-04-23] MEDS: Potassium Chloride 10 MEQ TAB PO SCH (08:08)
[2018-04-23] MEDS: Folic Acid 1 MG TAB PO SCH (08:08)
[2018-04-23] MEDS: Gabapentin 300 MG CAP PO SCH ×3 (08:08→20:06)
[2018-04-23] MEDS: Spironolactone 25 MG TAB PO SCH ×2 (08:08→17:12)
[2018-04-23] MEDS: Zinc Oxide 16% Ointment 60 gm Tube TOP SCH ×4 (08:09→20:07)
[2018-04-23] MEDS: Milk Of Magnesia 30 ML UDCUP PO SCH (08:09)
[2018-04-23] MEDS: Pramipexole Di-HCl 0.25 MG TAB PO SCH ×2 (08:09→20:06)
[2018-04-23] MEDS: Penicillin V Potassium 250 MG TAB PO SCH ×4 (08:09→20:06)
[2018-04-23] MEDS: Hydrochlorothiazide 25 MG TAB PO SCH (08:09)
--- NOTE | 2018-04-23 09:49 | PRG ---
DATE OF SERVICE: 04/23/2018 DATE OF ADMISSION: 04/12/2018 HISTORY OF PRESENT ILLNESS: Ms. Acevedo is a very pleasant morbidly obese 58-year-old white female eugenio elisha was initially admitted to [facility] with lymphedema and cellulitis. She was d iuresed and then transferred to [facility] for physical therapy and occupational therapy assist apy. The patient states she is doing well and walked quite a bit yesterday, but she does not know how long . She has no complaints today. PHYSICAL EXAMINATION: VITAL SIGNS: Today reveal blood pressure 127/56, pulse 75-86, respirations 18-20, O2 sat 100% on evon m air, T-max 97.4. GENERAL: This is a well-developed, well-nourished, morbidly obese white female in no apparent distre ss at this time. HEENT: Reveals normocephalic and nontraumatic cranium. Pupils are equal, round, and reactive. Extr aocular movements intact. Nose and throat are slightly dry. NECK: Supple, without mass, nodes or bruits. CHEST: Clear to auscultation. No rales, rhonchi, wheezes or cough is heard. HEART: Reveals a regular rate and rhythm without murmurs, gallops, rubs. ABDOMEN: Soft, nontender, morbidly obese. No rebound or guarding is noted. GENITOURINARY: Deferred. Inman catheter still in place. EXTREMITIES: Reveal no clubbing, cyanosis or edema. The patient does have significant lymphedema. No cellulitis is noted today. LABORATORY DATA: This morning, sodium 137, potassium 3.9. BUN 16, creatinine 1.23, which is slightl y elevated from 1.19 yesterday. Her weight is 366 pounds. She had 2100 mL input yesterday. IMPRESSION: 1. Acute on chronic renal insufficiency with a creatinine of 1.23 this morning. 2. Diastolic congestive heart failure, back on Lasix 40 mg. 3. Weight gain, unknown, but she weighs 366 pounds today. 4. Cellulitis, resolved. 5. Muscle cramps with a low dose of gabapentin. We will increase it to 600 mg t.i.d. 6. Generalized weakness. 7. Severe deconditioning. PLAN: 1. Continue Lasix 40 mg daily. 2. Increase gabapentin to 600 mg t.i.d. 3. Encourage the patient to take her iron every day. 4. Continue saline lock. 5. Continue Pen-Vee K. 6. Continue Inman catheter. 7. Lymphedema wraps daily. 8. Repeat labs tomorrow. 9. Encourage the patient to take her iron.
[2018-04-23] MEDS: Morphine ER 15 MG TAB PO PRN (15:27)
[2018-04-23] MEDS: Montelukast Sodium 10 mg Tablet PO SCH (20:06)
[2018-04-23] MEDS: ALPRAZolam 0.25 MG TAB PO PRN (20:06)
[2018-04-24] MEDS: Morphine ER 15 MG TAB PO PRN ×2 (02:13→16:07)
[2018-04-24 05:53] LABS: Anion Gap 13 mmol/L (10-20); BUN (Urea Nitrogen) 17 mg/dL (9.8-20.1); Calc. Creatinine Clearance 133 mL/min (70-130); Calcium 9.4 mg/dL (7.8-10.44); Carbon Dioxide 30 mmol/L (22-29); Chloride 100 mmol/L (98-107); Estimated GFR-MDRD 46; Glucose 108 mg/dL (70-105); Potassium 4.5 mmol/L (3.5-5.1); Sodium 138 mmol/L (136-145)
[2018-04-24] MEDS: Hydrochlorothiazide 25 MG TAB PO SCH (08:16)
[2018-04-24] MEDS: Pramipexole Di-HCl 0.25 MG TAB PO SCH ×2 (08:16→20:09)
[2018-04-24] MEDS: Penicillin V Potassium 250 MG TAB PO SCH ×4 (08:16→20:08)
[2018-04-24] MEDS: Folic Acid 1 MG TAB PO SCH (08:16)
[2018-04-24] MEDS: Aspirin 81 mg Enteric Coated Tablet PO SCH (08:16)
[2018-04-24] MEDS: Furosemide 40 MG TAB PO SCH (08:17)
[2018-04-24] MEDS: Gabapentin 300 MG CAP PO SCH ×3 (08:17→20:08)
[2018-04-24] MEDS: Ferrous Sulfate 325 MG TAB PO SCH ×4 (08:17→16:08)
[2018-04-24] MEDS: Spironolactone 25 MG TAB PO SCH ×2 (08:17→16:08)
[2018-04-24] MEDS: Potassium Chloride 10 MEQ TAB PO SCH (08:17)
[2018-04-24] MEDS: Bupropion 150 MG XL TAB PO SCH (08:17)
[2018-04-24] MEDS: Milk Of Magnesia 30 ML UDCUP PO SCH (08:17)
[2018-04-24] MEDS: Zinc Oxide 16% Ointment 60 gm Tube TOP SCH ×4 (08:26→20:09)
[2018-04-24] MEDS: HYDROcodone/Acetaminophen 7.5/325 mg Tablet PO PRN ×2 (10:17→20:09)
--- NOTE | 2018-04-24 19:32 | PRG ---
DATE OF SERVICE: 04/24/2018 DATE OF ADMISSION: 04/12/2018 HISTORY OF PRESENT ILLNESS: Ms. Acevedo is a very pleasant 59-year-old white female that was admitted to [facility] with lymphedema and cellulitis. She was diuresed and transferred t [facility] for physical therapy and occupational therapy. The patient states she did well in therapy today. She walked 165 feet with 3 or 4 rest. She has no complaints today. LABORATORY DATA: Today reveals creatinine is 1.21 with GFR of 46, which is one point higher. PHYSICAL EXAMINATION: VITAL SIGNS: Reveal blood pressure this morning was a little high at 177/56, pulse 92-89, respiratio ns 20-22, O2 sat 94%-95% on room air, T-max 98.5. Is and Os reveal patient's intake is at 1600. She had 4100 yesterday intake, output of 3900 with a net 210. GENERAL: This is a well-developed, well-nourished, morbidly obese white female in no apparent distre ss at this time. HEENT: Reveals normocephalic, nontraumatic cranium. Pupils equal, round, reactive. Extraocular mov ements intact. Nose and throat are slightly dry. NECK: Supple, without mass, nodes or bruits. CHEST: Clear to auscultation. No rales, rhonchi, wheezes or cough is heard. HEART: Reveals a regular rate and rhythm without murmurs, gallops or rubs. ABDOMEN: Soft and nontender, without organomegaly that can be felt because of her morbid obesity. N o rebound or guarding is noted. Inman catheter still in place. : Deferred. EXTREMITIES: Reveal no clubbing, cyanosis or edema. The patient did have significant lymphedema. N o cellulitis noted today. IMPRESSION: 1. Acute on chronic renal insufficiency with creatinine 1.23 this morning. 2. Diastolic congestive heart failure, back on Lasix 40 mg. 3. Weight gain unknown, but she weighs 365.8 pounds today. 4. Cellulitis, resolved. 5. Muscle cramps on low dose gabapentin. We will increase it to 600 mg t.i.d. 6. Generalized weakness. 7. Severe deconditioning. PLAN: 1. Continue Lasix 40 mg a day. 2. Increased Gabapentin 600 mg t.i.d. 3. Encourage the patient to take her iron every day. 4. Continue saline lock. 5. Continue Pen-Vee K. 6. Continue Inman catheter. 7. Lymphedema wraps. 8. Repeat labs tomorrow. 9. Encourage the patient to take iron.
[2018-04-24] MEDS: Montelukast Sodium 10 mg Tablet PO SCH (20:08)
[2018-04-24] MEDS: ALPRAZolam 0.25 MG TAB PO PRN (21:28)
[2018-04-25 05:38] LABS: Anion Gap 15 mmol/L (10-20); BUN (Urea Nitrogen) 19 mg/dL (9.8-20.1); Calc. Creatinine Clearance 128 mL/min (70-130); Calcium 9.4 mg/dL (7.8-10.44); Carbon Dioxide 28 mmol/L (22-29); Chloride 97 mmol/L (98-107); Estimated GFR-MDRD 44; Glucose 107 mg/dL (70-105); Potassium 4.1 mmol/L (3.5-5.1); Sodium 136 mmol/L (136-145)
[2018-04-25] MEDS: Folic Acid 1 MG TAB PO SCH (08:46)
[2018-04-25] MEDS: Bupropion 150 MG XL TAB PO SCH (08:46)
[2018-04-25] MEDS: Spironolactone 25 MG TAB PO SCH ×2 (08:46→17:33)
[2018-04-25] MEDS: Hydrochlorothiazide 25 MG TAB PO SCH (08:46)
[2018-04-25] MEDS: Pramipexole Di-HCl 0.25 MG TAB PO SCH ×2 (08:46→20:06)
[2018-04-25] MEDS: Furosemide 40 MG TAB PO SCH (08:46)
[2018-04-25] MEDS: Penicillin V Potassium 250 MG TAB PO SCH ×4 (08:46→20:06)
[2018-04-25] MEDS: Potassium Chloride 10 MEQ TAB PO SCH (08:46)
[2018-04-25] MEDS: Milk Of Magnesia 30 ML UDCUP PO SCH (08:47)
[2018-04-25] MEDS: Gabapentin 300 MG CAP PO SCH ×3 (08:47→20:06)
[2018-04-25] MEDS: Aspirin 81 mg Enteric Coated Tablet PO SCH (08:48)
[2018-04-25] MEDS: Zinc Oxide 16% Ointment 60 gm Tube TOP SCH ×4 (08:48→20:06)
[2018-04-25] MEDS: Ferrous Sulfate 325 MG TAB PO SCH ×3 (08:48→17:33)
[2018-04-25] MEDS: HYDROcodone/Acetaminophen 7.5/325 mg Tablet PO PRN (09:17)
--- NOTE | 2018-04-25 12:09 | PRG ---
DATE OF SERVICE: 04/25/2018 DATE OF ADMISSION: 04/12/2018 HISTORY OF PRESENT ILLNESS: Ms. Acevedo is a very pleasant 58-year-old white female that presented to [facility] Emergency Room with lymphedema and cellulitis. She was diuresed and o ariel several days, was transferred to [facility] for continued physical therapy, occup ational therapy, and diuresis. The patient has actually done very well, but was unable to walk as far today because her left knee st arted hurting quite a bit when she was standing. She states it has been a problem in the past, but n ever hurt that badly. LABORATORY DATA: Today reveals sodium 136, potassium 4.1, chloride 97, carbon dioxide 28 with a BUN of 19, creatinine 1.25 and GFR of 44. PHYSICAL EXAMINATION: GENERAL: This is a well-developed, well-nourished, morbidly obese white female in no apparent distre ss at this time. HEENT: Reveals normocephalic, nontraumatic cranium. Pupils equal, round, and reactive. Extraocular movements intact. Nose and throat are slightly dry. NECK: Supple, without mass, nodes or bruits. CHEST: Clear to auscultation. No rales, rhonchi, wheezes or cough is heard. HEARTCARDIOVASCULAR: Reveals a regular rate and rhythm without murmurs, gallops or rubs. ABDOMEN: Soft, nontender, without organomegaly, normal bowel sounds are noted. No rebound or guardi ng is noted. Inman catheter is still in place. : Deferred. EXTREMITIES: Reveal no clubbing, cyanosis or edema. NEUROLOGIC: The patient does have significant lymphedema. She has lymphedema wraps on. No cellulit is is noted because of the wraps. IMPRESSION: 1. Acute on chronic renal insufficiency with a creatinine that is basically the same as yesterday of 1.23. 2. Diastolic congestive heart failure, back on Lasix 40 mg daily. 3. Weight gain. Weight this morning of 365.3 pounds which is down 5 tenths of a pound. Cellulitis, resolved. Muscle cramps on low dose gabapentin was increased to 600 mg t.i.d. 4. Generalized weakness. 5. Severe deconditioning. PLAN: 1. Continue Lasix 40 mg daily. 2. Gabapentin was increased to 600 mg t.i.d. 3. Encouraged the patient to continue PT and OT even though her knee is much of a problem. 4. We will consider Orthopedic consultation outpatient after she is discharged. 5. Continue Pen-Vee K. 6. Consider bladder training and Inman out of the next several days. 7. Lymphedema wraps. 8. We will encourage the patient to continue taking her iron.
[2018-04-25] MEDS: Morphine ER 15 MG TAB PO PRN ×2 (13:35→21:11)
[2018-04-25] MEDS: ALPRAZolam 0.25 MG TAB PO PRN ×2 (15:26→21:12)
[2018-04-25] MEDS: Montelukast Sodium 10 mg Tablet PO SCH (20:06)
[2018-04-26 05:39] LABS: Anion Gap 13 mmol/L (10-20); BUN (Urea Nitrogen) 21 mg/dL (9.8-20.1); Calc. Creatinine Clearance 131 mL/min (70-130); Calcium 9.4 mg/dL (7.8-10.44); Carbon Dioxide 29 mmol/L (22-29); Chloride 99 mmol/L (98-107); Estimated GFR-MDRD 45; Glucose 108 mg/dL (70-105); Potassium 4.3 mmol/L (3.5-5.1); Sodium 137 mmol/L (136-145)
[2018-04-26] MEDS: Folic Acid 1 MG TAB PO SCH (08:11)
[2018-04-26] MEDS: Furosemide 40 MG TAB PO SCH (08:12)
[2018-04-26] MEDS: Bupropion 150 MG XL TAB PO SCH (08:12)
[2018-04-26] MEDS: Gabapentin 300 MG CAP PO SCH ×3 (08:12→20:57)
[2018-04-26] MEDS: Spironolactone 25 MG TAB PO SCH ×2 (08:12→17:25)
[2018-04-26] MEDS: Potassium Chloride 10 MEQ TAB PO SCH (08:12)
[2018-04-26] MEDS: Ferrous Sulfate 325 MG TAB PO SCH ×3 (08:12→17:24)
[2018-04-26] MEDS: Penicillin V Potassium 250 MG TAB PO SCH ×4 (08:13→20:57)
[2018-04-26] MEDS: Hydrochlorothiazide 25 MG TAB PO SCH (08:13)
[2018-04-26] MEDS: Pramipexole Di-HCl 0.25 MG TAB PO SCH ×2 (08:13→20:57)
[2018-04-26] MEDS: Aspirin 81 mg Enteric Coated Tablet PO SCH (08:13)
[2018-04-26] MEDS: HYDROcodone/Acetaminophen 7.5/325 mg Tablet PO PRN (08:15)
[2018-04-26] MEDS: Zinc Oxide 16% Ointment 60 gm Tube TOP SCH ×4 (08:42→20:58)
[2018-04-26] MEDS: Milk Of Magnesia 30 ML UDCUP PO SCH (08:42)
[2018-04-26] MEDS: Morphine ER 15 MG TAB PO PRN ×2 (12:01→20:57)
[2018-04-26] MEDS: ALPRAZolam 0.25 MG TAB PO PRN (15:12)
[2018-04-26] MEDS: Montelukast Sodium 10 mg Tablet PO SCH (20:57)
[2018-04-27] MEDS: Ferrous Sulfate 325 MG TAB PO SCH ×3 (08:19→17:28)
[2018-04-27] MEDS: Furosemide 40 MG TAB PO SCH (08:19)
[2018-04-27] MEDS: Spironolactone 25 MG TAB PO SCH ×2 (08:20→17:28)
[2018-04-27] MEDS: Bupropion 150 MG XL TAB PO SCH (08:20)
[2018-04-27] MEDS: Potassium Chloride 10 MEQ TAB PO SCH (08:20)
[2018-04-27] MEDS: Aspirin 81 mg Enteric Coated Tablet PO SCH (08:20)
[2018-04-27] MEDS: Folic Acid 1 MG TAB PO SCH (08:20)
[2018-04-27] MEDS: Gabapentin 300 MG CAP PO SCH ×3 (08:20→20:11)
[2018-04-27] MEDS: Milk Of Magnesia 30 ML UDCUP PO SCH (08:21)
[2018-04-27] MEDS: Hydrochlorothiazide 25 MG TAB PO SCH (08:21)
[2018-04-27] MEDS: Penicillin V Potassium 250 MG TAB PO SCH ×4 (08:21→20:11)
[2018-04-27] MEDS: Pramipexole Di-HCl 0.25 MG TAB PO SCH ×2 (08:21→20:12)
[2018-04-27] MEDS: Zinc Oxide 16% Ointment 60 gm Tube TOP SCH ×4 (08:21→20:12)
[2018-04-27] MEDS: HYDROcodone/Acetaminophen 7.5/325 mg Tablet PO PRN (08:24)
[2018-04-27] MEDS: ALPRAZolam 0.25 MG TAB PO PRN ×2 (08:25→20:12)
[2018-04-27] MEDS: Morphine ER 15 MG TAB PO PRN ×2 (13:49→22:42)
--- NOTE | 2018-04-27 16:08 | PRG ---
DATE OF SERVICE: 04/27/2018 SUBJECTIVE: Ms. Acevedo is doing well. She is noticing some suprapubic pain. She thinks it is more f rom her Inman. Since she really does not use a Inman catheter at home, I advised her that why do not we try removing it, she immediately stated that now the pain is better since she repositioned hersel f. She wants to leave the Inman in until she goes home. She is aware of the risks of UTI. OBJECTIVE: VITAL SIGNS: She is afebrile, heart rate 80, respirations are 16, oxygen saturation 96% on room air, blood pressure 116/56. CARDIOVASCULAR SYSTEM: S1, S2 plus. RESPIRATORY SYSTEM: Normal vesicular breath sounds. ABDOMEN: Soft, obese, nontender. Bowel sounds heard in all quadrants. EXTREMITIES: Bilateral chronic lymphedema with the wraps Inman catheter in place. CENTRAL NERVOUS SYSTEM: Grossly nonfocal. LABORATORY VALUES: Sodium 137, potassium 4.3, BUN and creatinine 21 and 1.22 yesterday. IMPRESSION: 1. Chronic lymphedema. 2. Diastolic dysfunction. 3. Resolved acute on chronic renal insufficiency. 4. Deconditioning. PLAN: 1. Continue current medications. 2. Inman catheter care. 3. Nutritional support. 4. DVT and stress ulcer prophylaxis. 5. Decubitus precautions. 6. Routine laboratory values. 7. I discussed with the patient and nursing in detail and all questions answered.
[2018-04-27] MEDS: Montelukast Sodium 10 mg Tablet PO SCH (20:12)
[2018-04-28] MEDS: Spironolactone 25 MG TAB PO SCH ×2 (08:08→17:21)
[2018-04-28] MEDS: Potassium Chloride 10 MEQ TAB PO SCH (08:08)
[2018-04-28] MEDS: Ferrous Sulfate 325 MG TAB PO SCH ×3 (08:08→16:15)
[2018-04-28] MEDS: Furosemide 40 MG TAB PO SCH (08:08)
[2018-04-28] MEDS: Gabapentin 300 MG CAP PO SCH ×3 (08:09→20:39)
[2018-04-28] MEDS: Milk Of Magnesia 30 ML UDCUP PO SCH (08:09)
[2018-04-28] MEDS: Penicillin V Potassium 250 MG TAB PO SCH ×4 (08:09→20:39)
[2018-04-28] MEDS: Hydrochlorothiazide 25 MG TAB PO SCH (08:09)
[2018-04-28] MEDS: Folic Acid 1 MG TAB PO SCH (08:09)
[2018-04-28] MEDS: Bupropion 150 MG XL TAB PO SCH (08:09)
[2018-04-28] MEDS: Aspirin 81 mg Enteric Coated Tablet PO SCH (08:09)
[2018-04-28] MEDS: Pramipexole Di-HCl 0.25 MG TAB PO SCH ×2 (08:10→20:39)
[2018-04-28] MEDS: Zinc Oxide 16% Ointment 60 gm Tube TOP SCH ×4 (08:10→20:39)
[2018-04-28] MEDS: ALPRAZolam 0.25 MG TAB PO PRN ×2 (08:16→20:39)
[2018-04-28] MEDS: HYDROcodone/Acetaminophen 7.5/325 mg Tablet PO PRN ×2 (08:16→20:38)
[2018-04-28] MEDS: Morphine ER 15 MG TAB PO PRN (13:48)
[2018-04-28] MEDS: Montelukast Sodium 10 mg Tablet PO SCH (20:39)
[2018-04-29] MEDS: Furosemide 40 MG TAB PO SCH (07:16)
[2018-04-29] MEDS: Spironolactone 25 MG TAB PO SCH ×2 (08:16→17:22)
[2018-04-29] MEDS: Potassium Chloride 10 MEQ TAB PO SCH (08:16)
[2018-04-29] MEDS: Milk Of Magnesia 30 ML UDCUP PO SCH (09:14)
[2018-04-29] MEDS: Pramipexole Di-HCl 0.25 MG TAB PO SCH ×2 (09:15→20:39)
[2018-04-29] MEDS: Penicillin V Potassium 250 MG TAB PO SCH ×4 (09:15→20:39)
[2018-04-29] MEDS: Hydrochlorothiazide 25 MG TAB PO SCH (09:15)
[2018-04-29] MEDS: Gabapentin 300 MG CAP PO SCH ×3 (09:15→20:39)
[2018-04-29] MEDS: Ferrous Sulfate 325 MG TAB PO SCH ×2 (09:15→17:23)
[2018-04-29] MEDS: Folic Acid 1 MG TAB PO SCH (09:15)
[2018-04-29] MEDS: Bupropion 150 MG XL TAB PO SCH (09:15)
[2018-04-29] MEDS: Aspirin 81 mg Enteric Coated Tablet PO SCH (09:16)
[2018-04-29] MEDS: HYDROcodone/Acetaminophen 7.5/325 mg Tablet PO PRN (09:17)
[2018-04-29] MEDS: Zinc Oxide 16% Ointment 60 gm Tube TOP SCH ×3 (09:18→20:39)
[2018-04-29] MEDS: ALPRAZolam 0.25 MG TAB PO PRN ×2 (09:24→20:40)
[2018-04-29] MEDS: Morphine ER 15 MG TAB PO PRN ×2 (12:48→20:40)
[2018-04-29] MEDS: Ascorbic Acid 500 mg Chewable Tablet PO SCH (17:22)
[2018-04-29] MEDS: Montelukast Sodium 10 mg Tablet PO SCH (20:39)
--- NOTE | 2018-04-29 23:27 | PRG ---
DATE OF ADMISSION: 04/12/2018 DATE OF SERVICE: 04/29/2018 HISTORY OF PRESENT ILLNESS: Ms. Acevedo is a very pleasant 58-year-old morbidly obese white female wit h significant lymphedema. She was admitted to [facility] with cellulitis. She w as diuresed and over several days, she returned back to her normal. She was transferred to [facility] because of her extreme weakness. She is continue physical therapy and occupational therapy and diuresed. SUBJECTIVE: The patient states she is doing well. She walked 30 feet and then rest of them walked 3 0 more feet. She has reached maximum medical benefit. According to the occupational therapy, we wer e discharging her today and they said physical therapy will be able to discharge in the next couple o f days. We will most likely schedule her for discharge on Sunday. OBJECTIVE: VITAL SIGNS: This morning reveal blood pressure 111/52, pulse 89, respirations 18-20, O2 sat 95%-96% , T-max 98.3. GENERAL: This is a well-developed, well-nourished, morbidly obese white female in no apparent distre ss at this time. HEENT: Reveals normocephalic, nontraumatic cranium. Pupils are equally round and reactive. Extraoc ular movements intact. Nose and throat are slightly dry. NECK: Supple, without mass, nodes or bruits. CHEST: Clear to auscultation. No rales, rhonchi or wheezes are heard. HEART: Reveals a regular rate and rhythm without murmurs, gallops or rubs. ABDOMEN: Soft, nontender, without organomegaly that can be felt because of her obesity. Normal agueda l sounds are heard in all 4 quadrants. : Deferred. Inman catheter is out. EXTREMITIES: Reveal no clubbing, cyanosis, or edema. IMPRESSION: 1. Chronic lymphedema. 2. Diastolic dysfunction. 3. Acute on chronic renal insufficiency. 4. Generalized weakness. PLAN: 1. Continue present medications. 2. Inman catheter should be out. 3. DVT and stress ulcer prophylaxis. 4. Decubitus precautions. 5. The patient most likely be discharged on Sunday.
[2018-04-30] MEDS: HYDROcodone/Acetaminophen 7.5/325 mg Tablet PO PRN ×2 (00:49→20:50)
[2018-04-30 05:00] LABS: #Basophils 0.1 thou/uL (0.0-0.2); #Eosinphils 0.4 thou/uL (0.0-0.7); #Lymphocytes 1.3 thou/uL (1.20-3.40); #Monocytes 0.5 thou/uL (0.11-0.59); #Neutrophils 6.2 thou/uL (1.40-6.50); %Eosinophils 4.3 % (0.0-10.0); %Lymphocytes 14.8 % (21.0-51.0); %Neutrophils 73.8 % (42.0-75.0); Anisocytosis SLIGHT = 6-15 cells (100X) (0-5/hpf); Hypochromia SLIGHT = 6-15 cells (100X) (0-5/hpf); MDiff Complete? YES; Mean Corpuscular HGB CONC 30.6 g/dL (32.0-36.0); Mean Corpuscular Hemoglobin 24.8 pg (27.0-31.0); Mean Corpuscular Volume 81.2 fl (81.0-99.0); Mean Platelet Volume 6.6 fL (7.4-10.4); Microcytosis SLIGHT = 6-15 cells (100X) (0-5/hpf); PLT Morphology Comment Appears Adequate; Platelet Count 244 thou/uL (130-400); Poikilocytosis SLIGHT = 6-15 cells (100X) (0-5/hpf); RBC Distribution Width 14.7 % (11.5-14.5); Red Blood Cell (RBC) Count 4.03 mill/uL (4.20-5.40); White Blood Cell (WBC) Count 8.4 thou/uL (4.8-10.8)
[2018-04-30 05:13] LABS: ALT (SGPT) 34 U/L (8-55); AST (SGOT) 31 U/L (5-34); Albumin 4.3 g/dL (3.5-5.0); Alkaline Phosphatase 147 U/L (40-150); Anion Gap 16 mmol/L (10-20); BUN (Urea Nitrogen) 28 mg/dL (9.8-20.1); Bilirubin, Total 0.3 mg/dL (0.2-1.2); Calc. Creatinine Clearance 114 mL/min (70-130); Calcium 9.7 mg/dL (7.8-10.44); Carbon Dioxide 26 mmol/L (22-29); Chloride 98 mmol/L (98-107); Estimated GFR-MDRD 38; Globulin 3.7 g/dL (2.4-3.5); Glucose 138 mg/dL (70-105); Potassium 4.1 mmol/L (3.5-5.1); Sodium 136 mmol/L (136-145)
[2018-04-30] MEDS: Potassium Chloride 10 MEQ TAB PO SCH (08:43)
[2018-04-30] MEDS: Aspirin 81 mg Enteric Coated Tablet PO SCH (08:43)
[2018-04-30] MEDS: Gabapentin 300 MG CAP PO SCH ×3 (08:43→20:49)
[2018-04-30] MEDS: Furosemide 40 MG TAB PO SCH (08:43)
[2018-04-30] MEDS: Ascorbic Acid 500 mg Chewable Tablet PO SCH ×2 (08:43→17:39)
[2018-04-30] MEDS: Milk Of Magnesia 30 ML UDCUP PO SCH (08:43)
[2018-04-30] MEDS: Penicillin V Potassium 250 MG TAB PO SCH ×4 (08:43→20:49)
[2018-04-30] MEDS: Spironolactone 25 MG TAB PO SCH ×2 (08:44→17:39)
[2018-04-30] MEDS: Pramipexole Di-HCl 0.25 MG TAB PO SCH ×2 (08:44→20:49)
[2018-04-30] MEDS: Folic Acid 1 MG TAB PO SCH (08:44)
[2018-04-30] MEDS: Hydrochlorothiazide 25 MG TAB PO SCH (08:44)
[2018-04-30] MEDS: Bupropion 150 MG XL TAB PO SCH (08:44)
[2018-04-30] MEDS: Zinc Oxide 16% Ointment 60 gm Tube TOP SCH ×4 (08:45→20:49)
[2018-04-30] MEDS: Ferrous Sulfate 325 MG TAB PO SCH ×2 (08:45→17:39)
[2018-04-30] MEDS: Morphine ER 15 MG TAB PO PRN ×2 (08:55→17:42)
[2018-04-30] MEDS: ALPRAZolam 0.25 MG TAB PO PRN ×2 (08:56→20:50)
--- NOTE | 2018-04-30 10:07 | PRG ---
DATE OF SERVICE: 04/30/2018 DATE OF ADMISSION: 03/30/2018 HISTORY OF PRESENT ILLNESS: Ms. Acevedo is a very pleasant 58-year-old white female that [facility] with cellulitis. She was diuresed over several days and ret urned back to her normal. She was transferred to [facility] because of her extreme w eakness. She was continued physical therapy and occupational therapy and diuresed. The patient states she is doing well, but she really does want to leave on Sunday. She asked if jimbo branham could get her out of here on or Sunday, so her mom could pick her up as she does not work those two days. She also would like to make appointments with her doctors on or Sunday, so she can go from here to the doctors and then out. OBJECTIVE: VITAL SIGNS: Reveal blood pressure this morning 116/61, pulse 80-90, respirations 18-20, O2 sat 95%- 97% on room air, T-max 98.3. Input over the last several days and weight reveals; on 04/26/2018, she inputted 2240 with weight of 365; on 04/27/2018, she inputted 2440 and her weight was 366; on 2017, her input was 3780 mL with weight of 367; on 04/29/2018, her input was 2166 with weight of 366 and this morning, her weight is 367. Her total oral intake is supposed to be 1800. GENERAL: This is a well-developed, well-nourished, morbidly obese white female with significant nela re lymphedema, bilateral leg wraps are on this morning. HEENT: Reveals normocephalic, nontraumatic cranium. Pupils are equal, round, and reactive. Extraoc ular movements intact. Nose and throat are slightly dry. NECK: Supple without mass, nodes or bruits. CHEST: Clear to auscultation. No rales, rhonchi, wheezes are heard. No cough is noted. HEART: Reveals a regular rate and rhythm without murmurs, gallops or rubs. ABDOMEN: Obese and nontender. : No rebound or guarding is noted. Normal bowel sounds are noted. Exam is deferred. Inman anel ter is out. EXTREMITIES: Reveal no clubbing, cyanosis or edema. IMPRESSION: 1. Chronic severe lymphedema requiring leg wraps and pumps daily. 2. Diastolic dysfunction. 3. Acute on chronic renal insufficiency. 4. Muscle cramps, much improved. 5. Generalized weakness with severe deconditioning. PLAN: 1. Continue Lasix 40 mg a day. 2. Gabapentin 600 mg 3 times a day. 3. The patient is encouraged to take iron twice a day with vitamin C 500 mg twice a day. 4. Continue Pen-Vee K. 5. Continue lymphedema wraps.
[2018-04-30] MEDS: Montelukast Sodium 10 mg Tablet PO SCH (20:49)
[2018-05-01 05:37] VITALS: BMI 62.7
[2018-05-01] MEDS: Furosemide 40 MG TAB PO SCH (08:10)
[2018-05-01] MEDS: Pramipexole Di-HCl 0.25 MG TAB PO SCH ×2 (08:10→20:23)
[2018-05-01] MEDS: Ferrous Sulfate 325 MG TAB PO SCH ×2 (08:11→17:39)
[2018-05-01] MEDS: Potassium Chloride 10 MEQ TAB PO SCH (08:11)
[2018-05-01] MEDS: Ascorbic Acid 500 mg Chewable Tablet PO SCH ×2 (08:11→17:39)
[2018-05-01] MEDS: Bupropion 150 MG XL TAB PO SCH (08:12)
[2018-05-01] MEDS: Gabapentin 300 MG CAP PO SCH ×3 (08:12→20:23)
[2018-05-01] MEDS: Hydrochlorothiazide 25 MG TAB PO SCH (08:12)
[2018-05-01] MEDS: Folic Acid 1 MG TAB PO SCH (08:12)
[2018-05-01] MEDS: Aspirin 81 mg Enteric Coated Tablet PO SCH (08:12)
[2018-05-01] MEDS: Spironolactone 25 MG TAB PO SCH ×2 (08:12→17:39)
[2018-05-01] MEDS: Milk Of Magnesia 30 ML UDCUP PO SCH (08:13)
[2018-05-01] MEDS: Zinc Oxide 16% Ointment 60 gm Tube TOP SCH ×4 (08:13→20:24)
[2018-05-01] MEDS: ALPRAZolam 0.25 MG TAB PO PRN ×2 (08:13→20:24)
[2018-05-01] MEDS: Penicillin V Potassium 250 MG TAB PO SCH ×4 (08:13→20:23)
[2018-05-01] MEDS: Morphine ER 15 MG TAB PO PRN ×2 (08:13→20:24)
--- NOTE | 2018-05-01 10:08 | PRG ---
DATE OF SERVICE: 05/01/2018 DATE OF ADMISSION: 04/15/2018 SUBJECTIVE: Ms. Acevedo is a very pleasant 58-year-old white female initially admitted to [facility] with severe lymphedema and lymphadenitis. She was treated, diuresed, placed on an tibiotics and transferred to [facility] because of her extreme weakness. Here, she h as received physical therapy and occupational therapy and continued to be diuresed. She has actually reached maximum medical benefit and is supposed to be discharged tomorrow. She is d oing well and has no complaints. She has decided that she wants to do outpatient physical therapy at [facility]. PHYSICAL EXAMINATION: VITAL SIGNS: Today reveal blood pressure 105/63, pulse 76-87, respirations 18-20, O2 sat 92%-96% on room air, T-max 97.6. GENERAL: This is a well-developed, well-nourished, very pleasant, morbidly obese white female in no apparent distress at this time. HEENT: Reveals normocephalic and nontraumatic cranium. Pupils are equal, round, and reactive. Extr aocular movements intact. Nose and throat are slightly dry, but clear. NECK: Supple without mass, nodes or bruits. CHEST: Clear to auscultation. No rales, no rhonchi, no wheezes are heard. No cough is heard. HEART: Reveals a regular rate and rhythm, but is distant. No murmurs, gallops or rubs are noted. ABDOMEN: Obese and nontender. No rebound or guarding is noted. Normal bowel sounds are noted in al l 4 quadrants. : Exam is deferred. Inman catheter is out. EXTREMITIES: Reveal significant lymphedema, but much improved. NEUROLOGIC: The patient has lost several pounds and is most likely ready for discharge tomorrow. IMPRESSION: 1. Chronic severe lymphedema requiring leg wraps and pumps daily. 2. Diastolic dysfunction. 3. Acute on chronic renal insufficiency. 4. Muscle cramps, much improved. 5. Generalized weakness with severe deconditioning. PLAN: 1. Continue Lasix 40 mg daily. 2. Continue gabapentin 600 mg t.i.d. p.r.n. 3. Encourage the patient to take her iron twice a day with vitamin C b.i.d. 4. Continue Pen-Vee K. 5. Continue physical therapy. 6. Continue lymph wraps. 7. Plan on discharge tomorrow.
[2018-05-01] MEDS: HYDROcodone/Acetaminophen 7.5/325 mg Tablet PO PRN (14:36)
[2018-05-01] MEDS: Montelukast Sodium 10 mg Tablet PO SCH (20:23)
[2018-05-02 07:44] VITALS: BP 134/62; TEMP 96.8
[2018-05-02] MEDS: Furosemide 40 MG TAB PO SCH (08:06)
[2018-05-02] MEDS: Aspirin 81 mg Enteric Coated Tablet PO SCH (08:07)
[2018-05-02] MEDS: Ascorbic Acid 500 mg Chewable Tablet PO SCH (08:07)
[2018-05-02] MEDS: Ferrous Sulfate 325 MG TAB PO SCH (08:07)
[2018-05-02] MEDS: Potassium Chloride 10 MEQ TAB PO SCH (08:08)
[2018-05-02] MEDS: Gabapentin 300 MG CAP PO SCH (08:09)
[2018-05-02] MEDS: Folic Acid 1 MG TAB PO SCH (08:09)
[2018-05-02] MEDS: Bupropion 150 MG XL TAB PO SCH (08:09)
[2018-05-02] MEDS: Spironolactone 25 MG TAB PO SCH (08:09)
[2018-05-02] MEDS: Zinc Oxide 16% Ointment 60 gm Tube TOP SCH (08:10)
[2018-05-02] MEDS: Pramipexole Di-HCl 0.25 MG TAB PO SCH (08:10)
[2018-05-02] MEDS: Hydrochlorothiazide 25 MG TAB PO SCH (08:10)
[2018-05-02] MEDS: Penicillin V Potassium 250 MG TAB PO SCH (08:10)
[2018-05-02] MEDS: Milk Of Magnesia 30 ML UDCUP PO SCH (08:10)
[2018-05-02] MEDS: ALPRAZolam 0.25 MG TAB PO PRN (08:11)
[2018-05-02] MEDS: Morphine ER 15 MG TAB PO PRN (08:11)
--- NOTE | 2018-05-03 11:21 | DIS ---
DATE OF ADMISSION: 04/12/2018 DATE OF DISCHARGE: 05/02/2018 Ms. Acevedo is a very pleasant, but morbidly obese 58-year-old white female that presented to [facility] with severe lymphedema and lymphadenitis. She was treated with antibiotics, di uresed, and transferred to [facility] for physical therapy. She was extremely weak a nd actually has done very well. She has actually reached her maximum medical benefit and is actually doing very well. She is actually doing better than she has done ever since she has been discharged. She is ready for discharge today and she will be seeing Dr. Win, her primary care physician, next Sunday. PHYSICAL EXAMINATION: VITAL SIGNS: Blood pressure 134/62, pulse 80-83, respirations 20, O2 sat 93%-100% on room air, T-max 96.8. GENERAL: This is a well-developed, well-nourished, morbidly obese white female in no apparent distre ss at this time. HEENT: Normocephalic, nontraumatic cranium. Pupils equally round and reactive. Extraocular movemen ts intact. Nose and throat are slightly dry, but clear. NECK: Supple without mass, nodes, or bruits. CHEST: Clear to auscultation. No rales. No rhonchi. No wheezes or cough is heard. HEART: Regular rate and rhythm, which is distant. No murmurs, gallops, or rubs are noted. ABDOMEN: Morbidly obese. No rebound or guarding is noted. Organomegaly is unable to be appreciated . Normal bowel sounds are noted in all 4 quadrants. GENITOURINARY: Deferred. Inman catheter was removed several days ago. EXTREMITIES: Significant lymphedema, but significantly much improved. The patient's weight has prob ably dropped to approximately 15 pounds since she has been here. NEUROLOGIC: The patient is oriented to person, place, and time. DISCHARGE MEDICATIONS: Revealed the patient is on the following medications: 1. Acetaminophen 500 mg q.6. hours p.r.n. 2. Albuterol neb treatments p.r.n. 3. Xanax 0.25 b.i.d. p.r.n. 4. Amitriptyline 50 mg at bedtime p.r.n. insomnia. 5. Vitamin C 500 mg twice a day with her ferrous sulfate 325 mg twice a day. 6. Aspirin 81 mg. 7. Dulcolax p.r.n. 8. Wellbutrin, which is a new medicine, 150 mg XL 1 each day. 9. Folic acid 1 mg daily. 10. Lasix 40 mg daily. 11. Gabapentin 600 mg 3 times daily, not to exceed that dosage. 12. HCTZ 25 mg daily. 13. The patient does have Bussey left over from her orthopedist, 7.5 b.i.d. p.r.n. 14. Lactulose p.r.n. constipation. 15. Milk of magnesia p.r.n. constipation. 16. Singulair 10 mg at bedtime. 17. The patient has morphine or MS Contin 30 mg q.8 hours p.r.n., which she rarely takes. 18. Pen VK 250 mg 4 times a day. 19. Potassium 10 mEq each morning. 20. Mirapex 0.25 mg twice a day. 21. Zoloft 200 mg daily. 22. Spironolactone 25 mg twice a day. 23. Zinc oxide, which is Aisha's Butt Paste topically up to 4 times a day. ASSESSMENT: 1. Chronic severe lymphedema, which is much improved. 2. Diastolic dysfunction. 3. Acute on chronic renal insufficiency, much improved. 4. Muscle cramps, which are much improved. 5. Generalized weakness and severe deconditioning, which is much improved. PLAN: 1. Continue with the leg wraps and pumps daily. 2. Continue Lasix 40 mg daily, but follow her renal indices with Dr. Win when she goes to see her on Sunday. 3. Continue gabapentin 600 mg, but decrease if her renal indices tend to go up. 4. The patient is encouraged to take vitamin C 500 mg twice a day and iron twice a day together. 5. Continue pen VK 250 mg q.i.d. 6. Continue outpatient physical therapy and [facility]'s [facility]. 7. Continue lymph wraps. 8. Discharge.
== END 2018-05-02 10:40 | disposition home or self-care (01) | DRG 607 ==
LOC: NAV ACUTE 17:57
PROVIDERS: ADMIT Family Medicine; ATTEND Family Medicine
DX: I89.0 Lymphedema, not elsewhere classified (principal); I42.8 Other cardiomyopathies; I13.0 Hypertensive heart and chronic kidney disease with heart failure and stage 1 through stage 4 chronic kidney disease, or unspecified chronic kidney disease; I50.32 Chronic diastolic (congestive) heart failure; N17.9 Acute kidney failure, unspecified; L03.116 Cellulitis of left lower limb; L03.115 Cellulitis of right lower limb; R78.81 Bacteremia; E66.01 Morbid (severe) obesity due to excess calories; G89.4 Chronic pain syndrome; Z86.718 Personal history of other venous thrombosis and embolism; G47.30 Sleep apnea, unspecified; I88.9 Nonspecific lymphadenitis, unspecified; M62.831 Muscle spasm of calf; N18.3 Chronic kidney disease, stage 3 (moderate); B95.1 Streptococcus, group B, as the cause of diseases classified elsewhere; E87.5 Hyperkalemia
CPT/HCPCS: 36415; 80048; 80053; 82607; 82728; 82746; 83540; 83550; 85025; 87086; G0283-GP; J7050

== ENCOUNTER 2018-07-16 15:42 | Inpatient (IN) | payer MEDICARE ==
[2018-07-16] MEDS ORDERED: Cefdinir 300 MG CAP PO SCH (22:00)
[2018-07-16] MEDS ORDERED: Pramipexole Di-HCl 0.25 MG TAB PO SCH (22:00)
[2018-07-16] MEDS: Morphine ER 15 MG TAB PO PRN (22:00)
[2018-07-16] MEDS ORDERED: Penicillin V Potassium 250 MG TAB PO SCH (22:00)
[2018-07-16] MEDS ORDERED: Spironolactone 25 MG TAB PO SCH (22:00)
[2018-07-16] MEDS: Gabapentin 300 MG CAP PO SCH ×2 (22:01→22:29)
[2018-07-17] MEDS: Morphine ER 15 MG TAB PO PRN ×2 (05:20→15:05)
[2018-07-17] MEDS ORDERED: Bupropion 150 MG XL TAB PO SCH (09:00)
[2018-07-17] MEDS: Cefdinir 300 MG CAP PO SCH ×2 (09:19→20:20)
[2018-07-17] MEDS: Potassium Chloride 10 MEQ TAB PO SCH (09:19)
[2018-07-17] MEDS: Montelukast Sodium 10 mg Tablet PO SCH (09:19)
[2018-07-17] MEDS: Gabapentin 300 MG CAP PO SCH ×3 (09:20→20:20)
[2018-07-17] MEDS: Ferrous Sulfate 325 MG TAB PO SCH ×3 (09:21→18:39)
[2018-07-17] MEDS: Spironolactone 25 MG TAB PO SCH ×2 (09:21→20:21)
[2018-07-17] MEDS: Folic Acid 1 MG TAB PO SCH (09:21)
[2018-07-17] MEDS: Penicillin V Potassium 250 MG TAB PO SCH ×4 (09:22→20:20)
[2018-07-17] MEDS: Pramipexole Di-HCl 0.25 MG TAB PO SCH ×2 (09:22→20:20)
[2018-07-17] MEDS: Aspirin 81 mg Enteric Coated Tablet PO SCH (09:22)
[2018-07-17] MEDS: Furosemide 40 MG TAB PO SCH ×2 (09:22→12:55)
[2018-07-17] MEDS: HYDROcodone/Acetaminophen 7.5/325 mg Tablet PO PRN ×2 (09:48→20:24)
[2018-07-17] MEDS: ALPRAZolam 0.25 MG TAB PO PRN (09:51)
[2018-07-17] MEDS ORDERED: HYDROcodone/Acetaminophen 7.5/325 mg Tablet PO PRN (16:11)
[2018-07-17] MEDS ORDERED: Acetaminophen 500 MG TAB PO PRN (16:11)
[2018-07-17] MEDS ORDERED: ALPRAZolam 0.25 MG TAB PO PRN (16:11)
[2018-07-17] MEDS ORDERED: Penicillin V Potassium 250 MG TAB PO SCH (17:00)
--- NOTE | 2018-07-17 19:00 | HP ---
HISTORY OF PRESENT ILLNESS: Ms. Acevedo is a very pleasant 58-year-old severely morbidly obese white f emale that presented to the emergency room at [facility] with severe lymphedema, lymphadenitis and cellulitis. She was started on vancomycin and Rocephin and received that and was s witched over to oral antibiotics yesterday. She was transferred here because of her extreme weakness . She was transferred here for physical therapy and occupational therapy. The patient states she is doing well, but she is still very weak and hurts. She has multiple medicat ions. We did discuss all of them. PRESENT MEDICATIONS: Reveal the patient is presently on the followin. Acetaminophen 500 mg q.6 h. p.r.n. 2. Albuterol neb treatments p.r.n. 3. Xanax 0.25 mg b.i.d. 4. Amitriptyline 50 mg at bedtime p.r.n. insomnia. 5. Vitamin C 500 mg twice daily. 6. Ferrous sulfate 325 mg once a day. 7. Aspirin 81 mg daily. 8. Dulcolax pills or suppositories p.r.n. 9. Wellbutrin. The patient has been on 150 mg XL each day, but we will increase that to 300 mg XL e ach day. 10. Folic acid 1 mg daily. 11. Lasix 40 mg b.i.d. 12. Gabapentin 300 mg 3 times daily. 13. Milk of Magnesia p.r.n. 14. Singulair 10 mg at bedtime. 15. MS Contin 30 mg q.8 hours p.r.n. and she is followed by Dr. Jules for all of her pain medicati ons. 16. Pen-Vee K 250 mg 4 times daily. 17. Potassium 10 mEq daily. 18. Mirapex 0.25 mg twice daily. 19. Zoloft 200 mg daily. 20. Spironolactone 25 mg twice daily. 21. Zinc oxide or Aisha's Butt Paste topically p.r.n. 22. [place] 7.5 b.i.d. p.r.n. ALLERGIES: The patient is noted to be allergic to EGGS and EGG DERIVATIVES. PAST MEDICAL HISTORY: 1. Positive for bilateral leg cellulitis with group B strep back in 2013 and multiple times since . 2. Chronic lymphedema. 3. History of DVT. 4. Chronic anemia. 5. Essential hypertension. 6. History of asthma. 7. History of diastolic cardiomyopathy followed by Dr. Olivo with a left ventricular ejection fract ion of 85%. 8. Sleep apnea. 9. Pain management. PAST SURGICAL HISTORY: 1. Laparoscopic cholecystectomy in 2003. 2. Total abdominal hysterectomy and bilateral salpingo-oophorectomy in 2000. 3. Tonsillectomy. 4. Appendectomy. 5. Parathyroidectomy. 6. Colonoscopy and EGD by Dr. Win. 7. Left breast biopsy which was benign. 8. Right lower extremity surgery in 2009. 9. Two cardiac catheterizations by Dr. Olivo. Patient has no known drug allergies, but is noted to be allergic to EGGS and EGG DERIVATIVES. FAMILY HISTORY: Reveals patient's mother is alive and healthy. The patient's father is fro m them and has some type of cancer. SOCIAL HISTORY: Reveals the patient is basically homebound and she has physical therapy at home with a hospital bed. Does not smoke, does not drink. She eats way too much and drinks too much liquids. REVIEW OF SYSTEMS: Essentially unremarkable with 10 systems reviewed except for that as noted in the history of present illness. PHYSICAL EXAMINATION: GENERAL: Reveals a well-developed, well-nourished, morbidly obese white female that weighed 379 poun ds on admission to the [facility] and on transfer here, supposedly she is down to 419 pounds. HEENT: Reveals normocephalic, nontraumatic cranium. Pupils are equally round and reactive. Extraoc ular movements intact. Nose and throat are slightly dry, but clear. NECK: Supple, without mass, nodes or bruits. CHEST: Clear to auscultation. No rales, rhonchi, wheezes or cough is heard. HEART: Reveals a regular rate and rhythm without murmurs, gallops or rubs. Heart sounds are very di stant. ABDOMEN: Soft, nontender, without organomegaly, normal bowel sounds are noted in all 4 quadrants. U nable to appreciate organomegaly because of the patient's obesity. No rebound or guarding is noted. : Deferred. The patient is requesting Inman catheter, but we will try to refrain from a Inman bec ause of risk for urinary tract infection. EXTREMITIES: Reveal severe morbidly obese white female with diffuse lymphedema in both lower extremi ties, which she says is already much better. No significant clubbing or cyanosis are noted. NEUROLOGIC: Cranial exams II-XII are intact and the patient is oriented x3. ASSESSMENT: 1. Severe bilateral lower extremity lymphedema with cellulitis being treated, much improved. 2. Volume overload. 3. Essential hypertension. 4. Cardiomyopathy with left ventricular ejection fraction 65%, followed by Dr. Olivo. 5. History of asthma. 6. Normocytic anemia. 7. Chronic sleep apnea. 8. History of DVTs, presently not on anticoagulation. 9. Chronic hypokalemia. 10. History of group B strep bacteremia secondary to bilateral leg cellulitis in 2013. 11. Generalized weakness. PLAN: 1. Continue present medications that the patient is on. 2. Continue physical therapy and occupational therapy. 3. Daily weight. 4. Pen-Vee K 250 mg q.i.d. 5. Physical therapy and occupational therapy to be consulted. 6. Patient to wear her lymphedema wraps every day. 7. The patient had fluid restrictions down to 1800, if that is more done, 1600. 8. Consult physical therapy and occupational therapy. 9. Labs tomorrow morning.
[2018-07-17] MEDS ORDERED: Spironolactone 25 MG TAB PO SCH (21:00)
[2018-07-17] MEDS ORDERED: Ferrous Sulfate 325 MG TAB PO SCH (21:00)
[2018-07-17] MEDS ORDERED: Furosemide 40 MG TAB PO SCH (21:00)
[2018-07-17] MEDS ORDERED: Gabapentin 300 MG CAP PO SCH (21:00)
[2018-07-17] MEDS ORDERED: Pramipexole Di-HCl 0.25 MG TAB PO SCH (21:00)
[2018-07-18] MEDS: Acetaminophen 500 MG TAB PO PRN (03:11)
[2018-07-18 05:28] LABS: #Basophils 0.1 thou/uL (0.0-0.2); #Eosinphils 0.4 thou/uL (0.0-0.7); #Lymphocytes 0.9 thou/uL (1.20-3.40); #Monocytes 0.6 thou/uL (0.11-0.59); #Neutrophils 3.6 thou/uL (1.40-6.50); %Eosinophils 7.4 % (0.0-10.0); %Lymphocytes 16.4 % (21.0-51.0); %Monocytes 9.9 % (0.0-10.0); %Neutrophils 65.3 % (42.0-75.0); Anisocytosis SLIGHT = 6-15 cells (100X) (0-5/hpf); Hemoglobin 8.5 g/dL (12.0-16.0); Hypochromia SLIGHT = 6-15 cells (100X) (0-5/hpf); MDiff Complete? YES; Mean Corpuscular HGB CONC 30.5 g/dL (32.0-36.0); Mean Corpuscular Hemoglobin 24.2 pg (27.0-31.0); Mean Corpuscular Volume 79.5 fL (78.0-98.0); Mean Platelet Volume 5.9 fL (7.4-10.4); Microcytosis SLIGHT = 6-15 cells (100X) (0-5/hpf); Platelet Count 205 thou/uL (130-400); Poikilocytosis SLIGHT = 6-15 cells (100X) (0-5/hpf); RBC Distribution Width 14.4 % (11.5-14.5); Red Blood Cell (RBC) Count 3.51 mill/uL (4.20-5.40); White Blood Cell (WBC) Count 5.6 thou/uL (4.8-10.8)
[2018-07-18 05:43] LABS: ALT (SGPT) 14 U/L (8-55); AST (SGOT) 17 U/L (5-34); Albumin 3.6 g/dL (3.5-5.0); Alkaline Phosphatase 130 U/L (40-150); Anion Gap 12 mmol/L (10-20); BUN (Urea Nitrogen) 23 mg/dL (9.8-20.1); Bilirubin, Total 0.2 mg/dL (0.2-1.2); Calc. Creatinine Clearance 0 mL/min (70-130); Calcium 8.9 mg/dL (7.8-10.44); Carbon Dioxide 31 mmol/L (22-29); Chloride 100 mmol/L (98-107); Estimated GFR-MDRD 49; Globulin 3.2 g/dL (2.4-3.5); Glucose 104 mg/dL (70-105); Potassium 4.2 mmol/L (3.5-5.1); Protein, Total 6.8 g/dL (6.0-8.3); Sodium 139 mmol/L (136-145)
[2018-07-18] MEDS ORDERED: Aspirin 81 mg Enteric Coated Tablet PO SCH (09:00)
[2018-07-18] MEDS ORDERED: Bupropion 150 MG XL TAB PO SCH (09:00)
[2018-07-18] MEDS ORDERED: Montelukast Sodium 10 mg Tablet PO SCH (09:00)
[2018-07-18] MEDS ORDERED: Folic Acid 1 MG TAB PO SCH (09:00)
[2018-07-18] MEDS ORDERED: POTASSIUM CHLORIDE 10 MEQ PO SCH (09:00)
[2018-07-18] MEDS: Cefdinir 300 MG CAP PO SCH ×2 (09:11→21:16)
[2018-07-18] MEDS: Gabapentin 300 MG CAP PO SCH ×3 (09:12→21:17)
[2018-07-18] MEDS: Montelukast Sodium 10 mg Tablet PO SCH (09:12)
[2018-07-18] MEDS: Bupropion 150 MG XL TAB PO SCH (09:13)
[2018-07-18] MEDS: Ferrous Sulfate 325 MG TAB PO SCH (09:13)
[2018-07-18] MEDS: Aspirin 81 mg Enteric Coated Tablet PO SCH (09:13)
[2018-07-18] MEDS: Pramipexole Di-HCl 0.25 MG TAB PO SCH ×2 (09:13→21:18)
[2018-07-18] MEDS: Penicillin V Potassium 250 MG TAB PO SCH ×4 (09:13→21:18)
[2018-07-18] MEDS: Furosemide 40 MG TAB PO SCH ×2 (09:13→13:42)
[2018-07-18] MEDS: Folic Acid 1 MG TAB PO SCH (09:14)
[2018-07-18] MEDS: Potassium Chloride 10 MEQ TAB PO SCH (09:14)
[2018-07-18] MEDS: Spironolactone 25 MG TAB PO SCH ×2 (09:14→21:18)
[2018-07-18] MEDS: Morphine ER 15 MG TAB PO PRN ×2 (10:59→21:19)
[2018-07-18] MEDS: Ondansetron ODT 4 MG TAB PO PRN (11:03)
[2018-07-18 12:13] LABS: Hemoglobin A1c 5.3 % (4.0-6.0)
[2018-07-18 13:11] LABS: Bilirubin Negative (Negative); Blood, Urine Small (Negative); Clarity Clear (Clear); Glucose, Urine (Dipstick) Negative (Negative); Leukocyte Trace (Negative); Nitrite Negative (Negative); Protein, Urine (Dipstick) Negative (Neg-Trace); Urobilinogen 0.2 mg/dL (0.2-1.0)
[2018-07-18 13:54] LABS: Bacteria/HPF 1+ HPF (None Seen); RBC/HPF 0-3 HPF (0-3); WBC/HPF 0-3 HPF (0-3)
[2018-07-18] MEDS: ALPRAZolam 0.25 MG TAB PO PRN (16:26)
[2018-07-18] MEDS ORDERED: Nystatin Powder 15 GM BOT TOP PRN (18:49)
[2018-07-18] MEDS: Nystatin Powder 15 GM BOT TOP SCH (21:17)
[2018-07-19] MEDS: ALPRAZolam 0.25 MG TAB PO PRN ×2 (00:04→23:12)
[2018-07-19] MEDS: HYDROcodone/Acetaminophen 7.5/325 mg Tablet PO PRN ×2 (03:41→16:10)
[2018-07-19] MEDS: Furosemide 40 MG TAB PO SCH ×2 (08:21→14:18)
[2018-07-19] MEDS: Penicillin V Potassium 250 MG TAB PO SCH ×4 (08:21→20:26)
[2018-07-19] MEDS: Ferrous Sulfate 325 MG TAB PO SCH (08:21)
[2018-07-19] MEDS: Potassium Chloride 10 MEQ TAB PO SCH (08:21)
[2018-07-19] MEDS: Pramipexole Di-HCl 0.25 MG TAB PO SCH ×2 (08:21→20:26)
[2018-07-19] MEDS: Aspirin 81 mg Enteric Coated Tablet PO SCH (08:21)
[2018-07-19] MEDS: Folic Acid 1 MG TAB PO SCH (08:21)
[2018-07-19] MEDS: Montelukast Sodium 10 mg Tablet PO SCH (08:21)
[2018-07-19] MEDS: Bupropion 150 MG XL TAB PO SCH (08:21)
[2018-07-19] MEDS: Gabapentin 300 MG CAP PO SCH ×3 (08:21→20:26)
[2018-07-19] MEDS: Cefdinir 300 MG CAP PO SCH ×2 (08:22→20:26)
[2018-07-19] MEDS: Nystatin Powder 15 GM BOT TOP SCH ×2 (08:22→20:27)
[2018-07-19] MEDS: Spironolactone 25 MG TAB PO SCH ×2 (08:22→20:26)
[2018-07-19] MEDS: Morphine ER 15 MG TAB PO PRN ×2 (09:41→20:27)
--- NOTE | 2018-07-19 19:58 | PRG ---
DATE OF ADMISSION: 07/16/2018 DATE OF SERVICE: 07/18/2018 HISTORY OF PRESENT ILLNESS: This patient is a 58-year-old, severely morbidly obese white female that presented to the emergency room at [facility] with severe lymphedema, lymphadeni tis and cellulitis. She was started on vancomycin and Rocephin. She was switched over to oral antib iotics of Omnicef and was transferred to [facility] for physical therapy and occupati onal therapy. The patient states she is doing better, but she would like to have a Inman catheter in, so she did no t have to get up out of bed. With a significant discussion about urinary tract infections and that we really do not want to put an indwelling catheter in her at this time. She is very disappointed but understands, but she may give me some more hassle about that later on in the week. LABORATORY DATA: Reveal white count 5600, hemoglobin 8.5, hematocrit 27.9, platelet count 205,000. Chemistry reveals sodium 139, potassium 4.2, chloride 100, carbon dioxide 31. BUN is 23, creatinine 1.14. Hemoglobin A1c is 5.3. PHYSICAL EXAMINATION: VITAL SIGNS: This morning were blood pressure 125/56, pulse 74-80, respirations 18, O2 sat 93%-98% o n room air, T-max 98.2. GENERAL: This is a well-developed, well-nourished, morbidly obese white female in no apparent distre ss at this time. HEENT: Reveals normocephalic, nontraumatic cranium. Pupils equal, round, and reactive. Extraocular movements intact. Nose and throat are slightly dry. NECK: Supple, without mass, nodes or bruits. LUNGS: Chest is clear to auscultation. No rales, rhonchi, wheezes or cough is heard. CARDIOVASCULAR: Reveals a regular rate and rhythm. Heart sounds are distant. ABDOMEN: Morbidly obese. Soft, nontender. Unable to appreciate any organomegaly because of obesity . No rebound or guarding is noted. GENITOURINARY: Deferred without Inman catheter. Extremities: Reveals continued severe morbid obesity, but wraps are on at this time. I think they a re FarrowWraps. NEUROLOGIC: Cranial nerves II-XII are intact. IMPRESSION: 1. Severe bilateral lower extremity lymphedema with cellulitis which is much improved. 2. Essential hypertension. 3. Cardiomyopathy with left ventricular ejection fraction 65%, followed by Dr. Olivo. 4. Anemia. 5. Chronic sleep apnea. 6. Deep vein thrombosis by history, presently not on anticoagulation. 7. Chronic hypokalemia. 8. Group B strep bacteremia secondary to bilateral leg cellulitis in the past. 9. Generalized weakness. PLAN: 1. Continue present medications. 2. Continue physical therapy and occupational therapy. 3. Continue daily weight. 4. Continue Omnicef. 5. Stress ulcer prophylaxis. 6. Decubitus precautions. 7. Deep venous thrombosis prophylaxis. 8. Physical therapy and occupational therapy.
--- NOTE | 2018-07-19 20:03 | PRG ---
DATE OF SERVICE: 07/19/2018 HISTORY OF PRESENT ILLNESS: Ms. Acevedo is a very pleasant, but morbidly obese 58-year-old white femal e that presented to the emergency room at [facility] with severe lymphedema, lymp hadenitis and cellulitis. She was initially started on IV vancomycin and Rocephin. She was switched over to Omnicef. She was transferred to [facility] for physical therapy and occupat ional therapy because she can barely stand or walk. She lives independently with her mother who care s for her, but she needs to be able to walk. The patient states she is a little bit better today, but she still would like her Inman catheter in. We will refrain from starting with the Inman catheter. OBJECTIVE: VITAL SIGNS: This morning reveal blood pressure 117/56, pulse 72-87, respirations 18-20, O2 sat 93%- 100% on room air, T-max 98.3. GENERAL: This is a well-developed, morbidly obese white female, in no apparent distress at this time . HEENT: Reveals normocephalic, nontraumatic cranium. The pupils are equally round and reactive. Ext raocular movements intact. Nose and throat are slightly dry. NECK: Supple, without mass, nodes or bruits. CHEST: Clear to auscultation. No rales, rhonchi or wheezes are heard. CARDIOVASCULAR: Reveals a regular rate and rhythm. ABDOMEN: Morbidly obese, soft and without rebound or guarding. GENITOURINARY: Deferred. No Inman catheters in at this time. EXTREMITIES: Reveal no clubbing or cyanosis, but the patient has diffuse lymphedema and has FarrowWr aps on her legs at this time. NEUROLOGIC: The patient has no focal deficits. IMPRESSION: 1. Severe bilateral lower extremity lymphedema with cellulitis, which is much improved. 2. Hypertension. 3. Cardiomyopathy with left ventricular ejection fraction of 65%. The patient is followed by Dr. Guy. 4. Normocytic anemia. 5. Chronic sleep apnea. The patient wears CPAP nightly. 6. History of deep vein thrombosis, not on anticoagulation. 7. Chronic hypokalemia. 8. History of group B strep bacteremia secondary to bilateral leg cellulitis in 2013. 9. Generalized weakness. PLAN: 1. Continue present medications. 2. Continue aggressive physical therapy and occupational therapy. 3. Daily weights. 4. Limit the patient's oral intake to 1800 mL of fluid. 5. Continue physical therapy and occupational therapy. 6. The patient is to wear her lymphedema wraps or FarrowWraps daily. 7. We will repeat labs tomorrow.
[2018-07-20 05:10] LABS: #Basophils 0.1 thou/uL (0.0-0.2); #Eosinphils 0.4 thou/uL (0.0-0.7); #Lymphocytes 0.7 thou/uL (1.20-3.40); #Monocytes 0.6 thou/uL (0.11-0.59); #Neutrophils 3.5 thou/uL (1.40-6.50); %Basophils 1.3 % (0.0-1.0); %Lymphocytes 12.5 % (21.0-51.0); %Monocytes 11.3 % (0.0-10.0); Anisocytosis SLIGHT = 6-15 cells (100X) (0-5/hpf); Hemoglobin 8.3 g/dL (12.0-16.0); Hypochromia SLIGHT = 6-15 cells (100X) (0-5/hpf); MDiff Complete? YES; Mean Corpuscular HGB CONC 30.7 g/dL (32.0-36.0); Mean Corpuscular Hemoglobin 24.3 pg (27.0-31.0); Mean Corpuscular Volume 79.2 fL (78.0-98.0); Mean Platelet Volume 5.9 fL (7.4-10.4); Microcytosis SLIGHT = 6-15 cells (100X) (0-5/hpf); PLT Morphology Comment Appears Adequate; Platelet Count 189 thou/uL (130-400); Poikilocytosis SLIGHT = 6-15 cells (100X) (0-5/hpf); RBC Distribution Width 15.1 % (11.5-14.5); Red Blood Cell (RBC) Count 3.41 mill/uL (4.20-5.40); White Blood Cell (WBC) Count 5.2 thou/uL (4.8-10.8)
[2018-07-20 05:25] LABS: Anion Gap 13 mmol/L (10-20); BUN (Urea Nitrogen) 26 mg/dL (9.8-20.1); Calc. Creatinine Clearance 153 mL/min (70-130); Calcium 8.9 mg/dL (7.8-10.44); Carbon Dioxide 31 mmol/L (22-29); Chloride 99 mmol/L (98-107); Estimated GFR-MDRD 47; Glucose 108 mg/dL (70-105); Potassium 4.3 mmol/L (3.5-5.1); Sodium 139 mmol/L (136-145)
[2018-07-20] MEDS: Morphine ER 15 MG TAB PO PRN ×2 (05:27→15:08)
[2018-07-20] MEDS: Potassium Chloride 10 MEQ TAB PO SCH (08:12)
[2018-07-20] MEDS: Ferrous Sulfate 325 MG TAB PO SCH (08:13)
[2018-07-20] MEDS: Cefdinir 300 MG CAP PO SCH ×2 (08:13→21:00)
[2018-07-20] MEDS: Aspirin 81 mg Enteric Coated Tablet PO SCH (08:13)
[2018-07-20] MEDS: Bupropion 150 MG XL TAB PO SCH (08:13)
[2018-07-20] MEDS: Gabapentin 300 MG CAP PO SCH ×3 (08:14→21:00)
[2018-07-20] MEDS: Folic Acid 1 MG TAB PO SCH (08:14)
[2018-07-20] MEDS: Montelukast Sodium 10 mg Tablet PO SCH (08:14)
[2018-07-20] MEDS: Penicillin V Potassium 250 MG TAB PO SCH ×4 (08:14→21:00)
[2018-07-20] MEDS: Furosemide 40 MG TAB PO SCH ×2 (08:14→13:15)
[2018-07-20] MEDS: Nystatin Powder 15 GM BOT TOP SCH ×2 (08:15→21:01)
[2018-07-20] MEDS: Pramipexole Di-HCl 0.25 MG TAB PO SCH ×2 (08:15→21:00)
[2018-07-20] MEDS: Spironolactone 25 MG TAB PO SCH ×2 (08:16→21:00)
[2018-07-20] MEDS: ALPRAZolam 0.25 MG TAB PO PRN ×2 (08:28→21:04)
[2018-07-20] MEDS: HYDROcodone/Acetaminophen 7.5/325 mg Tablet PO PRN ×2 (08:28→21:04)
[2018-07-21] MEDS: Potassium Chloride 10 MEQ TAB PO SCH (08:26)
[2018-07-21] MEDS: Bupropion 150 MG XL TAB PO SCH (08:26)
[2018-07-21] MEDS: Aspirin 81 mg Enteric Coated Tablet PO SCH (08:26)
[2018-07-21] MEDS: Ferrous Sulfate 325 MG TAB PO SCH (08:27)
[2018-07-21] MEDS: Folic Acid 1 MG TAB PO SCH (08:27)
[2018-07-21] MEDS: Furosemide 40 MG TAB PO SCH ×2 (08:27→13:48)
[2018-07-21] MEDS: Cefdinir 300 MG CAP PO SCH ×2 (08:27→21:14)
[2018-07-21] MEDS: Gabapentin 300 MG CAP PO SCH ×3 (08:27→21:14)
[2018-07-21] MEDS: Pramipexole Di-HCl 0.25 MG TAB PO SCH ×2 (08:27→21:14)
[2018-07-21] MEDS: Penicillin V Potassium 250 MG TAB PO SCH ×4 (08:28→21:14)
[2018-07-21] MEDS: Nystatin Powder 15 GM BOT TOP SCH ×2 (08:28→21:16)
[2018-07-21] MEDS: Montelukast Sodium 10 mg Tablet PO SCH (08:28)
[2018-07-21] MEDS: Morphine ER 15 MG TAB PO PRN ×2 (08:29→16:37)
[2018-07-21] MEDS: Spironolactone 25 MG TAB PO SCH ×2 (08:29→21:14)
[2018-07-21] MEDS: HYDROcodone/Acetaminophen 7.5/325 mg Tablet PO PRN ×2 (10:48→21:14)
[2018-07-21] MEDS: ALPRAZolam 0.25 MG TAB PO PRN ×2 (10:48→21:14)
[2018-07-22] MEDS: Morphine ER 15 MG TAB PO PRN ×3 (04:49→20:34)
[2018-07-22] MEDS: Potassium Chloride 10 MEQ TAB PO SCH (08:01)
[2018-07-22] MEDS: Penicillin V Potassium 250 MG TAB PO SCH ×4 (08:32→20:30)
[2018-07-22] MEDS: Cefdinir 300 MG CAP PO SCH ×2 (08:33→20:29)
[2018-07-22] MEDS: Spironolactone 25 MG TAB PO SCH ×2 (08:34→20:30)
[2018-07-22] MEDS: Pramipexole Di-HCl 0.25 MG TAB PO SCH ×2 (08:34→20:30)
[2018-07-22] MEDS: Ferrous Sulfate 325 MG TAB PO SCH (08:34)
[2018-07-22] MEDS: Bupropion 150 MG XL TAB PO SCH (08:34)
[2018-07-22] MEDS: Montelukast Sodium 10 mg Tablet PO SCH (08:34)
[2018-07-22] MEDS: Aspirin 81 mg Enteric Coated Tablet PO SCH (08:34)
[2018-07-22] MEDS: Gabapentin 300 MG CAP PO SCH ×3 (08:34→20:29)
[2018-07-22] MEDS: Furosemide 40 MG TAB PO SCH ×2 (08:34→14:05)
[2018-07-22] MEDS: Folic Acid 1 MG TAB PO SCH (08:34)
[2018-07-22] MEDS: HYDROcodone/Acetaminophen 7.5/325 mg Tablet PO PRN (08:36)
[2018-07-22] MEDS: Nystatin Powder 15 GM BOT TOP SCH ×2 (08:37→20:29)
[2018-07-22] MEDS: ALPRAZolam 0.25 MG TAB PO PRN ×2 (14:05→20:35)
[2018-07-22] MEDS: Acetaminophen 500 MG TAB PO PRN (15:45)
[2018-07-22] MEDS: Milk Of Magnesia 30 ML UDCUP PO PRN (17:43)
--- NOTE | 2018-07-22 17:47 | PRG ---
DATE OF SERVICE: 07/20/2018 SUBJECTIVE: The patient is lying in bed, resting. No complaints at rest except for her recurrent ep isodes of nocturnal jerks and spasm which has been evaluated by multiple physicians with unknown etio logy. She has been having decreasing swelling of her legs and is having no dyspnea at rest. OBJECTIVE: VITAL SIGNS: Her temperature 97.9, pulse 78, respirations 20, O2 sats 97% on room air. LUNGS: Show decreased breath sounds in bases. CARDIAC: Shows regular rhythm. No gallops or murmurs. ABDOMEN: Morbidly obese, soft and nontender. SKIN AND EXTREMITIES: Show morbid obesity with diffuse lymphedema. Farrow wraps in place. LABORATORY DATA: Laboratory today showed a white count 5200, hematocrit 27, hemoglobin 8.3. Sodium 139, potassium 4.3, chloride 99, bicarbonate 31, BUN 26, creatinine 1.19, glucose 108, hemoglobin A1c 5.3, calcium 8.9. ASSESSMENT: 1. Bilateral lower extremity lymphedema with resolving cellulitis. 2. Hypertension, controlled to goal. 3. Diastolic heart failure, ejection fraction 65%. 4. Obstructive sleep apnea, compliant to CPAP. 5. Generalized weakness. 6. Recurrent episodes of muscle jerks or spasm, unknown etiology. PLAN: Continue PT, OT daily weights. Continue fluid restriction. Continue medications per Dr. Denice duckworth.
--- NOTE | 2018-07-22 17:58 | PRG ---
DATE OF SERVICE: 07/22/2018 SUBJECTIVE: The patient is lying in bed sleeping. Apparently has been noncompliant to fluid restric tion and has a root 44 cup on her bedside stand. She denies any shortness of breath or chest pain at rest and did not have any therapy today. She states she still is having recurrent myoclonic spasms, which have not been diagnosed or treated by her neurologist, Dr. Jules. OBJECTIVE: VITAL SIGNS: Shows her blood pressure is 132/61, temperature 98, pulse 82, respirations 20, O2 sats 93% on room air. LUNGS: Show decreased breath sounds diffusely. CARDIAC: Shows regular rhythm. ABDOMEN: Obese and nontender. SKIN AND EXTREMITIES: Wrapped in Farrow wraps, morbidly obese with no erythema or tenderness. ASSESSMENT: 1. Stable lymphedema with resolving cellulitis 2. Diastolic heart failure, appears to be stable at this time, on oral furosemide. 3. Severe deconditioning, working with physical therapy to hopefully be able to transfer to a chair. 4. Recurrent myoclonic episodes of unknown etiology. We will continue to monitor.
--- NOTE | 2018-07-22 18:00 | PRG ---
DATE OF SERVICE: 07/21/2018 SUBJECTIVE: The patient is sleeping with no complaints, shortness of breath. No visible jerking dur ing her sleep, although she says this does occur. OBJECTIVE: VITAL SIGNS: Temperature is 98.1, pulse 85, respirations 20, O2 sats 95% on 2 liters, blood pressure 119/54. LUNGS: Clear, decreased breath sounds in the bases. CARDIAC: Regular rhythm. ABDOMEN: Obese and nontender. SKIN AND EXTREMITIES: FarrowWrap, morbidly obese with decreased erythema. ASSESSMENT: 1. Lymphedema, stable with FarrowWrap with resolving cellulitis. 2. Deconditioning, improved. Working with therapy. 3. Recurrent exacerbation of diastolic heart failure, improved with recent hospitalization at [facility] with stable renal function, on diuretics of furosemide 40 twice daily. PLAN: 1. Continue cefdinir 300 twice daily until 07/26/2018. 2. Continue furosemide 40 twice daily. 3. Continue PT/OT. 4. Continue morphine per recommendation of Dr. Sis pizarro pain.
[2018-07-23] MEDS: HYDROcodone/Acetaminophen 7.5/325 mg Tablet PO PRN ×2 (05:35→20:30)
[2018-07-23] MEDS: Potassium Chloride 10 MEQ TAB PO SCH (08:47)
[2018-07-23] MEDS: Furosemide 40 MG TAB PO SCH ×2 (08:47→14:34)
[2018-07-23] MEDS: Penicillin V Potassium 250 MG TAB PO SCH ×4 (08:47→20:30)
[2018-07-23] MEDS: Spironolactone 25 MG TAB PO SCH ×2 (08:47→20:30)
[2018-07-23] MEDS: Montelukast Sodium 10 mg Tablet PO SCH (08:47)
[2018-07-23] MEDS: Folic Acid 1 MG TAB PO SCH (08:47)
[2018-07-23] MEDS: Bupropion 150 MG XL TAB PO SCH (08:47)
[2018-07-23] MEDS: Pramipexole Di-HCl 0.25 MG TAB PO SCH ×2 (08:47→20:30)
[2018-07-23] MEDS: Gabapentin 300 MG CAP PO SCH ×3 (08:47→20:29)
[2018-07-23] MEDS: Cefdinir 300 MG CAP PO SCH ×2 (08:47→20:29)
[2018-07-23] MEDS: Aspirin 81 mg Enteric Coated Tablet PO SCH (08:47)
[2018-07-23] MEDS: Ferrous Sulfate 325 MG TAB PO SCH (08:48)
[2018-07-23] MEDS: Nystatin Powder 15 GM BOT TOP SCH ×2 (08:48→20:30)
[2018-07-23] MEDS: Morphine ER 15 MG TAB PO PRN ×2 (09:47→18:15)
[2018-07-23] MEDS: Acetaminophen 500 MG TAB PO PRN (11:13)
[2018-07-23] MEDS: ALPRAZolam 0.25 MG TAB PO PRN ×2 (11:13→20:30)
[2018-07-23] MEDS: Milk Of Magnesia 30 ML UDCUP PO PRN (14:34)
[2018-07-23] MEDS: Ondansetron ODT 4 MG TAB PO PRN (15:06)
[2018-07-24] MEDS: Morphine ER 15 MG TAB PO PRN ×3 (01:02→17:29)
[2018-07-24] MEDS: HYDROcodone/Acetaminophen 7.5/325 mg Tablet PO PRN ×2 (06:07→20:04)
[2018-07-24] MEDS: Guaifenesin DM 100-10/5 ML UDCUP PO PRN (07:21)
[2018-07-24] MEDS: Potassium Chloride 10 MEQ TAB PO SCH (08:23)
[2018-07-24] MEDS: Aspirin 81 mg Enteric Coated Tablet PO SCH (08:23)
[2018-07-24] MEDS: Furosemide 40 MG TAB PO SCH ×2 (08:24→12:57)
[2018-07-24] MEDS: Cefdinir 300 MG CAP PO SCH ×2 (08:24→20:03)
[2018-07-24] MEDS: Folic Acid 1 MG TAB PO SCH (08:24)
[2018-07-24] MEDS: Ferrous Sulfate 325 MG TAB PO SCH (08:24)
[2018-07-24] MEDS: Gabapentin 300 MG CAP PO SCH ×3 (08:24→20:03)
[2018-07-24] MEDS: Bupropion 150 MG XL TAB PO SCH (08:24)
[2018-07-24] MEDS: Montelukast Sodium 10 mg Tablet PO SCH (08:25)
[2018-07-24] MEDS: Nystatin Powder 15 GM BOT TOP SCH ×2 (08:25→20:03)
[2018-07-24] MEDS: Penicillin V Potassium 250 MG TAB PO SCH ×4 (08:25→20:03)
[2018-07-24] MEDS: Pramipexole Di-HCl 0.25 MG TAB PO SCH ×2 (08:25→20:04)
[2018-07-24] MEDS: Spironolactone 25 MG TAB PO SCH ×2 (08:28→20:04)
[2018-07-24] MEDS ORDERED: Magnesium Citrate 300 ML BOT PO SCH (09:45)
--- NOTE | 2018-07-24 10:00 | PRG ---
DATE OF SERVICE: 07/24/2018 HISTORY OF PRESENT ILLNESS: Ms. Acevedo is a very pleasant 58-year-old morbidly obese white female eugenio t presented to [facility] with shortness of breath and lymphadenitis, cellulitis and severe lymphedema. She was started on IV vancomycin and Rocephin and switched over to Omnicef. She was transferred to [facility] for physical therapy and occupational therapy and c ontinue diuresis. She lives independently in her home with her mom. She needs to be able to walk be fore she can go home. The patient states she is doing well except she is constipated. She states she has not had a bowel m ovement since she arrived here. VITAL SIGNS: This morning reveal blood pressure is 115/53, pulse 90, respirations 18, O2 sat 91-88% on room air, T-max 97.7. PHYSICAL EXAMINATION: GENERAL: This is a well-developed, well-nourished, morbidly obese white female in no apparent distre ss at this time. HEENT: Reveals normocephalic, nontraumatic cranium. Pupils are equally round and reactive. Extraoc ular movements intact. Nose and throat are slightly dry, but clear. NECK: Supple, without mass, nodes or bruits. CHEST: Clear to auscultation. No rales, rhonchi, wheezes are heard. Breath sounds are distant decr eased, but normal for her. CARDIOVASCULAR: Heart reveals a regular rate and rhythm without murmurs, gallops or rubs. ABDOMEN: Morbidly obese, soft, nontender. Organomegaly is not able to be felt because of the patien t's morbid obesity. The patient has no rebound or guarding. : Deferred. No Inman catheter is in place. EXTREMITIES: Reveal no clubbing, cyanosis or edema. The patient is getting ready to take a shower a nd get her Farrow wraps. IMPRESSION: 1. Cellulitis, resolving. 2. Severe lymphedema. 3. Hypertension. 4. History of cardiomyopathy. Left ventricular ejection fraction 65%, followed by Dr. Olivo. 5. Normocytic anemia. 6. Chronic sleep apnea. The patient wears a CPAP nightly. 7. History of deep venous thrombosis, not on anticoagulation. 8. Chronic hypokalemia. 9. History of group B strep bacteremia secondary to bilateral leg cellulitis in 2013. 10. Generalized weakness. PLAN: 1. Continue present meds. 2. Continue aggressive physical therapy and occupational therapy. 3. Daily weights. 4. Limit the patient's oral intake to 1800 mL daily. 5. Continue PT and OT. 6. Wear lymphedema wraps daily. 7. Repeat labs now.
[2018-07-24 11:25] LABS: ALT (SGPT) 16 U/L (8-55); AST (SGOT) 20 U/L (5-34); Albumin 4.3 g/dL (3.5-5.0); Alkaline Phosphatase 133 U/L (40-150); Anion Gap 16 mmol/L (10-20); BUN (Urea Nitrogen) 25 mg/dL (9.8-20.1); Bilirubin, Total 0.4 mg/dL (0.2-1.2); Calc. Creatinine Clearance 128 mL/min (70-130); Calcium 9.2 mg/dL (7.8-10.44); Carbon Dioxide 26 mmol/L (22-29); Chloride 97 mmol/L (98-107); Estimated GFR-MDRD 38; Globulin 3.6 g/dL (2.4-3.5); Glucose 100 mg/dL (70-105); Potassium 4.3 mmol/L (3.5-5.1); Protein, Total 7.9 g/dL (6.0-8.3); Sodium 135 mmol/L (136-145)
[2018-07-24] MEDS: ALPRAZolam 0.25 MG TAB PO PRN (20:04)
[2018-07-25] MEDS: Guaifenesin DM 100-10/5 ML UDCUP PO PRN (03:49)
[2018-07-25 05:50] LABS: Anion Gap 16 mmol/L (10-20); BUN (Urea Nitrogen) 25 mg/dL (9.8-20.1); Calc. Creatinine Clearance 125 mL/min (70-130); Calcium 9.6 mg/dL (7.8-10.44); Carbon Dioxide 30 mmol/L (22-29); Chloride 96 mmol/L (98-107); Estimated GFR-MDRD 37; Glucose 128 mg/dL (70-105); Potassium 4.9 mmol/L (3.5-5.1); Sodium 137 mmol/L (136-145)
[2018-07-25] MEDS: Acetaminophen 500 MG TAB PO PRN (09:00)
[2018-07-25] MEDS ORDERED: Gabapentin 300 MG CAP PO SCH (09:01)
[2018-07-25] MEDS: Ferrous Sulfate 325 MG TAB PO SCH (09:41)
[2018-07-25] MEDS: Cefdinir 300 MG CAP PO SCH ×2 (09:41→20:50)
[2018-07-25] MEDS: Bupropion 150 MG XL TAB PO SCH (09:41)
[2018-07-25] MEDS: Aspirin 81 mg Enteric Coated Tablet PO SCH (09:42)
[2018-07-25] MEDS: Potassium Chloride 10 MEQ TAB PO SCH (09:42)
[2018-07-25] MEDS: Penicillin V Potassium 250 MG TAB PO SCH ×4 (09:42→20:50)
[2018-07-25] MEDS: Pramipexole Di-HCl 0.25 MG TAB PO SCH ×2 (09:42→20:50)
[2018-07-25] MEDS: Furosemide 40 MG TAB PO SCH ×2 (09:43→14:30)
[2018-07-25] MEDS: Folic Acid 1 MG TAB PO SCH (09:43)
[2018-07-25] MEDS: Montelukast Sodium 10 mg Tablet PO SCH (09:43)
[2018-07-25] MEDS: Spironolactone 25 MG TAB PO SCH ×2 (09:44→20:50)
[2018-07-25] MEDS: Nystatin Powder 15 GM BOT TOP SCH ×2 (09:44→20:53)
[2018-07-25] MEDS: Gabapentin 300 MG CAP PO SCH (09:49)
[2018-07-25 09:54] LABS: #Basophils 0.1 thou/uL (0.0-0.2); #Eosinphils 0.3 thou/uL (0.0-0.7); #Lymphocytes 0.4 thou/uL (1.20-3.40); #Monocytes 0.5 thou/uL (0.11-0.59); #Neutrophils 8.3 thou/uL (1.40-6.50); %Basophils 1.2 % (0.0-1.0); %Eosinophils 2.9 % (0.0-10.0); %Lymphocytes 4.4 % (21.0-51.0); %Monocytes 5.6 % (0.0-10.0); %Neutrophils 85.9 % (42.0-75.0); Hemoglobin 9.8 g/dL (12.0-16.0); Mean Corpuscular HGB CONC 29.7 g/dL (32.0-36.0); Mean Corpuscular Hemoglobin 24.9 pg (27.0-31.0); Mean Corpuscular Volume 83.8 fL (78.0-98.0); Mean Platelet Volume 6.4 fL (7.4-10.4); Platelet Count 208 thou/uL (130-400); RBC Distribution Width 15.6 % (11.5-14.5); Red Blood Cell (RBC) Count 3.95 mill/uL (4.20-5.40); White Blood Cell (WBC) Count 9.7 thou/uL (4.8-10.8)
--- NOTE | 2018-07-25 11:42 | PRG ---
DATE OF SERVICE: 07/25/2018 DATE OF ADMISSION: 07/16/2018 HISTORY OF PRESENT ILLNESS: Ms. Acevedo is a 58-year-old morbidly obese white female who presented to [facility] with shortness of breath, lymphadenitis, cellulitis and severe lymphed epi. She was started on IV vancomycin and Rocephin, switched over to Omnicef and transferred to [facility]. She is here for PT and OT. This morning, the patient states she feels terrible. She has been somewhat delusional, did not know that it was morning, when they brought her breakfast, they brought her for supper. She h as a temperature of 101.2 at this time. Her Chem-7 this morning was actually very good. Her creatin ine went from 1.41 yesterday to 1.44 today. She is not complaining of any problems except she got a chill yesterday and had to get blankets piled on and this morning, she has a temperature of 101.2. W e will repeat a CBC now and get a urinalysis and get a chest x-ray. PHYSICAL EXAMINATION: VITAL SIGNS: This morning reveal blood pressure 129/65, pulse 86-112, respirations 18-22, temperatur e right now is 101.2, O2 sat 95%-96% on 1.5 liters. GENERAL: This is a well-developed, well-nourished, morbidly obese white female, complaint not feelin g well with a temperature of 101.2. HEENT: Reveals normocephalic, nontraumatic cranium. The pupils are equally round and reactive. Ext raocular movements intact. Nose and throat are dry. Face is red and flushed. NECK: Supple, without mass, nodes or bruits. LUNGS: Chest is clear to auscultation. No cough. No rales, no rhonchi, no wheezes are heard. CARDIOVASCULAR: Reveals a regular rate and rhythm without murmurs, gallops or rubs. ABDOMEN: Morbidly obese, soft, nontender, no rebound or guarding. GENITOURINARY: Deferred. No Inman catheter is in place. EXTREMITIES: Reveal no clubbing, cyanosis or edema. NEUROLOGIC: The patient is sitting in wheelchair in the [place], unable to do PT at this time. IMPRESSION: 1. Fever, unknown etiology. 2. Cellulitis pretty much resolved. 3. Severe lymphedema. 4. Hypertension. 5. History of cardiomyopathy with left ventricular ejection fraction 65%. 6. Normocytic anemia. 7. Chronic sleep apnea. 8. History of deep vein thrombosis. 9. Generalized weakness. The patient took Xanax on top of her [place] and her morphine and became somewhat disoriented and that might be some of the residual from this morning with her delusions. Also makes me wonder if she may have aspirated during that time, so we will also get a chest x-ray. PLAN: 1. CBC at this time. 2. Do urinalysis now. 3. Do chest x-ray. 4. Continue present meds. 5. Tylenol 1000 mg now. 6. Daily weight. 7. Continue to limit the patient's oral intake to 1800. 8. PT and OT as tolerated. 9. Lymphedema wraps. 10. CBC and Chem-7 tomorrow morning.
[2018-07-25] MEDS: Gabapentin 400 MG CAP PO SCH ×2 (15:03→20:50)
[2018-07-25 15:33] LABS: Bilirubin Negative (Negative); Blood, Urine Negative (Negative); Clarity Clear (Clear); Glucose, Urine (Dipstick) Negative (Negative); Leukocyte Negative (Negative); Nitrite Negative (Negative); Protein, Urine (Dipstick) Negative (Neg-Trace); Specific Gravity, Urine 1.015 (1.005-1.030); Urobilinogen 0.2 mg/dL (0.2-1.0); pH, Urine 7.5 (5.0-9.0)
[2018-07-25 15:40] LABS: Bacteria/HPF None Seen HPF (None Seen); RBC/HPF 0-3 HPF (0-3); Squamous Epithelial 0-3 HPF (0-3); WBC/HPF None Seen HPF (0-3)
[2018-07-25] MEDS: HYDROcodone/Acetaminophen 7.5/325 mg Tablet PO PRN (16:03)
--- NOTE | 2018-07-25 19:16 | RAD ---
PORTABLE AP CHEST X-RAY: 07/25/18 HISTORY: Fever and chills and cough. COMPARISON: 01/09/11. FINDINGS: The cardiac silhouette is magnified by projection but does appear mildly enlarged on this exam. Pulmo nary vasculature is also mildly increased but magnified by projection. No consolidation or pleural fl uid is evident on this exam. Osseous structures appear intact. IMPRESSION: Cardiomegaly with mild pulmonary vascular congestion. Correlation for mild CHF is suggested. POS: ELVI
[2018-07-25] MEDS: Morphine ER 15 MG TAB PO PRN (20:49)
[2018-07-25] MEDS: ALPRAZolam 0.25 MG TAB PO PRN (20:50)
[2018-07-26] MEDS: Morphine ER 15 MG TAB PO PRN ×2 (03:51→20:34)
[2018-07-26 05:54] LABS: #Basophils 0.1 thou/uL (0.0-0.2); #Eosinphils 0.3 thou/uL (0.0-0.7); #Lymphocytes 0.6 thou/uL (1.20-3.40); #Monocytes 0.8 thou/uL (0.11-0.59); #Neutrophils 7.3 thou/uL (1.40-6.50); %Basophils 0.9 % (0.0-1.0); %Eosinophils 3.8 % (0.0-10.0); %Lymphocytes 6.1 % (21.0-51.0); %Monocytes 8.8 % (0.0-10.0); %Neutrophils 80.4 % (42.0-75.0); Hemoglobin 7.6 g/dL (12.0-16.0); Mean Corpuscular HGB CONC 30.1 g/dL (32.0-36.0); Mean Corpuscular Volume 83.1 fL (78.0-98.0); Mean Platelet Volume 6.4 fL (7.4-10.4); Platelet Count 173 thou/uL (130-400); RBC Distribution Width 15.7 % (11.5-14.5); Red Blood Cell (RBC) Count 3.05 mill/uL (4.20-5.40); White Blood Cell (WBC) Count 9.1 thou/uL (4.8-10.8)
[2018-07-26 05:57] LABS: Anion Gap 11 mmol/L (10-20); BUN (Urea Nitrogen) 26 mg/dL (9.8-20.1); Calc. Creatinine Clearance 130 mL/min (70-130); Calcium 8.9 mg/dL (7.8-10.44); Carbon Dioxide 30 mmol/L (22-29); Chloride 98 mmol/L (98-107); Estimated GFR-MDRD 39; Glucose 121 mg/dL (70-105); Sodium 135 mmol/L (136-145)
[2018-07-26] MEDS: Potassium Chloride 10 MEQ TAB PO SCH (08:14)
[2018-07-26] MEDS: Cefdinir 300 MG CAP PO SCH ×2 (10:13→20:35)
[2018-07-26] MEDS: Bupropion 150 MG XL TAB PO SCH (10:13)
[2018-07-26] MEDS: Spironolactone 25 MG TAB PO SCH ×2 (10:13→20:35)
[2018-07-26] MEDS: Ferrous Sulfate 325 MG TAB PO SCH (10:14)
[2018-07-26] MEDS: Gabapentin 400 MG CAP PO SCH ×3 (10:14→20:35)
[2018-07-26] MEDS: Montelukast Sodium 10 mg Tablet PO SCH (10:15)
[2018-07-26] MEDS: Folic Acid 1 MG TAB PO SCH (10:15)
[2018-07-26] MEDS: Furosemide 40 MG TAB PO SCH ×2 (10:15→14:29)
[2018-07-26] MEDS: Aspirin 81 mg Enteric Coated Tablet PO SCH (10:15)
[2018-07-26] MEDS: Pramipexole Di-HCl 0.25 MG TAB PO SCH ×2 (10:15→20:35)
[2018-07-26] MEDS: Penicillin V Potassium 250 MG TAB PO SCH ×4 (10:15→20:35)
[2018-07-26] MEDS: Nystatin Powder 15 GM BOT TOP SCH ×2 (10:15→20:40)
[2018-07-26] MEDS: HYDROcodone/Acetaminophen 7.5/325 mg Tablet PO PRN (10:20)
--- NOTE | 2018-07-26 14:02 | PRG ---
DATE OF SERVICE: 07/26/2018 SUBJECTIVE: Ms. Acevedo is a 58-year-old morbidly obese white female that presented to [facility] with shortness of breath, lymphadenitis, cellulitis and severe lymphedema. She was started on IV vancomycin and Rocephin, switched over to Omnicef, was stabilized and transferred to [facility] for PT and OT. Yesterday, the patient was flushed, feverish, and somewhat delirious. She states she does not really remember me coming by. We did blood count lab work, which all basically within normal limits, did a chest x-ray and urinalysis which were unremarkable. Today, the patient is much more awake and alert. States she feels much better, back to her normal. Her therapist says she is doing much better today. OBJECTIVE: VITAL SIGNS: Today reveal blood pressure 115/75, pulse 91, respirations 20, O2 sat 91 on room air, 97 on 1.5 liters. T-max 99.4. LABORATORY DATA: Today reveals white count 9000, which is decreased from yesterday, hemoglobin 7.6, hematocrit 25.3 with a platelet count of 173,000. Chemistry reveals sodium 135, potassium 4.0, chloride 98, carbon dioxide 30 with a BUN of 26, creatinine 1.38, which is lower than yesterday. PHYSICAL EXAMINATION: GENERAL: This is a well-developed, well-nourished, very pleasant, morbidly obese white female in no apparent distress at this time. HEENT: Reveals normocephalic, nontraumatic cranium. Pupils equal, round, and reactive. Extraocular movements intact. Nose and throat are clear and dry today. NECK: Supple, without mass, nodes or bruits. LUNGS: The chest is clear to auscultation. The patient states she does cough up some brown sputum at times. We will try to get a sputum specimen. No rales , no rhonchi, no wheezes are heard. CARDIOVASCULAR: Reveals a regular rate and rhythm without murmurs, gallops or rubs. ABDOMEN: Morbidly obese, soft, nontender, without organomegaly that can be appreciated. No rebound or guarding is noted. : Deferred. EXTREMITIES: Reveal no clubbing, cyanosis or edema. NEUROLOGIC: Patient is alert and oriented, back to her baseline at 3. IMPRESSION: 1. Fever, unknown etiology. 2. Cellulitis, resolved. 3. Severe lymphedema, stable. 4. Hypertension. 5. History of cardiomyopathy with left ventricular ejection fraction 65%. 6. Normocytic anemia. 7. Chronic sleep apnea and the patient does wear CPAP every night. 8. Past history of deep vein thrombosis. 9. Generalized weakness. PLAN: 1. The patient is much improved, most likely will do lab work Sunday. Continue to follow the patient closely. 2. Stress ulcer prophylaxis. 3. Decubitus precautions. 4. Deep venous thrombosis prophylaxis. 5. Continue limit the patient's liquid intake to 1800 mL 6. Tylenol 1000 mg q.6 hours p.r.n. 7. Continue physical therapy and occupational therapy. 8. We will continue lymphedema wraps. [facility]
[2018-07-26] MEDS: ALPRAZolam 0.25 MG TAB PO PRN (20:35)
[2018-07-27] MEDS: HYDROcodone/Acetaminophen 7.5/325 mg Tablet PO PRN ×2 (04:24→10:50)
--- NOTE | 2018-07-27 08:06 | PRG ---
DATE OF SERVICE: 07/27/2018 HISTORY OF PRESENT ILLNESS: Ms. Acevedo is a very pleasant morbidly obese 58-year-old white female eugenio t states she is doing well. She slept much better last night and she feels much better this morning. She is still very weak. She has lost down to 404 pounds from admission weight of 418. She states she still gets a little short of breath and wants to know if she can have DuoNeb. I did check her MA R and her DuoNeb were ordered p.r.n. She has no other complaints today. PHYSICAL EXAMINATION: VITAL SIGNS: Today reveal blood pressure 125/56, pulse 81, respirations 20, O2 saturation 97% on evon m air, T-max 98.7. Weight this morning is 404. GENERAL: This is a well-developed, morbidly obese white female, in no apparent distress at this time . HEENT: Reveals normocephalic, nontraumatic cranium. Pupils are equally round and reactive. Extraoc ular movements intact. Nose and throat are slightly dry. NECK: Supple, without mass, nodes, bruits. LUNGS: Chest is clear to auscultation. No rales, rhonchi or wheezes are heard. CARDIOVASCULAR: Heart reveals a regular rate and rhythm. ABDOMEN: Soft, nontender, without organomegaly. Normal bowel sounds are noted. No rebound or guard ing is noted. GENITOURINARY: Deferred. EXTREMITIES: Reveal no clubbing, cyanosis with continued lymphedema. NEUROLOGIC: Patient is oriented x3, back to her baseline. IMPRESSION: 1. Fever, unknown etiology, resolved. 2. Cellulitis, resolved. 3. Severe lymphedema, stable. 4. Morbid obesity. 5. Hypertension. 6. History of cardiomyopathy, left ventricular ejection fraction of 65%. 7. Normocytic anemia. 8. Chronic sleep apnea. The patient does wear CPAP every night. 9. History of deep venous thrombosis. 10. Generalized weakness. PLAN: 1. Wear her FarrowWraps daily. 2. Repeat labs tomorrow. 3. Continue to monitor the patient's blood pressure. 4. DuoNeb are already in the patient's MAR p.r.n. 5. Decubitus precautions. 6. Stress ulcer prophylaxis. 7. Deep venous thrombosis prophylaxis. 8. Limit the patient's liquids to 1800 mL a day. 9. Tylenol p.r.n. 10. Continue PT and OT. 11. Out of bed as much as possible today.
[2018-07-27] MEDS: Penicillin V Potassium 250 MG TAB PO SCH ×4 (08:36→19:59)
[2018-07-27] MEDS: Spironolactone 25 MG TAB PO SCH ×2 (08:36→19:59)
[2018-07-27] MEDS: Ferrous Sulfate 325 MG TAB PO SCH (08:36)
[2018-07-27] MEDS: Bupropion 150 MG XL TAB PO SCH (08:36)
[2018-07-27] MEDS: Furosemide 40 MG TAB PO SCH ×2 (08:36→13:09)
[2018-07-27] MEDS: Pramipexole Di-HCl 0.25 MG TAB PO SCH ×2 (08:36→19:59)
[2018-07-27] MEDS: Aspirin 81 mg Enteric Coated Tablet PO SCH (08:36)
[2018-07-27] MEDS: Folic Acid 1 MG TAB PO SCH (08:37)
[2018-07-27] MEDS: Montelukast Sodium 10 mg Tablet PO SCH (08:37)
[2018-07-27] MEDS: Nystatin Powder 15 GM BOT TOP SCH ×2 (08:37→20:01)
[2018-07-27] MEDS: Gabapentin 400 MG CAP PO SCH ×3 (08:37→19:59)
[2018-07-27] MEDS: Potassium Chloride 10 MEQ TAB PO SCH (08:37)
[2018-07-27] MEDS: Morphine ER 15 MG TAB PO PRN (19:57)
[2018-07-27] MEDS: ALPRAZolam 0.25 MG TAB PO PRN (19:57)
[2018-07-28] MEDS: HYDROcodone/Acetaminophen 7.5/325 mg Tablet PO PRN ×2 (03:11→08:46)
[2018-07-28 05:40] LABS: ALT (SGPT) 12 U/L (8-55); AST (SGOT) 14 U/L (5-34); Albumin 3.7 g/dL (3.5-5.0); Alkaline Phosphatase 93 U/L (40-150); Anion Gap 14 mmol/L (10-20); BUN (Urea Nitrogen) 21 mg/dL (9.8-20.1); Bilirubin, Total 0.3 mg/dL (0.2-1.2); Calc. Creatinine Clearance 129 mL/min (70-130); Calcium 9.1 mg/dL (7.8-10.44); Carbon Dioxide 28 mmol/L (22-29); Chloride 101 mmol/L (98-107); Estimated GFR-MDRD 39; Globulin 3.2 g/dL (2.4-3.5); Glucose 112 mg/dL (70-105); Potassium 4.5 mmol/L (3.5-5.1); Protein, Total 6.9 g/dL (6.0-8.3); Sodium 138 mmol/L (136-145)
[2018-07-28 05:53] LABS: #Basophils 0.1 thou/uL (0.0-0.2); #Eosinphils 0.4 thou/uL (0.0-0.7); #Lymphocytes 0.4 thou/uL (1.20-3.40); #Monocytes 0.6 thou/uL (0.11-0.59); #Neutrophils 3.8 thou/uL (1.40-6.50); %Basophils 1.3 % (0.0-1.0); %Eosinophils 7.5 % (0.0-10.0); %Lymphocytes 7.6 % (21.0-51.0); %Monocytes 10.6 % (0.0-10.0); %Neutrophils 72.9 % (42.0-75.0); Hemoglobin 8.2 g/dL (12.0-16.0); Mean Corpuscular HGB CONC 29.5 g/dL (32.0-36.0); Mean Corpuscular Hemoglobin 24.6 pg (27.0-31.0); Mean Corpuscular Volume 83.3 fL (78.0-98.0); Mean Platelet Volume 6.6 fL (7.4-10.4); Platelet Count 188 thou/uL (130-400); RBC Distribution Width 15.7 % (11.5-14.5); Red Blood Cell (RBC) Count 3.32 mill/uL (4.20-5.40); White Blood Cell (WBC) Count 5.2 thou/uL (4.8-10.8)
[2018-07-28 05:54] LABS: Hypochromia SLIGHT = 6-15 cells (100X) (0-5/hpf); Microcytosis SLIGHT = 6-15 cells (100X) (0-5/hpf); PLT Morphology Comment Appears Adequate
--- NOTE | 2018-07-28 08:39 | PRG ---
DATE OF SERVICE: 07/28/2018 DATE OF ADMISSION: 07/16/2018 HISTORY OF PRESENT ILLNESS: Ms. Acevedo is a very pleasant 58-year-old white female, who got admitted to [facility] with lymphadenitis/lymphedema, cellulitis, shortness of breath. patient states she was transferred here for physical therapy, occupational therapy, and is actually doing fairly well. The patient had a little shortness of breath, took one DuoNeb treatment, which went away. She states she feels very good today except she complains of fever blisters. She did have a fever on that has resolved. Her blood work all looks good today. We will get her some Zovirax. VITAL SIGNS: Reveal blood pressure this morning is pending, but her blood pressure last night 123/59 , pulse 83, respirations 20, O2 sat 95% on room air, T-max 97.8. LABORATORY DATA: Reveals white count this morning 5200 with hemoglobin 8.2 and hematocrit 27.6, whic h is improved; platelet count 188,000. Chemistry reveals sodium 138, potassium 4.5, chloride 101, carbon dioxide 28, BUN 21, creatinine 1.38 , which is improved. Sugar 112. The patient's weight is down to 400 pounds 1 ounce, which is down 4 pounds from yesterday. PHYSICAL EXAMINATION: GENERAL: This is a well-developed, well-nourished, morbidly obese white female that states she is do ing well today. HEENT: Reveals normocephalic, nontraumatic cranium. Pupils equally, round, and reactive. Extraocul ar movements intact. Nose and throat are slightly dry. NECK: Supple, without mass, nodes, or bruits. CHEST: Clear to auscultation. No rales, rhonchi, or wheezes are heard. CARDIOVASCULAR: Reveals a regular rate and rhythm. It is very distant. ABDOMEN: Soft and nontender. Normal bowel sounds are noted. No rebound or guarding is noted. EXAM: Deferred. EXTREMITIES: Reveal no clubbing, cyanosis, but continued lymphedema. The patient continues with bra wny edema behind both knees. NEUROLOGIC: The patient is oriented x3. IMPRESSION: 1. Fever blisters. We will treat with Zovirax. 2. Cellulitis, resolved. 3. Severe lymphedema, slowly improving. 4. Morbid obesity. 5. Hypertension. 6. History of cardiomyopathy with left ventricular ejection fraction of 65%. 7. Normocytic anemia. 8. Chronic sleep apnea. Presently, the patient does wear her CPAP every night. 9. History of deep vein thrombosis. 10. Generalized weakness. PLAN: 1. We will order Zovirax ointment to apply q.2 hours p.r.n. 2. Wear FarrowWrap every day. 3. Repeat labs on Sunday. 4. Monitor the patient's blood pressure. 5. DuoNeb p.r.n. 6. Decubitus precautions. 7. Stress ulcer prophylaxis. 8. DVT prophylaxis. 9. Limit the patient's liquids to 1800 mL a day. 10. Tylenol p.r.n. 11. Continue physical therapy and occupational therapy. 12. Again stay out of bed as much as possible.
[2018-07-28] MEDS: Nystatin Powder 15 GM BOT TOP SCH ×2 (08:44→20:01)
[2018-07-28] MEDS: Potassium Chloride 10 MEQ TAB PO SCH (08:45)
[2018-07-28] MEDS: Spironolactone 25 MG TAB PO SCH ×2 (08:45→20:01)
[2018-07-28] MEDS: Gabapentin 400 MG CAP PO SCH ×3 (08:45→20:00)
[2018-07-28] MEDS: Bupropion 150 MG XL TAB PO SCH (08:45)
[2018-07-28] MEDS: Montelukast Sodium 10 mg Tablet PO SCH (08:45)
[2018-07-28] MEDS: Ferrous Sulfate 325 MG TAB PO SCH (08:46)
[2018-07-28] MEDS: Pramipexole Di-HCl 0.25 MG TAB PO SCH ×2 (08:46→20:01)
[2018-07-28] MEDS: Penicillin V Potassium 250 MG TAB PO SCH ×4 (08:46→20:01)
[2018-07-28] MEDS: Acyclovir 400 mg Tablet PO SCH ×2 (08:46→20:01)
[2018-07-28] MEDS: Folic Acid 1 MG TAB PO SCH (08:47)
[2018-07-28] MEDS: Furosemide 40 MG TAB PO SCH ×2 (08:47→14:28)
[2018-07-28] MEDS: Aspirin 81 mg Enteric Coated Tablet PO SCH (08:47)
[2018-07-28] MEDS: Morphine ER 15 MG TAB PO PRN ×2 (10:48→20:00)
[2018-07-28] MEDS: ALPRAZolam 0.25 MG TAB PO PRN (20:01)
[2018-07-29] MEDS: HYDROcodone/Acetaminophen 7.5/325 mg Tablet PO PRN ×3 (00:32→20:14)
[2018-07-29] MEDS: Morphine ER 15 MG TAB PO PRN ×2 (05:58→15:13)
[2018-07-29] MEDS: Potassium Chloride 10 MEQ TAB PO SCH (08:28)
[2018-07-29] MEDS: Ferrous Sulfate 325 MG TAB PO SCH (08:28)
[2018-07-29] MEDS: Furosemide 40 MG TAB PO SCH ×2 (08:28→13:23)
[2018-07-29] MEDS: Folic Acid 1 MG TAB PO SCH (08:28)
[2018-07-29] MEDS: Acyclovir 400 mg Tablet PO SCH ×2 (08:28→20:14)
[2018-07-29] MEDS: Aspirin 81 mg Enteric Coated Tablet PO SCH (08:28)
[2018-07-29] MEDS: Bupropion 150 MG XL TAB PO SCH (08:28)
[2018-07-29] MEDS: Montelukast Sodium 10 mg Tablet PO SCH (08:29)
[2018-07-29] MEDS: Penicillin V Potassium 250 MG TAB PO SCH ×4 (08:29→20:14)
[2018-07-29] MEDS: Gabapentin 400 MG CAP PO SCH ×3 (08:29→20:14)
[2018-07-29] MEDS: Nystatin Powder 15 GM BOT TOP SCH ×2 (08:29→20:16)
[2018-07-29] MEDS: Pramipexole Di-HCl 0.25 MG TAB PO SCH ×2 (08:29→20:14)
[2018-07-29] MEDS: Spironolactone 25 MG TAB PO SCH ×2 (08:30→20:14)
--- NOTE | 2018-07-29 10:15 | PRG ---
DATE OF SERVICE: 07/29/2018 HISTORY OF PRESENT ILLNESS: Ms. Acevedo is a very pleasant 58-year-old morbidly obese white female eugenio elisha was admitted to [facility] with lymphadenitis, lymphedema, cellulitis and short ness of breath. She was started on IV antibiotics and IV diuresis. Eventually, she was stabilized a nd transferred to [facility] for physical therapy and occupational therapy. The patient states she is doing very well today. She has no significant shortness of breath. She st ill has occasional cough, but her lungs are clear. VITAL SIGNS: Blood pressure this morning 112/56, pulse 80-86 respirations 20, O2 sat 93-97% on room air. T-max is 98.5. PHYSICAL EXAMINATION: GENERAL: This is a well-developed, well-nourished, morbidly obese white female in no apparent distre ss at this time. HEENT: Reveals normocephalic, nontraumatic cranium. Pupils equal, round, and reactive. Extraocular movements intact. Nose and throat are slightly dry. NECK: Supple, without mass, nodes, bruits. CHEST: Clear to auscultation. No rales, rhonchi, wheezes or cough is heard. CARDIOVASCULAR: Reveals a regular rate and rhythm, but is distant. ABDOMEN: Morbidly obese, soft, nontender. No rebound or guarding is noted. : Deferred. EXTREMITIES: Reveal no clubbing, cyanosis. The patient continues with significant lymphedema. She is ready to get her lymphedema wraps placed back on. NEUROLOGIC: The patient is oriented x3. IMPRESSION: 1. Fever blisters. We will treat with valacyclovir 1000 mg 3 times daily for 5 days, today is day # 2. 2. Cellulitis, resolved. 3. Severe lymphedema, slowly improving. 4. Morbid obesity. 5. Hypertension. 6. History of cardiomyopathy with left ventricular ejection fraction 65%. 7. Normocytic anemia. 8. Chronic sleep apnea. The patient does wear her CPAP every night. 9. History of deep venous thrombosis. 10. Generalized weakness. 11. Morbid obesity. The patient has lost down to 397.9 pounds today. PLAN: 1. Continue valacyclovir 1000 mg t.i.d. for 5 days. 2. Continue Farrow wraps daily. 3. Repeat labs tomorrow. 4. Continue to monitor the patient's blood pressure. 5. DuoNeb p.r.n. 6. Decubitus precautions. 7. Stress ulcer prophylaxis. 8. DVT prophylaxis. 9. We will continue 1800 mL per day. 10. Tylenol p.r.n. 11. Continue PT and OT. 12. Out of bed as much as possible.
[2018-07-29] MEDS: ALPRAZolam 0.25 MG TAB PO PRN (20:14)
[2018-07-30 05:54] LABS: #Basophils 0.1 thou/uL (0.0-0.2); #Eosinphils 0.4 thou/uL (0.0-0.7); #Lymphocytes 0.4 thou/uL (1.20-3.40); #Monocytes 0.5 thou/uL (0.11-0.59); #Neutrophils 3.6 thou/uL (1.40-6.50); %Basophils 1.5 % (0.0-1.0); %Eosinophils 8.1 % (0.0-10.0); %Lymphocytes 8.8 % (21.0-51.0); %Monocytes 10.5 % (0.0-10.0); %Neutrophils 71.1 % (42.0-75.0); Hemoglobin 8.3 g/dL (12.0-16.0); Mean Corpuscular HGB CONC 29.7 g/dL (32.0-36.0); Mean Corpuscular Volume 84.2 fL (78.0-98.0); Mean Platelet Volume 6.2 fL (7.4-10.4); Platelet Count 210 thou/uL (130-400); RBC Distribution Width 15.9 % (11.5-14.5); Red Blood Cell (RBC) Count 3.34 mill/uL (4.20-5.40)
[2018-07-30 06:03] LABS: ALT (SGPT) 12 U/L (8-55); AST (SGOT) 14 U/L (5-34); Albumin 3.8 g/dL (3.5-5.0); Alkaline Phosphatase 103 U/L (40-150); Anion Gap 14 mmol/L (10-20); BUN (Urea Nitrogen) 23 mg/dL (9.8-20.1); Bilirubin, Total 0.2 mg/dL (0.2-1.2); Calc. Creatinine Clearance 120 mL/min (70-130); Calcium 9.1 mg/dL (7.8-10.44); Carbon Dioxide 27 mmol/L (22-29); Chloride 102 mmol/L (98-107); Estimated GFR-MDRD 37; Globulin 3.2 g/dL (2.4-3.5); Glucose 123 mg/dL (70-105); Potassium 4.5 mmol/L (3.5-5.1); Sodium 138 mmol/L (136-145)
[2018-07-30] MEDS: Gabapentin 400 MG CAP PO SCH ×3 (08:25→20:08)
[2018-07-30] MEDS: Ferrous Sulfate 325 MG TAB PO SCH (08:25)
[2018-07-30] MEDS: Folic Acid 1 MG TAB PO SCH (08:25)
[2018-07-30] MEDS: Spironolactone 25 MG TAB PO SCH ×2 (08:25→20:08)
[2018-07-30] MEDS: Bupropion 150 MG XL TAB PO SCH (08:25)
[2018-07-30] MEDS: Pramipexole Di-HCl 0.25 MG TAB PO SCH ×2 (08:25→20:08)
[2018-07-30] MEDS: Morphine ER 15 MG TAB PO PRN ×2 (08:25→17:35)
[2018-07-30] MEDS: Nystatin Powder 15 GM BOT TOP SCH ×2 (08:25→20:08)
[2018-07-30] MEDS: Furosemide 40 MG TAB PO SCH ×2 (08:25→13:10)
[2018-07-30] MEDS: Aspirin 81 mg Enteric Coated Tablet PO SCH (08:25)
[2018-07-30] MEDS: Penicillin V Potassium 250 MG TAB PO SCH ×4 (08:25→20:08)
[2018-07-30] MEDS: Montelukast Sodium 10 mg Tablet PO SCH (08:25)
[2018-07-30] MEDS: Potassium Chloride 10 MEQ TAB PO SCH (08:25)
[2018-07-30] MEDS: Acyclovir 400 mg Tablet PO SCH ×2 (08:25→20:08)
[2018-07-30] MEDS: HYDROcodone/Acetaminophen 7.5/325 mg Tablet PO PRN (14:29)
[2018-07-30] MEDS: ALPRAZolam 0.25 MG TAB PO PRN (20:44)
--- NOTE | 2018-07-30 21:48 | PRG ---
DATE OF SERVICE: 07/30/2018 DATE OF ADMISSION: 07/16/2018 SUBJECTIVE: Ms. Acevedo is a very pleasant 58-year-old white female admitted to [facility] with severe lymphedema, cellulitis, shortness of breath, and significant weight gain. She w as started on IV diuretics and IV antibiotics. She eventually stabilized and transferred to [facility] for physical therapy and occupational therapy. The patient states she is doing well today. She lost more weight and she was very pleased about that . She is down to 396.8 pounds, which is of the pound and 1/10th down from yesterday. Vital signs this morning reveal blood pressure 116/56, pulse 77, respirations 20, O2 sat 95% to 97% o n room air, T-max 97.0. LABORATORY: White count is 5000 with hemoglobin 8.3, hematocrit 28.1, which is improving. Platelet count is 210,000. Sodium is 138, potassium 4.5, BUN is up to 23 with a creatinine of 1.46 and GFR is back down to 37. Liver enzymes are normal. PHYSICAL EXAMINATION: GENERAL: This is a well-developed, morbidly obese white female in no apparent distress at this time. HEENT: Reveals normocephalic, nontraumatic cranium. Pupils are equally round and reactive. Extraoc ular movements intact. Nose and throat are slightly dry, but clear. NECK: Supple without mass, nodes, or bruits. LUNGS: Chest is clear to auscultation. No rales, rhonchi, or wheezes are heard. No cough is noted. HEART: Reveals a regular rate and rhythm. No murmur, gallops or rubs are noted. Heart sounds are d istant. ABDOMEN: Morbidly obese, soft, and nontender. No rebound or guarding is noted. Normal bowel sounds are noted in all 4 quadrants. : Deferred. EXTREMITIES: Reveal no clubbing, cyanosis. Lymphedema is still intact. Patient does have her Farro wWraps on at this time. The patient is oriented x3. IMPRESSION: 1. Slightly increase in her renal insufficiency with a creatinine 4.46. 2. Fever blisters are being treated with valacyclovir. 3. Cellulitis, resolved. Valacyclovir is day #3 for today. 4. Lymphedema, slowly improving. 5. Morbid obesity. 6. Hypertension. 7. History of cardiomyopathy with left ventricular ejection fraction of 65%. 8. Normocytic anemia. 9. Chronic sleep apnea. The patient does wear her CPAP every night. 10. History of deep venous thrombosis. 11. Generalized weakness. PLAN: 1. Continue valacyclovir for a total of 5 days. This is day #3. 2. Continue FarrowWraps daily. 3. Repeat labs every other day. 4. We will continue to monitor the patient's blood pressure closely. 5. DuoNeb p.r.n. 6. Decubitus precautions. 7. Stress ulcer prophylaxis. 8. Deep venous thrombosis prophylaxis. 9. Continue 1800 mL fluid restriction a daily. 10. Tylenol p.r.n. 11. Continue PT and OT. 12. Encourage the patient to stay out of bed as much as possible.
[2018-07-31] MEDS: HYDROcodone/Acetaminophen 7.5/325 mg Tablet PO PRN ×2 (01:21→13:16)
[2018-07-31] MEDS: Potassium Chloride 10 MEQ TAB PO SCH (08:26)
[2018-07-31] MEDS: Montelukast Sodium 10 mg Tablet PO SCH (08:26)
[2018-07-31] MEDS: Furosemide 40 MG TAB PO SCH ×2 (08:26→13:17)
[2018-07-31] MEDS: Spironolactone 25 MG TAB PO SCH ×2 (08:26→20:44)
[2018-07-31] MEDS: Pramipexole Di-HCl 0.25 MG TAB PO SCH ×2 (08:26→20:44)
[2018-07-31] MEDS: Aspirin 81 mg Enteric Coated Tablet PO SCH (08:26)
[2018-07-31] MEDS: Penicillin V Potassium 250 MG TAB PO SCH ×4 (08:26→20:44)
[2018-07-31] MEDS: Bupropion 150 MG XL TAB PO SCH (08:26)
[2018-07-31] MEDS: Acyclovir 400 mg Tablet PO SCH ×2 (08:26→20:44)
[2018-07-31] MEDS: Gabapentin 400 MG CAP PO SCH ×3 (08:26→20:44)
[2018-07-31] MEDS: Ferrous Sulfate 325 MG TAB PO SCH (08:26)
[2018-07-31] MEDS: Folic Acid 1 MG TAB PO SCH (08:26)
[2018-07-31] MEDS: Nystatin Powder 15 GM BOT TOP SCH ×2 (08:27→20:44)
[2018-07-31] MEDS: Morphine ER 15 MG TAB PO PRN (09:03)
[2018-07-31] MEDS: Docusate 100 MG CAP PO SCH (20:44)
[2018-07-31] MEDS: ALPRAZolam 0.25 MG TAB PO PRN (20:44)
--- NOTE | 2018-07-31 20:57 | PRG ---
DATE OF SERVICE: 07/31/2018 DATE OF ADMISSION: 07/16/2018 HISTORY OF PRESENT ILLNESS: Ms. Acevedo is a very pleasant 58-year-old white female admitted to [facility] with cellulitis, severe and for lymphedema and shortness of breath. She was placed on IV diuretics and IV antibiotics. She eventually was diuresed and switched over to oral me dications. She was transferred to [facility] for PT and OT. The patient continues to do very well and loses weight. She is 395 pounds today. OBJECTIVE: VITAL SIGNS: Today reveal blood pressure is 142/63, pulse 74-83, respirations 18-22, O2 sat 93% on r oom air, T-max 98.2. GENERAL: This is a well-developed, well-nourished, morbidly obese white female who weighs 395 pounds today. HEENT: Reveals normocephalic, nontraumatic cranium. Pupils equal, round, and reactive. Extraocular movements intact. Nose and throat are clear. NECK: Supple, without mass, nodes or bruits. CHEST: Clear to auscultation. No rales, rhonchi, wheezes or cough is heard. CARDIOVASCULAR: Reveals a regular rate and rhythm without murmurs, gallops or rubs. ABDOMEN: Soft, nontender, without organomegaly that can be noted. No rebound or guarding is noted. GENITOURINARY: Deferred. EXTREMITIES: Reveal lymphedema still intact. Patient does continue to wear her FarrowWraps all day today. NEUROLOGIC: The patient is oriented x3. IMPRESSION: 1. Fever blisters, much improved. 2. Cellulitis, resolved. 3. Valacyclovir is day #4 today. 4. Lymphedema, slowly improving. 5. Morbid obesity. 6. Hypertension. 7. History of cardiomyopathy with ventricular ejection fraction of 65%. 8. Normocytic anemia. 9. Chronic sleep apnea and the patient continues to wear CPAP every night. 10. History of deep vein thrombosis. 11. Generalized weakness. PLAN: 1. Continue valacyclovir 1000 mg t.i.d. for a total of 5 days, today is day #4. 2. Continue FarrowWraps daily. 3. Repeat labs tomorrow. 4. Continue to monitor the patient's blood pressure. 5. Continue PT and OT. 6. DuoNeb p.r.n. 7. Decubitus precautions. 8. Stress ulcer prophylaxis. 9. Continue 1800 fluid restriction. 10. Tylenol p.r.n. 11. Continue PT and OT. 12. Stay out of bed as much as possible.
[2018-08-01 06:41] LABS: Anion Gap 15 mmol/L (10-20); BUN (Urea Nitrogen) 24 mg/dL (9.8-20.1); Calc. Creatinine Clearance 133 mL/min (70-130); Calcium 9.4 mg/dL (7.8-10.44); Carbon Dioxide 25 mmol/L (22-29); Chloride 103 mmol/L (98-107); Estimated GFR-MDRD 43; Glucose 125 mg/dL (70-105); Potassium 4.4 mmol/L (3.5-5.1); Sodium 139 mmol/L (136-145)
[2018-08-01] MEDS: Gabapentin 400 MG CAP PO SCH ×3 (08:05→20:20)
[2018-08-01] MEDS: Potassium Chloride 10 MEQ TAB PO SCH (08:05)
[2018-08-01] MEDS: Acyclovir 400 mg Tablet PO SCH ×2 (08:06→20:20)
[2018-08-01] MEDS: Folic Acid 1 MG TAB PO SCH (08:06)
[2018-08-01] MEDS: Furosemide 40 MG TAB PO SCH ×2 (08:06→13:04)
[2018-08-01] MEDS: Bupropion 150 MG XL TAB PO SCH (08:06)
[2018-08-01] MEDS: Montelukast Sodium 10 mg Tablet PO SCH (08:06)
[2018-08-01] MEDS: Penicillin V Potassium 250 MG TAB PO SCH ×4 (08:06→20:21)
[2018-08-01] MEDS: Docusate 100 MG CAP PO SCH ×2 (08:06→20:20)
[2018-08-01] MEDS: Ferrous Sulfate 325 MG TAB PO SCH (08:06)
[2018-08-01] MEDS: Pramipexole Di-HCl 0.25 MG TAB PO SCH ×2 (08:06→20:21)
[2018-08-01] MEDS: Nystatin Powder 15 GM BOT TOP SCH ×2 (08:06→20:21)
[2018-08-01] MEDS: Aspirin 81 mg Enteric Coated Tablet PO SCH (08:06)
[2018-08-01] MEDS: Spironolactone 25 MG TAB PO SCH ×2 (08:06→20:21)
[2018-08-01] MEDS: Morphine ER 15 MG TAB PO PRN ×2 (08:08→20:21)
[2018-08-01] MEDS: HYDROcodone/Acetaminophen 7.5/325 mg Tablet PO PRN (13:04)
--- NOTE | 2018-08-01 15:15 | PRG ---
DATE OF SERVICE: 08/01/2018 HISTORY: Ms. Acevedo is a very pleasant 58-year-old white female is morbidly obese. She presented to the emergency room at [facility] with severe cellulitis of both legs lymphedema. She was started on IV diuretics and IV antibiotics. She has lost a significant amount of weight, is now transferred to [facility] for PT and OT. SUBJECTIVE: The patient states she is doing very well today and she continues to lose weight, I estefanía byers she is down to 388 today. OBJECTIVE: VITAL SIGNS: Today reveal blood pressure 127/60, pulse 82, respirations 18, O2 sat 97% on room air, T-max 98.4. GENERAL: This is a well-developed, well-nourished, very pleasant, morbidly obese white female doing very well today. She has no complaints today. HEENT: Reveals normocephalic, nontraumatic cranium. Pupils equal, round, and reactive. Extraocular movements intact. Nose and throat are slightly dry and clear. NECK: Supple, without mass, nodes or bruits. CHEST: Clear to auscultation. No rales, rhonchi, wheezes or cough is heard. CARDIOVASCULAR: Reveals a regular rate and rhythm without murmurs, gallops or rubs. ABDOMEN: Soft, nontender, without organomegaly that can be felt. No rebound or guarding is noted. : Deferred. EXTREMITIES: Reveal lymphedema with Farrow lymphedema wraps presently on. NEUROLOGIC: Patient is oriented x3. IMPRESSION: 1. Fever blisters continue to be much improved. 2. Cellulitis, resolved. 3. Valacyclovir daily. 4. Some lymphedema, slowly improving. 5. Morbid obesity. 6. Hypertension. 7. History of cardiomyopathy, ventricular ejection fraction of 65%. 8. Normocytic anemia. 9. Chronic sleep apnea. The patient does wear CPAP nightly. 10. History of deep venous thrombosis. 11. Generalized weakness. PLAN: 1. Today is day 5, valacyclovir will stop it. 2. Continue Farrow wraps daily. 3. Repeat labs tomorrow. 4. We will continue to monitor the patient's blood pressure. 5. Continue PT and OT. 6. DuoNeb p.r.n. 7. Decubitus precautions. 8. Stress ulcer prophylaxis. 9. Continue 1800 mL fluid restriction daily. 10. Tylenol p.r.n. 11. Continue PT and OT. 12. Again stay out of bed as much as possible.
[2018-08-01] MEDS: ALPRAZolam 0.25 MG TAB PO PRN (20:21)
[2018-08-02] MEDS: HYDROcodone/Acetaminophen 7.5/325 mg Tablet PO PRN ×3 (02:56→13:01)
[2018-08-02] MEDS: Penicillin V Potassium 250 MG TAB PO SCH ×4 (08:33→21:05)
[2018-08-02] MEDS: Spironolactone 25 MG TAB PO SCH ×2 (08:33→21:05)
[2018-08-02] MEDS: Docusate 100 MG CAP PO SCH ×2 (08:34→21:05)
[2018-08-02] MEDS: Furosemide 40 MG TAB PO SCH ×2 (08:34→13:02)
[2018-08-02] MEDS: Potassium Chloride 10 MEQ TAB PO SCH (08:34)
[2018-08-02] MEDS: Pramipexole Di-HCl 0.25 MG TAB PO SCH ×2 (08:34→21:05)
[2018-08-02] MEDS: Gabapentin 400 MG CAP PO SCH ×3 (08:34→21:05)
[2018-08-02] MEDS: Bupropion 150 MG XL TAB PO SCH (08:34)
[2018-08-02] MEDS: Montelukast Sodium 10 mg Tablet PO SCH (08:34)
[2018-08-02] MEDS: Acyclovir 400 mg Tablet PO SCH (08:35)
[2018-08-02] MEDS: Folic Acid 1 MG TAB PO SCH (08:35)
[2018-08-02] MEDS: Aspirin 81 mg Enteric Coated Tablet PO SCH (08:35)
[2018-08-02] MEDS: Nystatin Powder 15 GM BOT TOP SCH ×2 (08:35→21:06)
[2018-08-02] MEDS: Ferrous Sulfate 325 MG TAB PO SCH (08:36)
--- NOTE | 2018-08-02 18:09 | PRG ---
DATE OF SERVICE: 08/02/2018 HISTORY OF PRESENT ILLNESS: Ms. Acevedo is a very pleasant 58-year-old morbidly obese white female eugenio elisha presented herself to the emergency room. She presented to [facility] with nela re cellulitis and both legs had significant lymphedema. She was started on IV diuretics and diuresed approximately 18 pounds. She was started on Rocephin and Zosyn and eventually was transferred to [facility] for physical therapy and occupational therapy. SUBJECTIVE: The patient states she had a good day today, but she did not lose a pound, she gained a couple. She has no complaints today. LABORATORY DATA: No labs are done today. They were done yesterday. We will repeat labs tomorrow. PHYSICAL EXAMINATION: VITAL SIGNS: Reveal blood pressure this morning was 126/55, pulse 76-85, respirations 18-20, O2 sat 92%-94% on room air. GENERAL: This is a well-developed, well-nourished, very pleasant, morbidly obese white female, in no apparent distress at this time. HEENT: Reveals normocephalic, nontraumatic cranium. Pupils are equally round and reactive. Extraoc ular movements intact. Nose and throat, slight dry. NECK: Supple, without mass, nodes or bruits. CHEST: Clear to auscultation. No rales, rhonchi or wheezes are heard. CARDIOVASCULAR: Reveals a regular rate and rhythm without murmurs, gallops or rubs. ABDOMEN: Soft, nontender, without organomegaly. Normal bowel sounds are noted. No rebound or guard ing is noted. GENITOURINARY: Deferred. EXTREMITIES: Reveal no clubbing, cyanosis or edema. Lymphedema is noted and the patient does have F arrowWraps on. She is 389 pounds, which is up 1 pound from 388 yesterday. IMPRESSION: 1. Fever blisters, much improved. 2. Cellulitis, resolved. 3. Valacyclovir daily. 4. Lymphedema, improved. 5. Morbid obesity. 6. Hypertension. 7. History of cardiomyopathy with ejection fraction of 65%. 8. Normocytic anemia. 9. Chronic sleep apnea. The patient does wear CPAP nightly. 10. Past history of DVT. 11. Generalized weakness. PLAN: 1. Today, the patient should have stopped her valacyclovir. We will make sure that is done. 2. Continue repeat labs tomorrow morning. 3. Continue FarrowWraps. 3. Monitor the patient's blood pressure closely. 4. Continue PT and OT. 5. DuoNeb p.r.n. 6. Decubitus precautions. 7. Stress ulcer prophylaxis. 8. Continue 1800 mL fluid restriction. 9. Tylenol p.r.n. 10. Continue PT and OT. 11. Stay out of bed as long as possible over the weekend.
[2018-08-02] MEDS: Morphine ER 15 MG TAB PO PRN (21:05)
[2018-08-02] MEDS: ALPRAZolam 0.25 MG TAB PO PRN (21:05)
[2018-08-03 04:42] LABS: #Eosinphils 0.3 thou/uL (0.0-0.7); #Lymphocytes 0.6 thou/uL (1.20-3.40); #Monocytes 0.4 thou/uL (0.11-0.59); %Eosinophils 6.5 % (0.0-10.0); %Lymphocytes 12.9 % (21.0-51.0); %Monocytes 9.8 % (0.0-10.0); %Neutrophils 69.8 % (42.0-75.0); Hemoglobin 8.6 g/dL (12.0-16.0); Mean Corpuscular HGB CONC 30.5 g/dL (32.0-36.0); Mean Corpuscular Hemoglobin 25.2 pg (27.0-31.0); Mean Corpuscular Volume 82.7 fL (78.0-98.0); Mean Platelet Volume 5.7 fL (7.4-10.4); Platelet Count 193 thou/uL (130-400); Red Blood Cell (RBC) Count 3.41 mill/uL (4.20-5.40); White Blood Cell (WBC) Count 4.3 thou/uL (4.8-10.8)
[2018-08-03 04:55] LABS: ALT (SGPT) 14 U/L (8-55); AST (SGOT) 17 U/L (5-34); Albumin 3.8 g/dL (3.5-5.0); Alkaline Phosphatase 94 U/L (40-150); Anion Gap 11 mmol/L (10-20); BUN (Urea Nitrogen) 19 mg/dL (9.8-20.1); Bilirubin, Total 0.3 mg/dL (0.2-1.2); Calc. Creatinine Clearance 142 mL/min (70-130); Calcium 9.1 mg/dL (7.8-10.44); Carbon Dioxide 29 mmol/L (22-29); Chloride 103 mmol/L (98-107); Estimated GFR-MDRD 46; Globulin 3.1 g/dL (2.4-3.5); Glucose 106 mg/dL (70-105); Potassium 4.3 mmol/L (3.5-5.1); Protein, Total 6.9 g/dL (6.0-8.3); Sodium 139 mmol/L (136-145)
--- NOTE | 2018-08-03 07:57 | PRG ---
DATE OF SERVICE: 08/03/2018 DATE OF ADMISSION: 07/16/2018 SUBJECTIVE: Ms. Acevedo is a very pleasant 58-year-old white female presented to [facility] ER with extreme weakness, cellulitis of bilateral lower extremities, and severe lymphedema. She was started on IV diuretics and pulled off approximately 15 pounds. She was started on IV anti biotics and eventually switched over to oral. She has actually done very well and was transferred he re for physical therapy and occupational therapy because she could barely stand and could not walk. Patient has done very well and walked 33 feet yesterday. She has continued to lose weight and is christian n at 385, which is a couple of more pounds down yesterday. Vital signs today reveal blood pressure 131/60, pulse 76 to 83, respirations 18 to 20, O2 sat 94%-99% . Lab this morning, white count 4300, hemoglobin 8.6, hematocrit 28.2, which is actually pretty good fo r her. Platelet count is 193. Chemistry reveals sodium 139, potassium 4.3, chloride 103, carbon dioxide 29 with a BUN 19, creatinin e 1.20. Sugar this morning is 106. PHYSICAL EXAMINATION: GENERAL: This is a well-developed, morbidly obese white female in no apparent distress at this time. HEENT: Reveals normocephalic, nontraumatic cranium. Pupils are equally round and reactive. Extraoc ular movements intact. Nose and throat are slightly dry. NECK: Supple, without mass, nodes, bruits. LUNGS: Chest is clear to auscultation. No rales, rhonchi, wheezes, or cough is noted. HEART: Reveals a regular rate and rhythm without murmurs, gallops, or rubs. ABDOMEN: Soft, nontender without organomegaly. Normal bowel sounds are noted. No rebound or guardi ng is noted. : Deferred. EXTREMITIES: Reveal no clubbing, cyanosis, or pain. Lymphedema is noted. Patient does have her Far rowWraps on. She is 385.8 pounds today. IMPRESSION: 1. Fever, blisters, resolved. 2. Cellulitis, resolved. 3. Valacyclovir discontinued. 4. Lymphedema, improved. 5. Morbid obesity. 6. Hypertension, stable. 7. History of cardiomyopathy with ejection fraction of 65%. 8. Normocytic anemia. 9. Chronic sleep apnea. 10. Past history of deep venous thrombosis. 11. Generalized weakness. PLAN: 1. Valacyclovir has been stopped. 2. Wear FarrowWraps today. 3. Out of bed as much as possible. 4. Continue to monitor the patient's blood pressure. 5. Stress ulcer prophylaxis. 6. Decubitus precautions. 7. Deep venous thrombosis prophylaxis. 8. Continue physical therapy and occupational therapy. 9. Continue 1800 mL fluid restriction. 10. Continue daily weight.
[2018-08-03] MEDS: Docusate 100 MG CAP PO SCH ×2 (08:38→20:56)
[2018-08-03] MEDS: Gabapentin 400 MG CAP PO SCH ×3 (08:38→20:56)
[2018-08-03] MEDS: Potassium Chloride 10 MEQ TAB PO SCH (08:39)
[2018-08-03] MEDS: Aspirin 81 mg Enteric Coated Tablet PO SCH (08:39)
[2018-08-03] MEDS: Furosemide 40 MG TAB PO SCH ×2 (08:39→14:03)
[2018-08-03] MEDS: Bupropion 150 MG XL TAB PO SCH (08:40)
[2018-08-03] MEDS: Ferrous Sulfate 325 MG TAB PO SCH ×2 (08:40→10:12)
[2018-08-03] MEDS: Folic Acid 1 MG TAB PO SCH (08:40)
[2018-08-03] MEDS: Spironolactone 25 MG TAB PO SCH ×2 (08:41→20:56)
[2018-08-03] MEDS: Penicillin V Potassium 250 MG TAB PO SCH ×4 (08:41→20:56)
[2018-08-03] MEDS: Pramipexole Di-HCl 0.25 MG TAB PO SCH ×2 (08:41→20:56)
[2018-08-03] MEDS: Montelukast Sodium 10 mg Tablet PO SCH (08:41)
[2018-08-03] MEDS: Nystatin Powder 15 GM BOT TOP SCH ×2 (08:50→20:56)
[2018-08-03] MEDS: Morphine ER 15 MG TAB PO PRN ×2 (11:18→20:57)
[2018-08-03] MEDS: HYDROcodone/Acetaminophen 7.5/325 mg Tablet PO PRN (17:23)
[2018-08-03] MEDS: ALPRAZolam 0.25 MG TAB PO PRN (20:57)
[2018-08-04] MEDS: Acetaminophen 500 MG TAB PO PRN (02:18)
[2018-08-04 05:38] VITALS: BMI 64.5
[2018-08-04 08:41] VITALS: BP 113/60; TEMP 97.8
[2018-08-04] MEDS: Potassium Chloride 10 MEQ TAB PO SCH (08:48)
[2018-08-04] MEDS: Nystatin Powder 15 GM BOT TOP SCH (08:48)
[2018-08-04] MEDS: Docusate 100 MG CAP PO SCH (08:49)
[2018-08-04] MEDS: Bupropion 150 MG XL TAB PO SCH (08:49)
[2018-08-04] MEDS: Aspirin 81 mg Enteric Coated Tablet PO SCH (08:49)
[2018-08-04] MEDS: Ferrous Sulfate 325 MG TAB PO SCH (08:49)
[2018-08-04] MEDS: Folic Acid 1 MG TAB PO SCH (08:50)
[2018-08-04] MEDS: Spironolactone 25 MG TAB PO SCH (08:50)
[2018-08-04] MEDS: Montelukast Sodium 10 mg Tablet PO SCH (08:50)
[2018-08-04] MEDS: Furosemide 40 MG TAB PO SCH (08:50)
[2018-08-04] MEDS: Penicillin V Potassium 250 MG TAB PO SCH ×2 (08:50→13:14)
[2018-08-04] MEDS: Gabapentin 400 MG CAP PO SCH (08:50)
[2018-08-04] MEDS: Pramipexole Di-HCl 0.25 MG TAB PO SCH (08:50)
[2018-08-04] MEDS: Morphine ER 15 MG TAB PO PRN (08:50)
--- NOTE | 2018-08-04 10:36 | DIS ---
DATE OF ADMISSION: 07/16/2018 DATE OF DISCHARGE: 08/03/2018 HOSPITAL COURSE: The patient is a very pleasant 58-year-old white female that presented to the emerg ency room at [facility]. She had bilateral lower extremity severe lymphedema wit h cellulitis. She was started on IV antibiotics and IV diuretics. She pulled off approximately 15 p ounds there and was thought to have reached maximum medical benefit there and was transferred to [facility] for physical therapy and occupational therapy. She was also transferred here on oral diuretics and her weight initially was 418 pounds. Discharge weight today is 378 pounds whic h is a 40-pound weight loss since she has arrived here. PHYSICAL EXAMINATION: VITAL SIGNS: Today reveal blood pressure 121/58, pulse 73, respirations 18, O2 sat 94%-100% on room air, T-max 97.7. GENERAL: This is a well-developed, well-nourished, morbidly obese white female in no apparent distre ss at this time. HEENT: Reveals normocephalic, nontraumatic cranium. Pupils are equally round and reactive. Extraoc ular movements intact. Nose and throat are moist. NECK: Supple, without mass, nodes or bruits. CHEST: Clear to auscultation. No rales, no rhonchi, no wheezes and no cough is noted at this time. HEART: Reveals a regular rate and rhythm without murmurs, gallops or rubs. ABDOMEN: Soft, nontender, without organomegaly. Normal bowel sounds are noted. No rebound or guard ing is noted. GENITOURINARY: Deferred. EXTREMITIES: Reveal no clubbing or cyanosis. Lymphedema is still noted, but her legs are much softe r. She has been wearing her Farrow wraps every day. Her weight today was 378 pounds which is a 40-p ound weight loss since she has been here. LABORATORY DATA: Yesterday revealed white count 4,300 with hemoglobin 8.6, hematocrit 28.2 and plate let count 193,000. Chemistry reveals sodium 139, potassium 4.3, chloride 103, carbon dioxide 29. He r BUN is 19 and her creatinine is 1.20, which is excellent for her. Her sugar yesterday morning was 106. GFR is estimated at 46. Liver enzymes are normal. IMPRESSION: 1. Cellulitis, resolved. 2. Lymphedema, significantly improved. 3. Hypertension, stable. 4. History of cardiomyopathy with ejection fraction 65%. 5. Normocytic anemia. 6. Chronic sleep apnea. 7. Severe lymphedema with a 40-pound weight loss since she has been in the hospital here. 8. History of DVT. 9. Generalized weakness. 10. History of chronic infection. Dr. Alberts referred her to be on Pen-Vee K 250 mg 4 times a day. PLAN: The patient is ready for discharge. Patient's insurance has denied her any further studies. The patient has been requested to contact Dr. Tianna Win's office for a transitional care manag ement visit. The patient has been increased on Wellbutrin to 300 mg daily and the patient's gabapent in has been increased to 400 mg 3 times daily. PRESENT MEDICATIONS: 1. Tylenol 500 mg p.r.n., not to exceed 3000 mg a day. 2. Lakin 7.5. Patient takes one b.i.d. p.r.n., 5-6 pain quality. 3. Xanax 0.25 b.i.d. p.r.n. 4. Elavil 50 mg at bedtime. 5. 81 mg of Ecotrin daily. 6. Wellbutrin 300 mg daily. 7. Colace 100 mg b.i.d. p.r.n. 8. Ferrous sulfate 325 daily. 9. Folic acid 1 mg daily. 10. Lasix 40 mg at 9:00 and then at 02:00 daily. 11. Gabapentin 400 mg 3 times daily. 12. Singulair 10 mg every evening. 13. Morphine sulfate t.i.d. p.r.n. 14. Pen-Vee K 250 mg q.i.d. 15. Potassium chloride 10 mEq each morning. 16. Mirapex 0.25 b.i.d. 17. Zoloft 200 mg daily. 18. Spironolactone 25 mg b.i.d. The patient has actually done very well this time. She has been much more motivated and is stuck wit h her 1800 mL fluid restriction daily. The patient's insurance request that she does outpatient physical therapy and occupational therapy, b ut the child will be getting her to the outpatient setting. The patient is motivated and ready to co ntinue with her therapy. The patient is ready for discharge. Her mother will pick her up after disc harge this afternoon. Discharge summary has taken more than 45 minutes with reviewing and talked with the patient and going over her various studies and her medications.
== END 2018-08-04 14:00 | disposition home or self-care (01) | DRG 948 ==
LOC: NAV ACUTE 15:42
PROVIDERS: ADMIT Family Medicine; ATTEND Family Medicine
DX: R53.1 Weakness (principal); L03.116 Cellulitis of left lower limb; L03.115 Cellulitis of right lower limb; I42.9 Cardiomyopathy, unspecified; I50.32 Chronic diastolic (congestive) heart failure; Z68.44 Body mass index [BMI] 60.0-69.9, adult; E66.01 Morbid (severe) obesity due to excess calories; Z86.718 Personal history of other venous thrombosis and embolism; D64.9 Anemia, unspecified; I89.0 Lymphedema, not elsewhere classified; J45.909 Unspecified asthma, uncomplicated; E87.70 Fluid overload, unspecified; E87.6 Hypokalemia; B00.1 Herpesviral vesicular dermatitis; N28.9 Disorder of kidney and ureter, unspecified; I88.9 Nonspecific lymphadenitis, unspecified; F22 Delusional disorders; I11.0 Hypertensive heart disease with heart failure; G47.33 Obstructive sleep apnea (adult) (pediatric)
CPT/HCPCS: 36415; 36416; 71045; 80048; 80053; 81001; 83036; 85025; 94640; J7620; Q0162

== ENCOUNTER 2020-04-09 18:03 | Inpatient (IN) | payer MEDICARE ==
[2020-04-09] MEDS ORDERED: HumaLOG 300 UNITS/3 ML VIAL SC PRN ×2 (20:57)
[2020-04-09] MEDS ORDERED: Dextrose 50% Abboject 50 ML SYRINGE IVP PRN (20:57)
[2020-04-09] MEDS ORDERED: Dextrose 5% in Water 1,000 ML IV PRN (20:57)
[2020-04-09] MEDS ORDERED: ALPRAZolam 0.25 MG TAB PO PRN (21:03)
[2020-04-09] MEDS ORDERED: Acetaminophen 500 MG TAB PO PRN (21:03)
[2020-04-09] MEDS: Nystatin Powder 15 GM BOT TOP SCH (21:25)
[2020-04-09] MEDS: Polyethylene Glycol 3350 17 GM Packet PO SCH (21:26)
[2020-04-09] MEDS: Morphine ER 15 MG TAB PO PRN (21:28)
[2020-04-09] MEDS: Apixaban 2.5 MG TAB PO SCH (21:28)
[2020-04-09] MEDS: Pramipexole Di-HCl 0.25 MG TAB PO SCH (21:28)
[2020-04-09] MEDS: Lactinex Tablet PO SCH (21:28)
[2020-04-09] MEDS ORDERED: Gabapentin 300 MG CAP PO SCH (21:30)
[2020-04-09] MEDS: tiZANidine HCl 4 MG TAB PO PRN (22:39)
[2020-04-10 03:53] LABS: Bilirubin Negative (Negative); Blood, Urine Moderate (Negative); Clarity Slightly Cloudy (Clear); Glucose, Urine (Dipstick) Negative (Negative); Leukocyte Moderate (Negative); Nitrite Negative (Negative); Protein, Urine (Dipstick) 30 mg/dL (Neg-Trace)
[2020-04-10 04:35] LABS: Bacteria/HPF 2+ HPF (None Seen)
[2020-04-10 05:43] LABS: #Basophils 0.2 thou/uL (0.0-0.2); #Eosinphils 0.5 thou/uL (0.0-0.7); #Lymphocytes 0.4 thou/uL (1.20-3.40); #Monocytes 0.6 thou/uL (0.11-0.59); #Neutrophils 5.1 thou/uL (1.40-6.50); %Basophils 2.8 % (0.0-1.0); %Eosinophils 7.1 % (0.0-10.0); %Lymphocytes 5.2 % (21.0-51.0); %Monocytes 8.8 % (0.0-10.0); Hypochromia MODERATE=16-30 cells (100X) (0-5/hpf); Large Platelets SLIGHT; MDiff Complete? YES; Mean Corpuscular HGB CONC 28.5 g/dL (32.0-36.0); Mean Corpuscular Volume 80.8 fL (78.0-98.0); Mean Platelet Volume 6.1 fL (7.4-10.4); Ovalocytes SLIGHT = 2-5 cells (100X) (0-1/hpf); Platelet Count 207 thou/uL (130-400); Platelet Morphology Comment Appears Adequate; Poikilocytosis MODERATE=16-30 cells (100X) (0-5/hpf); RBC Distribution Width 20.3 % (11.5-14.5); Red Blood Cell (RBC) Count 3.93 mill/uL (4.20-5.40); Tear Drops SLIGHT = 2-5 cells (100X) (0-1/hpf); White Blood Cell (WBC) Count 6.7 thou/uL (4.8-10.8)
[2020-04-10 05:49] LABS: ALT (SGPT) 12 U/L (8-55); AST (SGOT) 18 U/L (5-34); Albumin 3.8 g/dL (3.5-5.0); Alkaline Phosphatase 92 U/L (40-110); Anion Gap 14 mmol/L (10-20); BUN (Urea Nitrogen) 16 mg/dL (9.8-20.1); Bilirubin, Total 0.2 mg/dL (0.2-1.2); Calc. Creatinine Clearance 189 mL/min (70-130); Calcium 9.6 mg/dL (7.8-10.44); Carbon Dioxide 34 mmol/L (22-29); Cardiac Risk 5.3 (Less than 4.5); Chloride 94 mmol/L (98-107); Cholesterol 163 mg/dl (< 200 Desired); Estimated GFR-MDRD 58; Globulin 3.1 g/dL (2.4-3.5); Glucose 124 mg/dL (70-105); HDL Cholesterol 31 mg/dL (>60 Neg Risk); LDL Cholesterol, Calculated 92 mg/dL; Protein, Total 6.9 g/dL (6.0-8.3); Sodium 138 mmol/L (136-145); Triglycerides 201 mg/dL (Less than 150)
[2020-04-10] MEDS: Ferrous Gluconate 324 MG TAB PO SCH ×2 (08:23→17:20)
[2020-04-10] MEDS: Potassium Chloride 20 MEQ TAB PO SCH ×2 (08:23→17:20)
[2020-04-10] MEDS: Apixaban 2.5 MG TAB PO SCH ×2 (08:24→20:51)
[2020-04-10] MEDS: Spironolactone 25 MG TAB PO SCH (08:24)
[2020-04-10] MEDS: Bupropion 150 MG XL TAB PO SCH (08:24)
[2020-04-10] MEDS: Cyanocobalamin (Vitamin B-12) 1,000 MCG TAB PO SCH (08:24)
[2020-04-10] MEDS: Aspirin 81 mg Enteric Coated Tablet PO SCH (08:24)
[2020-04-10] MEDS: Furosemide 80 MG TAB PO SCH ×2 (08:25→14:23)
[2020-04-10] MEDS: Lactinex Tablet PO SCH ×3 (08:25→20:51)
[2020-04-10] MEDS: Gabapentin 300 MG CAP PO SCH ×3 (08:25→20:51)
[2020-04-10] MEDS: Nystatin Powder 15 GM BOT TOP SCH ×2 (08:26→20:52)
[2020-04-10] MEDS: Polyethylene Glycol 3350 17 GM Packet PO SCH ×2 (08:26→20:51)
[2020-04-10] MEDS: Pramipexole Di-HCl 0.25 MG TAB PO SCH ×2 (08:26→20:51)
[2020-04-10] MEDS: Morphine ER 15 MG TAB PO PRN ×3 (08:32→22:36)
[2020-04-10] MEDS: tiZANidine HCl 4 MG TAB PO PRN (13:26)
[2020-04-10 15:06] LABS: Hemoglobin A1c 5.5 % (4.0-6.0)
--- NOTE | 2020-04-10 18:13 | HP ---
CHIEF COMPLAINT: Significant weight loss, requiring diuretic therapy and deconditioning for physical therapy. BRIEF HISTORY: This is a pleasant, morbidly obese 60-year-old female, who is well known to me from her previous admissions here for rehab. She apparently noticed sudden onset of significant leg swelling and inability to move around and so presented to the hospital for evaluation. She was started on IV diuretic therapy. She has improved enough that they have switched over to oral diuretics, but she is significantly deconditioned and they felt that she would be a good candidate for therapy here before going home. The patient does have history of cellulitis and recurrent infection, and was on penicillin 250 mg four times a day on a regular basis. This apparently was stopped recently by a visiting nurse practitioner, but apparently was restarted by while she was in the hospital this time. Unfortunately, the hospital did not send me discharge notes or hospital notes, so I have no way of confirming it, but I am reviewing Dr. Alegre's notes from 2018 and it does state that she was supposed to be on it four times daily. She does have a Inman catheter in place. She denies any questions or concerns. She states that she would like to get her MS Contin scheduled and I advised her that I prefer to leave it p.r.n. because otherwise, we may have to wake her up to give it to her and now it is just rather she ask for it, if she is in pain. She denies any fever or chills. She denies any chest pain or shortness of breath. PAST MEDICAL HISTORY: 1. Morbid obesity. 2. Chronic lymphedema. 3. Recurrent cellulitis and apparently was recommended she stay on antibiotic prophylaxis with penicillin. 4. History of DVT. 5. Hypertension. 6. Diastolic dysfunction. 7. Obstructive sleep apnea. PAST SURGICAL HISTORY: 1. Cholecystectomy laparoscopic. 2. Total abdominal hysterectomy and BSO. 3. Tonsillectomy. 4. Appendectomy. 5. Parathyroidectomy. 6. EGD and colonoscopy. 7. Left breast biopsy. 8. Cardiac catheterizations. ALLERGIES: SHE IS NOT ALLERGIC TO ANY MEDICATIONS, BUT IS ALLERGIC TO EGGS. FAMILY HISTORY: Noncontributory to current admission. PSYCHOSOCIAL HISTORY: Denies any tobacco, alcohol, or recreational drug abuse, pretty much homebound. REVIEW OF SYSTEMS: CARDIOVASCULAR SYSTEM: Denies any chest pain, shortness of breath, palpitations, PND, orthopnea, pedal edema. RESPIRATORY SYSTEM: Denies any chronic cough, expectoration, or pleuritic-type chest pain. GASTROINTESTINAL SYSTEM: Denies any nausea, vomiting, diarrhea, constipation, hematemesis, melena, hematochezia. GENITOURINARY SYSTEM: Denies any frequency, urgency, dysuria, or hematuria. Does have a Inman catheter in place. CENTRAL NERVOUS SYSTEM: Generalized weakness. EXTREMITIES: Chronic lymphedema and pain from that. HEENT: Denies any difficulty speech, vision, hearing, or swallowing. MEDICATIONS: She has been transferred here on the following medications: 1. Tylenol 500 q.6h p.r.n. 2. Kittery 7.5/325 one tablet b.i.d. p.r.n. 3. Floranex one tablet t.i.d. 4. Xanax 0.25 mg b.i.d. p.r.n. 5. Elavil 50 mg at bedtime. 6. Eliquis 2.5 b.i.d. 7. Ecotrin 81 mg daily. 8. Wellbutrin XL 150 mg daily. 9. Iron sulfate 324 mg b.i.d. 10. Lasix 80 mg b.i.d. 11. Neurontin 600 mg t.i.d. 12. Sliding scale coverage, but she states she is not a diabetic, so we will get a hemoglobin A1c and if it is normal, will discontinue Accu-Cheks and sliding scale coverage. 13. Protonix 40 mg b.i.d. 14. MiraLAX 17 g in 8 ounces of water daily. 15. Potassium 20 mEq b.i.d. 16. Mirapex 0.25 mg b.i.d. 17. Zoloft 200 mg daily. 18. Aldactone 25 mg daily. 19. Zanaflex 4 mg t.i.d. p.r.n. PHYSICAL EXAMINATION: GENERAL: This is a pleasant, morbidly obese 60-year-old female, who is resting in bed and denies any concerns. She is alert, awake, and oriented x3. VITAL SIGNS: She is afebrile. Heart rate 77, respirations 18, oxygen saturation 100% on 2 L nasal cannula, blood pressure 143/64. HEENT: Normocephalic, atraumatic. Pupils are equally reactive to light and accommodation. NECK: No JVD, thyromegaly, cervical adenopathy, throat exudates, or carotid bruits. CARDIOVASCULAR SYSTEM: S1 and S2 plus. Rate and rhythm regular. Heart sounds are distant. RESPIRATORY SYSTEM: Normal vesicular breath sounds heard in all lung curry with decreased air entry in the bases. ABDOMEN: Soft, obese, nontender. Limited exam due to size. EXTREMITIES: Without cyanosis, clubbing. Chronic lymphedema. No signs of cellulitis. Inman catheter in place. CENTRAL NERVOUS SYSTEM: Generalized weakness. AAO x3. Cranial nerves 2 through 12 intact. Grossly nonfocal. LABORATORY VALUES: Show a white count of 6.7, H and H are 9 and 31.7. Sodium 138, potassium 4.0, BUN and creatinine are 16 and 0.99. Blood sugars are 160, 123, and 146. IMPRESSION: 1. Weight gain, likely due to heart failure, better with IV diuresis. 2. Deconditioning. 3. Morbid obesity. 4. Chronic lymphedema. 5. Recurrent cellulitis, requiring antibiotic prophylaxis. 6. Peripheral neuropathy. 7. Obstructive sleep apnea. 8. Chronic pain. 9. Depression and anxiety. 10. Iron deficient anemia. 11. History of deep venous thrombosis, on anticoagulation. PLAN: 1. Continue current medications. 2. Add Penicillin VK 250 mg q.i.d. 3. Keep MS Contin p.r.n. 4. Check hemoglobin A1c and if normal, discontinue Accu-Cheks and sliding scale coverage. 5. DVT prophylaxis - the patient is on Eliquis. 6. Decubitus precautions. 7. Dress ulcer prophylaxis. 8. Consult PT/OT, eval and treat. 9. Inman catheter care. 10. Routine laboratory values. 11. Discussed with the patient in detail. All questions were answered. Job ID: [id number]
[2020-04-10] MEDS: HYDROcodone/Acetaminophen 7.5/325 mg Tablet PO PRN (20:49)
[2020-04-10] MEDS: Penicillin V Potassium 250 MG TAB PO SCH (20:50)
[2020-04-11] MEDS: Morphine ER 15 MG TAB PO PRN ×2 (06:37→14:39)
[2020-04-11] MEDS: Ferrous Gluconate 324 MG TAB PO SCH ×2 (08:43→16:34)
[2020-04-11] MEDS: Apixaban 2.5 MG TAB PO SCH ×2 (08:44→21:18)
[2020-04-11] MEDS: Potassium Chloride 20 MEQ TAB PO SCH ×2 (08:44→16:34)
[2020-04-11] MEDS: Spironolactone 25 MG TAB PO SCH (08:44)
[2020-04-11] MEDS: Cyanocobalamin (Vitamin B-12) 1,000 MCG TAB PO SCH (08:45)
[2020-04-11] MEDS: Aspirin 81 mg Enteric Coated Tablet PO SCH (08:45)
[2020-04-11] MEDS: Gabapentin 300 MG CAP PO SCH ×3 (08:45→21:18)
[2020-04-11] MEDS: Bupropion 150 MG XL TAB PO SCH (08:45)
[2020-04-11] MEDS: Furosemide 80 MG TAB PO SCH ×2 (08:45→14:17)
[2020-04-11] MEDS: Lactinex Tablet PO SCH ×3 (08:46→21:18)
[2020-04-11] MEDS: Penicillin V Potassium 250 MG TAB PO SCH ×2 (08:46→21:18)
[2020-04-11] MEDS: Nystatin Powder 15 GM BOT TOP SCH (08:46)
[2020-04-11] MEDS: Polyethylene Glycol 3350 17 GM Packet PO SCH ×2 (08:47→21:19)
[2020-04-11] MEDS: Pramipexole Di-HCl 0.25 MG TAB PO SCH ×2 (08:47→21:18)
--- NOTE | 2020-04-11 13:05 | PRG ---
DATE OF SERVICE: 04/11/2020 SUBJECTIVE: Ms. Acevedo is up in bed, enjoying her lunch. She denies any questions or concerns. She is happy that she is back on her penicillin. OBJECTIVE: VITAL SIGNS: She is afebrile, heart rate is 80, respirations 18, oxygen saturation 98%, blood pressure 142/76. CARDIOVASCULAR: S1 and S2 plus. RESPIRATORY: Normal vesicular breath sounds. ABDOMEN: Soft, nontender, and obese. Bowel sounds heard in all quadrants. EXTREMITIES: Chronic lymphedema. CENTRAL NERVOUS SYSTEM: Grossly nonfocal except for significant deconditioning. IMPRESSION: 1. Chronic lymphedema. 2. Recurrent cellulitis requiring penicillin prophylaxis. 3. Morbid obesity. 4. Hypertension. 5. Diastolic dysfunction. 6. History of obstructive sleep apnea. 7. History of deep venous thrombosis. PLAN: 1. Continue current medications. 2. Nutritional support with heart-healthy diet. 3. Monitor respiratory status. 4. Inman catheter care. 5. DVT and stress ulcer prophylaxis. 6. Decubitus precaution. 7. Routine laboratory values. I am not sure why they did a urine culture on her. I think it is more a protocol, but these are going to be colonized, and really, she does not have any clinical signs of infection. Discussed with the patient and nursing. Job ID: [id number]
[2020-04-11] MEDS: tiZANidine HCl 4 MG TAB PO PRN (18:23)
[2020-04-12] MEDS: Nystatin Powder 15 GM BOT TOP SCH ×3 (00:21→20:16)
[2020-04-12] MEDS: Morphine ER 15 MG TAB PO PRN ×3 (00:40→17:02)
[2020-04-12] MEDS: Aspirin 81 mg Enteric Coated Tablet PO SCH (08:48)
[2020-04-12] MEDS: Polyethylene Glycol 3350 17 GM Packet PO SCH ×2 (08:48→20:16)
[2020-04-12] MEDS: Lactinex Tablet PO SCH ×3 (08:48→22:52)
[2020-04-12] MEDS: Gabapentin 300 MG CAP PO SCH ×3 (08:49→20:15)
[2020-04-12] MEDS: Potassium Chloride 20 MEQ TAB PO SCH ×2 (08:49→17:03)
[2020-04-12] MEDS: Pramipexole Di-HCl 0.25 MG TAB PO SCH ×2 (08:50→20:14)
[2020-04-12] MEDS: Spironolactone 25 MG TAB PO SCH (08:50)
[2020-04-12] MEDS: Furosemide 80 MG TAB PO SCH ×2 (08:50→13:28)
[2020-04-12] MEDS: Ferrous Gluconate 324 MG TAB PO SCH ×2 (08:50→17:03)
[2020-04-12] MEDS: Apixaban 2.5 MG TAB PO SCH ×2 (08:50→20:15)
[2020-04-12] MEDS: Cyanocobalamin (Vitamin B-12) 1,000 MCG TAB PO SCH (08:50)
[2020-04-12] MEDS: Bupropion 150 MG XL TAB PO SCH (08:50)
[2020-04-12] MEDS: Penicillin V Potassium 250 MG TAB PO SCH ×2 (09:58→20:15)
[2020-04-12] MEDS: tiZANidine HCl 4 MG TAB PO PRN (17:02)
--- NOTE | 2020-04-12 17:31 | PRG ---
DATE OF SERVICE: 04/12/2020 open area in the lateral aspect of her distal left thigh resulting in some serous drainage from her chronic lymphedema. Advised nursing to put some occlusive absorbent dressing. It is not infected. OBJECTIVE: VITAL SIGNS: She is afebrile. Heart rate 80, respirations 20, oxygen saturation 97% on 2 L, blood pressure 123/67. she is down to room air right now. CARDIOVASCULAR: S1 and S2 plus. RESPIRATORY: Normal vesicular breath sounds. ABDOMEN: Soft, nontender. Bowel sounds heard in all quadrants. EXTREMITIES: Without cyanosis or clubbing. Chronic lymphedema, significant deconditioning. IMPRESSION: 1. Recent significant weight gain, requiring diuresis. 2. Chronic lymphedema. 3. Morbid obesity. 4. Hypertension. 5. Diastolic dysfunction. 6. History of deep venous thrombosis. PLAN: 1. Continue current medications. 2. Nutritional support with heart healthy diet. 3. DVT and stress ulcer prophylaxis. 4. Decubitus precautions. 5. Superficial wound care. 6. Therapy. 7. Inman catheter care. 8. Routine laboratory values. Job ID: [id number]
[2020-04-13] MEDS: Morphine ER 15 MG TAB PO PRN ×2 (01:06→09:57)
[2020-04-13 05:56] LABS: Hemoglobin 8.9 g/dL (12.0-16.0); Platelet Count 208 thou/uL (130-400)
[2020-04-13] MEDS: HYDROcodone/Acetaminophen 7.5/325 mg Tablet PO PRN (08:28)
[2020-04-13] MEDS: Cyanocobalamin (Vitamin B-12) 1,000 MCG TAB PO SCH (08:34)
[2020-04-13] MEDS: Furosemide 80 MG TAB PO SCH ×2 (08:35→14:17)
[2020-04-13] MEDS: Aspirin 81 mg Enteric Coated Tablet PO SCH (08:35)
[2020-04-13] MEDS: Spironolactone 25 MG TAB PO SCH (08:35)
[2020-04-13] MEDS: Apixaban 2.5 MG TAB PO SCH ×2 (08:35→20:31)
[2020-04-13] MEDS: Pramipexole Di-HCl 0.25 MG TAB PO SCH ×2 (08:35→20:33)
[2020-04-13] MEDS: Gabapentin 300 MG CAP PO SCH ×3 (08:35→20:33)
[2020-04-13] MEDS: Penicillin V Potassium 250 MG TAB PO SCH ×2 (08:36→20:31)
[2020-04-13] MEDS: Nystatin Powder 15 GM BOT TOP SCH ×2 (08:36→20:34)
[2020-04-13] MEDS: Bupropion 150 MG XL TAB PO SCH (08:36)
[2020-04-13] MEDS: Ferrous Gluconate 324 MG TAB PO SCH ×2 (08:36→17:41)
[2020-04-13] MEDS: Potassium Chloride 20 MEQ TAB PO SCH ×2 (08:36→17:40)
[2020-04-13] MEDS: Polyethylene Glycol 3350 17 GM Packet PO SCH ×2 (08:37→20:34)
[2020-04-13] MEDS: Lactinex Tablet PO SCH ×3 (09:59→20:34)
[2020-04-13] MEDS: tiZANidine HCl 4 MG TAB PO PRN (14:12)
--- NOTE | 2020-04-13 14:23 | PRG ---
DATE OF SERVICE: 04/13/2020 SUBJECTIVE: Ms. Acevedo is resting in bed. She states she is feeling better therapy. She denies any questions or concerns. She is happy with her progress. Her weight is marked wrong, which is 15.824 ounces, which will have nursing corrected. OBJECTIVE: VITAL SIGNS: She is afebrile. Heart rate is 88; respirations 18; oxygen saturation 98% right now on room air, she uses 3 L of oxygen at night. She also states that she has never been tested for sleep apnea when they tried her on a CPAP at night in the hospital. She was unable to tolerate it due to claustrophobia. Blood pressure is 134/69. CARDIOVASCULAR: S1 and S2 plus. RESPIRATORY: Normal vesicular breath sounds. ABDOMEN: Soft, obese, nontender. Bowel sounds heard in all quadrants. EXTREMITIES: Chronic lymphedema. CENTRAL NERVOUS SYSTEM: Generalized weakness. LABORATORY DATA: Hemoglobin and hematocrit are 8.9 and 30.8. Urine culture is growing Pseudomonas and Enterococcus faecalis, both less than 100,000. She is not having any symptoms. This was done as per protocol. She does not need any treatment for that. IMPRESSION: 1. Chronic lymphedema. 2. Significant deconditioning. 3. Hypertension. 4. Diastolic dysfunction. 5. History of deep venous thrombosis. 6. Possible obesity hypoventilation syndrome and nocturnal hypoxemia. She states that she cannot tolerate CPAP. PLAN: 1. Continue current medications. 2. Physical therapy. 3. correct her weight. 4. Inman catheter care. 5. DVT prophylaxis. 6. Decubitus precaution. 7. Stress ulcer prophylaxis. 8. She is on Eliquis b.i.d. 9. Therapy. 10. Routine laboratory values. Job ID: [id number]
[2020-04-14] MEDS: Morphine ER 15 MG TAB PO PRN ×3 (00:16→17:20)
[2020-04-14] MEDS: HYDROcodone/Acetaminophen 7.5/325 mg Tablet PO PRN ×2 (06:10→22:16)
[2020-04-14] MEDS: Potassium Chloride 20 MEQ TAB PO SCH ×2 (08:02→17:20)
[2020-04-14] MEDS: Spironolactone 25 MG TAB PO SCH (08:02)
[2020-04-14] MEDS: Apixaban 2.5 MG TAB PO SCH ×2 (08:02→20:14)
[2020-04-14] MEDS: Ferrous Gluconate 324 MG TAB PO SCH ×2 (08:02→17:20)
[2020-04-14] MEDS: Aspirin 81 mg Enteric Coated Tablet PO SCH (08:03)
[2020-04-14] MEDS: Bupropion 150 MG XL TAB PO SCH (08:03)
[2020-04-14] MEDS: Cyanocobalamin (Vitamin B-12) 1,000 MCG TAB PO SCH (08:04)
[2020-04-14] MEDS: Lactinex Tablet PO SCH ×3 (08:04→20:15)
[2020-04-14] MEDS: Gabapentin 300 MG CAP PO SCH ×3 (08:04→20:16)
[2020-04-14] MEDS: Furosemide 80 MG TAB PO SCH ×2 (08:04→14:36)
[2020-04-14] MEDS: Penicillin V Potassium 250 MG TAB PO SCH ×2 (08:05→20:16)
[2020-04-14] MEDS: Nystatin Powder 15 GM BOT TOP SCH ×2 (08:05→20:17)
[2020-04-14] MEDS: Polyethylene Glycol 3350 17 GM Packet PO SCH ×2 (08:06→20:16)
[2020-04-14] MEDS: Pramipexole Di-HCl 0.25 MG TAB PO SCH ×2 (08:06→20:14)
[2020-04-14] MEDS ORDERED: Guaifenesin DM 100-10/5 ML UDCUP PO PRN (12:21)
--- NOTE | 2020-04-14 12:40 | PRG ---
DATE OF SERVICE: 04/14/2020 SUBJECTIVE: Ms. Acevedo is up in bed, getting ready to eat her lunch. She states she is having cough mostly with clear expectoration. She is also concerned about her weight. She feels like she is gaining more weight. Her weight has not been documented properly. We will have nursing address that. I told her I can add Zaroxolyn before her morning dose of Lasix and start her on some Robitussin. OBJECTIVE: VITAL SIGNS: She is afebrile. Heart rate 93, respirations 18, oxygen saturation 92% on room air, blood pressure 138/64. CARDIOVASCULAR: S1 and S2 plus. RESPIRATORY: Normal vesicular breath sounds. ABDOMEN: Soft, obese, nontender. Bowel sounds heard in all quadrants. EXTREMITIES: Chronic lymphedema. No signs of cellulitis. CENTRAL NERVOUS SYSTEM: Generalized weakness, otherwise nonfocal. IMPRESSION: 1. Chronic lymphedema. 2. Possible obesity hypoventilation syndrome and cor pulmonale. 3. History of deep venous thrombosis. 4. History of recurrent cellulitis, on penicillin prophylaxis. 5. Hypertension. 6. Diastolic dysfunction. PLAN: 1. Continue current medications, but add Zaroxolyn before morning Lasix. 2. Robitussin DM for her cough. Lung exam is clear. 3. Inman catheter care. 4. Proper documentation of her weight. 5. DVT prophylaxis - she is on Eliquis. 6. Decubitus precaution. 7. Physical therapy. 8. Routine laboratory values. Job ID: [id number]
[2020-04-14] MEDS: tiZANidine HCl 4 MG TAB PO PRN (20:15)
[2020-04-15] MEDS: Morphine ER 15 MG TAB PO PRN ×3 (02:32→18:34)
[2020-04-15 05:39] LABS: Anion Gap 12 mmol/L (10-20); BUN (Urea Nitrogen) 22 mg/dL (9.8-20.1); Calc. Creatinine Clearance 0 mL/min (70-130); Calcium 9.2 mg/dL (7.8-10.44); Carbon Dioxide 33 mmol/L (22-29); Chloride 96 mmol/L (98-107); Estimated GFR-MDRD 48; Glucose 122 mg/dL (70-105); Potassium 3.8 mmol/L (3.5-5.1); Sodium 137 mmol/L (136-145)
[2020-04-15] MEDS: Ferrous Gluconate 324 MG TAB PO SCH ×2 (08:25→16:21)
[2020-04-15] MEDS: Potassium Chloride 20 MEQ TAB PO SCH ×2 (08:25→16:21)
[2020-04-15] MEDS: Spironolactone 25 MG TAB PO SCH (08:25)
[2020-04-15] MEDS: Apixaban 2.5 MG TAB PO SCH ×2 (08:26→21:18)
[2020-04-15] MEDS: Aspirin 81 mg Enteric Coated Tablet PO SCH (08:26)
[2020-04-15] MEDS: Bupropion 150 MG XL TAB PO SCH (08:26)
[2020-04-15] MEDS: Gabapentin 300 MG CAP PO SCH ×3 (08:27→21:18)
[2020-04-15] MEDS: Cyanocobalamin (Vitamin B-12) 1,000 MCG TAB PO SCH (08:27)
[2020-04-15] MEDS: Lactinex Tablet PO SCH ×3 (08:27→21:18)
[2020-04-15] MEDS: Furosemide 80 MG TAB PO SCH ×2 (08:27→14:40)
[2020-04-15] MEDS: Penicillin V Potassium 250 MG TAB PO SCH ×2 (08:28→21:17)
[2020-04-15] MEDS: Polyethylene Glycol 3350 17 GM Packet PO SCH ×2 (08:29→21:22)
[2020-04-15] MEDS: Pramipexole Di-HCl 0.25 MG TAB PO SCH ×2 (08:29→21:18)
[2020-04-15] MEDS ORDERED: Metolazone 2.5 MG TAB PO SCH (08:30)
[2020-04-15] MEDS: Nystatin Powder 15 GM BOT TOP SCH ×3 (08:32→21:19)
[2020-04-15] MEDS: tiZANidine HCl 4 MG TAB PO PRN ×2 (10:30→23:34)
--- NOTE | 2020-04-15 11:59 | PRG ---
DATE OF SERVICE: 04/15/2020 SUBJECTIVE: Ms. Acevedo is resting in bed. She is complaining of suprapubic cramping pain. She denies any urinary symptoms. She denies any nausea or vomiting. She denies any fever or chills. She does have a hernia, which apparently was reduced by Dr. Jacobson, but he states that it is actually smaller in size now that is the problem. OBJECTIVE: VITAL SIGNS: She is afebrile. Heart rate 83, respirations 18, oxygen saturation 95% on room air, blood pressure 136/64. CARDIOVASCULAR: S1 and S2 plus. RESPIRATORY: Normal vesicular breath sounds. ABDOMEN: Soft, obese. Mild suprapubic tenderness. No guarding, rebound, or rigidity. EXTREMITIES: Chronic lymphedema. CENTRAL NERVOUS SYSTEM: Generalized weakness. IMPRESSION: 1. Suprapubic pain, cramping. Could be bladder spasms. Could be colic from the intestine. We will try Levsin sublingual. 2. Chronic lymphedema. 3. Diastolic dysfunction. 4. Morbid obesity. 5. Significant deconditioning. PLAN: 1. Levsin sublingual q.6 p.r.n. 2. Inman catheter care. 3. Nutritional support. 4. Await Zaroxolyn. It has to apparently come from [facility]. 5. Recheck labs in the morning. 6. DVT and stress ulcer prophylaxis. She is on Eliquis. 7. Physical therapy. Job ID: [id number]
[2020-04-15] MEDS: Hyoscyamine Sulfate SL 0.125 mg Tablet PO PRN ×2 (14:44→18:33)
[2020-04-15] MEDS: HYDROcodone/Acetaminophen 7.5/325 mg Tablet PO PRN (23:34)
[2020-04-16 05:18] LABS: Hemoglobin 9.1 g/dL (12.0-16.0); Platelet Count 210 thou/uL (130-400)
--- NOTE | 2020-04-16 08:44 | PRG ---
DATE OF SERVICE: 04/16/2020 SUBJECTIVE: Ms. Acevedo is doing the same. She apparently did not get any Levsin. It is ordered as needed. She states that she did complain to nursing about abdominal cramping, although here it states that it was given at 6:33 yesterday evening. OBJECTIVE: CARDIOVASCULAR SYSTEM: S1 and S2 plus. RESPIRATORY SYSTEM: Normal vesicular breath sounds. ABDOMEN: Soft, obese, and nontender. EXTREMITIES: Without cyanosis or clubbing. Chronic lymphedema. Limited exam. CENTRAL NERVOUS SYSTEM: Improving deconditioning. IMPRESSION: 1. Chronic lymphedema. 2. History of deep venous thrombosis, on Eliquis. 3. Abdominal cramping pain, on Levsin. 4. Obesity hypoventilation. 5. History of recurrent cellulitis, on antibiotic prophylaxis. 6. Restless legs syndrome. 7. Depression and anxiety. 8. Chronic pain. PLAN: 1. Continue current medications. 2. Continue Levsin p.r.n. 3. Monitor weights with her Lasix and Zaroxolyn. 4. Physical therapy. 5. DVT prophylaxis - she is on Eliquis. 6. Decubitus precautions. 7. Nutritional support. 8. Routine laboratory values. Her H and H of 9.1 and 31.7. Sodium of 137, potassium of 3.8, BUN and creatinine of 22 and 1.16. Her weight is 436 pounds. I also advised her to limit her fluid intake. She is negative the last 3 days about 3000 mL. Job ID: [id number]
[2020-04-16] MEDS: Penicillin V Potassium 250 MG TAB PO SCH ×2 (09:12→20:44)
[2020-04-16] MEDS: Apixaban 2.5 MG TAB PO SCH ×2 (09:12→20:44)
[2020-04-16] MEDS: Furosemide 80 MG TAB PO SCH ×2 (09:12→13:23)
[2020-04-16] MEDS: Lactinex Tablet PO SCH ×3 (09:12→20:44)
[2020-04-16] MEDS: Pramipexole Di-HCl 0.25 MG TAB PO SCH ×2 (09:13→20:44)
[2020-04-16] MEDS: Aspirin 81 mg Enteric Coated Tablet PO SCH (09:13)
[2020-04-16] MEDS: Morphine ER 15 MG TAB PO PRN ×2 (09:13→17:27)
[2020-04-16] MEDS: Potassium Chloride 20 MEQ TAB PO SCH ×2 (09:13→16:53)
[2020-04-16] MEDS: Gabapentin 300 MG CAP PO SCH ×3 (09:13→20:44)
[2020-04-16] MEDS: Spironolactone 25 MG TAB PO SCH (09:13)
[2020-04-16] MEDS: Ferrous Gluconate 324 MG TAB PO SCH ×2 (09:14→16:54)
[2020-04-16] MEDS: Bupropion 150 MG XL TAB PO SCH (09:15)
[2020-04-16] MEDS: Metolazone 5 MG TAB PO SCH (09:15)
[2020-04-16] MEDS: Cyanocobalamin (Vitamin B-12) 1,000 MCG TAB PO SCH (09:15)
[2020-04-16] MEDS: Hyoscyamine Sulfate SL 0.125 mg Tablet PO PRN ×3 (09:15→20:48)
[2020-04-16] MEDS: Nystatin Powder 15 GM BOT TOP SCH ×2 (11:14→20:37)
[2020-04-16] MEDS: Polyethylene Glycol 3350 17 GM Packet PO SCH ×2 (11:15→23:08)
[2020-04-16] MEDS: HYDROcodone/Acetaminophen 7.5/325 mg Tablet PO PRN (15:03)
[2020-04-16] MEDS: tiZANidine HCl 4 MG TAB PO PRN ×2 (15:06→22:39)
[2020-04-17] MEDS: Hyoscyamine Sulfate SL 0.125 mg Tablet PO PRN ×4 (01:50→20:38)
[2020-04-17] MEDS: Morphine ER 15 MG TAB PO PRN ×3 (01:50→20:39)
[2020-04-17] MEDS: Bupropion 150 MG XL TAB PO SCH (08:21)
[2020-04-17] MEDS: Lactinex Tablet PO SCH ×3 (08:21→20:24)
[2020-04-17] MEDS: Penicillin V Potassium 250 MG TAB PO SCH ×2 (08:21→20:25)
[2020-04-17] MEDS: Potassium Chloride 20 MEQ TAB PO SCH ×2 (08:21→17:03)
[2020-04-17] MEDS: Gabapentin 300 MG CAP PO SCH ×3 (08:22→20:24)
[2020-04-17] MEDS: Pramipexole Di-HCl 0.25 MG TAB PO SCH ×2 (08:22→20:25)
[2020-04-17] MEDS: Apixaban 2.5 MG TAB PO SCH ×2 (08:22→20:24)
[2020-04-17] MEDS: Cyanocobalamin (Vitamin B-12) 1,000 MCG TAB PO SCH (08:22)
[2020-04-17] MEDS: Spironolactone 25 MG TAB PO SCH (08:22)
[2020-04-17] MEDS: Furosemide 80 MG TAB PO SCH ×2 (08:22→13:30)
[2020-04-17] MEDS: Metolazone 5 MG TAB PO SCH (08:22)
[2020-04-17] MEDS: Ferrous Gluconate 324 MG TAB PO SCH ×2 (08:22→17:03)
[2020-04-17] MEDS: Nystatin Powder 15 GM BOT TOP SCH ×2 (08:23→20:25)
[2020-04-17] MEDS: Polyethylene Glycol 3350 17 GM Packet PO SCH ×2 (08:23→20:25)
[2020-04-17] MEDS: Aspirin 81 mg Enteric Coated Tablet PO SCH (08:27)
[2020-04-17] MEDS: tiZANidine HCl 4 MG TAB PO PRN ×2 (11:22→22:21)
[2020-04-18] MEDS: HYDROcodone/Acetaminophen 7.5/325 mg Tablet PO PRN ×2 (02:18→15:15)
--- NOTE | 2020-04-18 07:51 | PRG ---
DATE OF SERVICE: 04/18/2020 SUBJECTIVE: Ms. Acevedo is a 60-year-old white female, who has significant problems with lymphedema. She was admitted initially to [facility] and stayed there for significant amount of time and now is transferred here because she is so weak. She is here for physical therapy and occupational therapy. OBJECTIVE: VITAL SIGNS: Today reveal blood pressure 130/69, pulse 81 to 87, respirations 18 to 20, O2 saturation 93% to 98% on room air, and T-max 99. GENERAL: This is a well-developed, well-nourished, very pleasant, morbidly obese, 60-year-old white female, in no apparent distress at this time. HEENT: Reveals normocephalic and nontraumatic cranium. Pupils are equally round and reactive. Extraocular movements intact. Nose and throat are slightly dry, but clear. NECK: Supple without masses, nodes, or bruits. CHEST: Clear to auscultation. No rales, rhonchi, wheezes, or cough is heard. HEART: Reveals a regular rate and rhythm without murmurs, gallops, or rubs. ABDOMEN: Morbidly obese, soft, and nontender without organomegaly. Large umbilical hernia is noted, which she always complains of tenderness. She states she has not had a bowel movement in about a week and we will start her on some Dulcolax pills, which she requested. ASSESSMENT: 1. Chronic lymphedema. 2. History of deep vein thrombosis, presently on Eliquis. 3. Abdominal cramps pain, on Levsin. 4. Obesity hypoventilation. 5. History of recurrent cellulitis, on antibiotic prophylaxis. 6. Restless legs syndrome. 7. Anxiety and depressive disorder. 8. Chronic pain. PLAN: 1. Continue current medications. 2. Add Dulcolax pills for the patient's constipation. 3. Continue Levsin p.r.n. 4. Monitor weight with Lasix and Zaroxolyn. 5. Physical therapy. 6. DVT prophylaxis. 7. Decubitus precautions. 8. Nutritional support. 9. Continue to follow labs. 10. The patient is to continue to limit her fluid intake. Job ID: [id number]
--- NOTE | 2020-04-18 09:25 | PRG ---
DATE OF SERVICE: 04/17/2020 SUBJECTIVE: Ms. Acevedo is a well-developed, well-nourished, morbidly obese 60-year-old white female, who has chronic lymphedema and has been hospitalized at [facility] for many days. Unfortunately, she has gotten extremely weaker and she was transferred to inpatient rehab at [facility] to increase her strength and stamina. Subjectively, the patient states she is doing well. She states she continues to have some abdominal pain around her umbilical hernia. She does not know if the Levsin is helping her or not. OBJECTIVE: VITAL SIGNS: Today reveal blood pressure 117/57, pulse 81, respirations 20, O2 saturation 93% to 95%, T-max 98.9. GENERAL: This is a well-developed, well-nourished, morbidly obese white female, in no apparent distress this morning. She states she slept well. HEENT: Reveals normocephalic and nontraumatic cranium. Pupils are equal, round, and reactive. Extraocular movements are intact. Nose and throat are slightly dry. NECK: Supple without masses, nodes, or bruits. CHEST: Clear to auscultation. No rales, rhonchi, or wheezes are heard. HEART: Reveals a regular rate and rhythm without murmurs, gallops, or rubs. ABDOMEN: Morbidly obese. Unable to palpate any masses. She does complain of tenderness mainly on the right side around her rather large umbilical hernia. GENITOURINARY: Deferred. EXTREMITIES: Reveal no clubbing or cyanosis. She does have chronic lymphedema. NEUROLOGIC: The patient has no focal deficits. MUSCULOSKELETAL: She is gradually getting stronger and is able to get out of bed. IMPRESSION: 1. Chronic lymphedema. 2. Extreme generalized weakness, but improving. 3. History of deep venous thrombosis, presently on Eliquis. 4. Abdominal cramping pain, on Levsin, not sure if it works or not. 5. Obesity with hypoventilation. 6. History of recurrent cellulitis, on antibiotic prophylaxis. 7. Restless legs syndrome. 8. Anxiety and depressive disorder. 9. Chronic pain. PLAN: 1. Continue to monitor the patient's weight, but try to get them a little better and use the same scale each time. 2. I prefer a standing scale rather than a bed scale. 3. DVT prophylaxis. 4. Decubitus precautions. 5. Nutritional support. 6. Continue to encourage the patient to fluid restrict. 7. Continue present medications. 8. Continue Levsin as needed. 9. I will see the patient again tomorrow morning. Job ID: [id number]
[2020-04-18] MEDS: Nystatin Powder 15 GM BOT TOP SCH ×2 (09:31→20:33)
[2020-04-18] MEDS: Penicillin V Potassium 250 MG TAB PO SCH ×2 (09:32→20:34)
[2020-04-18] MEDS: Ferrous Gluconate 324 MG TAB PO SCH ×2 (09:32→16:43)
[2020-04-18] MEDS: Metolazone 5 MG TAB PO SCH (09:32)
[2020-04-18] MEDS: Potassium Chloride 20 MEQ TAB PO SCH ×2 (09:32→16:44)
[2020-04-18] MEDS: Aspirin 81 mg Enteric Coated Tablet PO SCH (09:32)
[2020-04-18] MEDS: Lactinex Tablet PO SCH ×3 (09:33→20:34)
[2020-04-18] MEDS: Gabapentin 300 MG CAP PO SCH ×3 (09:33→20:33)
[2020-04-18] MEDS: Spironolactone 25 MG TAB PO SCH (09:33)
[2020-04-18] MEDS: Furosemide 80 MG TAB PO SCH ×2 (09:33→15:11)
[2020-04-18] MEDS: Pramipexole Di-HCl 0.25 MG TAB PO SCH ×2 (09:33→20:34)
[2020-04-18] MEDS: Apixaban 2.5 MG TAB PO SCH ×2 (09:33→20:33)
[2020-04-18] MEDS: Cyanocobalamin (Vitamin B-12) 1,000 MCG TAB PO SCH (09:34)
[2020-04-18] MEDS: Morphine ER 15 MG TAB PO PRN (09:34)
[2020-04-18] MEDS: Bupropion 150 MG XL TAB PO SCH (09:34)
[2020-04-18] MEDS: Hyoscyamine Sulfate SL 0.125 mg Tablet PO PRN ×2 (09:35→15:16)
[2020-04-18] MEDS: Polyethylene Glycol 3350 17 GM Packet PO SCH ×2 (09:38→20:34)
[2020-04-18] MEDS: Bisacodyl 5 MG TAB PO PRN (09:42)
[2020-04-19] MEDS ORDERED: Ondansetron ODT 4 MG TAB PO PRN (03:36)
[2020-04-19] MEDS: Ferrous Gluconate 324 MG TAB PO SCH ×2 (08:28→16:43)
[2020-04-19] MEDS: Potassium Chloride 20 MEQ TAB PO SCH ×2 (08:28→16:44)
[2020-04-19] MEDS: Metolazone 5 MG TAB PO SCH (08:29)
[2020-04-19] MEDS: Spironolactone 25 MG TAB PO SCH (08:29)
[2020-04-19] MEDS: Cyanocobalamin (Vitamin B-12) 1,000 MCG TAB PO SCH (08:30)
[2020-04-19] MEDS: Aspirin 81 mg Enteric Coated Tablet PO SCH (08:30)
[2020-04-19] MEDS: Apixaban 2.5 MG TAB PO SCH ×2 (08:30→20:44)
[2020-04-19] MEDS: Bupropion 150 MG XL TAB PO SCH (08:30)
[2020-04-19] MEDS: Furosemide 80 MG TAB PO SCH ×2 (08:31→14:00)
[2020-04-19] MEDS: Nystatin Powder 15 GM BOT TOP SCH ×2 (08:31→20:46)
[2020-04-19] MEDS: Gabapentin 300 MG CAP PO SCH ×3 (08:31→20:46)
[2020-04-19] MEDS: Lactinex Tablet PO SCH ×3 (08:31→20:44)
[2020-04-19] MEDS: Pramipexole Di-HCl 0.25 MG TAB PO SCH ×2 (08:32→20:44)
[2020-04-19] MEDS: Polyethylene Glycol 3350 17 GM Packet PO SCH ×2 (08:32→20:47)
[2020-04-19] MEDS: Penicillin V Potassium 250 MG TAB PO SCH ×2 (08:32→20:46)
[2020-04-19] MEDS: Morphine ER 15 MG TAB PO PRN ×2 (08:33→16:44)
[2020-04-19] MEDS: Hyoscyamine Sulfate SL 0.125 mg Tablet PO PRN (08:34)
[2020-04-19] MEDS: Bisacodyl 5 MG TAB PO PRN (08:34)
[2020-04-19] MEDS ORDERED: Metolazone 5 MG TAB PO SCH ×2 (12:04→12:15)
[2020-04-19] MEDS: tiZANidine HCl 4 MG TAB PO PRN (12:34)
--- NOTE | 2020-04-19 13:04 | PRG ---
DATE OF SERVICE: 04/19/2020 SUBJECTIVE: Ms. Acevedo is doing the same except she states she is noticing some jerky movements, which is new. The only new medication is the Levsin, which I will discontinue. She is doing well otherwise. She did have an episode of vomiting this morning, but is feeling much better now. Did advise nursing to make sure they gave her the Zaroxolyn 30 minutes before her morning Lasix and put that in the instructions. OBJECTIVE: VITAL SIGNS: She is afebrile. Heart rate 99; respirations 18; oxygen saturation 94%, she is on nasal cannula currently on room air when they took it; blood pressure 131/75. CARDIOVASCULAR: S1 and S2 plus. RESPIRATORY: Normal vesicular breath sounds. ABDOMEN: Soft, obese, nontender. Bowel sounds heard in all quadrants. EXTREMITIES: Chronic lymphedema. Inman catheter in place. CENTRAL NERVOUS SYSTEM: Generalized weakness. There is a little bit of jerky movement involving in all four extremities. IMPRESSION: 1. Involuntary motor activity, possibly related to Levsin. We will discontinue Levsin. 2. Chronic lymphedema. 3. Recurrent cellulitis on antibiotic prophylaxis. 4. History of recurrent deep venous thrombosis on anticoagulation. 5. Nocturnal hypoxemia, on oxygen. 6. Significant deconditioning. 7. Restless legs syndrome. 8. Depression and anxiety. 9. Chronic pain. PLAN: 1. Continue current medications, but discontinue Levsin. 2. Give Zaroxolyn 30 minutes before her morning Lasix. 3. Physical therapy. 4. Inman catheter care. 5. Nutritional support. 6. Monitor GI system. 7. Routine laboratory values. Job ID: [id number]
[2020-04-19] MEDS: HYDROcodone/Acetaminophen 7.5/325 mg Tablet PO PRN (20:44)
[2020-04-20] MEDS: Morphine ER 15 MG TAB PO PRN ×2 (00:42→11:28)
[2020-04-20 05:40] LABS: #Basophils 0.2 thou/uL (0.0-0.2); #Eosinphils 0.4 thou/uL (0.0-0.7); #Lymphocytes 0.6 thou/uL (1.20-3.40); #Neutrophils 7.3 thou/uL (1.40-6.50); %Basophils 2.1 % (0.0-1.0); %Eosinophils 4.7 % (0.0-10.0); %Lymphocytes 6.7 % (21.0-51.0); %Monocytes 10.1 % (0.0-10.0); %Neutrophils 76.5 % (42.0-75.0); Hemoglobin 9.3 g/dL (12.0-16.0); Hypochromia SLIGHT = 6-15 cells (100X) (0-5/hpf); MDiff Complete? YES; Mean Corpuscular HGB CONC 29.5 g/dL (32.0-36.0); Mean Corpuscular Hemoglobin 23.7 pg (27.0-31.0); Mean Corpuscular Volume 80.3 fL (78.0-98.0); Mean Platelet Volume 7.1 fL (7.4-10.4); Ovalocytes SLIGHT = 2-5 cells (100X) (0-1/hpf); Platelet Count 295 thou/uL (130-400); Platelet Morphology Comment Appears Adequate; Polychromasia SLIGHT = 2-3 cells (100X) (0-2/hpf); RBC Distribution Width 19.4 % (11.5-14.5); Red Blood Cell (RBC) Count 3.92 mill/uL (4.20-5.40); White Blood Cell (WBC) Count 9.6 thou/uL (4.8-10.8)
[2020-04-20 05:43] LABS: BUN (Urea Nitrogen) 40 mg/dL (9.8-20.1); Calc. Creatinine Clearance 100 mL/min (70-130); Estimated GFR-MDRD 30; Glucose 132 mg/dL (70-105)
[2020-04-20 05:46] LABS: Chloride 83 mmol/L (98-107); Potassium 3.2 mmol/L (3.5-5.1); Sodium 136 mmol/L (136-145)
[2020-04-20 05:57] LABS: Carbon Dioxide 37 mmol/L (22-29)
[2020-04-20 06:03] LABS: Anion Gap 19 mmol/L (10-20)
[2020-04-20] MEDS: Metolazone 5 MG TAB PO SCH (08:00)
[2020-04-20] MEDS: Ferrous Gluconate 324 MG TAB PO SCH ×2 (08:41→16:24)
[2020-04-20] MEDS: Spironolactone 25 MG TAB PO SCH (08:41)
[2020-04-20] MEDS: Apixaban 2.5 MG TAB PO SCH ×2 (08:41→21:00)
[2020-04-20] MEDS: Aspirin 81 mg Enteric Coated Tablet PO SCH (08:41)
[2020-04-20] MEDS: Bupropion 150 MG XL TAB PO SCH (08:41)
[2020-04-20] MEDS: Potassium Chloride 20 MEQ TAB PO SCH ×2 (08:41→16:24)
[2020-04-20] MEDS: Lactinex Tablet PO SCH ×3 (08:42→20:59)
[2020-04-20] MEDS: Cyanocobalamin (Vitamin B-12) 1,000 MCG TAB PO SCH (08:42)
[2020-04-20] MEDS: Gabapentin 300 MG CAP PO SCH ×3 (08:42→21:00)
[2020-04-20] MEDS: Nystatin Powder 15 GM BOT TOP SCH ×2 (08:42→21:45)
[2020-04-20] MEDS: Furosemide 80 MG TAB PO SCH ×2 (08:42→13:58)
[2020-04-20] MEDS: Pramipexole Di-HCl 0.25 MG TAB PO SCH ×2 (08:43→20:59)
[2020-04-20] MEDS: Polyethylene Glycol 3350 17 GM Packet PO SCH ×2 (08:43→21:00)
[2020-04-20] MEDS: Penicillin V Potassium 250 MG TAB PO SCH ×2 (08:43→20:59)
[2020-04-20] MEDS: Bisacodyl 5 MG TAB PO PRN (08:43)
[2020-04-20] MEDS ORDERED: Potassium Chloride 20 MEQ TAB PO SCH (13:30)
--- NOTE | 2020-04-20 13:37 | PRG ---
DATE OF SERVICE: 04/20/2020 SUBJECTIVE: Ms. Acevedo is doing well. Her involuntary motor activity has pretty much resolved. I am not sure if it was related to the Levsin or that she was not getting the morphine as she normally takes at home. My feeling is that it is more the Levsin and possible interaction with the amitriptyline. Her potassium is low, and we will give her extra potassium. We will also cut down on her Zaroxolyn to 2.5 mg as if the weights are right, it shows that she has lost 30 pounds in three days. OBJECTIVE: VITAL SIGNS: She is afebrile, heart rate 91, respirations 18, oxygen saturation 94%, and blood pressure 126/62. CARDIOVASCULAR SYSTEM: S1 and S2 plus. RESPIRATORY SYSTEM: Normal vesicular breath sounds. ABDOMEN: Soft, obese, nontender. Bowel sounds heard in all quadrants. EXTREMITIES: Without cyanosis or clubbing. Chronic lymphedema. Inman catheter in place. CENTRAL NERVOUS SYSTEM: Generalized weakness. IMPRESSION: 1. Chronic lymphedema. 2. Recurrent cellulitis, requiring antibiotic prophylaxis. 3. History of recurrent deep venous thrombosis, on anticoagulation. 4. Morbid obesity. 5. Obesity hypoventilation syndrome and nocturnal hypoxemia. The patient states that she cannot sleep in a different bed to get her sleep study. 6. Hypokalemia. 7. Worsening BUN and creatinine, likely due to overdiuresis. PLAN: 1. Reduce Zaroxolyn to 2.5 mg. 2. Continue heart-healthy diet. 3. DVT prophylaxis. 4. Decubitus precautions. 5. Stress ulcer prophylaxis. 6. Physical therapy. 7. Inman catheter care. 8. Routine laboratory values. Job ID: [id number]
[2020-04-20] MEDS: tiZANidine HCl 4 MG TAB PO PRN (16:26)
[2020-04-21] MEDS: Morphine ER 15 MG TAB PO PRN ×3 (00:49→20:08)
[2020-04-21] MEDS: Potassium Chloride 20 MEQ TAB PO SCH ×2 (09:03→16:30)
[2020-04-21] MEDS: Gabapentin 300 MG CAP PO SCH ×3 (09:03→20:08)
[2020-04-21] MEDS: Lactinex Tablet PO SCH ×3 (09:03→20:07)
[2020-04-21] MEDS: Furosemide 80 MG TAB PO SCH ×2 (09:03→15:24)
[2020-04-21] MEDS: Cyanocobalamin (Vitamin B-12) 1,000 MCG TAB PO SCH (09:03)
[2020-04-21] MEDS: Penicillin V Potassium 250 MG TAB PO SCH ×3 (09:03→20:10)
[2020-04-21] MEDS: Metolazone 5 MG TAB PO SCH (09:04)
[2020-04-21] MEDS: Ferrous Gluconate 324 MG TAB PO SCH ×2 (09:04→16:30)
[2020-04-21] MEDS: Aspirin 81 mg Enteric Coated Tablet PO SCH (09:04)
[2020-04-21] MEDS: Bupropion 150 MG XL TAB PO SCH (09:04)
[2020-04-21] MEDS: Pramipexole Di-HCl 0.25 MG TAB PO SCH ×2 (09:04→20:07)
[2020-04-21] MEDS: Spironolactone 25 MG TAB PO SCH (09:04)
[2020-04-21] MEDS: Apixaban 2.5 MG TAB PO SCH ×2 (09:04→20:07)
[2020-04-21] MEDS: Polyethylene Glycol 3350 17 GM Packet PO SCH ×2 (09:05→20:11)
[2020-04-21] MEDS: Nystatin Powder 15 GM BOT TOP SCH ×2 (09:05→20:10)
[2020-04-21] MEDS: Bisacodyl 5 MG TAB PO PRN (09:12)
--- NOTE | 2020-04-21 13:58 | PRG ---
DATE OF SERVICE: 04/21/2020 SUBJECTIVE: Ms. Acevedo is just getting ready to work with therapy. She states that she is feeling better. She denies any questions or concerns. Discussed with therapist. OBJECTIVE: VITAL SIGNS: She is afebrile, heart rate 86, respirations 18, oxygen saturation 94% on room air, blood pressure 130/59. CARDIOVASCULAR SYSTEM: S1 and S2 plus. RESPIRATORY SYSTEM: Normal vesicular breath sounds. ABDOMEN: Soft, obese, nontender. Bowel sounds heard in all quadrants. EXTREMITIES: Chronic lymphedema. CENTRAL NERVOUS SYSTEM: Improving deconditioning. IMPRESSION: 1. Chronic lymphedema. 2. Nocturnal hypoxemia, on home O2. 3. Possible obesity hypoventilation syndrome. 4. Morbid obesity. 5. History of recurrent deep venous thrombosis, on anticoagulation. 6. History of recurrent cellulitis on antibiotic prophylaxis. 7. Restless legs syndrome. PLAN: 1. Continue current medications. 2. Recheck CBC and BMP tomorrow. 3. Stop Zaroxolyn after today. 4. Continue therapy. 5. DVT prophylaxis-she is on Eliquis. 6. Decubitus precaution. 7. Stress ulcer prophylaxis. 8. Monitor respiratory status. 9. Discharge planning. Job ID: [id number]
[2020-04-22] MEDS: Morphine ER 15 MG TAB PO PRN ×2 (04:11→21:22)
[2020-04-22 06:01] LABS: BUN (Urea Nitrogen) 37 mg/dL (9.8-20.1); Calc. Creatinine Clearance 99 mL/min (70-130); Calcium 10.3 mg/dL (7.8-10.44); Estimated GFR-MDRD 32; Glucose 130 mg/dL (70-105)
[2020-04-22 06:03] LABS: Band 15 % (5-11); Eosinophils 4 % (0-10); Hemoglobin 10.5 g/dL (12.0-16.0); Hypochromia SLIGHT = 6-15 cells (100X) (0-5/hpf); Lymphocytes 10 % (21-51); MDiff Complete? YES; Mean Corpuscular Hemoglobin 23.6 pg (27.0-31.0); Mean Corpuscular Volume 81.3 fL (78.0-98.0); Microcytosis SLIGHT = 6-15 cells (100X) (0-5/hpf); Monocytes 6 % (0-10); Neutrophil 65 % (42-75); Ovalocytes SLIGHT = 2-5 cells (100X) (0-1/hpf); Platelet Count 402 thou/uL (130-400); Platelet Morphology Comment Appears Adequate; RBC Distribution Width 19.4 % (11.5-14.5); Red Blood Cell (RBC) Count 4.43 mill/uL (4.20-5.40); White Blood Cell (WBC) Count 9.8 thou/uL (4.8-10.8)
[2020-04-22 06:05] LABS: Chloride 80 mmol/L (98-107); Potassium 3.2 mmol/L (3.5-5.1); Sodium 136 mmol/L (136-145)
[2020-04-22 06:27] LABS: Carbon Dioxide 36 mmol/L (22-29)
[2020-04-22 06:53] LABS: Anion Gap 23 mmol/L (10-20)
[2020-04-22] MEDS: Aspirin 81 mg Enteric Coated Tablet PO SCH (09:08)
[2020-04-22] MEDS: Bupropion 150 MG XL TAB PO SCH (09:08)
[2020-04-22] MEDS: Lactinex Tablet PO SCH ×3 (09:08→21:22)
[2020-04-22] MEDS: Gabapentin 300 MG CAP PO SCH ×3 (09:08→21:23)
[2020-04-22] MEDS: Polyethylene Glycol 3350 17 GM Packet PO SCH ×2 (09:08→21:25)
[2020-04-22] MEDS: Potassium Chloride 20 MEQ TAB PO SCH ×2 (09:08→16:32)
[2020-04-22] MEDS: Spironolactone 25 MG TAB PO SCH (09:09)
[2020-04-22] MEDS: Ferrous Gluconate 324 MG TAB PO SCH ×2 (09:09→16:32)
[2020-04-22] MEDS: Cyanocobalamin (Vitamin B-12) 1,000 MCG TAB PO SCH (09:09)
[2020-04-22] MEDS: Pramipexole Di-HCl 0.25 MG TAB PO SCH ×2 (09:09→21:23)
[2020-04-22] MEDS: Apixaban 2.5 MG TAB PO SCH ×2 (09:09→21:22)
[2020-04-22] MEDS: Furosemide 80 MG TAB PO SCH ×2 (09:09→13:20)
[2020-04-22] MEDS: Penicillin V Potassium 250 MG TAB PO SCH ×2 (09:09→21:25)
[2020-04-22] MEDS: Nystatin Powder 15 GM BOT TOP SCH ×2 (09:10→21:24)
[2020-04-22] MEDS: HYDROcodone/Acetaminophen 7.5/325 mg Tablet PO PRN (11:06)
[2020-04-22] MEDS ORDERED: Mag-Al Plus 1200 MG/1200 MG/120 MG/30 ML UDCUP PO PRN (12:37)
[2020-04-22] MEDS ORDERED: Potassium Chloride 20 MEQ TAB PO SCH (12:45)
--- NOTE | 2020-04-22 13:29 | PRG ---
DATE OF SERVICE: 04/22/2020 SUBJECTIVE: Ms. Acevedo is doing well except she is complaining of heartburn. She is very happy with her weight loss. She denies any questions or concerns. OBJECTIVE: VITAL SIGNS: She is afebrile. Heart rate 88, respirations 16, oxygen saturation 96% on room air, blood pressure 146/77. CARDIOVASCULAR SYSTEM: S1 and S2 plus. RESPIRATORY SYSTEM: Normal vesicular breath sounds. ABDOMEN: Soft, nontender, bowel sounds heard in all quadrants. EXTREMITIES: Without cyanosis or clubbing. Chronic lymphedema. CENTRAL NERVOUS SYSTEM: Improving deconditioning. LABORATORY DATA: Laboratory values show a white count of 9.8, H and H are 10.5 and 36.1. Sodium 136, potassium 3.2. BUN and creatinine are 37 and 1.65. IMPRESSION: 1. Improving lymphedema. 2. Chronic lymphedema. 3. Significant deconditioning. 4. Nocturnal hypoxemia and possible obesity . 5. History of deep venous thrombosis, on anticoagulation. 6. Restless legs syndrome. 7. Gastroesophageal reflux disease. 8. Anemia of chronic disease. 9. Hypokalemia. PLAN: 1. Replace potassium. 2. Maalox 30 mL q.4h p.r.n. 3. Continue to hold Zaroxolyn. 4. Monitor weight. 5. Physical therapy. 6. DVT and stress ulcer prophylaxis. 7. Decubitus precautions. 8. Routine laboratory values. 9. Inman catheter care. Job ID: [id number]
[2020-04-23 05:26] LABS: Platelet Count 334 thou/uL (130-400)
[2020-04-23] MEDS: Morphine ER 15 MG TAB PO PRN ×2 (06:47→18:18)
[2020-04-23] MEDS: Gabapentin 300 MG CAP PO SCH ×3 (09:26→20:40)
[2020-04-23] MEDS: Potassium Chloride 20 MEQ TAB PO SCH ×2 (09:27→16:41)
[2020-04-23] MEDS: Apixaban 2.5 MG TAB PO SCH ×2 (09:27→20:41)
[2020-04-23] MEDS: Spironolactone 25 MG TAB PO SCH (09:27)
[2020-04-23] MEDS: Bupropion 150 MG XL TAB PO SCH (09:27)
[2020-04-23] MEDS: Cyanocobalamin (Vitamin B-12) 1,000 MCG TAB PO SCH (09:27)
[2020-04-23] MEDS: Pramipexole Di-HCl 0.25 MG TAB PO SCH ×2 (09:27→20:41)
[2020-04-23] MEDS: Furosemide 80 MG TAB PO SCH ×2 (09:27→14:40)
[2020-04-23] MEDS: Ferrous Gluconate 324 MG TAB PO SCH ×2 (09:27→16:41)
[2020-04-23] MEDS: Lactinex Tablet PO SCH ×3 (09:28→20:41)
[2020-04-23] MEDS: Nystatin Powder 15 GM BOT TOP SCH ×2 (09:28→20:41)
[2020-04-23] MEDS: Polyethylene Glycol 3350 17 GM Packet PO SCH ×2 (09:28→20:41)
[2020-04-23] MEDS: Aspirin 81 mg Enteric Coated Tablet PO SCH (09:28)
[2020-04-23] MEDS: Penicillin V Potassium 250 MG TAB PO SCH ×2 (09:28→20:40)
--- NOTE | 2020-04-23 09:57 | PRG ---
DATE OF SERVICE: 04/23/2020 SUBJECTIVE: Ms. Acevedo is doing well, but frustrated that apparently her insurance company has denied her stay and she is trying to file an appeal. If she is not successful, she is to be discharged tomorrow. She apparently has [facility]. Case Management is aware, and if she is discharged tomorrow, they will arrange for [facility] to resume her care. She has Dr. Hodges as her PCP, and a nurse practitioner comes and visits her at home, and they will resume managing the home health. She states that she does not need any prescriptions. OBJECTIVE: VITAL SIGNS: She is afebrile. Heart rate 89, respirations 18, oxygen saturation 97%, blood pressure 126/64. CARDIOVASCULAR: S1 and S2 plus. RESPIRATORY: Normal vesicular breath sounds. ABDOMEN: Soft, obese, nontender. Bowel sounds heard in all quadrants. EXTREMITIES: Chronic lymphedema. CENTRAL NERVOUS SYSTEM: Slowly improving deconditioning. LABORATORY DATA: Her H and H are 10 and 34.2. IMPRESSION: 1. Chronic lymphedema. 2. Restless legs syndrome. 3. Chronic pain. 4. History of recurrent deep vein thrombosis, on Eliquis. 5. Morbid obesity. 6. Hypertension. 7. significant deconditioning. 8. Gastroesophageal reflux disease. PLAN: 1. Continue current medications. 2. Nutritional support with heart healthy diet. 3. Monitor respiratory status. 4. Superficial wound care. 5. Discharge planning. 6. Continue therapy. 7. Dr. Ruano on-call this weekend. Job ID: [id number]
[2020-04-23] MEDS: HYDROcodone/Acetaminophen 7.5/325 mg Tablet PO PRN (23:58)
[2020-04-24] MEDS: Aspirin 81 mg Enteric Coated Tablet PO SCH (08:51)
[2020-04-24] MEDS: Ferrous Gluconate 324 MG TAB PO SCH ×2 (08:51→17:11)
[2020-04-24] MEDS: Apixaban 2.5 MG TAB PO SCH ×2 (08:51→21:10)
[2020-04-24] MEDS: Potassium Chloride 20 MEQ TAB PO SCH ×2 (08:51→17:11)
[2020-04-24] MEDS: Spironolactone 25 MG TAB PO SCH (08:51)
[2020-04-24] MEDS: Gabapentin 300 MG CAP PO SCH ×3 (08:52→21:09)
[2020-04-24] MEDS: Furosemide 80 MG TAB PO SCH ×2 (08:52→14:04)
[2020-04-24] MEDS: Bupropion 150 MG XL TAB PO SCH (08:52)
[2020-04-24] MEDS: Lactinex Tablet PO SCH ×3 (08:52→21:09)
[2020-04-24] MEDS: Cyanocobalamin (Vitamin B-12) 1,000 MCG TAB PO SCH (08:52)
[2020-04-24] MEDS: Nystatin Powder 15 GM BOT TOP SCH ×2 (08:53→21:11)
[2020-04-24] MEDS: Penicillin V Potassium 250 MG TAB PO SCH ×2 (08:53→21:09)
[2020-04-24] MEDS: Pramipexole Di-HCl 0.25 MG TAB PO SCH ×2 (08:53→21:10)
[2020-04-24] MEDS: Polyethylene Glycol 3350 17 GM Packet PO SCH ×2 (08:53→21:11)
[2020-04-24] MEDS: Morphine ER 15 MG TAB PO PRN (08:58)
[2020-04-24] MEDS: tiZANidine HCl 4 MG TAB PO PRN (14:04)
--- NOTE | 2020-04-24 16:17 | PRG ---
DATE OF SERVICE: 04/24/[address] Cat Flores. SUBJECTIVE: The patient has won her appeal and is going stay another week and continue on physical therapy. She is having some problems with irritation of perineal area, but otherwise feels well and is ready for more therapy, understands she needs to aggressively improve. OBJECTIVE: VITAL SIGNS: Temperature 97.9, pulse 82, respirations 20, O2 sats 91% on room air, and blood pressure 126/59. LUNGS: Clear. CARDIAC: Regular rhythm. ABDOMEN: Obese and nontender. SKIN/EXTREMITIES: Wrapped, farrow wraps. ASSESSMENT: 1. Chronic lymphedema, farrow wraps. 2. Chronic pain, stable. 3. History of recurrent deep venous thrombosis, on apixaban. 4. Significant deconditioning, possibly exacerbated by bedridden status and lymphedema. PLAN: 1. Continue farrow wraps. 2. Continue full-dose anticoagulation. 3. Continue to monitor DVT. 4. Continue blood pressure control. 5. Continue to stress as much activity as possible. Job ID: [id number]
[2020-04-24] MEDS: Bisacodyl 5 MG TAB PO PRN (21:13)
[2020-04-25] MEDS: Morphine ER 15 MG TAB PO PRN ×3 (01:11→22:01)
[2020-04-25] MEDS: HYDROcodone/Acetaminophen 7.5/325 mg Tablet PO PRN (05:18)
[2020-04-25] MEDS: Potassium Chloride 20 MEQ TAB PO SCH ×2 (08:25→17:39)
[2020-04-25] MEDS: Ferrous Gluconate 324 MG TAB PO SCH ×2 (08:25→17:38)
[2020-04-25] MEDS: Cyanocobalamin (Vitamin B-12) 1,000 MCG TAB PO SCH (08:26)
[2020-04-25] MEDS: Spironolactone 25 MG TAB PO SCH (08:26)
[2020-04-25] MEDS: Aspirin 81 mg Enteric Coated Tablet PO SCH (08:26)
[2020-04-25] MEDS: Apixaban 2.5 MG TAB PO SCH ×2 (08:26→21:11)
[2020-04-25] MEDS: Bupropion 150 MG XL TAB PO SCH (08:26)
[2020-04-25] MEDS: Lactinex Tablet PO SCH ×3 (08:27→21:11)
[2020-04-25] MEDS: Furosemide 80 MG TAB PO SCH ×2 (08:27→14:35)
[2020-04-25] MEDS: Gabapentin 300 MG CAP PO SCH ×3 (08:27→21:11)
[2020-04-25] MEDS: Nystatin Powder 15 GM BOT TOP SCH ×2 (08:27→21:12)
[2020-04-25] MEDS: Penicillin V Potassium 250 MG TAB PO SCH ×2 (08:28→21:11)
[2020-04-25] MEDS: Polyethylene Glycol 3350 17 GM Packet PO SCH ×2 (08:28→21:12)
[2020-04-25] MEDS: Pramipexole Di-HCl 0.25 MG TAB PO SCH ×2 (08:28→21:12)
[2020-04-25] MEDS: Bisacodyl 5 MG TAB PO PRN (08:28)
[2020-04-25] MEDS: tiZANidine HCl 4 MG TAB PO PRN (12:11)
--- NOTE | 2020-04-25 18:17 | PRG ---
DATE OF SERVICE: Patient of Dr. Cat Flores. SUBJECTIVE: The patient feels well, but is very sleepy today, in fact, had to be awakened for lunch and for supper. She states she is not taking any more than a routine medication, but upon review, she did get 30 mg of MS Contin at 12 o'clock as well as 600 mg of gabapentin at 2 o'clock, and apparently has been getting the MS Contin regular. OBJECTIVE: VITAL SIGNS: Temperature 97, pulse 83, respirations 18, O2 saturations 95% on room air, and blood pressure 126/58. LUNGS: Clear. CARDIAC: Regular rhythm. ABDOMEN: Obese and nontender. SKIN/EXTREMITIES: Morbid obesity and wrapped and minimally tender. ASSESSMENT: Morbid obesity, lymphedema, deconditioning, chronic pain, and recurrent deep venous thrombosis. PLAN: 1. Continue PT for 1 more week as the patient has received authorization for insurance. 2. Continue to monitor medications as the patient is very lethargic today. 3. Continue full-dose anticoagulation. Job ID: [id number]
[2020-04-26] MEDS: HYDROcodone/Acetaminophen 7.5/325 mg Tablet PO PRN ×2 (01:07→11:55)
[2020-04-26] MEDS: Penicillin V Potassium 250 MG TAB PO SCH ×2 (09:46→21:07)
[2020-04-26] MEDS: Bupropion 150 MG XL TAB PO SCH (09:46)
[2020-04-26] MEDS: Potassium Chloride 20 MEQ TAB PO SCH ×2 (09:46→16:18)
[2020-04-26] MEDS: Aspirin 81 mg Enteric Coated Tablet PO SCH (09:46)
[2020-04-26] MEDS: Ferrous Gluconate 324 MG TAB PO SCH ×2 (09:47→16:18)
[2020-04-26] MEDS: Spironolactone 25 MG TAB PO SCH (09:47)
[2020-04-26] MEDS: Gabapentin 300 MG CAP PO SCH ×3 (09:47→21:07)
[2020-04-26] MEDS: Apixaban 2.5 MG TAB PO SCH ×2 (09:47→21:07)
[2020-04-26] MEDS: Furosemide 80 MG TAB PO SCH ×2 (09:47→14:48)
[2020-04-26] MEDS: Pramipexole Di-HCl 0.25 MG TAB PO SCH ×2 (09:47→21:07)
[2020-04-26] MEDS: Lactinex Tablet PO SCH ×3 (09:47→21:07)
[2020-04-26] MEDS: Cyanocobalamin (Vitamin B-12) 1,000 MCG TAB PO SCH (09:47)
[2020-04-26] MEDS: Nystatin Powder 15 GM BOT TOP SCH ×2 (09:48→21:08)
[2020-04-26] MEDS: Polyethylene Glycol 3350 17 GM Packet PO SCH ×2 (09:48→21:08)
[2020-04-26] MEDS: Morphine ER 15 MG TAB PO PRN ×2 (09:59→21:05)
--- NOTE | 2020-04-26 13:40 | PRG ---
DATE OF SERVICE: SUBJECTIVE: Ms. Acevedo is doing the same. She denies any complaints. Slowly improving with therapy. OBJECTIVE: VITAL SIGNS: She is afebrile. Heart rate 85, respirations 18, oxygen saturation 95% on room air, and blood pressure 99/62. CARDIOVASCULAR SYSTEM: S1 and S2 plus. RESPIRATORY SYSTEM: Normal vesicular breath sounds. ABDOMEN: Soft, obese, and nontender. Bowel sounds heard in all quadrants. EXTREMITIES: Chronic lymphedema. CENTRAL NERVOUS SYSTEM: Improving deconditioning. IMPRESSION: 1. Chronic lymphedema. 2. Possible diastolic dysfunction. 3. Obesity hypoventilation with nocturnal hypoxemia. 4. Morbid obesity. 5. Restless legs syndrome. 6. Chronic pain. 7. Hypertension. 8. Gastroesophageal reflux disease. 9. History of recurrent deep venous thrombosis, on Eliquis. PLAN: 1. Continue current medications. 2. Heart healthy diet. 3. DVT prophylaxis with Eliquis. 4. Decubitus precautions. 5. Stress ulcer prophylaxis. 6. Recheck CBC and BMP tomorrow. 7. Continue therapy. 8. Discussed with the patient in detail. All questions answered. Job ID: [id number]
[2020-04-26] MEDS: tiZANidine HCl 4 MG TAB PO PRN (16:31)
[2020-04-26] MEDS: Bisacodyl 5 MG TAB PO PRN (21:10)
[2020-04-27] MEDS: Morphine ER 15 MG TAB PO PRN ×2 (05:21→20:32)
[2020-04-27 05:48] LABS: #Basophils 0.1 thou/uL (0.0-0.2); #Eosinphils 0.6 thou/uL (0.0-0.7); #Lymphocytes 0.6 thou/uL (1.20-3.40); #Monocytes 0.7 thou/uL (0.11-0.59); #Neutrophils 4.9 thou/uL (1.40-6.50); %Basophils 2.1 % (0.0-1.0); %Eosinophils 8.5 % (0.0-10.0); %Lymphocytes 9.3 % (21.0-51.0); %Neutrophils 70.2 % (42.0-75.0); Anisocytosis SLIGHT = 6-15 cells (100X) (0-5/hpf); Hemoglobin 9.6 g/dL (12.0-16.0); MDiff Complete? YES; Mean Corpuscular HGB CONC 29.3 g/dL (32.0-36.0); Mean Corpuscular Hemoglobin 24.1 pg (27.0-31.0); Mean Corpuscular Volume 82.2 fL (78.0-98.0); Mean Platelet Volume 6.2 fL (7.4-10.4); Microcytosis SLIGHT = 6-15 cells (100X) (0-5/hpf); Ovalocytes SLIGHT = 2-5 cells (100X) (0-1/hpf); Platelet Count 264 thou/uL (130-400); Poikilocytosis MODERATE=16-30 cells (100X) (0-5/hpf); RBC Distribution Width 19.2 % (11.5-14.5); Red Blood Cell (RBC) Count 3.99 mill/uL (4.20-5.40); White Blood Cell (WBC) Count 6.9 thou/uL (4.8-10.8)
[2020-04-27 06:00] LABS: Anion Gap 15 mmol/L (10-20); BUN (Urea Nitrogen) 26 mg/dL (9.8-20.1); Calc. Creatinine Clearance 119 mL/min (70-130); Calcium 9.6 mg/dL (7.8-10.44); Carbon Dioxide 37 mmol/L (22-29); Chloride 90 mmol/L (98-107); Estimated GFR-MDRD 39; Glucose 122 mg/dL (70-105); Potassium 3.7 mmol/L (3.5-5.1); Sodium 138 mmol/L (136-145)
[2020-04-27] MEDS: Ferrous Gluconate 324 MG TAB PO SCH ×2 (08:29→17:17)
[2020-04-27] MEDS: Potassium Chloride 20 MEQ TAB PO SCH ×2 (08:30→17:17)
[2020-04-27] MEDS: Furosemide 80 MG TAB PO SCH ×2 (08:30→15:30)
[2020-04-27] MEDS: Pramipexole Di-HCl 0.25 MG TAB PO SCH ×2 (08:30→20:31)
[2020-04-27] MEDS: Gabapentin 300 MG CAP PO SCH ×3 (08:30→20:31)
[2020-04-27] MEDS: Cyanocobalamin (Vitamin B-12) 1,000 MCG TAB PO SCH (08:30)
[2020-04-27] MEDS: Bupropion 150 MG XL TAB PO SCH (08:30)
[2020-04-27] MEDS: Aspirin 81 mg Enteric Coated Tablet PO SCH (08:30)
[2020-04-27] MEDS: Spironolactone 25 MG TAB PO SCH (08:30)
[2020-04-27] MEDS: Lactinex Tablet PO SCH ×3 (08:30→20:31)
[2020-04-27] MEDS: Apixaban 2.5 MG TAB PO SCH ×2 (08:30→20:32)
[2020-04-27] MEDS: Penicillin V Potassium 250 MG TAB PO SCH ×2 (08:30→20:31)
[2020-04-27] MEDS: Polyethylene Glycol 3350 17 GM Packet PO SCH ×2 (08:31→20:33)
[2020-04-27] MEDS: Nystatin Powder 15 GM BOT TOP SCH ×2 (08:31→20:31)
[2020-04-27] MEDS: tiZANidine HCl 4 MG TAB PO PRN ×2 (10:27→22:35)
--- NOTE | 2020-04-27 16:34 | PRG ---
DATE OF SERVICE: 04/27/2020 SUBJECTIVE: Ms. Acevedo is doing well. Denies any complaints. Feels like she is kind of gaining weight again and wants to try the Zaroxolyn every other day. OBJECTIVE: VITAL SIGNS: She is afebrile. Heart rate 80, respirations 16, oxygen saturation 100% on nasal cannula, blood pressure 123/56. CARDIOVASCULAR: S1 and S2 plus. RESPIRATORY: Normal vesicular breath sounds. ABDOMEN: Soft, nontender. Bowel sounds heard in all quadrants. Obese. EXTREMITIES: Without cyanosis or clubbing. Chronic lymphedema. Her weight is stable at 383. CENTRAL NERVOUS SYSTEM: Improving deconditioning. LABORATORY DATA: White count is 6.9, hemoglobin and hematocrit are 9.6 and 32.8. Sodium 138, potassium 3.7, BUN and creatinine are 26 and 1.38. IMPRESSION: 1. Chronic lymphedema. 2. Morbid obesity. 3. Restless legs syndrome. 4. History of deep venous thrombosis, on Eliquis. 5. Deconditioning. 6. Obesity hypoventilation syndrome. The patient states she cannot tolerate CPAP. PLAN: 1. Add Zaroxolyn 2.5 mg before her morning dose of Lasix on Sunday, Sunday, Sunday. 2. Continue other medications. 3. Continue physical therapy. 4. Nutritional support with heart healthy diet. 5. Lymphedema care. 6. DVT prophylaxis - she is on Eliquis. 7. Decubitus precautions. 8. Stress ulcer prophylaxis. 9. Therapy. Job ID: [id number]
[2020-04-27] MEDS: Bisacodyl 5 MG TAB PO PRN (20:31)
[2020-04-28] MEDS ORDERED: Metolazone 2.5 MG TAB PO SCH (08:30)
[2020-04-28] MEDS: Ferrous Gluconate 324 MG TAB PO SCH ×2 (08:45→17:26)
[2020-04-28] MEDS: Spironolactone 25 MG TAB PO SCH (08:46)
[2020-04-28] MEDS: Potassium Chloride 20 MEQ TAB PO SCH ×2 (08:46→17:26)
[2020-04-28] MEDS: Bupropion 150 MG XL TAB PO SCH (08:47)
[2020-04-28] MEDS: Aspirin 81 mg Enteric Coated Tablet PO SCH (08:47)
[2020-04-28] MEDS: Apixaban 2.5 MG TAB PO SCH ×2 (08:47→20:47)
[2020-04-28] MEDS: Nystatin Powder 15 GM BOT TOP SCH ×2 (08:48→20:47)
[2020-04-28] MEDS: Gabapentin 300 MG CAP PO SCH ×3 (08:48→20:47)
[2020-04-28] MEDS: Furosemide 80 MG TAB PO SCH ×2 (08:48→14:38)
[2020-04-28] MEDS: Cyanocobalamin (Vitamin B-12) 1,000 MCG TAB PO SCH (08:48)
[2020-04-28] MEDS: Lactinex Tablet PO SCH ×3 (08:48→20:47)
[2020-04-28] MEDS: Penicillin V Potassium 250 MG TAB PO SCH ×2 (08:49→20:46)
[2020-04-28] MEDS: Pramipexole Di-HCl 0.25 MG TAB PO SCH ×2 (08:49→20:46)
[2020-04-28] MEDS: Polyethylene Glycol 3350 17 GM Packet PO SCH ×2 (08:49→20:48)
[2020-04-28] MEDS: Morphine ER 15 MG TAB PO PRN ×2 (08:50→20:46)
[2020-04-28] MEDS ORDERED: Metolazone 5 MG TAB PO SCH (10:30)
--- NOTE | 2020-04-28 13:18 | PRG ---
DATE OF SERVICE: 04/28/2020 SUBJECTIVE: Ms. Acevedo is doing well. She is on room air. She apparently is going home tomorrow as her insurance has denied any further stay here. She does have Home Health and she does have a nurse practitioner who comes and checks on her at home. OBJECTIVE: VITAL SIGNS: She is afebrile. Heart rate 79, respirations 18, oxygen saturation 97% on room air, blood pressure 103/52. CARDIOVASCULAR: S1 and S2 plus. RESPIRATORY: Normal vesicular breath sounds. ABDOMEN: Soft and nontender. Bowel sounds heard in all quadrants. EXTREMITIES: Without cyanosis or clubbing. Chronic lymphedema. CENTRAL NERVOUS SYSTEM: Improving deconditioning. IMPRESSION: 1. Chronic lymphedema. 2. Recurrent cellulitis, requiring antibiotic prophylaxis. 3. Obesity hypoventilation syndrome and nocturnal hypoxemia. 4. Morbid obesity. 5. Restless legs syndrome. 6. History of recurrent deep vein thrombosis, on anticoagulation. 7. Possible diastolic dysfunction. PLAN: 1. Continue current medications. 2. Discharge planning. 3. The patient will go home and continue on her home health. She will be followed by the nurse practitioner under Dr. Hodges as before. 4. The patient states that she does not need any refills on her medications. 5. Heart healthy diet. 6. Continue therapy for one more day. Job ID: [id number]
[2020-04-28] MEDS: tiZANidine HCl 4 MG TAB PO PRN (14:39)
[2020-04-28] MEDS: Bisacodyl 5 MG TAB PO PRN (20:46)
[2020-04-29 06:30] VITALS: BMI 65.0
[2020-04-29 08:10] VITALS: BP 129/87; TEMP 98.6
[2020-04-29] MEDS: Ferrous Gluconate 324 MG TAB PO SCH (09:20)
[2020-04-29] MEDS: Potassium Chloride 20 MEQ TAB PO SCH (09:21)
[2020-04-29] MEDS: Apixaban 2.5 MG TAB PO SCH (09:21)
[2020-04-29] MEDS: Spironolactone 25 MG TAB PO SCH (09:21)
[2020-04-29] MEDS: Bupropion 150 MG XL TAB PO SCH (09:22)
[2020-04-29] MEDS: Cyanocobalamin (Vitamin B-12) 1,000 MCG TAB PO SCH (09:22)
[2020-04-29] MEDS: Furosemide 80 MG TAB PO SCH ×2 (09:23→14:14)
[2020-04-29] MEDS: Gabapentin 300 MG CAP PO SCH ×2 (09:23→14:14)
[2020-04-29] MEDS: Lactinex Tablet PO SCH ×2 (09:23→14:15)
[2020-04-29] MEDS: Penicillin V Potassium 250 MG TAB PO SCH (09:24)
[2020-04-29] MEDS: Pramipexole Di-HCl 0.25 MG TAB PO SCH (09:24)
[2020-04-29] MEDS: Polyethylene Glycol 3350 17 GM Packet PO SCH (09:24)
[2020-04-29] MEDS: Morphine ER 15 MG TAB PO PRN (09:25)
[2020-04-29] MEDS: Bisacodyl 5 MG TAB PO PRN (09:25)
[2020-04-29] MEDS: Aspirin 81 mg Enteric Coated Tablet PO SCH (09:30)
[2020-04-29] MEDS: Nystatin Powder 15 GM BOT TOP SCH (09:30)
--- NOTE | 2020-04-29 14:11 | DIS ---
DATE OF ADMISSION: 04/09/2020 DATE OF DISCHARGE: 04/29/2020 PRINCIPAL DIAGNOSIS: Deconditioning, much improved. SECONDARY DIAGNOSES: 1. Chronic lymphedema. 2. History of recurrent cellulitis on antibiotic prophylaxis. 3. Morbid obesity. 4. Obesity hypoventilation syndrome with nocturnal hypoxemia. The patient states that she cannot do a sleep study due to claustrophobia. She is on nocturnal oxygen. 5. History of deep venous thrombosis. 6. Hypertension. 7. Chronic pain. 8. Anxiety and depression. COMPLICATIONS: None. ADVERSE REACTIONS: None. PROCEDURES: None. CONSULTATIONS: Physical Therapy and Occupational Therapy. HOSPITAL COURSE: The patient was admitted as a transfer from the main hospital for continued therapy. She has done well here with gradual improvement. She did require a few days of metolazone to help with her leg swelling. Her weight has gone down to about 380 pounds. She does use oxygen at night and in the daytime as needed. She states that she knows that she probably has sleep apnea, but is unable to do the test due to claustrophobia. She stated she cannot wear anything over her mouth and nose. She has been tolerating her diet. Her Inman catheter was adjusted to be removed prior to discharge. She will follow up with her PCP. She apparently has a nurse practitioner working under Dr. Hodges, who comes and sees her at home. She has [facility] before and she is going to resume it. She is aware that Dr. Hodges and the nurse practitioner will manage her home health. She does meet criteria for home health. She is homebound. She needs continued therapy. She also needs the wraps for her legs. PHYSICAL EXAMINATION: VITAL SIGNS: On the day of discharge, she is afebrile. Heart rate 83, respirations 18, oxygen saturation 100% on room air, blood pressure 129/87. HEENT: Normocephalic and atraumatic. Pupils are equally reactive to light and accommodation. NECK: No JVD, thyromegaly, cervical lymphadenopathy, or throat exudates. No carotid bruits. CARDIOVASCULAR: S1 and S2 plus. RESPIRATORY: Normal vesicular breath sounds. ABDOMEN: Soft, obese, nontender. Bowel sounds heard in all quadrants. EXTREMITIES: Chronic lymphedema with wraps in place. CENTRAL NERVOUS SYSTEM: Improving deconditioning. MEDICATIONS: She is being discharged pretty much on her home medications, which are; 1. Tylenol 500 q.6 p.r.n. 2. [place] 7.5/325 one tablet b.i.d. p.r.n. 3. Floranex one tablet t.i.d., which she is not taking anymore. 4. Maalox 30 mL p.o. q.4 p.r.n. 5. Xanax 0.25 mg b.i.d. p.r.n. 6. Elavil 50 mg at bedtime. 7. Eliquis 2.5 mg b.i.d. 8. Aspirin 81 daily. 9. Dulcolax suppository 10 mg daily p.r.n. 10. Wellbutrin XL 150 mg daily. 11. Vitamin B12, 1000 mcg daily. 12. Iron sulfate 324 mg b.i.d. 13. Lasix 80 mg b.i.d. 14. Neurontin 600 mg t.i.d. 15. MS Contin 30 mg p.o. q.8 hours p.r.n. 16. Mycostatin powder b.i.d. for tinea cruris. 17. Protonix 40 mg b.i.d. 18. Penicillin VK 500 mg b.i.d. 19. MiraLAX 17 g in 8 ounces of water b.i.d. 20. Potassium 20 mEq b.i.d. 21. Mirapex 0.25 mg b.i.d. 22. Zoloft 200 mg daily. 23. Aldactone 25 mg daily. 24. Zanaflex 4 mg t.i.d. p.r.n. 25. She does take Florastor. DISCHARGE INSTRUCTIONS: Bariatric diet. Activity restrictions as tolerated. Outpatient home health with therapy. Outpatient followup with her PCP/nurse practitioner. The patient was advised to call us with any questions or concerns. Again, she stated that she does not need any refills. Total time spent on this discharge including coordination of care is 37 minutes. Job ID: [id number]
[2020-04-30] MEDS ORDERED: Metolazone 5 MG TAB PO SCH (08:30)
== END 2020-04-29 15:30 | disposition home health service (06) | DRG 948 ==
LOC: NAV ACUTE 18:03
PROVIDERS: ADMIT Internal Medicine; ATTEND Internal Medicine
DX: R53.81 Other malaise (principal); E66.2 Morbid (severe) obesity with alveolar hypoventilation; I89.0 Lymphedema, not elsewhere classified; G25.81 Restless legs syndrome; I10 Essential (primary) hypertension; G89.29 Other chronic pain; F41.9 Anxiety disorder, unspecified; F32.9 Major depressive disorder, single episode, unspecified; Z86.73 Personal history of transient ischemic attack (TIA), and cerebral infarction without residual deficits; Z90.710 Acquired absence of both cervix and uterus; Z90.49 Acquired absence of other specified parts of digestive tract; Z86.718 Personal history of other venous thrombosis and embolism; Z79.01 Long term (current) use of anticoagulants; Z74.01 Bed confinement status
CPT/HCPCS: 36415; 36416; 80048; 80053; 80061; 80307; 81003; 81015; 82565; 83036; 85014; 85018; 85025; 85049; 87077; 87086; 87186; G0483; Q0162

== ENCOUNTER 2022-08-15 09:27 | Inpatient (IN) | payer MEDICARE, MEDICAID ==
[2022-08-15 14:37] VITALS: BMI 73.6
[2022-08-15] MEDS ORDERED: Non-Formulary Item 1 EACH (Acetaminophen With Codeine [Acetaminophen-Cod #4 Tablet] 1 EAC PO PRN (17:06)
[2022-08-15] MEDS ORDERED: Acetaminophen 500 MG TAB ONE (17:59)
[2022-08-15] MEDS: Acetaminophen 500 MG TAB PO PRN ×2 (18:00→23:44)
[2022-08-15] MEDS ORDERED: Albuterol 200 PUFF (6.7GM INHALER) INH PRN (18:30)
[2022-08-15] MEDS: Apixaban 2.5 MG TAB PO SCH ×2 (22:02→22:03)
[2022-08-15] MEDS: Gabapentin 300 MG CAP PO SCH (22:02)
[2022-08-15] MEDS: Pramipexole Di-HCl 0.25 MG TAB PO SCH (22:02)
[2022-08-15] MEDS: Nystatin Powder 15 GM BOT TOP SCH (22:02)
[2022-08-15] MEDS: Atorvastatin Calcium 40 MG TAB PO SCH (22:03)
[2022-08-15] MEDS: Polyethylene Glycol 3350 17 GM Packet PO SCH (22:04)
[2022-08-15] MEDS ORDERED: Amitriptyline HCl 25 MG TAB PO SCH (22:45)
[2022-08-16 00:41] LABS: SARS-CoV-2 NAA Rapid Test Not Detected (NotDetected)
[2022-08-16] MEDS: Acetaminophen 500 MG TAB PO PRN (06:36)
[2022-08-16] MEDS: Saccharomyces boulardii 250 MG CAP PO SCH (07:47)
[2022-08-16] MEDS: Gabapentin 300 MG CAP PO SCH ×3 (07:48→21:16)
[2022-08-16] MEDS: Furosemide 40 MG TAB PO SCH (07:48)
[2022-08-16] MEDS: Apixaban 2.5 MG TAB PO SCH (07:48)
[2022-08-16] MEDS: Lisinopril 5 MG TAB PO SCH (07:48)
[2022-08-16] MEDS: Pramipexole Di-HCl 0.25 MG TAB PO SCH ×2 (07:48→21:15)
[2022-08-16] MEDS: Nystatin Powder 15 GM BOT TOP SCH ×2 (07:51→21:14)
[2022-08-16] MEDS: Polyethylene Glycol 3350 17 GM Packet PO SCH ×2 (07:52→21:14)
[2022-08-16] MEDS ORDERED: Acetaminophen/Codeine 30-300mg Tablet PO PRN (07:57)
[2022-08-16] MEDS ORDERED: Acetaminophen 500 MG TAB PO PRN (08:00)
[2022-08-16] MEDS ORDERED: Apixaban 5 MG TAB PO SCH (09:00)
[2022-08-16] MEDS ORDERED: Prevnar 13-Val Conj/PF 0.5 ML SYRINGE IM ONE (09:00)
[2022-08-16] MEDS ORDERED: Penicillin V Potassium 250 MG TAB PO SCH ×2 (09:00)
[2022-08-16] MEDS: tiZANidine HCl 4 MG TAB PO SCH ×2 (09:00→21:15)
[2022-08-16] MEDS ORDERED: Non-Formulary Item 1 EACH (Tizanidine Hcl [Tizanidine Hcl] 4 MG Capsule) PO SCH (09:00)
[2022-08-16] MEDS ORDERED: EPINEPHrine 1 MG/ML AMP IM PRN (13:56)
[2022-08-16] MEDS: Acetaminophen/Codeine 30-300mg Tablet PO PRN (15:50)
[2022-08-16] MEDS: Atorvastatin Calcium 40 MG TAB PO SCH (21:15)
[2022-08-16] MEDS: Apixaban 5 MG TAB PO SCH (21:15)
[2022-08-16] MEDS: Amitriptyline HCl 25 MG TAB PO SCH (21:15)
[2022-08-16] MEDS: SENNOSIDES 8.6 MG PO SCH (21:17)
[2022-08-17] MEDS: Acetaminophen/Codeine 30-300mg Tablet PO PRN ×2 (05:39→13:28)
[2022-08-17] MEDS ORDERED: Albuterol 200 PUFF (6.7GM INHALER) INH PRN (06:15)
[2022-08-17] MEDS ORDERED: Acetaminophen/Codeine 30-300mg Tablet PO PRN (06:15)
[2022-08-17] MEDS: Gabapentin 300 MG CAP PO SCH ×3 (08:16→21:09)
[2022-08-17] MEDS: Penicillin V Potassium 250 MG TAB PO SCH (08:16)
[2022-08-17] MEDS: Saccharomyces boulardii 250 MG CAP PO SCH (08:16)
[2022-08-17] MEDS: Pramipexole Di-HCl 0.25 MG TAB PO SCH ×2 (08:17→21:09)
[2022-08-17] MEDS: tiZANidine HCl 4 MG TAB PO SCH ×2 (08:17→21:09)
[2022-08-17] MEDS: Furosemide 40 MG TAB PO SCH (08:17)
[2022-08-17] MEDS: Lisinopril 5 MG TAB PO SCH (08:17)
[2022-08-17] MEDS: Apixaban 5 MG TAB PO SCH ×2 (08:17→21:09)
[2022-08-17] MEDS: SENNOSIDES 8.6 MG PO SCH ×2 (08:19→21:18)
[2022-08-17] MEDS: Nystatin Powder 15 GM BOT TOP SCH ×2 (08:19→20:00)
[2022-08-17] MEDS: Polyethylene Glycol 3350 17 GM Packet PO SCH ×2 (08:19→21:07)
[2022-08-17] MEDS: Atorvastatin Calcium 40 MG TAB PO SCH (21:09)
[2022-08-17] MEDS: Amitriptyline HCl 25 MG TAB PO SCH (21:10)
[2022-08-18] MEDS: Acetaminophen/Codeine 30-300mg Tablet PO PRN ×3 (01:46→20:50)
[2022-08-18] MEDS: Saccharomyces boulardii 250 MG CAP PO SCH (08:12)
[2022-08-18] MEDS: Penicillin V Potassium 250 MG TAB PO SCH (08:12)
[2022-08-18] MEDS: Lisinopril 5 MG TAB PO SCH (08:12)
[2022-08-18] MEDS: Gabapentin 300 MG CAP PO SCH ×3 (08:12→20:49)
[2022-08-18] MEDS: Furosemide 40 MG TAB PO SCH (08:13)
[2022-08-18] MEDS: Senokot S 8.6-50 MG TAB PO SCH ×2 (08:14→20:48)
[2022-08-18] MEDS: Pramipexole Di-HCl 0.25 MG TAB PO SCH ×2 (08:14→20:50)
[2022-08-18] MEDS: tiZANidine HCl 4 MG TAB PO SCH ×2 (08:15→20:49)
[2022-08-18] MEDS: Apixaban 5 MG TAB PO SCH ×2 (08:15→20:50)
[2022-08-18] MEDS: Polyethylene Glycol 3350 17 GM Packet PO SCH ×2 (08:16→21:03)
[2022-08-18] MEDS: Nystatin Powder 15 GM BOT TOP SCH ×2 (10:20→20:51)
[2022-08-18] MEDS: Amitriptyline HCl 25 MG TAB PO SCH (20:49)
[2022-08-18] MEDS: Atorvastatin Calcium 40 MG TAB PO SCH (21:03)
[2022-08-19 05:54] LABS: Anion Gap 16 mmol/L (10-20); BUN (Urea Nitrogen) 22 mg/dL (9.8-20.1); Calc. Creatinine Clearance 189 mL/min (70-130); Calcium 8.8 mg/dL (7.8-10.44); Carbon Dioxide 22 mmol/L (23-31); Chloride 104 mmol/L (98-107); Estimated GFR 68; Glucose 119 mg/dL (80-115); Potassium 3.9 mmol/L (3.5-5.1); Sodium 138 mmol/L (136-145)
[2022-08-19] MEDS: Acetaminophen/Codeine 30-300mg Tablet PO PRN ×2 (06:00→14:48)
[2022-08-19 06:11] LABS: Hemoglobin 9.3 g/dL (12.0-16.0); Mean Corpuscular HGB CONC 28.7 g/dL (32.0-36.0); Mean Corpuscular Hemoglobin 26.2 pg (27.0-31.0); Mean Corpuscular Volume 91.2 fL (78.0-98.0); Mean Platelet Volume 6.7 fL (7.4-10.4); Platelet Count 209 thou/uL (130-400); RBC Distribution Width 16.6 % (11.5-14.5); Red Blood Cell (RBC) Count 3.55 mill/uL (4.20-5.40); White Blood Cell (WBC) Count 6.7 thou/uL (4.8-10.8)
[2022-08-19 06:34] LABS: Anisocytosis MODERATE=16-30 cells (100X) (0-5/hpf); Eosinophils 15 % (0-10); Hypochromia SLIGHT = 6-15 cells (100X) (0-5/hpf); Lymphocytes 12 % (21-51); MDiff Complete? YES; Monocytes 8 % (0-10); Neutrophil 65 % (42-75); Stomatocytes SLIGHT = 2-5 cells (100X) (0-1/hpf)
[2022-08-19 06:35] LABS: Platelet Morphology Comment Appears Adequate
[2022-08-19] MEDS: Lisinopril 5 MG TAB PO SCH (09:58)
[2022-08-19] MEDS: Saccharomyces boulardii 250 MG CAP PO SCH (09:58)
[2022-08-19] MEDS: Gabapentin 300 MG CAP PO SCH ×3 (09:58→21:17)
[2022-08-19] MEDS: Pramipexole Di-HCl 0.25 MG TAB PO SCH ×2 (09:59→21:18)
[2022-08-19] MEDS: Senokot S 8.6-50 MG TAB PO SCH ×2 (09:59→21:17)
[2022-08-19] MEDS: Apixaban 5 MG TAB PO SCH ×2 (09:59→21:17)
[2022-08-19] MEDS: tiZANidine HCl 4 MG TAB PO SCH ×2 (09:59→21:17)
[2022-08-19] MEDS: Furosemide 40 MG TAB PO SCH (09:59)
[2022-08-19] MEDS: Nystatin Powder 15 GM BOT TOP SCH ×2 (10:00→22:22)
[2022-08-19] MEDS: Polyethylene Glycol 3350 17 GM Packet PO SCH ×2 (10:00→21:18)
[2022-08-19] MEDS: Penicillin V Potassium 250 MG TAB PO SCH (10:00)
[2022-08-19] MEDS ORDERED: tiZANidine HCl 4 MG TAB PO SCH (16:15)
[2022-08-19] MEDS ORDERED: HYDROcodone/Acetaminophen 7.5/325 mg Tablet PO PRN ×3 (20:22→20:24)
[2022-08-19] MEDS ORDERED: Ketorolac Tromethamine 30 MG/ML VIAL IM SCH (20:30)
[2022-08-19] MEDS: Amitriptyline HCl 25 MG TAB PO SCH (21:18)
[2022-08-19] MEDS: Atorvastatin Calcium 40 MG TAB PO SCH (21:18)
[2022-08-19] MEDS: Famotidine 20 MG TAB PO SCH (21:18)
[2022-08-19] MEDS: Acetaminophen 325 MG TAB PO PRN (21:31)
[2022-08-19] MEDS ORDERED: Acetaminophen 500 MG TAB PO SCH (22:00)
[2022-08-20] MEDS: Lisinopril 5 MG TAB PO SCH (07:36)
[2022-08-20] MEDS: Gabapentin 300 MG CAP PO SCH ×3 (07:36→20:48)
[2022-08-20] MEDS: Saccharomyces boulardii 250 MG CAP PO SCH (07:37)
[2022-08-20] MEDS: Senokot S 8.6-50 MG TAB PO SCH ×2 (07:38→20:49)
[2022-08-20] MEDS: Pramipexole Di-HCl 0.25 MG TAB PO SCH ×2 (07:38→20:49)
[2022-08-20] MEDS: Furosemide 40 MG TAB PO SCH (07:38)
[2022-08-20] MEDS: Famotidine 20 MG TAB PO SCH ×2 (07:38→20:48)
[2022-08-20] MEDS: Apixaban 5 MG TAB PO SCH ×2 (07:38→20:47)
[2022-08-20] MEDS: Polyethylene Glycol 3350 17 GM Packet PO SCH ×2 (07:39→20:49)
[2022-08-20] MEDS: Penicillin V Potassium 250 MG TAB PO SCH (07:39)
[2022-08-20] MEDS: tiZANidine HCl 4 MG TAB PO SCH ×2 (07:39→20:49)
[2022-08-20] MEDS: Nystatin Powder 15 GM BOT TOP SCH ×2 (07:40→20:50)
[2022-08-20] MEDS: HYDROcodone/Acetaminophen 7.5/325 mg Tablet PO PRN ×3 (07:41→20:43)
[2022-08-20] MEDS: Acetaminophen 325 MG TAB PO PRN ×2 (11:21→18:11)
[2022-08-20] MEDS: Atorvastatin Calcium 40 MG TAB PO SCH (20:47)
[2022-08-20] MEDS: Amitriptyline HCl 25 MG TAB PO SCH (20:47)
[2022-08-21] MEDS: HYDROcodone/Acetaminophen 7.5/325 mg Tablet PO PRN ×3 (02:29→17:22)
[2022-08-21 05:59] LABS: Anion Gap 13 mmol/L (10-20); BUN (Urea Nitrogen) 31 mg/dL (9.8-20.1); Calc. Creatinine Clearance 154 mL/min (70-130); Calcium 8.3 mg/dL (7.8-10.44); Carbon Dioxide 25 mmol/L (23-31); Chloride 104 mmol/L (98-107); Estimated GFR 53; Glucose 126 mg/dL (80-115); Sodium 138 mmol/L (136-145)
[2022-08-21 06:10] LABS: #Basophils 0.1 thou/uL (0.0-0.2); #Eosinphils 0.4 thou/uL (0.0-0.7); #Lymphocytes 0.6 thou/uL (1.20-3.40); #Monocytes 0.5 thou/uL (0.11-0.59); #Neutrophils 3.4 thou/uL (1.40-6.50); %Basophils 2.7 % (0.0-1.0); %Eosinophils 8.2 % (0.0-10.0); %Lymphocytes 11.3 % (21.0-51.0); %Monocytes 9.5 % (0.0-10.0); %Neutrophils 68.3 % (42.0-75.0); Mean Corpuscular HGB CONC 30.1 g/dL (32.0-36.0); Mean Corpuscular Hemoglobin 27.5 pg (27.0-31.0); Mean Corpuscular Volume 91.3 fL (78.0-98.0); Mean Platelet Volume 6.6 fL (7.4-10.4); Platelet Count 174 thou/uL (130-400); RBC Distribution Width 16.3 % (11.5-14.5); Red Blood Cell (RBC) Count 3.29 mill/uL (4.20-5.40); White Blood Cell (WBC) Count 4.9 thou/uL (4.8-10.8)
[2022-08-21] MEDS: Lisinopril 5 MG TAB PO SCH (08:25)
[2022-08-21] MEDS: Pramipexole Di-HCl 0.25 MG TAB PO SCH (08:28)
[2022-08-21] MEDS: Gabapentin 300 MG CAP PO SCH ×2 (08:28→15:49)
[2022-08-21] MEDS: Saccharomyces boulardii 250 MG CAP PO SCH (08:28)
[2022-08-21] MEDS: Senokot S 8.6-50 MG TAB PO SCH (08:30)
[2022-08-21] MEDS: Famotidine 20 MG TAB PO SCH (08:30)
[2022-08-21] MEDS: Furosemide 40 MG TAB PO SCH (08:30)
[2022-08-21] MEDS: Penicillin V Potassium 250 MG TAB PO SCH (08:30)
[2022-08-21] MEDS: tiZANidine HCl 4 MG TAB PO SCH (08:30)
[2022-08-21] MEDS: Apixaban 5 MG TAB PO SCH (08:30)
[2022-08-21] MEDS: Nystatin Powder 15 GM BOT TOP SCH (08:34)
[2022-08-21] MEDS: Polyethylene Glycol 3350 17 GM Packet PO SCH (08:35)
[2022-08-21] MEDS: Acetaminophen 325 MG TAB PO PRN (11:41)
[2022-08-21] MEDS ORDERED: Mag-Al Plus 1200 MG/1200 MG/120 MG/30 ML UDCUP PO PRN (15:34)
[2022-08-21 18:29] VITALS: BP 130/72; TEMP 98
== END 2022-08-21 19:26 | disposition home or self-care (01) | DRG 948 ==
LOC: NAV ACUTE 14:24
PROVIDERS: ADMIT Family Medicine; ATTEND Family Medicine
DX: R53.1 Weakness (principal); G82.20 Paraplegia, unspecified; Z68.45 Body mass index [BMI] 70 or greater, adult; I50.9 Heart failure, unspecified; I25.10 Atherosclerotic heart disease of native coronary artery without angina pectoris; F41.9 Anxiety disorder, unspecified; J44.9 Chronic obstructive pulmonary disease, unspecified; F32.A Depression, unspecified; M79.7 Fibromyalgia; K21.9 Gastro-esophageal reflux disease without esophagitis; E78.5 Hyperlipidemia, unspecified; I11.0 Hypertensive heart disease with heart failure; E66.01 Morbid (severe) obesity due to excess calories; G62.9 Polyneuropathy, unspecified; E89.2 Postprocedural hypoparathyroidism; R53.81 Other malaise; I89.0 Lymphedema, not elsewhere classified; G47.33 Obstructive sleep apnea (adult) (pediatric); D64.9 Anemia, unspecified; I73.9 Peripheral vascular disease, unspecified; G89.4 Chronic pain syndrome; I88.9 Nonspecific lymphadenitis, unspecified; Z20.822 Contact with and (suspected) exposure to COVID-19; Z90.49 Acquired absence of other specified parts of digestive tract; Z90.710 Acquired absence of both cervix and uterus; Z74.01 Bed confinement status; Z95.5 Presence of coronary angioplasty implant and graft; Z86.718 Personal history of other venous thrombosis and embolism; Z79.899 Other long term (current) drug therapy; Z79.51 Long term (current) use of inhaled steroids; Z90.89 Acquired absence of other organs; Z98.890 Other specified postprocedural states
CPT/HCPCS: 74018; 80048; 85025; J1885; U0002

== ENCOUNTER 2022-08-24 13:00 | Inpatient (IN) | payer MEDICARE, MEDICAID ==
[2022-08-24] MEDS ORDERED: Polyethylene Glycol 3350 17 GM Packet PO PRN (18:19)
[2022-08-24] MEDS ORDERED: Acetaminophen 500 MG TAB PO PRN (18:19)
[2022-08-24] MEDS ORDERED: Senokot S 8.6-50 MG TAB PO PRN ×2 (18:19→18:22)
[2022-08-24] MEDS ORDERED: Calcium Carbonate 500 MG ChewTAB PO PRN (18:22)
[2022-08-24] MEDS ORDERED: cloNIDine 0.1 MG TAB PO PRN (18:22)
[2022-08-24] MEDS ORDERED: Bisacodyl 5 MG TAB PO PRN (18:22)
[2022-08-24] MEDS ORDERED: Cepastat Lozenges 1 LOZ PO PRN (18:22)
[2022-08-24] MEDS ORDERED: Bisacodyl 10 MG SUPP PR PRN (18:22)
[2022-08-24] MEDS ORDERED: Artificial Tear Sol 15 ML BOT EA EYE PRN (18:22)
[2022-08-24] MEDS ORDERED: Sodium Chloride 0.65% Nasal 44 ML BOT EA NARE PRN (18:22)
[2022-08-24] MEDS ORDERED: Promethazine HCl 25 MG SUPP PR PRN (18:22)
[2022-08-24] MEDS: Gabapentin 300 MG CAP PO SCH (20:35)
[2022-08-24] MEDS: guaiFENesin ER 600 MG TAB PO SCH (20:36)
[2022-08-24] MEDS: Nystatin Powder 15 GM BOT TOP SCH (20:36)
[2022-08-24] MEDS: Atorvastatin Calcium 40 MG TAB PO SCH (20:36)
[2022-08-24] MEDS: Apixaban 2.5 MG TAB PO SCH (20:36)
[2022-08-24] MEDS: Ciprofloxacin 500 MG TAB PO SCH (20:36)
[2022-08-24] MEDS: Famotidine 20 MG TAB PO SCH (20:36)
[2022-08-24] MEDS: Pramipexole Di-HCl 0.25 MG TAB PO SCH (20:36)
[2022-08-24] MEDS: Amitriptyline HCl 25 MG TAB PO SCH (20:36)
[2022-08-24] MEDS: tiZANidine HCl 4 MG TAB PO PRN (20:41)
[2022-08-25 05:58] LABS: #Basophils 0.1 thou/uL (0.0-0.2); #Eosinphils 0.4 thou/uL (0.0-0.7); #Lymphocytes 0.6 thou/uL (1.20-3.40); #Monocytes 0.4 thou/uL (0.11-0.59); %Basophils 1.3 % (0.0-1.0); %Eosinophils 8.8 % (0.0-10.0); %Lymphocytes 13.6 % (21.0-51.0); %Monocytes 8.8 % (0.0-10.0); %Neutrophils 67.5 % (42.0-75.0); Mean Corpuscular HGB CONC 30.5 g/dL (32.0-36.0); Mean Corpuscular Hemoglobin 27.6 pg (27.0-31.0); Mean Corpuscular Volume 90.6 fL (78.0-98.0); Platelet Count 150 thou/uL (130-400); RBC Distribution Width 16.2 % (11.5-14.5); Red Blood Cell (RBC) Count 3.25 mill/uL (4.20-5.40); White Blood Cell (WBC) Count 4.4 thou/uL (4.8-10.8)
[2022-08-25 06:10] LABS: Anion Gap 15 mmol/L (10-20); BUN (Urea Nitrogen) 9 mg/dL (9.8-20.1); Calc. Creatinine Clearance 247 mL/min (70-130); Calcium 8.3 mg/dL (7.8-10.44); Carbon Dioxide 26 mmol/L (23-31); Chloride 105 mmol/L (98-107); Estimated GFR 94; Glucose 107 mg/dL (80-115); Potassium 3.9 mmol/L (3.5-5.1); Sodium 142 mmol/L (136-145)
[2022-08-25] MEDS: Ciprofloxacin 500 MG TAB PO SCH ×2 (06:39→21:06)
[2022-08-25] MEDS: Pramipexole Di-HCl 0.25 MG TAB PO SCH ×2 (08:49→21:05)
[2022-08-25] MEDS: Furosemide 40 MG TAB PO SCH (08:49)
[2022-08-25] MEDS: Gabapentin 300 MG CAP PO SCH ×3 (08:49→21:05)
[2022-08-25] MEDS: guaiFENesin ER 600 MG TAB PO SCH ×2 (08:50→21:07)
[2022-08-25] MEDS: Lisinopril 10 MG TAB PO SCH (08:50)
[2022-08-25] MEDS: Apixaban 2.5 MG TAB PO SCH ×2 (08:52→21:07)
[2022-08-25] MEDS: Saccharomyces boulardii 250 MG CAP PO SCH (08:52)
[2022-08-25] MEDS: Famotidine 20 MG TAB PO SCH ×2 (08:52→21:06)
[2022-08-25] MEDS: Penicillin V Potassium 250 MG TAB PO SCH (08:52)
[2022-08-25] MEDS: Nystatin Powder 15 GM BOT TOP SCH ×2 (08:53→21:07)
[2022-08-25] MEDS ORDERED: FLU VACC QS2022-23(6MOS UP)/PF 60 MCG/0.5 ML SYRINGE IM ONE (09:00)
[2022-08-25] MEDS: Acetaminophen/Codeine 30-300mg Tablet PO PRN (15:29)
[2022-08-25] MEDS: Benzonatate 100 MG CAP PO PRN (15:32)
[2022-08-25] MEDS: tiZANidine HCl 4 MG TAB PO PRN (21:05)
[2022-08-25] MEDS: Atorvastatin Calcium 40 MG TAB PO SCH (21:05)
[2022-08-25] MEDS: Amitriptyline HCl 25 MG TAB PO SCH (21:06)
[2022-08-25] MEDS: Polyethylene Glycol 3350 17 GM Packet PO SCH (21:07)
[2022-08-26] MEDS: Benzonatate 100 MG CAP PO PRN ×2 (01:24→15:17)
[2022-08-26] MEDS: Acetaminophen/Codeine 30-300mg Tablet PO PRN ×2 (03:56→15:14)
[2022-08-26] MEDS: Ciprofloxacin 500 MG TAB PO SCH (05:37)
[2022-08-26] MEDS: Apixaban 2.5 MG TAB PO SCH ×2 (09:05→21:19)
[2022-08-26] MEDS: guaiFENesin ER 600 MG TAB PO SCH ×2 (09:05→21:19)
[2022-08-26] MEDS: Famotidine 20 MG TAB PO SCH ×2 (09:05→21:19)
[2022-08-26] MEDS: Polyethylene Glycol 3350 17 GM Packet PO SCH ×2 (09:05→21:21)
[2022-08-26] MEDS: Saccharomyces boulardii 250 MG CAP PO SCH (09:06)
[2022-08-26] MEDS: Lisinopril 10 MG TAB PO SCH (09:06)
[2022-08-26] MEDS: Furosemide 40 MG TAB PO SCH (09:06)
[2022-08-26] MEDS: Pramipexole Di-HCl 0.25 MG TAB PO SCH ×2 (09:06→21:21)
[2022-08-26] MEDS: Gabapentin 300 MG CAP PO SCH ×3 (09:07→21:18)
[2022-08-26] MEDS: Penicillin V Potassium 250 MG TAB PO SCH (09:07)
[2022-08-26] MEDS: Nystatin Powder 15 GM BOT TOP SCH ×2 (09:08→21:21)
[2022-08-26] MEDS: cefTRIAXone\\ROCEPHIN 1 GM in Sodium Chloride 0.9% 100 ML IVPB SCH (16:46)
[2022-08-26] MEDS: tiZANidine HCl 4 MG TAB PO PRN (21:19)
[2022-08-26] MEDS: Amitriptyline HCl 25 MG TAB PO SCH (21:19)
[2022-08-26] MEDS: Atorvastatin Calcium 40 MG TAB PO SCH (21:19)
[2022-08-26] MEDS: Acetaminophen 500 MG TAB PO PRN (23:53)
[2022-08-27] MEDS: Acetaminophen/Codeine 30-300mg Tablet PO PRN (05:13)
[2022-08-27] MEDS: Benzonatate 100 MG CAP PO PRN ×3 (05:16→21:46)
[2022-08-27 05:40] LABS: #Basophils 0.1 thou/uL (0.0-0.2); #Eosinphils 0.5 thou/uL (0.0-0.7); #Lymphocytes 0.8 thou/uL (1.20-3.40); #Monocytes 0.4 thou/uL (0.11-0.59); #Neutrophils 3.7 thou/uL (1.40-6.50); %Basophils 1.4 % (0.0-1.0); %Eosinophils 9.9 % (0.0-10.0); %Lymphocytes 13.6 % (21.0-51.0); %Monocytes 7.5 % (0.0-10.0); %Neutrophils 67.7 % (42.0-75.0); Hemoglobin 9.3 g/dL (12.0-16.0); Mean Corpuscular Hemoglobin 27.4 pg (27.0-31.0); Mean Corpuscular Volume 91.1 fL (78.0-98.0); Platelet Count 168 thou/uL (130-400); Red Blood Cell (RBC) Count 3.39 mill/uL (4.20-5.40); White Blood Cell (WBC) Count 5.5 thou/uL (4.8-10.8)
[2022-08-27 05:52] LABS: Anion Gap 15 mmol/L (10-20); BUN (Urea Nitrogen) 13 mg/dL (9.8-20.1); Calc. Creatinine Clearance 225 mL/min (70-130); Calcium 8.4 mg/dL (7.8-10.44); Carbon Dioxide 26 mmol/L (23-31); Chloride 104 mmol/L (98-107); Estimated GFR 89; Glucose 116 mg/dL (80-115); Potassium 3.9 mmol/L (3.5-5.1); Sodium 141 mmol/L (136-145)
[2022-08-27] MEDS: Pramipexole Di-HCl 0.25 MG TAB PO SCH ×2 (09:15→21:41)
[2022-08-27] MEDS: guaiFENesin ER 600 MG TAB PO SCH ×2 (09:15→21:40)
[2022-08-27] MEDS: Gabapentin 300 MG CAP PO SCH ×3 (09:16→21:39)
[2022-08-27] MEDS: Apixaban 2.5 MG TAB PO SCH ×2 (09:17→21:40)
[2022-08-27] MEDS: Lisinopril 10 MG TAB PO SCH (09:17)
[2022-08-27] MEDS: Saccharomyces boulardii 250 MG CAP PO SCH (09:17)
[2022-08-27] MEDS: Furosemide 40 MG TAB PO SCH (09:17)
[2022-08-27] MEDS: Famotidine 20 MG TAB PO SCH ×2 (09:18→21:41)
[2022-08-27] MEDS: Penicillin V Potassium 250 MG TAB PO SCH (09:19)
[2022-08-27] MEDS: Nystatin Powder 15 GM BOT TOP SCH ×2 (09:19→21:48)
[2022-08-27] MEDS: Polyethylene Glycol 3350 17 GM Packet PO SCH ×2 (09:20→21:42)
[2022-08-27] MEDS: Ondansetron ODT 4 MG TAB PO PRN (13:09)
[2022-08-27] MEDS: cefTRIAXone\\ROCEPHIN 1 GM in Sodium Chloride 0.9% 100 ML IVPB SCH (15:16)
[2022-08-27] MEDS: Amitriptyline HCl 25 MG TAB PO SCH (21:40)
[2022-08-27] MEDS: Atorvastatin Calcium 40 MG TAB PO SCH (21:41)
[2022-08-27] MEDS: tiZANidine HCl 4 MG TAB PO PRN (21:46)
[2022-08-28] MEDS: Polyethylene Glycol 3350 17 GM Packet PO SCH ×2 (09:11→20:56)
[2022-08-28] MEDS: Gabapentin 300 MG CAP PO SCH ×3 (09:13→20:54)
[2022-08-28] MEDS: Famotidine 20 MG TAB PO SCH ×2 (09:13→20:52)
[2022-08-28] MEDS: Saccharomyces boulardii 250 MG CAP PO SCH (09:14)
[2022-08-28] MEDS: Apixaban 2.5 MG TAB PO SCH ×2 (09:14→20:53)
[2022-08-28] MEDS: Pramipexole Di-HCl 0.25 MG TAB PO SCH ×2 (09:14→20:52)
[2022-08-28] MEDS: Furosemide 40 MG TAB PO SCH (09:14)
[2022-08-28] MEDS: Lisinopril 10 MG TAB PO SCH (09:15)
[2022-08-28] MEDS: guaiFENesin ER 600 MG TAB PO SCH ×2 (09:15→20:53)
[2022-08-28] MEDS: Nystatin Powder 15 GM BOT TOP SCH ×2 (09:16→21:06)
[2022-08-28] MEDS: Penicillin V Potassium 250 MG TAB PO SCH (09:17)
[2022-08-28] MEDS: Benzonatate 100 MG CAP PO PRN ×2 (09:22→22:57)
[2022-08-28] MEDS: Acetaminophen/Codeine 30-300mg Tablet PO PRN ×2 (09:32→20:55)
[2022-08-28] MEDS: Albuterol Sulfate 2.5 mg/3 ml Neb NEB PRN ×3 (09:33→22:58)
[2022-08-28] MEDS: cefTRIAXone\\ROCEPHIN 1 GM in Sodium Chloride 0.9% 100 ML IVPB SCH (15:05)
[2022-08-28] MEDS: Amitriptyline HCl 25 MG TAB PO SCH (20:52)
[2022-08-28] MEDS: Atorvastatin Calcium 40 MG TAB PO SCH (20:53)
[2022-08-28] MEDS: tiZANidine HCl 4 MG TAB PO PRN (20:54)
[2022-08-29 06:23] LABS: Anion Gap 15 mmol/L (10-20); BUN (Urea Nitrogen) 15 mg/dL (9.8-20.1); Calc. Creatinine Clearance 199 mL/min (70-130); Calcium 8.7 mg/dL (7.8-10.44); Carbon Dioxide 27 mmol/L (23-31); Chloride 103 mmol/L (98-107); Estimated GFR 76; Glucose 111 mg/dL (80-115); Potassium 3.6 mmol/L (3.5-5.1); Sodium 141 mmol/L (136-145)
[2022-08-29 06:25] LABS: #Eosinphils 0.5 thou/uL (0.0-0.7); #Lymphocytes 0.7 thou/uL (1.20-3.40); #Monocytes 0.4 thou/uL (0.11-0.59); #Neutrophils 4.1 thou/uL (1.40-6.50); %Basophils 0.7 % (0.0-1.0); %Eosinophils 8.7 % (0.0-10.0); %Lymphocytes 12.8 % (21.0-51.0); %Monocytes 7.1 % (0.0-10.0); %Neutrophils 70.6 % (42.0-75.0); Hemoglobin 9.7 g/dL (12.0-16.0); Mean Corpuscular HGB CONC 30.1 g/dL (32.0-36.0); Mean Corpuscular Hemoglobin 27.6 pg (27.0-31.0); Mean Corpuscular Volume 91.5 fL (78.0-98.0); Mean Platelet Volume 7.2 fL (7.4-10.4); Platelet Count 191 thou/uL (130-400); RBC Distribution Width 16.2 % (11.5-14.5); Red Blood Cell (RBC) Count 3.53 mill/uL (4.20-5.40); White Blood Cell (WBC) Count 5.8 thou/uL (4.8-10.8)
[2022-08-29] MEDS: guaiFENesin ER 600 MG TAB PO SCH ×2 (09:17→21:19)
[2022-08-29] MEDS: Acetaminophen/Codeine 30-300mg Tablet PO PRN ×2 (09:17→21:23)
[2022-08-29] MEDS: Apixaban 2.5 MG TAB PO SCH ×2 (09:18→21:20)
[2022-08-29] MEDS: Penicillin V Potassium 250 MG TAB PO SCH (09:18)
[2022-08-29] MEDS: Pramipexole Di-HCl 0.25 MG TAB PO SCH ×2 (09:18→21:23)
[2022-08-29] MEDS: Saccharomyces boulardii 250 MG CAP PO SCH (09:19)
[2022-08-29] MEDS: Lisinopril 10 MG TAB PO SCH (09:19)
[2022-08-29] MEDS: Gabapentin 300 MG CAP PO SCH ×3 (09:19→21:19)
[2022-08-29] MEDS: Furosemide 40 MG TAB PO SCH (09:19)
[2022-08-29] MEDS: Famotidine 20 MG TAB PO SCH ×2 (09:19→21:20)
[2022-08-29] MEDS: Nystatin Powder 15 GM BOT TOP SCH ×2 (09:20→21:31)
[2022-08-29] MEDS: Polyethylene Glycol 3350 17 GM Packet PO SCH ×2 (09:20→21:23)
[2022-08-29] MEDS: Acetaminophen 500 MG TAB PO PRN (13:08)
[2022-08-29] MEDS: Albuterol Sulfate 2.5 mg/3 ml Neb NEB PRN (14:08)
[2022-08-29] MEDS: cefTRIAXone\\ROCEPHIN 1 GM in Sodium Chloride 0.9% 100 ML IVPB SCH (16:01)
[2022-08-29] MEDS: Amitriptyline HCl 25 MG TAB PO SCH (21:19)
[2022-08-29] MEDS: tiZANidine HCl 4 MG TAB PO PRN (21:20)
[2022-08-29] MEDS: Atorvastatin Calcium 40 MG TAB PO SCH (21:20)
[2022-08-30] MEDS: Benzonatate 100 MG CAP PO PRN ×2 (02:57→23:43)
[2022-08-30] MEDS: Furosemide 40 MG TAB PO SCH (08:22)
[2022-08-30] MEDS: Apixaban 2.5 MG TAB PO SCH ×2 (08:22→21:06)
[2022-08-30] MEDS: Lisinopril 10 MG TAB PO SCH (08:22)
[2022-08-30] MEDS: Saccharomyces boulardii 250 MG CAP PO SCH (08:22)
[2022-08-30] MEDS: Penicillin V Potassium 250 MG TAB PO SCH (08:22)
[2022-08-30] MEDS: Famotidine 20 MG TAB PO SCH ×2 (08:22→21:05)
[2022-08-30] MEDS: guaiFENesin ER 600 MG TAB PO SCH ×2 (08:22→21:05)
[2022-08-30] MEDS: Gabapentin 300 MG CAP PO SCH ×3 (08:23→21:04)
[2022-08-30] MEDS: Pramipexole Di-HCl 0.25 MG TAB PO SCH ×2 (08:23→21:05)
[2022-08-30] MEDS: Nystatin Powder 15 GM BOT TOP SCH ×2 (08:23→21:10)
[2022-08-30] MEDS: Acetaminophen/Codeine 30-300mg Tablet PO PRN ×2 (08:27→21:06)
[2022-08-30] MEDS: Polyethylene Glycol 3350 17 GM Packet PO SCH ×2 (09:13→21:02)
[2022-08-30] MEDS: cefTRIAXone\\ROCEPHIN 1 GM in Sodium Chloride 0.9% 100 ML IVPB SCH (15:28)
[2022-08-30] MEDS: Acetaminophen 500 MG TAB PO PRN (16:24)
[2022-08-30] MEDS: Atorvastatin Calcium 40 MG TAB PO SCH (21:05)
[2022-08-30] MEDS: Amitriptyline HCl 25 MG TAB PO SCH (21:05)
[2022-08-30] MEDS: tiZANidine HCl 4 MG TAB PO PRN (21:06)
[2022-08-31 06:19] LABS: #Basophils 0.1 thou/uL (0.0-0.2); #Eosinphils 0.6 thou/uL (0.0-0.7); #Lymphocytes 1.2 thou/uL (1.20-3.40); #Monocytes 0.4 thou/uL (0.11-0.59); #Neutrophils 4.6 thou/uL (1.40-6.50); %Eosinophils 9.5 % (0.0-10.0); %Monocytes 5.2 % (0.0-10.0); %Neutrophils 67.4 % (42.0-75.0); Hemoglobin 10.4 g/dL (12.0-16.0); Mean Corpuscular HGB CONC 29.9 g/dL (32.0-36.0); Mean Corpuscular Hemoglobin 27.5 pg (27.0-31.0); Mean Corpuscular Volume 92.1 fL (78.0-98.0); Mean Platelet Volume 6.8 fL (7.4-10.4); Platelet Count 221 thou/uL (130-400); RBC Distribution Width 16.1 % (11.5-14.5); Red Blood Cell (RBC) Count 3.76 mill/uL (4.20-5.40); White Blood Cell (WBC) Count 6.8 thou/uL (4.8-10.8)
[2022-08-31 06:26] LABS: Anion Gap 16 mmol/L (10-20); BUN (Urea Nitrogen) 20 mg/dL (9.8-20.1); Calc. Creatinine Clearance 173 mL/min (70-130); Calcium 8.8 mg/dL (7.8-10.44); Carbon Dioxide 26 mmol/L (23-31); Chloride 102 mmol/L (98-107); Estimated GFR 64; Glucose 137 mg/dL (80-115); Potassium 3.5 mmol/L (3.5-5.1); Sodium 140 mmol/L (136-145)
[2022-08-31] MEDS: Polyethylene Glycol 3350 17 GM Packet PO SCH ×2 (07:47→21:12)
[2022-08-31] MEDS: Penicillin V Potassium 250 MG TAB PO SCH (07:47)
[2022-08-31] MEDS: Gabapentin 300 MG CAP PO SCH ×3 (07:48→21:11)
[2022-08-31] MEDS: Nystatin Powder 15 GM BOT TOP SCH ×2 (07:48→21:11)
[2022-08-31] MEDS: guaiFENesin ER 600 MG TAB PO SCH ×2 (07:49→21:12)
[2022-08-31] MEDS: Saccharomyces boulardii 250 MG CAP PO SCH (07:49)
[2022-08-31] MEDS: Pramipexole Di-HCl 0.25 MG TAB PO SCH ×2 (07:49→21:12)
[2022-08-31] MEDS: Furosemide 40 MG TAB PO SCH (07:49)
[2022-08-31] MEDS: Famotidine 20 MG TAB PO SCH ×2 (07:49→21:12)
[2022-08-31] MEDS: Lisinopril 10 MG TAB PO SCH (07:50)
[2022-08-31] MEDS: Apixaban 2.5 MG TAB PO SCH ×2 (07:50→21:11)
[2022-08-31] MEDS: Benzonatate 100 MG CAP PO PRN ×2 (11:55→17:49)
[2022-08-31] MEDS: cefTRIAXone\\ROCEPHIN 1 GM in Sodium Chloride 0.9% 100 ML IVPB SCH (15:12)
[2022-08-31] MEDS: Ondansetron ODT 4 MG TAB PO PRN (17:47)
[2022-08-31] MEDS: Atorvastatin Calcium 40 MG TAB PO SCH (21:12)
[2022-08-31] MEDS: Amitriptyline HCl 25 MG TAB PO SCH (21:12)
[2022-08-31] MEDS: tiZANidine HCl 4 MG TAB PO PRN (21:17)
[2022-09-01] MEDS: Acetaminophen/Codeine 30-300mg Tablet PO PRN ×2 (02:14→14:22)
[2022-09-01] MEDS: Benzonatate 100 MG CAP PO PRN (02:14)
[2022-09-01] MEDS ORDERED: Furosemide 40 MG/4 ML VIAL SLOW IVP SCH (08:00)
[2022-09-01] MEDS ORDERED: Senokot S 8.6-50 MG TAB PO PRN (09:30)
[2022-09-01] MEDS: Acetaminophen 500 MG TAB PO PRN ×2 (09:34→23:43)
[2022-09-01] MEDS: Polyethylene Glycol 3350 17 GM Packet PO SCH ×2 (09:34→21:04)
[2022-09-01] MEDS: Penicillin V Potassium 250 MG TAB PO SCH (09:34)
[2022-09-01] MEDS: Gabapentin 300 MG CAP PO SCH ×3 (09:35→21:00)
[2022-09-01] MEDS: Saccharomyces boulardii 250 MG CAP PO SCH (09:35)
[2022-09-01] MEDS: Famotidine 20 MG TAB PO SCH ×2 (09:36→21:00)
[2022-09-01] MEDS: Pramipexole Di-HCl 0.25 MG TAB PO SCH ×2 (09:36→21:00)
[2022-09-01] MEDS: Lisinopril 10 MG TAB PO SCH (09:36)
[2022-09-01] MEDS: Apixaban 2.5 MG TAB PO SCH ×2 (09:36→21:00)
[2022-09-01] MEDS: guaiFENesin ER 600 MG TAB PO SCH ×2 (09:37→21:00)
[2022-09-01] MEDS: Nystatin Powder 15 GM BOT TOP SCH ×2 (09:37→21:04)
[2022-09-01] MEDS: Furosemide 40 MG TAB PO SCH (09:37)
[2022-09-01 12:14] LABS: Campy jejuni + coli by PCR Negative (Negative); STEC Shiga Toxin 1+2 Negative (Negative); Salmonella spp. by PCR Negative (Negative); Shigella spp + EIEC by PCR Negative (Negative)
[2022-09-01] MEDS: Atorvastatin Calcium 40 MG TAB PO SCH (20:59)
[2022-09-01] MEDS: Amitriptyline HCl 25 MG TAB PO SCH (20:59)
[2022-09-01] MEDS: tiZANidine HCl 4 MG TAB PO PRN (21:01)
[2022-09-02] MEDS: Benzonatate 100 MG CAP PO PRN (05:27)
[2022-09-02] MEDS: Acetaminophen/Codeine 30-300mg Tablet PO PRN ×2 (05:27→17:24)
[2022-09-02] MEDS: Acetaminophen 500 MG TAB PO PRN ×2 (08:53→15:07)
[2022-09-02] MEDS: Apixaban 2.5 MG TAB PO SCH ×2 (08:54→20:00)
[2022-09-02] MEDS: guaiFENesin ER 600 MG TAB PO SCH ×2 (08:54→20:00)
[2022-09-02] MEDS: Gabapentin 300 MG CAP PO SCH ×3 (08:54→20:00)
[2022-09-02] MEDS: Saccharomyces boulardii 250 MG CAP PO SCH (08:54)
[2022-09-02] MEDS: Lisinopril 10 MG TAB PO SCH (08:54)
[2022-09-02] MEDS: Famotidine 20 MG TAB PO SCH ×2 (08:54→20:00)
[2022-09-02] MEDS: Furosemide 40 MG TAB PO SCH (08:54)
[2022-09-02] MEDS: Penicillin V Potassium 250 MG TAB PO SCH (08:55)
[2022-09-02] MEDS: Pramipexole Di-HCl 0.25 MG TAB PO SCH ×2 (08:55→20:00)
[2022-09-02] MEDS: Polyethylene Glycol 3350 17 GM Packet PO SCH ×2 (08:55→20:03)
[2022-09-02] MEDS: Nystatin Powder 15 GM BOT TOP SCH ×2 (08:55→20:03)
[2022-09-02 09:46] LABS: Anion Gap 17 mmol/L (10-20); BUN (Urea Nitrogen) 16 mg/dL (9.8-20.1); Calc. Creatinine Clearance 195 mL/min (70-130); Calcium 8.6 mg/dL (7.8-10.44); Carbon Dioxide 24 mmol/L (23-31); Chloride 105 mmol/L (98-107); Estimated GFR 74; Glucose 140 mg/dL (80-115); Potassium 3.5 mmol/L (3.5-5.1); Sodium 142 mmol/L (136-145)
[2022-09-02 10:27] LABS: #Basophils 0.1 thou/uL (0.0-0.2); #Eosinphils 0.6 thou/uL (0.0-0.7); #Lymphocytes 0.7 thou/uL (1.20-3.40); #Monocytes 0.4 thou/uL (0.11-0.59); #Neutrophils 3.9 thou/uL (1.40-6.50); %Basophils 1.9 % (0.0-1.0); %Eosinophils 10.2 % (0.0-10.0); %Lymphocytes 12.9 % (21.0-51.0); %Monocytes 6.7 % (0.0-10.0); %Neutrophils 68.3 % (42.0-75.0); Hemoglobin 9.8 g/dL (12.0-16.0); Mean Corpuscular HGB CONC 29.9 g/dL (32.0-36.0); Mean Corpuscular Hemoglobin 27.4 pg (27.0-31.0); Mean Corpuscular Volume 91.5 fL (78.0-98.0); Mean Platelet Volume 7.2 fL (7.4-10.4); Platelet Count 181 thou/uL (130-400); RBC Distribution Width 16.2 % (11.5-14.5); Red Blood Cell (RBC) Count 3.58 mill/uL (4.20-5.40); White Blood Cell (WBC) Count 5.7 thou/uL (4.8-10.8)
[2022-09-02] MEDS ORDERED: Furosemide 40 MG/4 ML VIAL SLOW IVP SCH (15:00)
[2022-09-02] MEDS: tiZANidine HCl 4 MG TAB PO PRN (19:59)
[2022-09-02] MEDS: Amitriptyline HCl 25 MG TAB PO SCH (20:00)
[2022-09-02] MEDS: Atorvastatin Calcium 40 MG TAB PO SCH (20:00)
[2022-09-03] MEDS: Acetaminophen/Codeine 30-300mg Tablet PO PRN (04:55)
[2022-09-03 05:03] VITALS: BMI 71.8
[2022-09-03] MEDS: Furosemide 40 MG TAB PO SCH (08:41)
[2022-09-03] MEDS: Lisinopril 10 MG TAB PO SCH (08:41)
[2022-09-03] MEDS: Apixaban 2.5 MG TAB PO SCH ×2 (08:41→21:10)
[2022-09-03] MEDS: Famotidine 20 MG TAB PO SCH ×2 (08:41→21:10)
[2022-09-03] MEDS: Gabapentin 300 MG CAP PO SCH ×3 (08:42→21:10)
[2022-09-03] MEDS: guaiFENesin ER 600 MG TAB PO SCH ×2 (08:44→21:10)
[2022-09-03] MEDS: Saccharomyces boulardii 250 MG CAP PO SCH (08:44)
[2022-09-03] MEDS: Pramipexole Di-HCl 0.25 MG TAB PO SCH ×2 (08:45→21:10)
[2022-09-03] MEDS: Polyethylene Glycol 3350 17 GM Packet PO SCH (08:46)
[2022-09-03] MEDS: Nystatin Powder 15 GM BOT TOP SCH ×2 (08:47→21:13)
[2022-09-03] MEDS: Penicillin V Potassium 250 MG TAB PO SCH (08:50)
[2022-09-03] MEDS ORDERED: Polyethylene Glycol 3350 17 GM Packet PO PRN (09:14)
[2022-09-03] MEDS: tiZANidine HCl 4 MG TAB PO PRN ×2 (15:51→21:10)
[2022-09-03] MEDS: Atorvastatin Calcium 40 MG TAB PO SCH (21:10)
[2022-09-03] MEDS: Amitriptyline HCl 25 MG TAB PO SCH (21:10)
[2022-09-04] MEDS: Benzonatate 100 MG CAP PO PRN (01:00)
[2022-09-04 06:21] LABS: Anion Gap 14 mmol/L (10-20); BUN (Urea Nitrogen) 17 mg/dL (9.8-20.1); Calc. Creatinine Clearance 217 mL/min (70-130); Calcium 8.5 mg/dL (7.8-10.44); Carbon Dioxide 29 mmol/L (23-31); Chloride 102 mmol/L (98-107); Estimated GFR 82; Glucose 118 mg/dL (80-115); Potassium 3.5 mmol/L (3.5-5.1); Sodium 141 mmol/L (136-145)
[2022-09-04 06:24] LABS: #Basophils 0.1 thou/uL (0.0-0.2); #Eosinphils 0.6 thou/uL (0.0-0.7); #Lymphocytes 0.8 thou/uL (1.20-3.40); #Monocytes 0.3 thou/uL (0.11-0.59); #Neutrophils 3.8 thou/uL (1.40-6.50); %Eosinophils 10.4 % (0.0-10.0); %Lymphocytes 14.8 % (21.0-51.0); %Neutrophils 67.8 % (42.0-75.0); Hemoglobin 9.8 g/dL (12.0-16.0); Mean Corpuscular Hemoglobin 27.5 pg (27.0-31.0); Mean Corpuscular Volume 91.5 fL (78.0-98.0); Platelet Count 173 thou/uL (130-400); RBC Distribution Width 16.5 % (11.5-14.5); Red Blood Cell (RBC) Count 3.58 mill/uL (4.20-5.40); White Blood Cell (WBC) Count 5.5 thou/uL (4.8-10.8)
[2022-09-04] MEDS: Nystatin Powder 15 GM BOT TOP SCH ×2 (07:49→20:31)
[2022-09-04] MEDS: Apixaban 2.5 MG TAB PO SCH ×2 (07:50→20:30)
[2022-09-04] MEDS: Saccharomyces boulardii 250 MG CAP PO SCH (07:50)
[2022-09-04] MEDS: Furosemide 40 MG TAB PO SCH (07:50)
[2022-09-04] MEDS: Penicillin V Potassium 250 MG TAB PO SCH (07:50)
[2022-09-04] MEDS: Lisinopril 10 MG TAB PO SCH (07:51)
[2022-09-04] MEDS: Gabapentin 300 MG CAP PO SCH ×3 (07:51→20:30)
[2022-09-04] MEDS: Famotidine 20 MG TAB PO SCH ×2 (07:51→20:30)
[2022-09-04] MEDS: guaiFENesin ER 600 MG TAB PO SCH ×2 (07:51→20:30)
[2022-09-04] MEDS: Pramipexole Di-HCl 0.25 MG TAB PO SCH ×2 (07:51→20:30)
[2022-09-04] MEDS: tiZANidine HCl 4 MG TAB PO PRN ×2 (10:46→20:30)
[2022-09-04] MEDS: Acetaminophen/Codeine 30-300mg Tablet PO PRN (18:21)
[2022-09-04] MEDS: Atorvastatin Calcium 40 MG TAB PO SCH (20:30)
[2022-09-04] MEDS: Amitriptyline HCl 25 MG TAB PO SCH (20:30)
[2022-09-05] MEDS: Acetaminophen/Codeine 30-300mg Tablet PO PRN (01:39)
[2022-09-05] MEDS: Pramipexole Di-HCl 0.25 MG TAB PO SCH ×2 (08:17→20:54)
[2022-09-05] MEDS: Famotidine 20 MG TAB PO SCH ×2 (08:17→20:54)
[2022-09-05] MEDS: Apixaban 2.5 MG TAB PO SCH ×2 (08:17→20:53)
[2022-09-05] MEDS: Saccharomyces boulardii 250 MG CAP PO SCH (08:17)
[2022-09-05] MEDS: Lisinopril 10 MG TAB PO SCH (08:17)
[2022-09-05] MEDS: guaiFENesin ER 600 MG TAB PO SCH ×2 (08:17→20:54)
[2022-09-05] MEDS: Gabapentin 300 MG CAP PO SCH ×3 (08:17→20:54)
[2022-09-05] MEDS: tiZANidine HCl 4 MG TAB PO PRN (08:17)
[2022-09-05] MEDS: Furosemide 40 MG TAB PO SCH (08:17)
[2022-09-05] MEDS: Nystatin Powder 15 GM BOT TOP SCH ×2 (09:00→20:55)
[2022-09-05] MEDS: Benzonatate 100 MG CAP PO PRN (13:49)
[2022-09-05] MEDS: Amitriptyline HCl 25 MG TAB PO SCH (20:53)
[2022-09-05] MEDS: Atorvastatin Calcium 40 MG TAB PO SCH (20:54)
[2022-09-06] MEDS: Acetaminophen/Codeine 30-300mg Tablet PO PRN ×2 (03:35→15:37)
[2022-09-06 06:16] LABS: Anion Gap 14 mmol/L (10-20); BUN (Urea Nitrogen) 13 mg/dL (9.8-20.1); Calc. Creatinine Clearance 225 mL/min (70-130); Calcium 8.3 mg/dL (7.8-10.44); Carbon Dioxide 27 mmol/L (23-31); Chloride 102 mmol/L (98-107); Estimated GFR 86; Glucose 144 mg/dL (80-115); Potassium 3.1 mmol/L (3.5-5.1); Sodium 140 mmol/L (136-145)
[2022-09-06 06:40] LABS: #Basophils 0.1 thou/uL (0.0-0.2); #Eosinphils 0.6 thou/uL (0.0-0.7); #Lymphocytes 0.7 thou/uL (1.20-3.40); #Monocytes 0.4 thou/uL (0.11-0.59); #Neutrophils 4.2 thou/uL (1.40-6.50); %Basophils 1.7 % (0.0-1.0); %Eosinophils 9.5 % (0.0-10.0); %Lymphocytes 12.2 % (21.0-51.0); %Neutrophils 69.7 % (42.0-75.0); Hemoglobin 9.7 g/dL (12.0-16.0); Mean Corpuscular HGB CONC 29.8 g/dL (32.0-36.0); Mean Corpuscular Hemoglobin 27.4 pg (27.0-31.0); Mean Platelet Volume 6.7 fL (7.4-10.4); Platelet Count 164 thou/uL (130-400); RBC Distribution Width 16.2 % (11.5-14.5); Red Blood Cell (RBC) Count 3.54 mill/uL (4.20-5.40)
[2022-09-06] MEDS: Pramipexole Di-HCl 0.25 MG TAB PO SCH ×2 (07:56→20:30)
[2022-09-06] MEDS: guaiFENesin ER 600 MG TAB PO SCH ×2 (07:56→20:28)
[2022-09-06] MEDS: Saccharomyces boulardii 250 MG CAP PO SCH (07:56)
[2022-09-06] MEDS: Apixaban 2.5 MG TAB PO SCH ×2 (07:57→20:30)
[2022-09-06] MEDS: Acetaminophen 500 MG TAB PO PRN ×2 (07:57→22:32)
[2022-09-06] MEDS: Famotidine 20 MG TAB PO SCH ×2 (07:57→20:31)
[2022-09-06] MEDS: Lisinopril 10 MG TAB PO SCH (07:57)
[2022-09-06] MEDS: Gabapentin 300 MG CAP PO SCH ×3 (07:58→20:31)
[2022-09-06] MEDS: Nystatin Powder 15 GM BOT TOP SCH ×2 (07:59→20:33)
[2022-09-06] MEDS: Potassium Chloride 20 MEQ TAB PO SCH ×2 (08:35→20:29)
[2022-09-06] MEDS: Furosemide 40 MG TAB PO SCH (08:35)
[2022-09-06 08:37] LABS: Magnesium 2.3 mg/dL (1.6-2.6)
[2022-09-06] MEDS: tiZANidine HCl 4 MG TAB PO PRN ×2 (11:13→20:33)
[2022-09-06] MEDS: Amitriptyline HCl 25 MG TAB PO SCH (20:30)
[2022-09-06] MEDS: Atorvastatin Calcium 40 MG TAB PO SCH (20:31)
[2022-09-06] MEDS: Benzonatate 100 MG CAP PO PRN (22:32)
[2022-09-06] MEDS: Albuterol Sulfate 2.5 mg/3 ml Neb NEB PRN (23:55)
[2022-09-07] MEDS: Acetaminophen/Codeine 30-300mg Tablet PO PRN (04:03)
[2022-09-07] MEDS: tiZANidine HCl 4 MG TAB PO PRN ×2 (08:14→15:33)
[2022-09-07] MEDS: Gabapentin 300 MG CAP PO SCH ×3 (08:15→20:52)
[2022-09-07] MEDS: Potassium Chloride 20 MEQ TAB PO SCH (08:31)
[2022-09-07] MEDS: Lisinopril 10 MG TAB PO SCH (08:32)
[2022-09-07] MEDS: Saccharomyces boulardii 250 MG CAP PO SCH (08:32)
[2022-09-07] MEDS: guaiFENesin ER 600 MG TAB PO SCH ×2 (08:33→20:52)
[2022-09-07] MEDS: Furosemide 40 MG TAB PO SCH (08:33)
[2022-09-07] MEDS: Apixaban 2.5 MG TAB PO SCH ×2 (08:33→20:52)
[2022-09-07] MEDS: Famotidine 20 MG TAB PO SCH ×2 (08:33→20:52)
[2022-09-07] MEDS: Pramipexole Di-HCl 0.25 MG TAB PO SCH ×2 (08:33→20:52)
[2022-09-07] MEDS: Nystatin Powder 15 GM BOT TOP SCH ×2 (08:35→20:53)
[2022-09-07] MEDS: Amitriptyline HCl 25 MG TAB PO SCH (20:52)
[2022-09-07] MEDS: Atorvastatin Calcium 40 MG TAB PO SCH (20:53)
[2022-09-07] MEDS: Benzonatate 100 MG CAP PO PRN (22:35)
[2022-09-08] MEDS: Acetaminophen/Codeine 30-300mg Tablet PO PRN ×2 (03:08→21:10)
[2022-09-08 05:32] LABS: #Basophils 0.1 thou/uL (0.0-0.2); #Eosinphils 0.6 thou/uL (0.0-0.7); #Lymphocytes 0.6 thou/uL (1.20-3.40); #Monocytes 0.5 thou/uL (0.11-0.59); #Neutrophils 4.5 thou/uL (1.40-6.50); %Eosinophils 9.1 % (0.0-10.0); %Lymphocytes 9.8 % (21.0-51.0); %Monocytes 8.1 % (0.0-10.0); %Neutrophils 70.9 % (42.0-75.0); Hemoglobin 9.8 g/dL (12.0-16.0); Mean Corpuscular HGB CONC 30.3 g/dL (32.0-36.0); Mean Corpuscular Hemoglobin 27.6 pg (27.0-31.0); Mean Platelet Volume 6.8 fL (7.4-10.4); Platelet Count 172 thou/uL (130-400); RBC Distribution Width 16.2 % (11.5-14.5); Red Blood Cell (RBC) Count 3.54 mill/uL (4.20-5.40); White Blood Cell (WBC) Count 6.3 thou/uL (4.8-10.8)
[2022-09-08 05:43] LABS: Anion Gap 13 mmol/L (10-20); BUN (Urea Nitrogen) 17 mg/dL (9.8-20.1); Calc. Creatinine Clearance 223 mL/min (70-130); Calcium 8.9 mg/dL (7.8-10.44); Carbon Dioxide 28 mmol/L (23-31); Chloride 102 mmol/L (98-107); Estimated GFR 85; Glucose 125 mg/dL (80-115); Potassium 3.5 mmol/L (3.5-5.1); Sodium 139 mmol/L (136-145)
[2022-09-08] MEDS: Gabapentin 300 MG CAP PO SCH ×3 (08:18→21:12)
[2022-09-08] MEDS: Saccharomyces boulardii 250 MG CAP PO SCH (08:19)
[2022-09-08] MEDS: guaiFENesin ER 600 MG TAB PO SCH ×2 (08:19→21:13)
[2022-09-08] MEDS: Lisinopril 10 MG TAB PO SCH (08:19)
[2022-09-08] MEDS: Famotidine 20 MG TAB PO SCH ×2 (08:20→21:12)
[2022-09-08] MEDS: Nystatin Powder 15 GM BOT TOP SCH ×2 (08:20→21:13)
[2022-09-08] MEDS: Pramipexole Di-HCl 0.25 MG TAB PO SCH ×2 (08:20→21:13)
[2022-09-08] MEDS: Furosemide 40 MG TAB PO SCH (08:20)
[2022-09-08] MEDS: Apixaban 2.5 MG TAB PO SCH ×2 (08:20→21:13)
[2022-09-08] MEDS: tiZANidine HCl 4 MG TAB PO PRN ×2 (11:42→21:13)
[2022-09-08] MEDS: Benzonatate 100 MG CAP PO PRN ×2 (14:39→21:13)
[2022-09-08] MEDS: Atorvastatin Calcium 40 MG TAB PO SCH (21:13)
[2022-09-08] MEDS: Amitriptyline HCl 25 MG TAB PO SCH (21:13)
[2022-09-09] MEDS: Acetaminophen 500 MG TAB PO PRN (02:19)
[2022-09-09] MEDS: Gabapentin 300 MG CAP PO SCH (08:25)
[2022-09-09] MEDS: Famotidine 20 MG TAB PO SCH (08:26)
[2022-09-09] MEDS: Lisinopril 10 MG TAB PO SCH (08:26)
[2022-09-09] MEDS: Saccharomyces boulardii 250 MG CAP PO SCH (08:26)
[2022-09-09] MEDS: Apixaban 2.5 MG TAB PO SCH (08:26)
[2022-09-09] MEDS: guaiFENesin ER 600 MG TAB PO SCH (08:26)
[2022-09-09] MEDS: Pramipexole Di-HCl 0.25 MG TAB PO SCH (08:26)
[2022-09-09] MEDS: Furosemide 40 MG TAB PO SCH (08:26)
[2022-09-09] MEDS: Nystatin Powder 15 GM BOT TOP SCH (08:28)
[2022-09-11 11:08] VITALS: BP 141/65; TEMP 96.9
== END 2022-09-09 12:45 | disposition home health service (06) | DRG 948 ==
LOC: NAV ACUTE 18:27
PROVIDERS: ADMIT Family Medicine; ATTEND Family Medicine
DX: R53.1 Weakness (principal); N39.0 Urinary tract infection, site not specified; T83.511A Infection and inflammatory reaction due to indwelling urethral catheter, initial encounter; L03.90 Cellulitis, unspecified; Z68.45 Body mass index [BMI] 70 or greater, adult; K59.00 Constipation, unspecified; R19.7 Diarrhea, unspecified; I89.0 Lymphedema, not elsewhere classified; F41.9 Anxiety disorder, unspecified; D64.9 Anemia, unspecified; G47.33 Obstructive sleep apnea (adult) (pediatric); B96.4 Proteus (mirabilis) (morganii) as the cause of diseases classified elsewhere; G89.4 Chronic pain syndrome; I88.1 Chronic lymphadenitis, except mesenteric; I10 Essential (primary) hypertension; J45.909 Unspecified asthma, uncomplicated; E66.01 Morbid (severe) obesity due to excess calories; I25.10 Atherosclerotic heart disease of native coronary artery without angina pectoris; Z95.5 Presence of coronary angioplasty implant and graft; I73.9 Peripheral vascular disease, unspecified; K42.9 Umbilical hernia without obstruction or gangrene
CPT/HCPCS: 36415; 80048; 83630; 83735; 85025; 87324; 87449; 87505; 87811; 90471; 90686; 90732; G0008; G0009; J0696; J1940; J3490; J7611; Q0162